=== PATIENT | female | born 1940 | race African-American/Black ===

== ENCOUNTER → 2016-06-12 | Outpatient (CLI) | payer MEDICARE ==
[2016-03-26 11:22] VITALS: BP 151/75
[~2016-06-12] MED LIST: ALBU0.63 NEB; AMLO10TA2 PO; ASPI325T4 PO; ATORVASTATIN CA80 MG PO; BUDE10.2 IH; CALC0.25 PO; CHOL2000 PO; CLON0.1T PO; DICL100G7 TP; DICL112S2 TP; DICY10CA3 PO; FLUT9.9S NS; FURO80TA3 PO; GABA-585 PO; INSU100I17 SQ; INSU300I SQ; METO25TA4 PO; NITR0.4T6 SL; OMEP40CA5 PO; OXYC-323 PO; OXYC5TAB PO; PROAIR HFA8.5 GM INH; SODI650T PO; SPIR25TA3 PO; TIZA4TAB PO; TRIA15OI TP
--- NOTE | 2016-06-12 12:13 | KCIC ---
Examination: MRI of the left knee without contrast. HISTORY History of bilateral knee pain ,right greater than left, instability, swelling. COMPARISON None available. TECHNIQUE Multiplanar, multisequence MR imaging of the left knee are contrast Findings: The anterior cruciate ligament, posterior cruciate ligament appears intact. There is complete attenuated appearance of the body of the medial meniscus with diffuse increase in signal identified throughout the visualized medial meniscus likely due to severe degeneration. The lateral meniscus grossly appears intact. The medial collateral ligament is intact. The lateral collateral ligamentous complex including the fibular collateral ligament, biceps femoris tendon, popliteus tendon grossly appears intact. The extensor mechanism is intact. Mild tendinosis infrapatellar tendon. Small knee joint effusion identified. There is complete cartilage loss identified in the weightbearing portion of the medial compartment with subchondral cysts in identified in the medial femoral condyle. There is near-complete cartilage loss identified in the weightbearing portion of the lateral femoral condyle and the patellofemoral compartment. Small knee joint effusion identified. There is a small popliteal cyst identified. Moderate amount of subcutaneous edema identified about the knee joint and distal thigh region. There is severe joint space loss identified in the medial, lateral, patellofemoral compartment most severe in the medial compartment. Moderate size osteophyte formation identified in the medial compartment. Small osteophyte formation in the lateral, patellofemoral compartment. Fatty atrophic changes identified in the muscles of the around the knee joint. Impression : - Severe tricompartmental degenerative changes, most severe in the medial compartment. 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 Grade 2 chondromalacia identified in the lateral, patellofemoral compartment. - Moderate knee joint effusion with small popliteal cyst. - Moderate amount of subcutaneous edema identified about the knee joint and lower thigh region, nonspecific. - Complete attenuated appearance of the body of the medial meniscus with increased signal identified throughout the medial meniscus likely due to degeneration. Electronically signed by: Froylan Olvera (Jun 12, 2016 12:12:01)
--- NOTE | 2016-06-12 13:06 | KCIC ---
Examination: MRI of the right knee without contrast. HISTORY History of chronic knee pain, instability, swelling. COMPARISON None available. TECHNIQUE Multiplanar, multisequence MR imaging of the right knee was performed without contrast Findings: The anterior cruciate ligament, posterior cruciate ligament appear intact. Attenuated appearance of the body of the medial meniscus with increased signal in the undersurface of the posterior horn of the medial meniscus likely due to degeneration. The medial collateral ligament appears intact. The lateral collateral ligamentous complex including the fibular collateral ligament, biceps femoris tendon, popliteus tendon appear intact. The extensor mechanism is intact. Mild tendinosis infrapatellar tendon. There is mild tendinosis of the quadriceps tendon. Minimal knee joint effusion identified. Small subchondral cystic changes identified in the medial compartment. There is complete cartilage loss identified in the weightbearing portion of the medial compartment, near complete cartilage loss identified in the weightbearing portion of the lateral compartment. There is deep fissuring of cartilage identified in the patellofemoral compartment. The medial, lateral retinacula appear intact. Moderate subcutaneous edema identified about the knee joint and distal thigh region. Small popliteal cyst is noted. Large osteophyte formation identified in the medial, lateral, patellofemoral compartments. IMPRESSION - Severe tricompartmental degenerative changes, most in the medial compartment. - Attenuated appearance of the medial meniscus likely due to degeneration. - Small knee joint effusion with small popliteal cyst. - Moderate amount of edema identified around the knee joint and the distal thigh region in the subcutaneous region, nonspecific. Electronically signed by: Froylan Olvera (Jun 12, 2016 13:05:52)
== END | disposition home or self-care (01) ==
LOC: KCIC MRI 10:48
PROVIDERS: ATTEND Physical Medicine & Rehabilitation
DX: M17.0 Bilateral primary osteoarthritis of knee (principal); M25.461 Effusion, right knee
CPT/HCPCS: 73721

== ENCOUNTER → 2016-12-13 | Outpatient (CLI) | payer BC ==
[2016-03-26 11:22] VITALS: BP 151/75
[~2016-12-13] MED LIST changes: -ASPI325T4 PO; +ASPI325T8 PO; +DICL100G18 TP; -DICL100G7 TP; +NITR0.4T22 SL; -NITR0.4T6 SL
== END | disposition home or self-care (01) ==
LOC: LAB 11:17
PROVIDERS: ATTEND Internal Medicine
DX: N18.6 End stage renal disease (principal); Z68.36 Body mass index [BMI] 36.0-36.9, adult
CPT/HCPCS: 36415; 86704; 87340; 87341

== ENCOUNTER → 2016-12-13 | Outpatient (CLI) | payer BC ==
[2016-03-26 11:22] VITALS: BP 151/75
--- NOTE | 2016-12-13 12:37 | RAD ---
Indication end-stage renal disease. Patient starting dialysis. PA and lateral views of the chest were obtained. Comparison is made to a single view examination 11/18/2015. There is unchanged cardiomegaly. Somewhat tortuous thoracic aorta is noted appearing similar. There is no gross congestive heart failure. There is no consolidated pneumonia significant pleural fluid collection or pneumothorax. A significant change in the appearance of the chest compared to the prior exam is not seen. IMPRESSION: No acute finding or significant change
== END | disposition home or self-care (01) ==
LOC: RAD 11:24
PROVIDERS: ATTEND Internal Medicine Nephrology
DX: N18.6 End stage renal disease (principal)
CPT/HCPCS: 71020

== ENCOUNTER 2017-08-28 14:30 | Emergency (ER) | payer BC ==
[2017-08-28 15:20] LABS: ADD MAN DIFF? NO
[2017-08-28 15:24] LABS: BASO % 1 % (0-3); EOS # 0.2 x10^3/uL (0.0-0.7); EOS % 4 % (0-3); HEMATOCRIT 23.2 % (36.0-47.0); HEMOGLOBIN 7.5 g/dL (12.0-15.5); LYMPH # 1.7 x10^3/uL (1.0-4.8); LYMPH % 39 % (24-48); MEAN CORPUSCULAR HEMOGLOBIN 35 pg (25-35); MEAN CORPUSCULAR HGB CONC 32 g/dL (31-37); MEAN CORPUSCULAR VOLUME 107 fL (79-100); MONO # 0.3 x10^3/uL (0.0-1.1); MONO % 6 % (0-9); NEUT # 2.1 x10^3uL (1.8-7.7); NEUT % 50 % (31-73); PLATELET COUNT 251 x10^3/uL (140-400); RED BLOOD COUNT 2.17 x10^6/uL (3.50-5.40); RED CELL DISTRIBUTION WIDTH 20.7 % (11.5-14.5); WHITE BLOOD COUNT 4.3 x10^3/uL (4.0-11.0)
[2017-08-28 15:33] LABS: PARTIAL THROMBOPLASTIN TIME 33 SEC (24-38); PROTHROMBIN TIME PATIENT 12.4 SEC (11.7-14.0)
[2017-08-28 15:36] LABS: ANION GAP 9 (6-14); BLOOD UREA NITROGEN 17 mg/dL (7-20); BUN/CREATININE RATIO 11 (6-20); CALCIUM 8.5 mg/dL (8.5-10.1); CARBON DIOXIDE 28 mmol/L (21-32); CHLORIDE 105 mmol/L (98-107); CREATININE 1.6 mg/dL (0.6-1.0); GLUCOSE 142 mg/dL (70-99); POTASSIUM 3.3 mmol/L (3.5-5.1); SODIUM 142 mmol/L (136-145)
[2017-08-28 15:42] LABS: ALBUMIN 2.9 g/dL (3.4-5.0); ALBUMIN/GLOBULIN RATIO 0.9 (1.0-1.7); ALK PHOS 136 U/L (46-116); ALT (SGPT) 10 U/L (14-59); AST (SGOT) 13 U/L (15-37); TOTAL BILIRUBIN 0.2 mg/dL (0.2-1.0); TOTAL PROTEIN 6.2 g/dL (6.4-8.2)
[2017-08-28 16:06] LABS: PLT ESTIMATE ADEQUATE (ADEQUATE)
[2017-08-28 16:07] LABS: ANISOCYTOSIS MOD; POIKILOCYTOSIS SLIGHT; POLYCHROMASIA SLIGHT
== END 2017-08-28 16:46 | disposition home or self-care (01) ==
LOC: ER 14:30
DX: N18.6 End stage renal disease (principal); D64.9 Anemia, unspecified; E11.22 Type 2 diabetes mellitus with diabetic chronic kidney disease; I13.2 Hypertensive heart and chronic kidney disease with heart failure and with stage 5 chronic kidney disease, or end stage renal disease; I50.9 Heart failure, unspecified; E11.40 Type 2 diabetes mellitus with diabetic neuropathy, unspecified; Z99.2 Dependence on renal dialysis; J44.9 Chronic obstructive pulmonary disease, unspecified; K21.9 Gastro-esophageal reflux disease without esophagitis; I25.10 Atherosclerotic heart disease of native coronary artery without angina pectoris; Z79.4 Long term (current) use of insulin; Z88.6 Allergy status to analgesic agent; Z88.8 Allergy status to other drugs, medicaments and biological substances; Z91.041 Radiographic dye allergy status
CPT/HCPCS: 36415; 80053; 85025; 85610; 85730; 86850; 86900; 86901; 99284

== ENCOUNTER → 2018-02-18 | Outpatient (CLI) | payer BC ==
[2017-08-28 16:15] VITALS: BP 130/57
[~2018-02-18] MED LIST changes: -AMLO10TA2 PO; +AMLO10TA4 PO; +AMLO10TA6 PO; +ASPI325T11 PO; +CHOL10003 PO; +FLUT16SP NS; +FURO80TA72 PO; +GABA600T2 PO; +LISI-334 PO; +METO-239 PO; +MIDO2.5T PO; +NITR0.4T SL; -OXYC5TAB PO; +OXYC5TAB95 PO; +SPIR25TA PO; -SPIR25TA3 PO; +SPIR25TA5 PO; +TIZA4CAP3 PO; +TRIA80OI TP
--- NOTE | 2018-02-18 11:51 | CARD ---
MR#: [id number] Date of Study: 02/18/2018 Ordering Physician: CHRISTOPH NAGY, Referring Physician: CHRISTOPH NAGY, Tech: Donna Del Cid APPROVED REPORT EXAM: Two-dimensional and M-mode echocardiogram with Doppler and color Doppler. Other Information Quality : AverageHR: 78bpm INDICATION Dizziness and Vertigo RISK FACTORS Hypertension Hyperlipidemia Diabetes 2D DIMENSIONS RVDd2.8 (2.9-3.5cm)Left Atrium(2D)3.9 (1.6-4.0cm) IVSd1.1 (0.7-1.1cm)Aortic Root(2D)3.6 (2.0-3.7cm) LVDd4.8 (3.9-5.9cm)LVOT Diameter2.4 (1.8-2.4cm) PWd1.3 (0.7-1.1cm)LVDs3.4 (2.5-4.0cm) FS (%) 28.8 %SV60.2 ml LVEF(%)55.4 (>50%) Aortic Valve AoV Peak Ovidio.137.8cm/sAoV VTI29.4cm AO Peak GR.7.6mmHgLVOT Peak Ovidio.98.9cm/s AO Mean GR.4mmHgAVA (VMAX)3.35cm2 Mitral Valve MV E Tgagdaju90.5cm/sMV DECEL UETH380tr MV A Dnsbpurz015.5cm/sE/A Ratio0.5 Pulmonary Valve PV Peak Ifasqgli108.5cm/s Tricuspid Valve TR P. Trkmwlfy223ml/sRAP DXPXQKBX2jjNa TR Peak Gr.26qnFnMFWD81mdCj Pulmonary Vein S1 Licooycu56.6cm/sD2 Ckzvwzfq55.1cm/s PVa dclxarvx520vvis LEFT VENTRICLE The left ventricle is normal size. There is borderline to mild concentric left ventricular hypertroph y. The left ventricular systolic function is normal. The Ejection Fraction is 55-60%. There is normal LV segmental wall motion. Transmitral Doppler flow pattern is Grade I-abnormal relaxation pattern. RIGHT VENTRICLE The right ventricle is normal size. There is normal right ventricular wall thickness. The right ventr icular systolic function is normal. ATRIA The left atrium size is normal. The right atrium size is normal. The interatrial septum is intact wit h no evidence for an atrial septal defect or patent foramen ovale as noted on 2-D or Doppler imaging. AORTIC VALVE The aortic valve is mildly thickened but opens well. Doppler and Color Flow revealed mild aortic regu rgitation. Calculated aortic valve area is 3.6 cm2 with maximum pressure gradient of 8 mmHg and mean pressure gradient of 4 mmHg. MITRAL VALVE The mitral valve is thickened but opens well. There is no mitral valve stenosis. Doppler and Color-fl ow revealed trace mitral regurgitation. TRICUSPID VALVE The tricuspid valve is not well visualized. Doppler and Color Flow revealed no tricuspid valve regurg itation noted. There is no tricuspid valve stenosis. PULMONIC VALVE The pulmonary valve is normal in structure and function. Doppler and Color Flow revealed trace pulmon ic valvular regurgitation. GREAT VESSELS The aortic root is normal in size. Normal pulmonary venous flow (Doppler). The IVC is normal in size and collapses >50% with inspiration. PERICARDIAL EFFUSION There is no evidence of significant pericardial effusion. Critical Notification Critical Value: No <Conclusion> The left ventricular systolic function is normal. The Ejection Fraction is 55-60%. There is normal LV segmental wall motion. Transmitral Doppler flow pattern is Grade I-abnormal relaxation pattern. Mild aortic regurgitation. Trace mitral regurgitation. There is no evidence of significant pericardial effusion. Signed by : Andrea Calderon, Electronically Approved : 02/18/2018 11:50:02
== END | disposition home or self-care (01) ==
LOC: ECHO 09:56
PROVIDERS: ATTEND Internal Medicine Cardiovascular Disease
DX: I35.1 Nonrheumatic aortic (valve) insufficiency (principal); I10 Essential (primary) hypertension; E78.5 Hyperlipidemia, unspecified; E11.9 Type 2 diabetes mellitus without complications; Z79.4 Long term (current) use of insulin
CPT/HCPCS: 93306

== ENCOUNTER → 2018-06-12 | Outpatient (CLI) | payer BC ==
[2018-05-07 11:02] VITALS: BP 103/50
[~2018-06-12] MED LIST changes: +ALBU2.5V8 INH; -AMLO10TA6 PO; +AMLO10TA8 PO; +BARIUM SULFATE 340 GM SUSPENSION. PO ONE; +BARIUM SULFATE 60% 355 ML SUSP PO ONE; +BIOT5CAP3 PO; +CALC667T PO; +CETI10TA22 PO; +CINA30TA2 PO; -GABA600T2 PO; +GABA600T7 PO; +LIDO30CR TP; +LINZESS145 MCG PO; +LOPE2CAP88 PO; +NYST1POW2 PO; +ONDA8TAB9 PO; -OXYC-323 PO; +OXYC1TAB15 PO; +OXYC5TAB4 PO; -OXYC5TAB95 PO; -PROAIR HFA8.5 GM INH; +SENN-82 PO; +SIMETHICONE/SOD BICARB/CITRIC ACID PACKET. PO ONE; +VENTOLIN HFA18 GM INH; +VIT1TABL57 PO
--- NOTE | 2018-06-12 10:44 | RAD ---
Examination: ESOPHAGRAM/BARIUM SWALLOW History: sore throat/ hoarseness/ food stuck and feels like its coming back up/ hard to swallow/ 8 images/ 1.4 Comparison/Correlation: None Findings: There contrast and tail contrast esophagram was performed. Fluoroscopy was utilized for 1.4 minutes. Total of 8 images acquired. Due to patient's physical limitations, the exam was performed primarily with her lying on her right side and in the prone GUTIERREZ position. Few images were obtained with the patient standing. Esophageal motility is normal. Normal distention of the esophagus is evident. No strictures, webs, or diverticuli. At the cervical esophageal level, degenerative spurring of the cervical spine anteriorly is present with indentation along the posterior margin of the cervical esophagus. This is from the C4-C7 levels. No hiatal hernia is elicited on prone Valsalva drinking views. No reflux. Impression: Spurring of the lower cervical spine with subtle effacement of the posterior contour of the cervical esophagus. No suspicious filling defects or strictures. Motility is unremarkable. Electronically signed by: Scott Hernandez MD (06/12/2018 10:40 AM) [facility]
== END | disposition home or self-care (01) ==
LOC: RAD 09:37
PROVIDERS: ATTEND Internal Medicine
DX: R13.14 Dysphagia, pharyngoesophageal phase (principal); I11.0 Hypertensive heart disease with heart failure; I50.9 Heart failure, unspecified; E78.00 Pure hypercholesterolemia, unspecified; J44.9 Chronic obstructive pulmonary disease, unspecified; E66.9 Obesity, unspecified; K21.9 Gastro-esophageal reflux disease without esophagitis; M19.90 Unspecified osteoarthritis, unspecified site; E03.9 Hypothyroidism, unspecified
CPT/HCPCS: 74220

== ENCOUNTER 2018-07-07 16:58 | Inpatient (IN) | payer BC ==
[~2018-07-07] VITALS: Ht 160 cm; Wt 97.6 kg
[~2018-07-07 16:58] MED LIST changes: -BARIUM SULFATE 340 GM SUSPENSION. PO ONE; -BARIUM SULFATE 60% 355 ML SUSP PO ONE; -CALC667T PO; +CALC667T4 PO; -SIMETHICONE/SOD BICARB/CITRIC ACID PACKET. PO ONE
[2018-07-07 17:48] LABS: BASO % 1 % (0-3); EOS # 0.4 x10^3/uL (0.0-0.7); EOS % 8 % (0-3); HEMATOCRIT 28.9 % (36.0-47.0); LYMPH # 1.4 x10^3/uL (1.0-4.8); LYMPH % 27 % (24-48); MEAN CORPUSCULAR HEMOGLOBIN 32 pg (25-35); MEAN CORPUSCULAR HGB CONC 31 g/dL (31-37); MEAN CORPUSCULAR VOLUME 101 fL (79-100); MONO # 0.6 x10^3/uL (0.0-1.1); MONO % 11 % (0-9); NEUT # 2.7 x10^3uL (1.8-7.7); NEUT % 53 % (31-73); PLATELET COUNT 246 x10^3/uL (140-400); RED BLOOD COUNT 2.86 x10^6/uL (3.50-5.40); RED CELL DISTRIBUTION WIDTH 19.6 % (11.5-14.5); WHITE BLOOD COUNT 5.2 x10^3/uL (4.0-11.0)
[2018-07-07 17:53] LABS: PROTHROMBIN TIME PATIENT 14.3 SEC (11.7-14.0)
[2018-07-07 17:55] LABS: CALCIUM 8.4 mg/dL (8.5-10.1); CREATININE 3.6 mg/dL (0.6-1.0); GFR 14.9; POTASSIUM 4.1 mmol/L (3.5-5.1)
[2018-07-07 18:01] LABS: ALBUMIN 2.6 g/dL (3.4-5.0); ALBUMIN/GLOBULIN RATIO 0.6 (1.0-1.7); MAGNESIUM 2.1 mg/dL (1.8-2.4); TOTAL BILIRUBIN 0.2 mg/dL (0.2-1.0); TOTAL PROTEIN 7.2 g/dL (6.4-8.2)
--- NOTE | 2018-07-07 18:01 | PHYS DOC ---
Past Medical History Past Medical History: CAD, COPD, Diabetes-Type II, GERD, Hypertension, Renal Failure, Other Additional Past Medical Histor: Neuropathy (ELENA LAKHANI MD) Past Surgical History: Cholecystectomy, Hysterectomy, Other Additional Past Surgical Histo: shunt placement left forearm, gastric bypass (ELENA LAKHANI MD) Alcohol Use: None Drug Use: None (ELENA LAKHANI MD) Adult General Chief Complaint Chief Complaint: NEURO SYMPTOMS/DEFICITS HPI HPI Patient is a 78 year old female female by her daughter because of altered level of consciousness. Patient was not her usual condition 5 days ago by her daughter and today was found confused with decrease of level of consciousness by her daughter at 1540 and brought POV to ER. Patient's daughter states she usually gets confused after dialysis with increased facial parsley but today had slurred speech also with increase of confusion. Patient is lethargic but follows the commands and unable to give history. (ELENA LAKHANI MD) Review of Systems Review of Systems Unable to obtain because of altered level of consciousness (ELENA LAKHANI MD) Allergies Allergies Allergies Coded Allergies Type Severity Reaction Last Updated Verified NSAIDS (Non-Steroidal Anti-Inflamma Allergy Severe Swelling 07/27/17 Yes pregabalin Allergy Severe Swelling 05/03/18 Yes tramadol Allergy Severe Swelling 05/03/18 Yes Iodinated Contrast- Oral and IV Dye Allergy Intermediate ITCHING/HIVES Yes Iodine and Iodide Containing Produc Allergy Intermediate ITCHING/HIVES Yes ibuprofen Adverse Reaction Intermediate UPSET STOMACH 05/03/18 Yes (RAMONA HONG MD) Physical Exam Physical Exam Constitutional: Well nourished, mild distress, non-toxic appearance, lethargic. [] HENT: Normocephalic, atraumatic Eyes: PERRLA, EOMI, conjunctiva normal, no discharge. [] Neck: Normal range of motion, no tenderness, supple, no stridor. [] Cardiovascular:Heart rate regular rhythm, systolic murmur [] Lungs & Thorax: Bilateral breath sounds clear to auscultation [] Abdomen: Bowel sounds normal, soft, no tenderness, no masses, no pulsatile masses. [] Skin: Warm, dry, no erythema, no rash. [] Back: No tenderness, no CVA tenderness. [] Extremities: No tenderness, no cyanosis, no clubbing, ROM intact, no edema. [] Neurologic: Alert and oriented X 1, moving all extremities, facial droop. Limited exam because of altered level of consciousness (ELENA LAKHANI MD) Current Patient Data Vital Signs Vital Signs Date Time Temp Pulse Resp B/P (MAP) Pulse Ox O2 Delivery O2 Flow Rate FiO2 07/07/18 16:58 97.3 81 12 89/55 (66) 95 Room Air 97.3 (RAMONA HONG MD) Lab Values Laboratory Tests Test 07/07/18 17:02 07/07/18 17:31 07/07/18 18:00 07/07/18 19:02 Glucose (Fingerstick) 152 mg/dL (70-99) H White Blood Count 5.2 x10^3/uL (4.0-11.0) Red Blood Count 2.86 x10^6/uL (3.50-5.40) L Hemoglobin 9.0 g/dL (12.0-15.5) L Hematocrit 28.9 % (36.0-47.0) L Mean Corpuscular Volume 101 fL (79-100) H Mean Corpuscular Hemoglobin 32 pg (25-35) Mean Corpuscular Hemoglobin Concent 31 g/dL (31-37) Red Cell Distribution Width 19.6 % (11.5-14.5) H Platelet Count 246 x10^3/uL (140-400) Neutrophils (%) (Auto) 53 % (31-73) Lymphocytes (%) (Auto) 27 % (24-48) Monocytes (%) (Auto) 11 % (0-9) H Eosinophils (%) (Auto) 8 % (0-3) H Basophils (%) (Auto) 1 % (0-3) Neutrophils # (Auto) 2.7 x10^3uL (1.8-7.7) Lymphocytes # (Auto) 1.4 x10^3/uL (1.0-4.8) Monocytes # (Auto) 0.6 x10^3/uL (0.0-1.1) Eosinophils # (Auto) 0.4 x10^3/uL (0.0-0.7) Basophils # (Auto) 0.0 x10^3/uL (0.0-0.2) Segmented Neutrophils % 53 % (35-66) Lymphocytes % 29 % (24-48) Monocytes % 7 % (0-10) Eosinophils % 9 % (0-5) H Metamyelocytes % 2 % (0-0) H Platelet Estimate Adequate (ADEQUATE) Polychromasia Slight Hypochromasia Slight Anisocytosis Slight Prothrombin Time 14.3 SEC (11.7-14.0) H Prothrombin Time INR 1.1 (0.8-1.1) PTT 38 SEC (24-38) Sodium Level 141 mmol/L (136-145) Potassium Level 4.1 mmol/L (3.5-5.1) Chloride Level 101 mmol/L (98-107) Carbon Dioxide Level 25 mmol/L (21-32) Anion Gap 15 (6-14) H Blood Urea Nitrogen 24 mg/dL (7-20) H Creatinine 3.6 mg/dL (0.6-1.0) H Estimated GFR (Cockcroft-Gault) 14.9 BUN/Creatinine Ratio 7 (6-20) Glucose Level 169 mg/dL (70-99) H Lactic Acid Level 1.5 mmol/L (0.4-2.0) Calcium Level 8.4 mg/dL (8.5-10.1) L Magnesium Level 2.1 mg/dL (1.8-2.4) Total Bilirubin 0.2 mg/dL (0.2-1.0) Aspartate Amino Transferase (AST) 25 U/L (15-37) Alanine Aminotransferase (ALT) 10 U/L (14-59) L Alkaline Phosphatase 219 U/L (46-116) H Ammonia 25 mcmol/L (11-34) Creatine Kinase 66 U/L (26-192) Creatine Kinase MB (Mass) 0.5 ng/mL (0.0-3.6) Creatine Kinase MB Relative Index % (0-4) Troponin I Quantitative < 0.017 ng/mL (0.000-0.055) NT-Aeg-Y-Type Natriuretic Peptide 5058 pg/mL (0-449) H Total Protein 7.2 g/dL (6.4-8.2) Albumin 2.6 g/dL (3.4-5.0) L Albumin/Globulin Ratio 0.6 (1.0-1.7) L Urine Opiates Screen Pos (NEG) Urine Methadone Screen Neg (NEG) Urine Barbiturates Neg (NEG) Urine Phencyclidine Screen Neg (NEG) Urine Amphetamine/Methamphetamine Neg (NEG) Urine Benzodiazepines Screen Neg (NEG) Urine Cocaine Screen Neg (NEG) Urine Cannabinoids Screen Neg (NEG) Urine Ethyl Alcohol Neg (NEG) POC Venous pH 7.38 (7.32-7.42) POC Venous pCO2 32 mmHg (41-51) L POC Venous pO2 124 mmHg (20-40) H Venous Blood HCO3 19 mmol/L (24-28) L POC Venous O2 Saturation (Marcelino) 99 % POC FiO2 21.0 Laboratory Tests 07/07/18 17:31 Laboratory Tests 07/07/18 17:31 (RAMONA HONG MD) EKG EKG EKG interpreted by me. EKG at 1704 showed normal sinus rhythm at rate of 67, prolonged VT interval at 226, left fourth axis, poor R-wave progress in anteroseptal leads, no acute ST and T-wave abnormalities. (ELENA LAKHANI MD) Radiology/Procedures Radiology/Procedures [] (ELENA LAKHANI MD) Radiology/Procedures PROCEDURE: CT HEAD WO CONTRAST CT HEAD WO CONTRAST History: Altered level of consciousness for 5 days Comparison: None. Technique: Noncontrast CT imaging was performed of the head. Exposure: One or more of the following individualized dose reduction techniques were utilized for this examination: 1. Automated exposure control 2. Adjustment of the mA and/or kV according to patient size 3. Use of iterative reconstruction technique. Findings: No acute extra-axial or parenchymal hemorrhage is identified. There is no significant intra-axial mass effect, midline shift, or extra-axial fluid collection. The coates-white differentiation of the major vascular territories is preserved. The ventricles, sulci, and cisterns are within normal limits in size and configuration. The mastoid air cells and the visualized paranasal sinuses are aerated. No acute calvarial abnormality is identified. There is atherosclerotic calcification carotid siphons bilaterally, also intradural vertebral arteries greater on the right. Impression: 1. No acute intracranial abnormality is identified. Impressions: ER physician preliminary chest x-ray interpretation: No acute disease. (RAMONA HONG MD) Course & Med Decision Making Course & Med Decision Making Pertinent Labs and Imaging studies are pending. Evaluation of patient in ER showed 78 year old female patient with history of chronic renal failure on dialysis brought in by family members because of increased confusion and lethargic. Labs and CT head is pending. Blood pressure of 90s and according to her daughter it was her baseline blood pressure. Patient care transferred to Dr. Hong at 1800 (ELENA LAKHANI MD) Course & Med Decision Making Patient care was assumed from Dr. Lakhani, at 6 PM the patient has a history of bacteremia and apparently gets Ancef with her dialysis. Family states she has been increasingly lethargic and weak after dialysis, more so than his baseline for her. The patient is feeling somewhat better at this time. Her evaluation in the emergency department is unremarkable. I discussed the case with her PCP B that overnight for further evaluation and treatment. (RAMONA HONG MD) Dragon Disclaimer Dragon Disclaimer This electronic medical record was generated, in whole or in part, using a voice recognition dictation system. (ELENA LAKHANI MD) Departure Departure Impression: Primary Impression: Change in mental status Additional Impression: ESRD (end stage renal disease) Disposition: 09 ADMITTED INPATIENT Admitting Physician: Samira Elena (RAMONA HONG MD) Condition: STABLE Referrals: SAMIRA ELENA MD (PCP) Problem Qualifiers ELENA LAKHANI MD Jul 07, 2018 18:01 RAMONA HONG MD Jul 07, 2018 18:57
[2018-07-07 18:09] LABS: CREATINE KINASE 66 U/L (26-192)
--- NOTE | 2018-07-07 18:19 | EKG ---
[facility] [address] [place] [address] Test Date: 2018-07-07 Test Time: 17:04:28 Pat Name: SHLOMO LATIF Department: Room: Gender: F Polysomnograph Tech: : 1940 Requested By: ELENA LAKHANI Order Number: [id number] Reading MD: Wood Bailey MD Measurements Intervals [place] Rate: 67 P: 46 [place]: 226 QRS: -9 QRSD: 86 T: 36 QT: 426 QTc: 453 Interpretive Statements SINUS RHYTHM PROLONGED [place] INTERVAL Electronically Signed On 07-08-2018 7:07:42 [employer] by Wood Bailey MD
[2018-07-07 18:22] LABS: AMPHETAMINE/METHAMPHETAMINE NEG (NEG); BARBITURATES NEG (NEG); BENZODIAZEPINES NEG (NEG); CANNABINOIDS NEG (NEG); COCAINE NEG (NEG); METHADONE NEG (NEG); OPIATES POS (NEG); PHENCYCLIDINE NEG (NEG)
[2018-07-07 18:40] LABS: % EOS 9 % (0-5); % LYMPHS 29 % (24-48); % METAS 2 % (0-0); % MONOS 7 % (0-10); % SEGS 53 % (35-66); PLT ESTIMATE ADEQUATE (ADEQUATE)
--- NOTE | 2018-07-07 18:40 | RAD ---
CT HEAD WO CONTRAST History: Altered level of consciousness for 5 days Comparison: None. Technique: Noncontrast CT imaging was performed of the head. Exposure: One or more of the following individualized dose reduction techniques were utilized for this examination: 1. Automated exposure control 2. Adjustment of the mA and/or kV according to patient size 3. Use of iterative reconstruction technique. Findings: No acute extra-axial or parenchymal hemorrhage is identified. There is no significant intra-axial mass effect, midline shift, or extra-axial fluid collection. The coates-white differentiation of the major vascular territories is preserved. The ventricles, sulci, and cisterns are within normal limits in size and configuration. The mastoid air cells and the visualized paranasal sinuses are aerated. No acute calvarial abnormality is identified. There is atherosclerotic calcification carotid siphons bilaterally, also intradural vertebral arteries greater on the right. Impression: 1. No acute intracranial abnormality is identified. Electronically signed by: Obi Marmolejo MD (07/07/2018 6:37 PM) [facility]
[2018-07-07 18:42] LABS: ANISOCYTOSIS SLIGHT; HYPOCHROMIA SLIGHT; POLYCHROMASIA SLIGHT
[2018-07-07 19:08] LABS: ISTAT BE VENOUS -6 mmol/L (0-3); ISTAT HCO3 VEN 19 mmol/L (24-28); ISTAT PCO2 VEN 32 mmHg (41-51); ISTAT PH VEN 7.38 (7.32-7.42); ISTAT PO2 VEN 124 mmHg (20-40); ISTAT SAT O2 VEN 99 %; ISTAT TCO2 VEN 20 mmol/L (21-32)
[2018-07-07 21:15] VITALS: BP 158/83
[2018-07-07 23:00] VITALS: BP 133/64
--- NOTE | 2018-07-07 23:29 | RAD ---
PORTABLE CHEST 1V History: altered level of consciousness Comparison: May 06, 2018 Findings: AP view of the chest is submitted. There is again tortuous, possibly ectatic thoracic aorta. Heart size is similar allowing for lesser degree of inspiration for this exam. There is no significant dependent pleural fluid or pneumothorax. No lobar consolidation is identified. There is likely some atelectasis left lung base. Impression: 1. There is likely left base atelectasis. Electronically signed by: Obi Marmolejo MD (07/07/2018 11:27 PM) [facility]
[2018-07-08] MEDS ORDERED: FURO20TA3 PO (00:21)
[2018-07-08] MEDS ORDERED: MIDO5TAB PO (00:29)
[2018-07-08 03:00] VITALS: BP 129/61
[2018-07-08 07:00] VITALS: BP 130/64
[2018-07-08] MEDS ORDERED: METO-239 PO (07:54)
[2018-07-08] MEDS ORDERED: LANACANE TOP (08:12)
--- NOTE | 2018-07-08 09:02 | PDOC2 ---
CONSULT Date of Consult Date of Consult DATE: 07/08/18 TIME: 09:00 Reason for Consult Reason for Consult: ESRD Identification/Chief Complaint Chief Complaint No complaints currently Source Source: Chart review, Patient History of Present Illness Reason for Visit: Pt is a 78-year-old AAFm, ESRD on HD MWF - last Dialysis yesterday as per Pt . She was brought in to Ed by family members because of increased confusion and lethargic. Her BP in ED was 90-'s -normal for her as per daughter .. Family reported she has been increasingly lethargic and weak after dialysis, more so than his baseline for her. She was hospitalized recently with history of bacteremia and apparently gets Ancef with her dialysis Currently no family at bedside. Pt awake and alert, denies any complaints. Denies any CP or SOB. Reports Last HD yesterday. States has good RRF, has been on HD for approx a year. Denies any symptoms of UTI. No abdominal pain, N/V. Past Medical History Cardiovascular: CAD, CHF, Hyperlipidemia Pulmonary: Asthma, COPD, Other CENTRAL NERVOUS SYSTEM: Periperal neuropathy, Other GI: Diverticulosis, GERD, Peptic Ulcer disease Heme/Onc: Iron deficiency Anemia Musculoskeletal: low back pain, Other Rheumatologic: Fibromyalgia Renal/: Chronic renal failure Endocrine: Diabetes, Hyperparathyroidism Past Surgical History Past Surgical History: Cholecystectomy, Hysterectomy, Other Family History Family History: Hypertension Social History ALCOHOL: none Drugs: None Lives: with Family Current Problem List Problem List Problems Medical Problems: (1) ESRD (end stage renal disease) Status: Acute Current Medications Current Medications Active Scripts Active Reported [lanacane cream] 1 Stefano TOP PRN PRN Metoprolol Succinate ( Xl ) (Metoprolol Succinate) 25 Mg Tab.er.24h 0.5 Tab PO DAILY Midodrine Hcl 5 Mg Tablet 5 Mg PO TID Furosemide 20 Mg Tablet 20 Mg PO DAILY Ventolin Hfa Inhaler (Albuterol Sulfate) 18 Gm Hfa.aer.ad 2 Puff INH Q4HRS PRN Nephro-Neri Rx Tablet (Vit B Cmplx 3/Fa/Vit C/Biotin) 1 Each Tablet 1 Each PO DAILY Nystatin 1 Each Powder.ea. 1 Each PO BID PRN Calcium Acetate 667 Mg Tablet 667 Mg PO TIDWMEALS Linzess (Linaclotide) 145 Mcg Capsule 72 Mcg PO DAILY07 Imodium A-D (Loperamide HCl) 2 Mg Capsule 2 Mg PO PRN PRN Zofran (Ondansetron Hcl) 8 Mg Tablet 1 Tab PO Q12HR PRN Triamcinolone Acetonide 80 Gm Oint...g. 1 Stefano TP BID PRN Fluticasone Propionate Nasal Menominee (Fluticasone Propionate) 16 Gm Menominee.susp 2 [place]inee NS BID Calcitriol 0.25 Mcg Capsule 1 Cap PO DAILY Atorvastatin Calcium 80 Mg Tablet 80 Mg PO DAILY Novolog Flexpen (Insulin Aspart) 100 Unit/1 Ml Insuln.pen 1 Unit SQ [id number] Novolog FlexPen Sliding Scale: For fingerstick blood glucose: 150-200 take 2 units 201-250 take 4 units 251-300 take 6 units 301-350 take 8 units 351-400 take 10 units If blood glucose greater than [address] Corona. Voltaren (Diclofenac Sodium) 100 Gm Gel..gram. 1 Gm TP BID PRN Triamcinolone Acetonide 0.1% Oint (Triamcinolone Acetonide) 15 Gm Oint...g. 1 Stefano TP BID MIX WITH EUCERIN DIRECTED BY PHYSICIAN Tizanidine Hcl 4 Mg Tablet 1 Tab PO Q8HRS PRN Symbicort 160-4.5 Mcg Inhaler (Budesonide/Formoterol Fumarate) 10.2 Gm Hfa.aer.ad 2 Puff IH BID Sodium Bicarbonate 650 Mg Tablet 2 Tab PO BID Oxycodone Hcl Immed.release (Oxycodone Hcl) 5 Mg Tablet 1 Tab PO Q6HRS Omeprazole 40 Mg Capsule. 1 Cap PO DAILY Gabapentin (Gabapentin) 100 Mg Capsule 100 Mg PO TID Dicyclomine Hcl 10 Mg Capsule 10 Mg PO TID PRN Albuterol Sulfate Neb Soln (Albuterol Sulfate) 0.63 Mg/3 Ml Vial.neb 0.83 % NEB TID PRN Allergies Allergies: Coded Allergies: NSAIDS (Non-Steroidal Anti-Inflamma (Verified Allergy, Severe, Swelling, ) pregabalin (Verified Allergy, Severe, Swelling, 05/03/18) tramadol (Verified Allergy, Severe, Swelling, 05/03/18) Iodinated Contrast- Oral and IV Dye (Verified Allergy, Intermediate, ITCHING/HIVES, 07/25/17) Iodine and Iodide Containing Produc (Verified Allergy, Intermediate, ITCHING/HIVES, 05/03/18) ibuprofen (Verified Adverse Reaction, Intermediate, UPSET STOMACH, ) ROS Review of System As per HPI Physical Exam Physical Exam General: NAD HEENT: OM moist Neck Supple Lungs: CTA ant, non labored Heart: RRR Abdomen: Soft, Obese Extremities: No LE edema Skin: No rash Neuro: AXOX3 - No Saldivar Vital Signs Vital Signs Date Time Temp Pulse Resp B/P (MAP) Pulse Ox O2 Delivery O2 Flow Rate FiO2 07/08/18 07:00 98.4 71 17 130/64 (86) 99 Nasal Cannula 2.0 98.4 Assessment & Plan ESRD- MWF Last HD yesterday at OP unit Currently labs stable , clinically vol status stable No Urgent indication for HD today AMS- Currently Alert, oriented Defer to primary CAD/ Chronic diastolic CHF - Appears compensated DM2- as per primary Recent Bacteremia- was dced on Ancef as per ED note Defer to primary Anemia- Hgb lower than her baseline in may Defer to primary Discussed with sanitarian aide and Pt No family at bedside Labs Labs Laboratory Tests Test 07/07/18 17:02 07/07/18 17:31 07/07/18 18:00 07/07/18 19:02 Glucose (Fingerstick) 152 mg/dL (70-99) White Blood Count 5.2 x10^3/uL (4.0-11.0) Red Blood Count 2.86 x10^6/uL (3.50-5.40) Hemoglobin 9.0 g/dL (12.0-15.5) Hematocrit 28.9 % (36.0-47.0) Mean Corpuscular Volume 101 fL (79-100) Mean Corpuscular Hemoglobin 32 pg (25-35) Mean Corpuscular Hemoglobin Concent 31 g/dL (31-37) Red Cell Distribution Width 19.6 % (11.5-14.5) Platelet Count 246 x10^3/uL (140-400) Neutrophils (%) (Auto) 53 % (31-73) Lymphocytes (%) (Auto) 27 % (24-48) Monocytes (%) (Auto) 11 % (0-9) Eosinophils (%) (Auto) 8 % (0-3) Basophils (%) (Auto) 1 % (0-3) Neutrophils # (Auto) 2.7 x10^3uL (1.8-7.7) Lymphocytes # (Auto) 1.4 x10^3/uL (1.0-4.8) Monocytes # (Auto) 0.6 x10^3/uL (0.0-1.1) Eosinophils # (Auto) 0.4 x10^3/uL (0.0-0.7) Basophils # (Auto) 0.0 x10^3/uL (0.0-0.2) Segmented Neutrophils % 53 % (35-66) Lymphocytes % 29 % (24-48) Monocytes % 7 % (0-10) Eosinophils % 9 % (0-5) Metamyelocytes % 2 % (0-0) Platelet Estimate Adequate (ADEQUATE) Polychromasia Slight Hypochromasia Slight Anisocytosis Slight Prothrombin Time 14.3 SEC (11.7-14.0) Prothromb Time International Ratio 1.1 (0.8-1.1) Activated Partial Thromboplast Time 38 SEC (24-38) Sodium Level 141 mmol/L (136-145) Potassium Level 4.1 mmol/L (3.5-5.1) Chloride Level 101 mmol/L (98-107) Carbon Dioxide Level 25 mmol/L (21-32) Anion Gap 15 (6-14) Blood Urea Nitrogen 24 mg/dL (7-20) Creatinine 3.6 mg/dL (0.6-1.0) Estimated GFR (Cockcroft-Gault) 14.9 BUN/Creatinine Ratio 7 (6-20) Glucose Level 169 mg/dL (70-99) Lactic Acid Level 1.5 mmol/L (0.4-2.0) Calcium Level 8.4 mg/dL (8.5-10.1) Magnesium Level 2.1 mg/dL (1.8-2.4) Total Bilirubin 0.2 mg/dL (0.2-1.0) Aspartate Amino Transf (AST/SGOT) 25 U/L (15-37) Alanine Aminotransferase (ALT/SGPT) 10 U/L (14-59) Alkaline Phosphatase 219 U/L (46-116) Ammonia 25 mcmol/L (11-34) Creatine Kinase 66 U/L (26-192) Creatine Kinase MB (Mass) 0.5 ng/mL (0.0-3.6) Creatine Kinase MB Relative Index % (0-4) Troponin I Quantitative < 0.017 ng/mL (0.000-0.055) BW-Uel-S-Type Natriuretic Peptide 5058 pg/mL (0-449) Total Protein 7.2 g/dL (6.4-8.2) Albumin 2.6 g/dL (3.4-5.0) Albumin/Globulin Ratio 0.6 (1.0-1.7) Urine Opiates Screen Pos (NEG) Urine Methadone Screen Neg (NEG) Urine Barbiturates Neg (NEG) Urine Phencyclidine Screen Neg (NEG) Urine Amphetamine/Methamphetamine Neg (NEG) Urine Benzodiazepines Screen Neg (NEG) Urine Cocaine Screen Neg (NEG) Urine Cannabinoids Screen Neg (NEG) Urine Ethyl Alcohol Neg (NEG) Bedside Venous pH 7.38 (7.32-7.42) Bedside Venous pCO2 32 mmHg (41-51) Bedside Venous pO2 124 mmHg (20-40) Venous Blood HCO3 19 mmol/L (24-28) POC Venous O2 Saturation (Marcelino) 99 % Bedside FiO2 21.0 Test 07/07/18 21:47 07/08/18 07:36 Glucose (Fingerstick) 89 mg/dL (70-99) 74 mg/dL (70-99) Laboratory Tests Test 07/07/18 17:02 07/07/18 17:31 07/07/18 18:00 07/07/18 19:02 Glucose (Fingerstick) 152 mg/dL (70-99) White Blood Count 5.2 x10^3/uL (4.0-11.0) Red Blood Count 2.86 x10^6/uL (3.50-5.40) Hemoglobin 9.0 g/dL (12.0-15.5) Hematocrit 28.9 % (36.0-47.0) Mean Corpuscular Volume 101 fL (79-100) Mean Corpuscular Hemoglobin 32 pg (25-35) Mean Corpuscular Hemoglobin Concent 31 g/dL (31-37) Red Cell Distribution Width 19.6 % (11.5-14.5) Platelet Count 246 x10^3/uL (140-400) Neutrophils (%) (Auto) 53 % (31-73) Lymphocytes (%) (Auto) 27 % (24-48) Monocytes (%) (Auto) 11 % (0-9) Eosinophils (%) (Auto) 8 % (0-3) Basophils (%) (Auto) 1 % (0-3) Neutrophils # (Auto) 2.7 x10^3uL (1.8-7.7) Lymphocytes # (Auto) 1.4 x10^3/uL (1.0-4.8) Monocytes # (Auto) 0.6 x10^3/uL (0.0-1.1) Eosinophils # (Auto) 0.4 x10^3/uL (0.0-0.7) Basophils # (Auto) 0.0 x10^3/uL (0.0-0.2) Segmented Neutrophils % 53 % (35-66) Lymphocytes % 29 % (24-48) Monocytes % 7 % (0-10) Eosinophils % 9 % (0-5) Metamyelocytes % 2 % (0-0) Platelet Estimate Adequate (ADEQUATE) Polychromasia Slight Hypochromasia Slight Anisocytosis Slight Prothrombin Time 14.3 SEC (11.7-14.0) Prothromb Time International Ratio 1.1 (0.8-1.1) Activated Partial Thromboplast Time 38 SEC (24-38) Sodium Level 141 mmol/L (136-145) Potassium Level 4.1 mmol/L (3.5-5.1) Chloride Level 101 mmol/L (98-107) Carbon Dioxide Level 25 mmol/L (21-32) Anion Gap 15 (6-14) Blood Urea Nitrogen 24 mg/dL (7-20) Creatinine 3.6 mg/dL (0.6-1.0) Estimated GFR (Cockcroft-Gault) 14.9 BUN/Creatinine Ratio 7 (6-20) Glucose Level 169 mg/dL (70-99) Lactic Acid Level 1.5 mmol/L (0.4-2.0) Calcium Level 8.4 mg/dL (8.5-10.1) Magnesium Level 2.1 mg/dL (1.8-2.4) Total Bilirubin 0.2 mg/dL (0.2-1.0) Aspartate Amino Transf (AST/SGOT) 25 U/L (15-37) Alanine Aminotransferase (ALT/SGPT) 10 U/L (14-59) Alkaline Phosphatase 219 U/L (46-116) Ammonia 25 mcmol/L (11-34) Creatine Kinase 66 U/L (26-192) Creatine Kinase MB (Mass) 0.5 ng/mL (0.0-3.6) Creatine Kinase MB Relative Index % (0-4) Troponin I Quantitative < 0.017 ng/mL (0.000-0.055) BD-Nis-F-Type Natriuretic Peptide 5058 pg/mL (0-449) Total Protein 7.2 g/dL (6.4-8.2) Albumin 2.6 g/dL (3.4-5.0) Albumin/Globulin Ratio 0.6 (1.0-1.7) Urine Opiates Screen Pos (NEG) Urine Methadone Screen Neg (NEG) Urine Barbiturates Neg (NEG) Urine Phencyclidine Screen Neg (NEG) Urine Amphetamine/Methamphetamine Neg (NEG) Urine Benzodiazepines Screen Neg (NEG) Urine Cocaine Screen Neg (NEG) Urine Cannabinoids Screen Neg (NEG) Urine Ethyl Alcohol Neg (NEG) Bedside Venous pH 7.38 (7.32-7.42) Bedside Venous pCO2 32 mmHg (41-51) Bedside Venous pO2 124 mmHg (20-40) Venous Blood HCO3 19 mmol/L (24-28) POC Venous O2 Saturation (Marcelino) 99 % Bedside FiO2 21.0 Test 07/07/18 21:47 07/08/18 07:36 Glucose (Fingerstick) 89 mg/dL (70-99) 74 mg/dL (70-99) Review All relevant outside records, renal labs, imaging studies, telemetry/EKG's were reviewed. Images Images CxR-- 1. There is likely left base atelectasis. CT head- 1. No acute intracranial abnormality is identified. BRIEN GIRALDO MD Jul 08, 2018 09:02
[2018-07-08] MEDS ORDERED: ALBUTEROL SULFATE NEB PRN (10:15)
[2018-07-08] MEDS ORDERED: ENOXAPARIN 40 MG/0.4 ML SYRINGE. SQ SCH (10:15)
[2018-07-08] MEDS ORDERED: APP TOP PRN (10:15)
[2018-07-08] MEDS ORDERED: DEXTROSE 50% 25 GM / 50ML DISP.SYRIN. IV PRN (10:15)
--- NOTE | 2018-07-08 10:27 | PDOC ---
Provider Note Provider Note Pt seen.H&P dictated.#[id number] LYLE ELENA MD Jul 08, 2018 10:27
[2018-07-08] MEDS ORDERED: ALBUTEROL SULFATE 2.5 MG/3 ML NEBU. NEB PRN (10:45)
[2018-07-08] MEDS ORDERED: METOPROLOL SUCC 24HR ER 25 MG TAB.ER.24H. PO SCH (11:00)
[2018-07-08 11:19] VITALS: BP 106/53
[2018-07-08] MEDS: BUDESONIDE 0.5 MG/2 ML NEBU. NEB SCH ×2 (11:30→20:09)
[2018-07-08] MEDS: FOLIC/VIT B COMP W-C (RENAL) TABLET. PO SCH (11:31)
[2018-07-08] MEDS: SODIUM BICARBONATE 650 MG TABLET. PO SCH ×2 (11:31→22:04)
[2018-07-08] MEDS: FLUTICASONE 50MCG/NASAL SPRAY 16GM BOTTLE. NS SCH ×2 (11:31→22:03)
[2018-07-08] MEDS: INSULIN LISPRO 300 UNITS/3 ML INSULN.PEN. SQ SCH ×2 (11:38→16:09)
--- NOTE | 2018-07-08 11:49 | HP ---
ADMIT DATE: 07/07/2018 REASON FOR ADMISSION TO THE HOSPITAL: Altered level of consciousness, confusion. The patient goes to dialysis 3 times a week and at the end of dialysis, she was confused, did not know where she was and altered mental status and she was brought to the hospital. The patient was in the hospital last month and also again [facility] 2 weeks ago. At that time, she was found to have a staph bacteremia. She is getting Ancef with the dialysis 3 times a week and she was at [place] for some time in end of April and beginning of May, she was in the hospital beginning of, again in, July and June and also late June at [facility]. She is getting IV Ancef. She was supposed to finish total of 7 weeks in a couple of weeks. PAST MEDICAL HISTORY: She has history of end-stage renal disease, has diabetes, hypertension, chronic kidney disease, coronary artery disease. PAST SURGICAL HISTORY: Had a gastric bypass, AV shunt, gallbladder surgery and hysterectomy. ALLERGIES: CONTRAST, NONSTEROIDALS, IBUPROFEN, LYRICA, TRAMADOL. MEDICATIONS AT HOME: The patient is getting Ancef 2 g with dialysis Saturday, and 3 grams on Saturday. She is on dicyclomine 10 mg 3 times daily, Lasix 20 mg daily, triamcinolone cream daily, Ventolin inhaler, insulin sliding scale, Imodium p.r.n., midodrine 5 mg p.r.n. for hypotension, Zofran for nausea, tizanidine for muscle relaxer 3 times daily, triamcinolone cream, albuterol, atorvastatin 80 mg daily, Symbicort 1 twice a day, calcitriol 0.25 daily, calcium acetate 3 times a day, Voltaren gel daily, Flonase daily, gabapentin 100 mg 3 times daily, Linzess 145 mcg daily, metoprolol XL 25 mg daily, nystatin p.r.n., omeprazole 40 mg daily, oxycodone 5 mg q.6 p.r.n., sodium bicarb 650 mg two tablets twice a day, Nephro-Neri 1 daily, lidocaine cream to fistula for dialysis. PERSONAL HISTORY: Smoked in the past, long time back, she quit. Denies alcohol. Denies any street drugs. Lives at home, ambulates with a walker, goes to dialysis. FAMILY HISTORY: Positive for diabetes, kidney problems. REVIEW OF SYMPTOMS: The patient says she was confused, did not know where she was. She feels much better making conversation. PHYSICAL EXAMINATION: VITAL SIGNS: At the time of admission shows temperature 97, pulse 81, respirations 12, blood pressure 89/55, 95% on room air. HEENT: Head is atraumatic. Pupils are equal. Oral cavity: No congestion. Few teeth present. NECK: Supple. Thyroid not enlarged. JVD not elevated. CHEST: Symmetrical. CARDIOVASCULAR: S1, S2. LUNGS: Clear. ABDOMEN: Soft, bowel sounds present, no mass palpable. EXTERNAL GENITALIA: No Saldivar. RECTAL: Deferred. EXTREMITIES: AV shunt present. Thrill present. Trace edema at the ankles. NEUROLOGIC: The patient is awake, answering questions, participating in conversation. Moving upper and lower extremities. No focal deficits noted. LABORATORY AND DIAGNOSTIC DATA: Shows a white count of 5, hemoglobin 9, platelets 246. INR is 1.1. Electrolytes show sodium 141, potassium 4.1, chloride 101, bicarb 25, BUN 24, creatinine 3.6, glucose 169. LFTs were normal. BNP 5000. Lactic acid 1.5. Ammonia was 25. Troponin was negative. Drug screen was positive for opiates, otherwise negative. Had a head CT, no acute abnormality. Chest x-ray was negative. FINAL IMPRESSION: 1. Confusion. 2. Metabolic encephalopathy. 3. End-stage renal disease, on dialysis. 4. Recent staph infection, bacteremia. She is getting Ancef with dialysis Saturday, , Saturday, I think she has another 2 more weeks to go. 5. Diabetes. 6. Hypertension. 7. Hyperlipidemia. 8. Chronic pain syndrome. PLAN: At this time, the patient is admitted to the hospital. CT was negative. Neuro consult. Schedule for dialysis tomorrow and also ID for followup on the IV antibiotics and see how she does. LYLE ELENA MD DR: SHIVANI/kimberly JOB#: [id number] / [id number]
[2018-07-08] MEDS: CALCIUM ACETATE 667 MG CAPSULE PO SCH ×2 (11:57→17:17)
[2018-07-08] MEDS ORDERED: oxyCODONE IR 5 MG TABLET PO SCH (12:00)
--- NOTE | 2018-07-08 13:05 | PDOC ---
Infectious Disease Note Vital Signs: Vital Signs Vital Signs Date Time Temp Pulse Resp B/P (MAP) Pulse Ox O2 Delivery O2 Flow Rate FiO2 07/08/18 11:19 98.8 73 16 106/53 (70) 100 Nasal Cannula 2.0 98.8 Medications: Inpatient Meds: Current Medications Medications (Trade) Dose Ordered Sig/Noelle Start Time Stop Time Status Last Admin Dose Admin Albuterol Sulfate (Ventolin Neb Soln) 2.5 mg PRN TID PRN 07/08/18 10:45 Atorvastatin Calcium (Lipitor) 80 mg QHS 07/08/18 21:00 Budesonide (Pulmicort) 0.5 mg RTBID 07/08/18 11:30 Calcitriol (Rocaltrol) 0.25 mcg DAILY 07/09/18 09:00 Calcium Acetate (Phoslo) 667 mg TIDWMEALS 07/08/18 12:00 07/08/18 11:57 667 MG Cefazolin Sodium 1 gm/Dextrose 50 ml @ 100 mls/hr Q12HR 07/08/18 21:00 Cefazolin Sodium/ Dextrose 50 ml @ 100 mls/hr 1X ONCE 07/08/18 12:00 07/08/18 12:50 DC 07/08/18 11:32 100 MLS/HR Dextrose (Dextrose 50%-Water Syringe) 12.5 gm PRN Q15MIN PRN 07/08/18 10:15 Diclofenac Sodium (Voltaren) 1 barbara PRN BID PRN 07/08/18 10:15 Enoxaparin Sodium (Lovenox 40mg Syringe) 30 mg Q24H 07/08/18 10:15 07/08/18 10:38 DC Fluticasone Propionate (Flonase) 2 spray BID 07/08/18 11:00 07/08/18 11:31 2 SPRAY Gabapentin (Neurontin) 100 mg TID 07/08/18 14:00 Heparin Sodium (Porcine) (Heparin Sodium) 5,000 unit Q8HRS 07/08/18 14:00 Insulin Human Lispro (HumaLOG) 0-7 UNITS TIDWMEALS 07/08/18 12:00 Metoprolol Succinate (Toprol Xl) 12.5 mg DAILY 07/08/18 11:00 07/08/18 11:00 DC Non-Formulary Medication (Albuterol Sulfate (Albuterol Sulfate Neb Soln)) 0.83 % TID PRN 07/08/18 10:15 07/08/18 10:33 DC Non-Formulary Medication (Budesonide/ Formoterol Fumarate (Symbicort 160-4.5 Mcg Inhaler)) 2 puff BID 07/08/18 21:00 07/08/18 21:00 DC Non-Formulary Medication (Linaclotide (Linzess)) 72 mcg DAILY07 07/09/18 07:00 UNV Non-Formulary Medication ([lanacane cream] ) 1 barbara PRN PRN 07/08/18 10:15 07/08/18 11:11 DC Nystatin (Nystop) 1 barbara BID 07/08/18 21:00 Oxycodone HCl (Roxicodone) 5 mg PRN Q8HRS PRN 07/08/18 12:00 Pantoprazole Sodium (Protonix) 40 mg DAILYAC 07/09/18 07:30 Sodium Bicarbonate (Sodium Bicarbonate) 1,300 mg BID 07/08/18 11:00 07/08/18 11:31 1,300 MG Vitamin B Complex/ Vitamin C (Steph-Neri) 1 tab DAILY 07/08/18 11:00 07/08/18 11:31 1 TAB Labs: Lab Laboratory Tests Test 07/07/18 17:02 07/07/18 17:31 07/07/18 18:00 07/07/18 19:02 Glucose (Fingerstick) 152 mg/dL (70-99) White Blood Count 5.2 x10^3/uL (4.0-11.0) Red Blood Count 2.86 x10^6/uL (3.50-5.40) Hemoglobin 9.0 g/dL (12.0-15.5) Hematocrit 28.9 % (36.0-47.0) Mean Corpuscular Volume 101 fL (79-100) Mean Corpuscular Hemoglobin 32 pg (25-35) Mean Corpuscular Hemoglobin Concent 31 g/dL (31-37) Red Cell Distribution Width 19.6 % (11.5-14.5) Platelet Count 246 x10^3/uL (140-400) Neutrophils (%) (Auto) 53 % (31-73) Lymphocytes (%) (Auto) 27 % (24-48) Monocytes (%) (Auto) 11 % (0-9) Eosinophils (%) (Auto) 8 % (0-3) Basophils (%) (Auto) 1 % (0-3) Neutrophils # (Auto) 2.7 x10^3uL (1.8-7.7) Lymphocytes # (Auto) 1.4 x10^3/uL (1.0-4.8) Monocytes # (Auto) 0.6 x10^3/uL (0.0-1.1) Eosinophils # (Auto) 0.4 x10^3/uL (0.0-0.7) Basophils # (Auto) 0.0 x10^3/uL (0.0-0.2) Segmented Neutrophils % 53 % (35-66) Lymphocytes % 29 % (24-48) Monocytes % 7 % (0-10) Eosinophils % 9 % (0-5) Metamyelocytes % 2 % (0-0) Platelet Estimate Adequate (ADEQUATE) Polychromasia Slight Hypochromasia Slight Anisocytosis Slight Prothrombin Time 14.3 SEC (11.7-14.0) Prothromb Time International Ratio 1.1 (0.8-1.1) Activated Partial Thromboplast Time 38 SEC (24-38) Sodium Level 141 mmol/L (136-145) Potassium Level 4.1 mmol/L (3.5-5.1) Chloride Level 101 mmol/L (98-107) Carbon Dioxide Level 25 mmol/L (21-32) Anion Gap 15 (6-14) Blood Urea Nitrogen 24 mg/dL (7-20) Creatinine 3.6 mg/dL (0.6-1.0) Estimated GFR (Cockcroft-Gault) 14.9 BUN/Creatinine Ratio 7 (6-20) Glucose Level 169 mg/dL (70-99) Lactic Acid Level 1.5 mmol/L (0.4-2.0) Calcium Level 8.4 mg/dL (8.5-10.1) Magnesium Level 2.1 mg/dL (1.8-2.4) Total Bilirubin 0.2 mg/dL (0.2-1.0) Aspartate Amino Transf (AST/SGOT) 25 U/L (15-37) Alanine Aminotransferase (ALT/SGPT) 10 U/L (14-59) Alkaline Phosphatase 219 U/L (46-116) Ammonia 25 mcmol/L (11-34) Creatine Kinase 66 U/L (26-192) Creatine Kinase MB (Mass) 0.5 ng/mL (0.0-3.6) Creatine Kinase MB Relative Index % (0-4) Troponin I Quantitative < 0.017 ng/mL (0.000-0.055) UI-Vuz-T-Type Natriuretic Peptide 5058 pg/mL (0-449) Total Protein 7.2 g/dL (6.4-8.2) Albumin 2.6 g/dL (3.4-5.0) Albumin/Globulin Ratio 0.6 (1.0-1.7) Urine Opiates Screen Pos (NEG) Urine Methadone Screen Neg (NEG) Urine Barbiturates Neg (NEG) Urine Phencyclidine Screen Neg (NEG) Urine Amphetamine/Methamphetamine Neg (NEG) Urine Benzodiazepines Screen Neg (NEG) Urine Cocaine Screen Neg (NEG) Urine Cannabinoids Screen Neg (NEG) Urine Ethyl Alcohol Neg (NEG) Bedside Venous pH 7.38 (7.32-7.42) Bedside Venous pCO2 32 mmHg (41-51) Bedside Venous pO2 124 mmHg (20-40) Venous Blood HCO3 19 mmol/L (24-28) POC Venous O2 Saturation (Marcelino) 99 % Bedside FiO2 21.0 Test 07/07/18 21:47 07/08/18 07:36 07/08/18 10:46 Glucose (Fingerstick) 89 mg/dL (70-99) 74 mg/dL (70-99) 129 mg/dL (70-99) Objective: Assessment: Pt seen and examined ID Consult dictated Plan: Plan of Care cont cefazolin obtain records from [facility] for review follow BCs Thank you d/w RN [id number] HEMAL WRIGHT MD Jul 08, 2018 13:05
[2018-07-08] MEDS: GABAPENTIN 100 MG CAPSULE. PO SCH ×2 (13:36→22:04)
[2018-07-08] MEDS: HEPARIN for SUB-Q USE 5,000 UNIT/ML VIAL. SQ SCH ×2 (13:40→22:26)
[2018-07-08] MEDS: oxyCODONE IR 5 MG TABLET PO PRN ×2 (13:43→22:04)
[2018-07-08 15:18] VITALS: BP 121/61
--- NOTE | 2018-07-08 16:06 | PDOC2 ---
NEUROLOGY CONSULT Date of Admission Date of Admission DATE: 07/08/18 TIME: 15:54 Reason for Consult Reason for Consult: Altered mental status Referring Physician Referring Physician: Dr. Corona Source Source: Chart review, Patient History of Present Illness History of Present Illness The patient is a 78-year-old right-handed female admitted yesterday after getting confused following dialysis. The patient says that she often feels confused after dialysis. Her brought her brought her in. The patient is feeling better now. I last saw the patient in late April when she came in with 2 weeks of fatigue and lethargy and had missed dialysis. She had hypotension and mildly elevated temperature. She was having myoclonus or asterixis.These improved after Ativan and dialysis. She did have a negative head CT and EEG was positive for mild slowing of background activity consistent with encephalopathy she was hospitalized at [facility] for staph sepsis in June. Review of the chart shows that she had MRI of the brain, cervical, thoracic, and lumbar spines showing no significant abnormality. She may have had a seizure about 3 years ago, and a "ministroke." She has history of left Sanders's palsy. Past Medical History Cardiovascular: CAD, CHF (cardiomyopathy), Hyperlipidemia Pulmonary: Asthma, COPD, Other (obstructive sleep apnea on CPAP) CENTRAL NERVOUS SYSTEM: Periperal neuropathy, Other (asterixis, left Sanders's palsy, headaches) GI: Diverticulosis, GERD, Peptic Ulcer disease Heme/Onc: Iron deficiency Anemia Musculoskeletal: low back pain, Other (cervical stenosis) Rheumatologic: Fibromyalgia Renal/: Chronic renal failure (dialysis) Endocrine: Diabetes, Hyperparathyroidism Past Surgical History Past Surgical History: Cholecystectomy, Hysterectomy, Other (cardiac cath, gastric bypass and revision, lumbar, right carpal tunnel, left AV fistula) Family History Family History: Cancer Social History Social History She lives with her daughter. She does not smoke, drink alcohol or use any recreational drugs Current Medications Current Medications Current Medications Diclofenac Sodium (Voltaren) 1 stefano PRN BID PRN TP PAIN; Start 07/08/18 at 10:15 Fluticasone Propionate (Flonase) 2 spray BID NS Last administered on 07/08/18at 11:31; Start 07/08/18 at 11:00 Gabapentin (Neurontin) 100 mg TID PO Last administered on 07/08/18at 13:36; Start 07/08/18 at 14:00 Metoprolol Succinate (Toprol Xl) 12.5 mg DAILY PO ; Start 07/08/18 at 11:00; Stop 07/08/18 at 11:00; Status DC Oxycodone HCl (Roxicodone) 5 mg Q6HRS PO ; Start 07/08/18 at 12:00; Stop 07/08/18 at 12:00; Status DC Sodium Bicarbonate (Sodium Bicarbonate) 1,300 mg BID PO Last administered on 07/08/18at 11:31; Start 07/08/18 at 11:00 Non-Formulary Medication (Albuterol Sulfate (Albuterol Sulfate Neb Soln)) 0.83 % TID PRN NEB WHEEZING; Start 07/08/18 at 10:15; Stop 07/08/18 at 10:33; Status DC Atorvastatin Calcium (Lipitor) 80 mg QHS PO ; Start 07/08/18 at 21:00 Non-Formulary Medication (Budesonide/ Formoterol Fumarate (Symbicort 160-4.5 Mcg Inhaler)) 2 puff BID IH ; Start 07/08/18 at 21:00; Stop 07/08/18 at 21:00; Status DC Calcitriol (Rocaltrol) 0.25 mcg DAILY PO ; Start 07/09/18 at 09:00 Calcium Acetate (Phoslo) 667 mg TIDWMEALS PO Last administered on 07/08/18at 11: 57; Start 07/08/18 at 12:00 Non-Formulary Medication (Linaclotide (Linzess)) 72 mcg DAILY07 PO ; Start at 07:00; Status UNV Nystatin (Nystop) 1 stefano BID TP ; Start 07/08/18 at 21:00 Pantoprazole Sodium (Protonix) 40 mg DAILYAC PO ; Start 07/09/18 at 07:30 Vitamin B Complex/ Vitamin C (Steph-Neri) 1 tab DAILY PO Last administered on 07/08/18at 11:31; Start 07/08/18 at 11:00 Non-Formulary Medication ([lanacane cream] ) 1 stefano PRN PRN TOP dialysis fistula before dialys; Start 07/08/18 at 10:15; Stop 07/08/18 at 11:11; Status DC Cefazolin Sodium/ Dextrose 50 ml @ 100 mls/hr 1X ONCE IV Last administered on 07/08/18at 11:32; Start 07/08/18 at 12:00; Stop 07/08/18 at 12:50; Status DC Insulin Human Lispro (HumaLOG) 0-7 UNITS TIDWMEALS SQ ; Start 07/08/18 at 12:00 Dextrose (Dextrose 50%-Water Syringe) 12.5 gm PRN Q15MIN PRN IV SEE COMMENTS; Start 07/08/18 at 10:15 Enoxaparin Sodium (Lovenox 40mg Syringe) 30 mg Q24H SQ ; Start 07/08/18 at 10:15 ; Stop 07/08/18 at 10:38; Status DC Oxycodone HCl (Roxicodone) 5 mg PRN Q8HRS PRN PO PAIN Last administered on at 13:43; Start 07/08/18 at 12:00 Albuterol Sulfate (Ventolin Neb Soln) 2.5 mg PRN TID PRN NEB SHORTNESS OF BREATH; Start 07/08/18 at 10:45 Budesonide (Pulmicort) 0.5 mg RTBID NEB ; Start 07/08/18 at 11:30 Heparin Sodium (Porcine) (Heparin Sodium) 5,000 unit Q8HRS SQ Last administered on 07/08/18at 13:40; Start 07/08/18 at 14:00 Cefazolin Sodium 1 gm/Dextrose 50 ml @ 100 mls/hr Q12HR IV ; Start 07/08/18 at 21:00 Active Scripts Active Reported [lanacane cream] 1 Stefano TOP PRN PRN Metoprolol Succinate ( Xl ) (Metoprolol Succinate) 25 Mg Tab.er.24h 0.5 Tab PO DAILY Midodrine Hcl 5 Mg Tablet 5 Mg PO TID Furosemide 20 Mg Tablet 20 Mg PO DAILY Ventolin Hfa Inhaler (Albuterol Sulfate) 18 Gm Hfa.aer.ad 2 Puff INH Q4HRS PRN Nephro-Neri Rx Tablet (Vit B Cmplx 3/Fa/Vit C/Biotin) 1 Each Tablet 1 Each PO DAILY Nystatin 1 Each Powder.ea. 1 Each PO BID PRN Calcium Acetate 667 Mg Tablet 667 Mg PO TIDWMEALS Linzess (Linaclotide) 145 Mcg Capsule 72 Mcg PO DAILY07 Imodium A-D (Loperamide HCl) 2 Mg Capsule 2 Mg PO PRN PRN Zofran (Ondansetron Hcl) 8 Mg Tablet 1 Tab PO Q12HR PRN Triamcinolone Acetonide 80 Gm Oint...g. 1 Stefano TP BID PRN Fluticasone Propionate Nasal [place] (Fluticasone Propionate) 16 Gm [place].susp 2 [place] NS BID Calcitriol 0.25 Mcg Capsule 1 Cap PO DAILY Atorvastatin Calcium 80 Mg Tablet 80 Mg PO DAILY Novolog Flexpen (Insulin Aspart) 100 Unit/1 Ml Insuln.pen 1 Unit SQ [id number] Novolog FlexPen Sliding Scale: For fingerstick blood glucose: 150-200 take 2 units 201-250 take 4 units 251-300 take 6 units 301-350 take 8 units 351-400 take 10 units If blood glucose greater than [address] Corona. Voltaren (Diclofenac Sodium) 100 Gm Gel..gram. 1 Gm TP BID PRN Triamcinolone Acetonide 0.1% Oint (Triamcinolone Acetonide) 15 Gm Oint...g. 1 Stefano TP BID MIX WITH EUCERIN DIRECTED BY PHYSICIAN Tizanidine Hcl 4 Mg Tablet 1 Tab PO Q8HRS PRN Symbicort 160-4.5 Mcg Inhaler (Budesonide/Formoterol Fumarate) 10.2 Gm Hfa.aer.ad 2 Puff IH BID Sodium Bicarbonate 650 Mg Tablet 2 Tab PO BID Oxycodone Hcl Immed.release (Oxycodone Hcl) 5 Mg Tablet 1 Tab PO Q6HRS Omeprazole 40 Mg Capsule. 1 Cap PO DAILY Gabapentin (Gabapentin) 100 Mg Capsule 100 Mg PO TID Dicyclomine Hcl 10 Mg Capsule 10 Mg PO TID PRN Albuterol Sulfate Neb Soln (Albuterol Sulfate) 0.63 Mg/3 Ml Vial.neb 0.83 % NEB TID PRN Allergies Allergies: Coded Allergies: NSAIDS (Non-Steroidal Anti-Inflamma (Verified Allergy, Severe, Swelling, ) pregabalin (Verified Allergy, Severe, Swelling, 05/03/18) tramadol (Verified Allergy, Severe, Swelling, 05/03/18) Iodinated Contrast- Oral and IV Dye (Verified Allergy, Intermediate, ITCHING/HIVES, 07/25/17) Iodine and Iodide Containing Produc (Verified Allergy, Intermediate, ITCHING/HIVES, 05/03/18) ibuprofen (Verified Adverse Reaction, Intermediate, UPSET STOMACH, ) ROS Review of System Negative for fever, chills, weight loss, shortness of breath, chest pain, indigestion, hematochezia, melena, and dysuria. Full 14-point review of systems is negative. Physical Exam Physical Examination General: Well-developed, well-nourished, black female, in no acute distress HEENT: Normocephalic andatraumatic.Temporal arteriespulsatile and nontender. Neck: Supple without bruit, no meningismus Musculoskeletal: Stability:see neurologic. Gait exam:see neurologic. Tone:see neurologic. Strength:see neurologic. Neurological: Mental Status:orientation, memory, attention span/concentration, language, fund of knowledge: all normal. Cranial Nerves:Pupils equal and reactive to light, extraocular movements areintact. There is a left peripheral facial weakness. Vestibulo-ocular reflex is intact. All other cranial related problems are negative except as mentioned before.Reflexes:0+ and symmetric with flexor plantar responses. Motor:4/5, normal tone, no asterixis. Coordination:Finger- nose finger and fjnt-de-lsql testing are normal. Rapid alternating movements and fine finger movements are intact. Gait:not tested. Sensory:stocking loss. Vitals VITALS Vital Signs Date Time Temp Pulse Resp B/P (MAP) Pulse Ox O2 Delivery O2 Flow Rate FiO2 07/08/18 15:18 97.9 75 18 121/61 (81) 99 Nasal Cannula 2.0 97.9 Labs Labs Laboratory Tests Test 07/07/18 17:02 07/07/18 17:31 07/07/18 18:00 07/07/18 19:02 Glucose (Fingerstick) 152 mg/dL (70-99) White Blood Count 5.2 x10^3/uL (4.0-11.0) Red Blood Count 2.86 x10^6/uL (3.50-5.40) Hemoglobin 9.0 g/dL (12.0-15.5) Hematocrit 28.9 % (36.0-47.0) Mean Corpuscular Volume 101 fL (79-100) Mean Corpuscular Hemoglobin 32 pg (25-35) Mean Corpuscular Hemoglobin Concent 31 g/dL (31-37) Red Cell Distribution Width 19.6 % (11.5-14.5) Platelet Count 246 x10^3/uL (140-400) Neutrophils (%) (Auto) 53 % (31-73) Lymphocytes (%) (Auto) 27 % (24-48) Monocytes (%) (Auto) 11 % (0-9) Eosinophils (%) (Auto) 8 % (0-3) Basophils (%) (Auto) 1 % (0-3) Neutrophils # (Auto) 2.7 x10^3uL (1.8-7.7) Lymphocytes # (Auto) 1.4 x10^3/uL (1.0-4.8) Monocytes # (Auto) 0.6 x10^3/uL (0.0-1.1) Eosinophils # (Auto) 0.4 x10^3/uL (0.0-0.7) Basophils # (Auto) 0.0 x10^3/uL (0.0-0.2) Segmented Neutrophils % 53 % (35-66) Lymphocytes % 29 % (24-48) Monocytes % 7 % (0-10) Eosinophils % 9 % (0-5) Metamyelocytes % 2 % (0-0) Platelet Estimate Adequate (ADEQUATE) Polychromasia Slight Hypochromasia Slight Anisocytosis Slight Prothrombin Time 14.3 SEC (11.7-14.0) Prothromb Time International Ratio 1.1 (0.8-1.1) Activated Partial Thromboplast Time 38 SEC (24-38) Sodium Level 141 mmol/L (136-145) Potassium Level 4.1 mmol/L (3.5-5.1) Chloride Level 101 mmol/L (98-107) Carbon Dioxide Level 25 mmol/L (21-32) Anion Gap 15 (6-14) Blood Urea Nitrogen 24 mg/dL (7-20) Creatinine 3.6 mg/dL (0.6-1.0) Estimated GFR (Cockcroft-Gault) 14.9 BUN/Creatinine Ratio 7 (6-20) Glucose Level 169 mg/dL (70-99) Lactic Acid Level 1.5 mmol/L (0.4-2.0) Calcium Level 8.4 mg/dL (8.5-10.1) Magnesium Level 2.1 mg/dL (1.8-2.4) Total Bilirubin 0.2 mg/dL (0.2-1.0) Aspartate Amino Transf (AST/SGOT) 25 U/L (15-37) Alanine Aminotransferase (ALT/SGPT) 10 U/L (14-59) Alkaline Phosphatase 219 U/L (46-116) Ammonia 25 mcmol/L (11-34) Creatine Kinase 66 U/L (26-192) Creatine Kinase MB (Mass) 0.5 ng/mL (0.0-3.6) Creatine Kinase MB Relative Index % (0-4) Troponin I Quantitative < 0.017 ng/mL (0.000-0.055) GH-Ang-F-Type Natriuretic Peptide 5058 pg/mL (0-449) Total Protein 7.2 g/dL (6.4-8.2) Albumin 2.6 g/dL (3.4-5.0) Albumin/Globulin Ratio 0.6 (1.0-1.7) Urine Opiates Screen Pos (NEG) Urine Methadone Screen Neg (NEG) Urine Barbiturates Neg (NEG) Urine Phencyclidine Screen Neg (NEG) Urine Amphetamine/Methamphetamine Neg (NEG) Urine Benzodiazepines Screen Neg (NEG) Urine Cocaine Screen Neg (NEG) Urine Cannabinoids Screen Neg (NEG) Urine Ethyl Alcohol Neg (NEG) Bedside Venous pH 7.38 (7.32-7.42) Bedside Venous pCO2 32 mmHg (41-51) Bedside Venous pO2 124 mmHg (20-40) Venous Blood HCO3 19 mmol/L (24-28) POC Venous O2 Saturation (Marcelino) 99 % Bedside FiO2 21.0 Test 07/07/18 21:47 07/08/18 07:36 07/08/18 10:46 Glucose (Fingerstick) 89 mg/dL (70-99) 74 mg/dL (70-99) 129 mg/dL (70-99) Laboratory Tests Test 07/07/18 17:02 07/07/18 17:31 07/07/18 18:00 07/07/18 19:02 Glucose (Fingerstick) 152 mg/dL (70-99) White Blood Count 5.2 x10^3/uL (4.0-11.0) Red Blood Count 2.86 x10^6/uL (3.50-5.40) Hemoglobin 9.0 g/dL (12.0-15.5) Hematocrit 28.9 % (36.0-47.0) Mean Corpuscular Volume 101 fL (79-100) Mean Corpuscular Hemoglobin 32 pg (25-35) Mean Corpuscular Hemoglobin Concent 31 g/dL (31-37) Red Cell Distribution Width 19.6 % (11.5-14.5) Platelet Count 246 x10^3/uL (140-400) Neutrophils (%) (Auto) 53 % (31-73) Lymphocytes (%) (Auto) 27 % (24-48) Monocytes (%) (Auto) 11 % (0-9) Eosinophils (%) (Auto) 8 % (0-3) Basophils (%) (Auto) 1 % (0-3) Neutrophils # (Auto) 2.7 x10^3uL (1.8-7.7) Lymphocytes # (Auto) 1.4 x10^3/uL (1.0-4.8) Monocytes # (Auto) 0.6 x10^3/uL (0.0-1.1) Eosinophils # (Auto) 0.4 x10^3/uL (0.0-0.7) Basophils # (Auto) 0.0 x10^3/uL (0.0-0.2) Segmented Neutrophils % 53 % (35-66) Lymphocytes % 29 % (24-48) Monocytes % 7 % (0-10) Eosinophils % 9 % (0-5) Metamyelocytes % 2 % (0-0) Platelet Estimate Adequate (ADEQUATE) Polychromasia Slight Hypochromasia Slight Anisocytosis Slight Prothrombin Time 14.3 SEC (11.7-14.0) Prothromb Time International Ratio 1.1 (0.8-1.1) Activated Partial Thromboplast Time 38 SEC (24-38) Sodium Level 141 mmol/L (136-145) Potassium Level 4.1 mmol/L (3.5-5.1) Chloride Level 101 mmol/L (98-107) Carbon Dioxide Level 25 mmol/L (21-32) Anion Gap 15 (6-14) Blood Urea Nitrogen 24 mg/dL (7-20) Creatinine 3.6 mg/dL (0.6-1.0) Estimated GFR (Cockcroft-Gault) 14.9 BUN/Creatinine Ratio 7 (6-20) Glucose Level 169 mg/dL (70-99) Lactic Acid Level 1.5 mmol/L (0.4-2.0) Calcium Level 8.4 mg/dL (8.5-10.1) Magnesium Level 2.1 mg/dL (1.8-2.4) Total Bilirubin 0.2 mg/dL (0.2-1.0) Aspartate Amino Transf (AST/SGOT) 25 U/L (15-37) Alanine Aminotransferase (ALT/SGPT) 10 U/L (14-59) Alkaline Phosphatase 219 U/L (46-116) Ammonia 25 mcmol/L (11-34) Creatine Kinase 66 U/L (26-192) Creatine Kinase MB (Mass) 0.5 ng/mL (0.0-3.6) Creatine Kinase MB Relative Index % (0-4) Troponin I Quantitative < 0.017 ng/mL (0.000-0.055) JV-Qfk-N-Type Natriuretic Peptide 5058 pg/mL (0-449) Total Protein 7.2 g/dL (6.4-8.2) Albumin 2.6 g/dL (3.4-5.0) Albumin/Globulin Ratio 0.6 (1.0-1.7) Urine Opiates Screen Pos (NEG) Urine Methadone Screen Neg (NEG) Urine Barbiturates Neg (NEG) Urine Phencyclidine Screen Neg (NEG) Urine Amphetamine/Methamphetamine Neg (NEG) Urine Benzodiazepines Screen Neg (NEG) Urine Cocaine Screen Neg (NEG) Urine Cannabinoids Screen Neg (NEG) Urine Ethyl Alcohol Neg (NEG) Bedside Venous pH 7.38 (7.32-7.42) Bedside Venous pCO2 32 mmHg (41-51) Bedside Venous pO2 124 mmHg (20-40) Venous Blood HCO3 19 mmol/L (24-28) POC Venous O2 Saturation (Marcelino) 99 % Bedside FiO2 21.0 Test 07/07/18 21:47 07/08/18 07:36 07/08/18 10:46 Glucose (Fingerstick) 89 mg/dL (70-99) 74 mg/dL (70-99) 129 mg/dL (70-99) Images Images CT HEAD WO CONTRAST No acute extra-axial or parenchymal hemorrhage is identified. There is no significant intra-axial mass effect, midline shift, or extra-axial fluid collection. The coates-white differentiation of the major vascular territories is preserved. The ventricles, sulci, and cisterns are within normal limits in size and configuration. The mastoid air cells and the visualized paranasal sinuses are aerated. No acute calvarial abnormality is identified. There is atherosclerotic calcification carotid siphons bilaterally, also intradural vertebral arteries greater on the right. Impression: 1. No acute intracranial abnormality is identified. Assessment/Plan Assessment/Plan Impression: Metabolic encephalopathy, asterixis in past due to uremia, none now. This is post-dialysis encephalopathy History of Sanders's palsy Diabetic neuropathy. Staph sepsis still on antibiotics Recommendations: Hold on additional studies as she is bright and alert now. Furthermore, she has had recent CT of the head and brain MRI as well as imaging of the entire spine. Thank you for letting me help with the patient's care. YEIMI RENEE MD Jul 08, 2018 16:06
[2018-07-08] MEDS: DICLOFENAC SODIUM 1% TOPICAL GEL 100GM TUBE. TP PRN (18:29)
[2018-07-08 19:00] VITALS: BP 148/67
[2018-07-08] MEDS ORDERED: NON FORMULARY ITEM (Budesonide/Formoterol Fumarate (Symbicort 160-4.5 Mcg Inhaler) 2 PUFF) IH SCH (21:00)
[2018-07-08] MEDS: ATORVASTATIN CALCIUM 40 MG TABLET. PO SCH (22:04)
[2018-07-08] MEDS: NYSTATIN TOPICAL POWDER 15GM BOTTLE. TP SCH (22:05)
[2018-07-08] MEDS: ceFAZolin SODIUM 1 GM in IV DEXTROSE 5% 50 ML IV SCH (22:05)
--- NOTE | 2018-07-08 22:18 | CONS ---
DATE OF CONSULTATION: 07/08/2018 REFERRING PHYSICIAN: Dr. Corona. REASON FOR CONSULTATION: History of bacteremia, on antibiotic management. HISTORY OF PRESENT ILLNESS: A 78-year-old female, with history of end-stage renal disease, on hemodialysis through AV fistula, was brought in to the ER with confusion and altered mental status. The patient had recent discharge from [facility] beds at the [facility] a week ago where she was diagnosed with bacteremia and per chart record, is on Ancef with dialysis 3 times a week. The patient had MSSA bacteremia in April at which time she was treated with IV antibiotics. The patient was given a dose of cefazolin. ID has been consulted for antibiotic management. This morning, the patient is back to her normal mental status. States she feels tired, has some headache and nausea, which is chronic. Denies any chest pain, shortness of breath, diarrhea or abdominal pain. Denies any vomiting. PAST MEDICAL HISTORY: End-stage renal disease, on dialysis through hemodialysis through fistula, left upper extremity; coronary artery disease, CHF, hyperlipidemia, asthma, COPD, peripheral neuropathy, diverticulosis, GERD, peptic ulcer disease, iron deficiency anemia, low back pain, fibromyalgia, diabetes, hyperparathyroidism, status post cholecystectomy and hysterectomy. FAMILY HISTORY: As per HPI. SOCIAL HISTORY: Denies smoking, ETOH or illicit drug use. Lives with family. CURRENT MEDICATIONS: IV cefazolin. Other medications reviewed in medication list. ALLERGIES: NONSTEROIDALS, PREGABALIN, TRAMADOL, IODINATED CONTRAST, IBUPROFEN. REVIEW OF SYSTEMS: Negative except for above in HPI. PHYSICAL EXAMINATION: VITAL SIGNS: Temperature 98.8, pulse 73, respiratory rate 16, blood pressure 105/53, oxygen saturation 100% on nasal cannula 2 liters. GENERAL: Alert, oriented x 3 female lying comfortably in bed, cooperative, in no acute distress. HEENT: Normocephalic, atraumatic. Anicteric. No thrush. Oral mucosa moist. NECK: Supple. No JVD. LUNGS: Clear bilaterally. No wheezing. HEART: S1, S2. ABDOMEN: Soft, obese, bowel sounds present, nontender, nondistended. GENITOURINARY: No Saldivar. EXTREMITIES: Trace edema. AV shunt in left upper extremity looks okay. NEUROLOGIC: Alert and oriented x 3. Grossly nonfocal. LABORATORY DATA: WBC 5.2, hemoglobin 9.0, hematocrit 28.9, MCV 101, platelets 246, mono 11, eosinophil 8. Sodium 141, potassium 4.1, chloride 101, bicarb 25, BUN 24, creatinine 3.6, glucose 169. Alkaline phosphatase 219, ALT 10, AST 25. ProBNP 5058, CK 66, troponin normal. UA, none. UDS, opiate screen positive. Micro, blood culture pending at this time. IMAGING: Head CT, no acute intracranial abnormality. Chest x-ray, likely left basilar atelectasis. IMPRESSION: 1. Encephalopathy, resolved. 2. History of recent bacteremia at outside hospital at [facility] where she was discharged 1 week ago on antibiotics. From chart, it appears she is on cefazolin post dialysis. 3. Chronic pain syndrome. 4. Diabetes. 5. Hypertension/hyperlipidemia. RECOMMENDATIONS: 1. Continue cefazolin, but we will increase the dose to 1 g IV q. 12hr. Renal dosing for 2 g IV q. 8hr. 2. Obtain records from [facility] for review. 3. Follow up blood cultures. 4. Continue supportive care. 5. Follow up labs in a.m. 6. Discussed with RN. Thank you, Dr. Corona, for consulting Infectious Disease to participate in this patient's care. If you have any questions, do not hesitate to contact me. HEMAL WRIGHT MD DR: YAKELIN/kimberly JOB#: [id number] / [id number] [facility]
[2018-07-08 22:47] VITALS: BP 134/66
[2018-07-09 03:00] VITALS: BP 139/69
[2018-07-09] MEDS: HEPARIN for SUB-Q USE 5,000 UNIT/ML VIAL. SQ SCH ×3 (05:54→21:18)
[2018-07-09 06:41] LABS: CHOLESTEROL/HDL RATIO 3.6
[2018-07-09 07:00] VITALS: BP 179/96
[2018-07-09] MEDS ORDERED: LINACLOTIDE 72 MCG PO SCH (07:00)
[2018-07-09] MEDS: BUDESONIDE 0.5 MG/2 ML NEBU. NEB SCH ×2 (07:41→19:17)
[2018-07-09] MEDS: INSULIN LISPRO 300 UNITS/3 ML INSULN.PEN. SQ SCH ×3 (07:51→16:37)
[2018-07-09] MEDS: CALCIUM ACETATE 667 MG CAPSULE PO SCH ×3 (08:00→16:59)
[2018-07-09] MEDS: GABAPENTIN 100 MG CAPSULE. PO SCH ×3 (09:00→20:00)
[2018-07-09] MEDS ORDERED: IV NORMAL SALINE 1000ML BAG 1,000 ML IV PRN ×2 (09:42)
[2018-07-09] MEDS ORDERED: DIALYSIS PATIENT. MC PRN ×2 (09:45)
--- NOTE | 2018-07-09 09:58 | PDOC ---
PROGRESS NOTES Assessment Problems Medical Problems: (1) ESRD (end stage renal disease) Status: Acute Metabolic encephalopathy, post-dialysis encephalopathy, resolved Asterixis History of Sanders's palsy Diabetic neuropathy. Staph sepsis still on antibiotics Plan Trial of clonazepam, I discussed side effects. She was scheduled to see Dr. Monroe tomorrow, delayed at appointment for a month. Hold on additional studies such as repeat EEG Subjective Feels better, wants to go home Objective Vital Signs Date Time Temp Pulse Resp B/P (MAP) Pulse Ox O2 Delivery O2 Flow Rate FiO2 07/09/18 07:43 99 Nasal Cannula 2.0 07/09/18 07:00 98.4 70 17 179/96 (123) 98.4 Intake and Output 07/09/18 06:59 Intake Total 500 ml Output Total 0 ml Balance 500 ml Intake Oral 450 ml IV Total 50 ml Output Urine Total 0 ml # Voids 1 # Bowel Movements 1 PHYSICAL EXAM Alert. Oriented to time, place and person. PERRL. EOMI. CN: left peripheral facial weakness, otherwise no focal findings. Muscle tone: normal. Muscle strength: 4/5 DTR: 0+ Plantar reflex: flexor Gait: not examined in bed. Sensory exam: stocking loss. No cerebellar signs elicited. She did have a few moments of asterixis when I woke her up Review of Relevant I have reviewed the following items girish (where applicable) has been applied. Labs Laboratory Tests Test 07/07/18 17:02 07/07/18 17:31 07/07/18 18:00 07/07/18 19:02 Glucose (Fingerstick) 152 mg/dL (70-99) White Blood Count 5.2 x10^3/uL (4.0-11.0) Red Blood Count 2.86 x10^6/uL (3.50-5.40) Hemoglobin 9.0 g/dL (12.0-15.5) Hematocrit 28.9 % (36.0-47.0) Mean Corpuscular Volume 101 fL (79-100) Mean Corpuscular Hemoglobin 32 pg (25-35) Mean Corpuscular Hemoglobin Concent 31 g/dL (31-37) Red Cell Distribution Width 19.6 % (11.5-14.5) Platelet Count 246 x10^3/uL (140-400) Neutrophils (%) (Auto) 53 % (31-73) Lymphocytes (%) (Auto) 27 % (24-48) Monocytes (%) (Auto) 11 % (0-9) Eosinophils (%) (Auto) 8 % (0-3) Basophils (%) (Auto) 1 % (0-3) Neutrophils # (Auto) 2.7 x10^3uL (1.8-7.7) Lymphocytes # (Auto) 1.4 x10^3/uL (1.0-4.8) Monocytes # (Auto) 0.6 x10^3/uL (0.0-1.1) Eosinophils # (Auto) 0.4 x10^3/uL (0.0-0.7) Basophils # (Auto) 0.0 x10^3/uL (0.0-0.2) Segmented Neutrophils % 53 % (35-66) Lymphocytes % 29 % (24-48) Monocytes % 7 % (0-10) Eosinophils % 9 % (0-5) Metamyelocytes % 2 % (0-0) Platelet Estimate Adequate (ADEQUATE) Polychromasia Slight Hypochromasia Slight Anisocytosis Slight Prothrombin Time 14.3 SEC (11.7-14.0) Prothromb Time International Ratio 1.1 (0.8-1.1) Activated Partial Thromboplast Time 38 SEC (24-38) Sodium Level 141 mmol/L (136-145) Potassium Level 4.1 mmol/L (3.5-5.1) Chloride Level 101 mmol/L (98-107) Carbon Dioxide Level 25 mmol/L (21-32) Anion Gap 15 (6-14) Blood Urea Nitrogen 24 mg/dL (7-20) Creatinine 3.6 mg/dL (0.6-1.0) Estimated GFR (Cockcroft-Gault) 14.9 BUN/Creatinine Ratio 7 (6-20) Glucose Level 169 mg/dL (70-99) Lactic Acid Level 1.5 mmol/L (0.4-2.0) Calcium Level 8.4 mg/dL (8.5-10.1) Magnesium Level 2.1 mg/dL (1.8-2.4) Total Bilirubin 0.2 mg/dL (0.2-1.0) Aspartate Amino Transf (AST/SGOT) 25 U/L (15-37) Alanine Aminotransferase (ALT/SGPT) 10 U/L (14-59) Alkaline Phosphatase 219 U/L (46-116) Ammonia 25 mcmol/L (11-34) Creatine Kinase 66 U/L (26-192) Creatine Kinase MB (Mass) 0.5 ng/mL (0.0-3.6) Creatine Kinase MB Relative Index % (0-4) Troponin I Quantitative < 0.017 ng/mL (0.000-0.055) IE-Dsc-A-Type Natriuretic Peptide 5058 pg/mL (0-449) Total Protein 7.2 g/dL (6.4-8.2) Albumin 2.6 g/dL (3.4-5.0) Albumin/Globulin Ratio 0.6 (1.0-1.7) Urine Opiates Screen Pos (NEG) Urine Methadone Screen Neg (NEG) Urine Barbiturates Neg (NEG) Urine Phencyclidine Screen Neg (NEG) Urine Amphetamine/Methamphetamine Neg (NEG) Urine Benzodiazepines Screen Neg (NEG) Urine Cocaine Screen Neg (NEG) Urine Cannabinoids Screen Neg (NEG) Urine Ethyl Alcohol Neg (NEG) Bedside Venous pH 7.38 (7.32-7.42) Bedside Venous pCO2 32 mmHg (41-51) Bedside Venous pO2 124 mmHg (20-40) Venous Blood HCO3 19 mmol/L (24-28) POC Venous O2 Saturation (Marcelino) 99 % Bedside FiO2 21.0 Test 07/07/18 21:47 07/08/18 07:36 07/08/18 10:46 07/08/18 16:01 Glucose (Fingerstick) 89 mg/dL (70-99) 74 mg/dL (70-99) 129 mg/dL (70-99) 109 mg/dL (70-99) Test 07/08/18 20:48 07/09/18 05:30 07/09/18 07:12 Glucose (Fingerstick) 137 mg/dL (70-99) 81 mg/dL (70-99) Triglycerides Level 108 mg/dL (0-150) Cholesterol Level 136 mg/dL (0-200) LDL Cholesterol, Calculated 76 mg/dL (0-100) VLDL Cholesterol, Calculated 22 mg/dL (0-40) Non-HDL Cholesterol Calculated 98 mg/dL (0-129) HDL Cholesterol 38 mg/dL (40-60) Cholesterol/HDL Ratio 3.6 Thyroid Stimulating Hormone (TSH) 0.591 uIU/mL (0.358-3.74) Laboratory Tests Test 07/08/18 10:46 07/08/18 16:01 07/08/18 20:48 07/09/18 05:30 Glucose (Fingerstick) 129 mg/dL (70-99) 109 mg/dL (70-99) 137 mg/dL (70-99) Triglycerides Level 108 mg/dL (0-150) Cholesterol Level 136 mg/dL (0-200) LDL Cholesterol, Calculated 76 mg/dL (0-100) VLDL Cholesterol, Calculated 22 mg/dL (0-40) Non-HDL Cholesterol Calculated 98 mg/dL (0-129) HDL Cholesterol 38 mg/dL (40-60) Cholesterol/HDL Ratio 3.6 Thyroid Stimulating Hormone (TSH) 0.591 uIU/mL (0.358-3.74) Test 07/09/18 07:12 Glucose (Fingerstick) 81 mg/dL (70-99) Microbiology 07/07/18 Blood Culture - Preliminary, Resulted NO GROWTH AFTER 1 DAY Medications Current Medications Diclofenac Sodium (Voltaren) 1 stefano PRN BID PRN TP PAIN Last administered on 07/08at 18:29; Start 07/08/18 at 10:15 Fluticasone Propionate (Flonase) 2 spray BID NS Last administered on 07/08/18at 22:03; Start 07/08/18 at 11:00 Gabapentin (Neurontin) 100 mg TID PO Last administered on 07/08/18at 22:04; Start 07/08/18 at 14:00 Metoprolol Succinate (Toprol Xl) 12.5 mg DAILY PO ; Start 07/08/18 at 11:00; Stop 07/08/18 at 11:00; Status DC Oxycodone HCl (Roxicodone) 5 mg Q6HRS PO ; Start 07/08/18 at 12:00; Stop 07/08/18 at 12:00; Status DC Sodium Bicarbonate (Sodium Bicarbonate) 1,300 mg BID PO Last administered on 07/08/18at 22:04; Start 07/08/18 at 11:00 Non-Formulary Medication (Albuterol Sulfate (Albuterol Sulfate Neb Soln)) 0.83 % TID PRN NEB WHEEZING; Start 07/08/18 at 10:15; Stop 07/08/18 at 10:33; Status DC Atorvastatin Calcium (Lipitor) 80 mg QHS PO Last administered on 07/08/18at 22:04 ; Start 07/08/18 at 21:00 Non-Formulary Medication (Budesonide/ Formoterol Fumarate (Symbicort 160-4.5 Mcg Inhaler)) 2 puff BID IH ; Start 07/08/18 at 21:00; Stop 07/08/18 at 21:00; Status DC Calcitriol (Rocaltrol) 0.25 mcg DAILY PO ; Start 07/09/18 at 09:00 Calcium Acetate (Phoslo) 667 mg TIDWMEALS PO Last administered on 07/08/18at 17: 17; Start 07/08/18 at 12:00 Non-Formulary Medication (Linaclotide (Linzess)) 72 mcg DAILY07 PO ; Start at 07:00; Status UNV Nystatin (Nystop) 1 stefano BID TP Last administered on 07/08/18at 22:05; Start at 21:00 Pantoprazole Sodium (Protonix) 40 mg DAILYAC PO ; Start 07/09/18 at 07:30 Vitamin B Complex/ Vitamin C (Steph-Neri) 1 tab DAILY PO Last administered on 07/08/18at 11:31; Start 07/08/18 at 11:00 Non-Formulary Medication ([lanacane cream] ) 1 stefano PRN PRN TOP dialysis fistula before dialys; Start 07/08/18 at 10:15; Stop 07/08/18 at 11:11; Status DC Cefazolin Sodium/ Dextrose 50 ml @ 100 mls/hr 1X ONCE IV Last administered on 07/08/18at 11:32; Start 07/08/18 at 12:00; Stop 07/08/18 at 12:50; Status DC Insulin Human Lispro (HumaLOG) 0-7 UNITS TIDWMEALS SQ ; Start 07/08/18 at 12:00 Dextrose (Dextrose 50%-Water Syringe) 12.5 gm PRN Q15MIN PRN IV SEE COMMENTS; Start 07/08/18 at 10:15 Enoxaparin Sodium (Lovenox 40mg Syringe) 30 mg Q24H SQ ; Start 07/08/18 at 10:15 ; Stop 07/08/18 at 10:38; Status DC Oxycodone HCl (Roxicodone) 5 mg PRN Q8HRS PRN PO PAIN Last administered on at 22:04; Start 07/08/18 at 12:00 Albuterol Sulfate (Ventolin Neb Soln) 2.5 mg PRN TID PRN NEB SHORTNESS OF BREATH; Start 07/08/18 at 10:45 Budesonide (Pulmicort) 0.5 mg RTBID NEB Last administered on 07/09/18at 07:41; Start 07/08/18 at 11:30 Heparin Sodium (Porcine) (Heparin Sodium) 5,000 unit Q8HRS SQ Last administered on 07/09/18at 05:54; Start 07/08/18 at 14:00 Cefazolin Sodium 1 gm/Dextrose 50 ml @ 100 mls/hr Q12HR IV Last administered on 07/08/18at 22:05; Start 07/08/18 at 21:00 Sodium Chloride 1,000 ml @ 1,000 mls/hr Q1H PRN IV hypotension; Start 07/09/18 at 09:42; Stop 07/09/18 at 15:41 Sodium Chloride 1,000 ml @ 400 mls/hr Q2H30M PRN IV PATENCY; Start 07/09/18 at 09:42; Stop 07/09/18 at 21:41 Info (PHARMACY MONITORING -- do not chart) 1 each PRN DAILY PRN MC SEE COMMENTS ; Start 07/09/18 at 09:45; Status UNV Info (PHARMACY MONITORING -- do not chart) 1 each PRN DAILY PRN MC SEE COMMENTS ; Start 07/09/18 at 09:45 Active Scripts Active Reported [lanacane cream] 1 Stefano TOP PRN PRN Metoprolol Succinate ( Xl ) (Metoprolol Succinate) 25 Mg Tab.er.24h 0.5 Tab PO DAILY Midodrine Hcl 5 Mg Tablet 5 Mg PO TID Furosemide 20 Mg Tablet 20 Mg PO DAILY Ventolin Hfa Inhaler (Albuterol Sulfate) 18 Gm Hfa.aer.ad 2 Puff INH Q4HRS PRN Nephro-Neri Rx Tablet (Vit B Cmplx 3/Fa/Vit C/Biotin) 1 Each Tablet 1 Each PO DAILY Nystatin 1 Each Powder.ea. 1 Each PO BID PRN Calcium Acetate 667 Mg Tablet 667 Mg PO TIDWMEALS Linzess (Linaclotide) 145 Mcg Capsule 72 Mcg PO DAILY07 Imodium A-D (Loperamide HCl) 2 Mg Capsule 2 Mg PO PRN PRN Zofran (Ondansetron Hcl) 8 Mg Tablet 1 Tab PO Q12HR PRN Triamcinolone Acetonide 80 Gm Oint...g. 1 Stefano TP BID PRN Fluticasone Propionate Nasal Holmes (Fluticasone Propionate) 16 Gm Holmes.susp 2 Holmes NS BID Calcitriol 0.25 Mcg Capsule 1 Cap PO DAILY Atorvastatin Calcium 80 Mg Tablet 80 Mg PO DAILY Novolog Flexpen (Insulin Aspart) 100 Unit/1 Ml Insuln.pen 1 Unit SQ [id number] Novolog FlexPen Sliding Scale: For fingerstick blood glucose: 150-200 take 2 units 201-250 take 4 units 251-300 take 6 units 301-350 take 8 units 351-400 take 10 units If blood glucose greater than [address] Corona. Voltaren (Diclofenac Sodium) 100 Gm Gel..gram. 1 Gm TP BID PRN Triamcinolone Acetonide 0.1% Oint (Triamcinolone Acetonide) 15 Gm Oint...g. 1 Stefano TP BID MIX WITH EUCERIN DIRECTED BY PHYSICIAN Tizanidine Hcl 4 Mg Tablet 1 Tab PO Q8HRS PRN Symbicort 160-4.5 Mcg Inhaler (Budesonide/Formoterol Fumarate) 10.2 Gm Hfa.aer.ad 2 Puff IH BID Sodium Bicarbonate 650 Mg Tablet 2 Tab PO BID Oxycodone Hcl Immed.release (Oxycodone Hcl) 5 Mg Tablet 1 Tab PO Q6HRS Omeprazole 40 Mg Capsule. 1 Cap PO DAILY Gabapentin (Gabapentin) 100 Mg Capsule 100 Mg PO TID Dicyclomine Hcl 10 Mg Capsule 10 Mg PO TID PRN Albuterol Sulfate Neb Soln (Albuterol Sulfate) 0.63 Mg/3 Ml Vial.neb 0.83 % NEB TID PRN Vitals/I & O Vital Sign - Last 24 Hours 07/08/18 07/08/18 07/08/18 07/08/18 11:19 13:43 14:43 15:18 Temp 98.8 97.9 98.8 97.9 Pulse 73 75 Resp 16 20 20 18 B/P (MAP) 106/53 (70) 121/61 (81) Pulse Ox 100 100 99 O2 Delivery Nasal Cannula Nasal Cannula Nasal Cannula O2 Flow Rate 2.0 2.0 2.0 07/08/18 07/08/18 07/08/18 07/08/18 19:00 20:00 20:14 22:04 Temp 99.7 99.7 Pulse 78 Resp 18 B/P (MAP) 148/67 (94) Pulse Ox 99 100 100 O2 Delivery Nasal Cannula Nasal Cannula Nasal Cannula Nasal Cannula O2 Flow Rate 2.0 2.0 2.0 2.0 07/08/18 07/08/18 07/09/18 07/09/18 22:47 23:04 03:00 07:00 Temp 99.4 99.0 98.4 99.4 99.0 98.4 Pulse 74 70 70 Resp 18 18 17 B/P (MAP) 134/66 (88) 139/69 (92) 179/96 (123) Pulse Ox 99 99 O2 Delivery Nasal Cannula Nasal Cannula Nasal Cannula Nasal Cannula O2 Flow Rate 2.0 2.0 2.0 07/09/18 07:43 Pulse Ox 99 O2 Delivery Nasal Cannula O2 Flow Rate 2.0 Intake and Output 07/08/18 07/08/18 07/09/18 14:59 22:59 06:59 Intake Total 350 ml 100 ml 50 ml Output Total 0 ml Balance 350 ml 100 ml 50 ml YEIMI RENEE MD Jul 09, 2018 09:58
[2018-07-09] MEDS ORDERED: clonazePAM 0.5 MG TABLET PO PRN (10:00)
--- NOTE | 2018-07-09 10:23 | PDOC ---
PROGRESS NOTES Subjective Subjective feels ok, back to baseline Objective Objective Vital Signs Date Time Temp Pulse Resp B/P (MAP) Pulse Ox O2 Delivery O2 Flow Rate FiO2 07/09/18 08:00 Nasal Cannula 2.0 07/09/18 07:43 99 07/09/18 07:00 98.4 70 17 179/96 (123) 98.4 Intake and Output 07/09/18 06:59 Intake Total 500 ml Output Total 0 ml Balance 500 ml Intake Oral 450 ml IV Total 50 ml Output Urine Total 0 ml # Voids 1 # Bowel Movements 1 Physical Exam Abdomen: Normal bowel sounds, Soft Heart: Regular rate, Normal S1, Normal S2 Extremities: No clubbing General: Oriented X3 HEENT: Atraumatic Lungs: Clear to auscultation Neck: Supple Neuro: Normal speech Psych/Mental Status: Mood NL Skin: No breakdown Diagnosis Problem List Problems Medical Problems: (1) ESRD (end stage renal disease) Status: Acute Assessment Assessment Problems Medical Problems: (1) ESRD (end stage renal disease) Status: Acute FINAL IMPRESSION: 1. Confusion. 2. Metabolic encephalopathy. 3. End-stage renal disease, on dialysis. 4. Recent staph infection, bacteremia. She is getting Ancef with dialysis Saturday, , Saturday, I think she has another 2 more weeks to go. 5. Diabetes. 6. Hypertension. 7. Hyperlipidemia. 8. Chronic pain syndrome. PLAN: blood c/s neg seen by neurology, no new recommendations ID following dialysis today+ IV ancef 2 g today ?home tomorrow if c/s neg. At this time, the patient is admitted to the hospital. CT was negative. Neuro consult. Schedule for dialysis tomorrow and also ID for followup on the IV antibiotics and see how she does. Plan Plan of Care Problems Medical Problems: (1) ESRD (end stage renal disease) Status: Acute Comment Review of Relevant I have reviewed the following items girish (where applicable) has been applied. Labs Laboratory Tests Test 07/08/18 10:46 07/08/18 16:01 07/08/18 20:48 07/09/18 05:30 Glucose (Fingerstick) 129 mg/dL (70-99) 109 mg/dL (70-99) 137 mg/dL (70-99) Triglycerides Level 108 mg/dL (0-150) Cholesterol Level 136 mg/dL (0-200) LDL Cholesterol, Calculated 76 mg/dL (0-100) VLDL Cholesterol, Calculated 22 mg/dL (0-40) Non-HDL Cholesterol Calculated 98 mg/dL (0-129) HDL Cholesterol 38 mg/dL (40-60) Cholesterol/HDL Ratio 3.6 Thyroid Stimulating Hormone (TSH) 0.591 uIU/mL (0.358-3.74) Test 07/09/18 07:12 Glucose (Fingerstick) 81 mg/dL (70-99) Microbiology 07/07/18 Blood Culture - Preliminary, Resulted NO GROWTH AFTER 1 DAY Medications Current Medications Albuterol Sulfate (Ventolin Neb Soln) 2.5 mg PRN TID PRN NEB SHORTNESS OF BREATH; Start 07/08/18 at 10:45 Atorvastatin Calcium (Lipitor) 80 mg QHS PO Last administered on 07/08/18at 22:04 ; Start 07/08/18 at 21:00 Budesonide (Pulmicort) 0.5 mg RTBID NEB Last administered on 07/09/18at 07:41; Start 07/08/18 at 11:30 Calcitriol (Rocaltrol) 0.25 mcg DAILY PO ; Start 07/09/18 at 09:00 Calcium Acetate (Phoslo) 667 mg TIDWMEALS PO Last administered on 07/08/18at 17: 17; Start 07/08/18 at 12:00 Cefazolin Sodium 1 gm/Dextrose 50 ml @ 100 mls/hr Q12HR IV Last administered on 07/08/18at 22:05; Start 07/08/18 at 21:00 Cefazolin Sodium/ Dextrose 50 ml @ 100 mls/hr 1X ONCE IV Last administered on 07/08/18at 11:32; Start 07/08/18 at 12:00; Stop 07/08/18 at 12:50; Status DC Clonazepam (KlonoPIN) 0.5 mg PRN TID PRN PO TREMORS; Start 07/09/18 at 10:00 Fluticasone Propionate (Flonase) 2 spray BID NS Last administered on 07/08/18at 22:03; Start 07/08/18 at 11:00 Gabapentin (Neurontin) 100 mg TID PO Last administered on 07/08/18at 22:04; Start 07/08/18 at 14:00 Heparin Sodium (Porcine) (Heparin Sodium) 5,000 unit Q8HRS SQ Last administered on 07/09/18at 05:54; Start 07/08/18 at 14:00 Info (PHARMACY MONITORING -- do not chart) 1 each PRN DAILY PRN MC SEE COMMENTS ; Start 07/09/18 at 09:45 Info (PHARMACY MONITORING -- do not chart) 1 each PRN DAILY PRN MC SEE COMMENTS ; Start 07/09/18 at 09:45; Status UNV Insulin Human Lispro (HumaLOG) 0-7 UNITS TIDWMEALS SQ ; Start 07/08/18 at 12:00 Metoprolol Succinate (Toprol Xl) 12.5 mg DAILY PO ; Start 07/08/18 at 11:00; Stop 07/08/18 at 11:00; Status DC Non-Formulary Medication (Budesonide/ Formoterol Fumarate (Symbicort 160-4.5 Mcg Inhaler)) 2 puff BID IH ; Start 07/08/18 at 21:00; Stop 07/08/18 at 21:00; Status DC Non-Formulary Medication (Linaclotide (Linzess)) 72 mcg DAILY07 PO ; Start at 07:00; Status UNV Nystatin (Nystop) 1 barbara BID TP Last administered on 07/08/18at 22:05; Start at 21:00 Oxycodone HCl (Roxicodone) 5 mg PRN Q8HRS PRN PO PAIN Last administered on at 22:04; Start 07/08/18 at 12:00 Oxycodone HCl (Roxicodone) 5 mg Q6HRS PO ; Start 07/08/18 at 12:00; Stop 07/08/18 at 12:00; Status DC Pantoprazole Sodium (Protonix) 40 mg DAILYAC PO ; Start 07/09/18 at 07:30 Sodium Bicarbonate (Sodium Bicarbonate) 1,300 mg BID PO Last administered on 07/08/18at 22:04; Start 07/08/18 at 11:00 Sodium Chloride 1,000 ml @ 400 mls/hr Q2H30M PRN IV PATENCY; Start 07/09/18 at 09:42; Stop 07/09/18 at 21:41 Sodium Chloride 1,000 ml @ 1,000 mls/hr Q1H PRN IV hypotension; Start 07/09/18 at 09:42; Stop 07/09/18 at 15:41 Vitamin B Complex/ Vitamin C (Steph-Neri) 1 tab DAILY PO Last administered on 07/08/18at 11:31; Start 07/08/18 at 11:00 Vitals/I & O Vital Sign - Last 24 Hours 07/08/18 07/08/18 07/08/18 07/08/18 11:19 13:43 14:43 15:18 Temp 98.8 97.9 98.8 97.9 Pulse 73 75 Resp 16 20 20 18 B/P (MAP) 106/53 (70) 121/61 (81) Pulse Ox 100 100 99 O2 Delivery Nasal Cannula Nasal Cannula Nasal Cannula O2 Flow Rate 2.0 2.0 2.0 07/08/18 07/08/18 07/08/18 07/08/18 19:00 20:00 20:14 22:04 Temp 99.7 99.7 Pulse 78 Resp 18 B/P (MAP) 148/67 (94) Pulse Ox 99 100 100 O2 Delivery Nasal Cannula Nasal Cannula Nasal Cannula Nasal Cannula O2 Flow Rate 2.0 2.0 2.0 2.0 07/08/18 07/08/18 07/09/18 07/09/18 22:47 23:04 03:00 07:00 Temp 99.4 99.0 98.4 99.4 99.0 98.4 Pulse 74 70 70 Resp 18 18 17 B/P (MAP) 134/66 (88) 139/69 (92) 179/96 (123) Pulse Ox 99 99 O2 Delivery Nasal Cannula Nasal Cannula Nasal Cannula Nasal Cannula O2 Flow Rate 2.0 2.0 2.0 07/09/18 07/09/18 07:43 08:00 Pulse Ox 99 O2 Delivery Nasal Cannula Nasal Cannula O2 Flow Rate 2.0 2.0 Intake and Output 07/08/18 07/08/18 07/09/18 14:59 22:59 06:59 Intake Total 350 ml 100 ml 50 ml Output Total 0 ml Balance 350 ml 100 ml 50 ml LYLE ELENA MD Jul 09, 2018 10:23
[2018-07-09 11:00] VITALS: BP 145/74
--- NOTE | 2018-07-09 11:18 | PDOC ---
Infectious Disease Note Subjective: Subjective Pt is feeling better undergoing dialysis feels cold but says is on dialysis no fever ,n/v/d ROS: ROS Negative except for above. Vital Signs: Vital Signs Vital Signs Date Time Temp Pulse Resp B/P (MAP) Pulse Ox O2 Delivery O2 Flow Rate FiO2 07/09/18 08:00 Nasal Cannula 2.0 07/09/18 07:43 99 07/09/18 07:00 98.4 70 17 179/96 (123) 98.4 Physical Exam: PHYSICAL EXAM GENERAL: Alert, oriented x 3 female lying comfortably in bed, cooperative, in no acute distress. HEENT: Normocephalic, atraumatic. Anicteric. No thrush. Oral mucosa moist. NECK: Supple. No JVD. LUNGS: Clear bilaterally. No wheezing. HEART: S1, S2. ABDOMEN: Soft, obese, bowel sounds present, nontender, nondistended. GENITOURINARY: No Saldivar. EXTREMITIES: Trace edema. AV shunt in left upper extremity looks okay. NEUROLOGIC: Alert and oriented x 3. Grossly nonfocal. Medications: Inpatient Meds: Current Medications Medications (Trade) Dose Ordered Sig/Noelle Start Time Stop Time Status Last Admin Dose Admin Albuterol Sulfate (Ventolin Neb Soln) 2.5 mg PRN TID PRN 07/08/18 10:45 Atorvastatin Calcium (Lipitor) 80 mg QHS 07/08/18 21:00 07/08/18 22:04 80 MG Budesonide (Pulmicort) 0.5 mg RTBID 07/08/18 11:30 07/09/18 07:41 0.5 MG Calcitriol (Rocaltrol) 0.25 mcg DAILY 07/09/18 09:00 Calcium Acetate (Phoslo) 667 mg TIDWMEALS 07/08/18 12:00 07/08/18 17:17 667 MG Cefazolin Sodium 1 gm/Dextrose 50 ml @ 100 mls/hr Q12HR 07/08/18 21:00 07/08/18 22:05 100 MLS/HR Cefazolin Sodium/ Dextrose 50 ml @ 100 mls/hr 1X ONCE 07/08/18 12:00 07/08/18 12:50 DC 07/08/18 11:32 100 MLS/HR Clonazepam (KlonoPIN) 0.5 mg PRN TID PRN 07/09/18 10:00 Dextrose (Dextrose 50%-Water Syringe) 12.5 gm PRN Q15MIN PRN 07/08/18 10:15 Diclofenac Sodium (Voltaren) 1 barbara PRN BID PRN 07/08/18 10:15 07/08/18 18:29 1 BARBARA Enoxaparin Sodium (Lovenox 40mg Syringe) 30 mg Q24H 07/08/18 10:15 07/08/18 10:38 DC Fluticasone Propionate (Flonase) 2 spray BID 07/08/18 11:00 07/08/18 22:03 2 SPRAY Gabapentin (Neurontin) 100 mg TID 07/08/18 14:00 07/08/18 22:04 100 MG Heparin Sodium (Porcine) (Heparin Sodium) 5,000 unit Q8HRS 07/08/18 14:00 07/09/18 05:54 5,000 UNIT Info (PHARMACY MONITORING -- do not chart) 1 each PRN DAILY PRN 07/09/18 09:45 Insulin Human Lispro (HumaLOG) 0-7 UNITS TIDWMEALS 07/08/18 12:00 Metoprolol Succinate (Toprol Xl) 12.5 mg DAILY 07/08/18 11:00 07/08/18 11:00 DC Non-Formulary Medication (Albuterol Sulfate (Albuterol Sulfate Neb Soln)) 0.83 % TID PRN 07/08/18 10:15 07/08/18 10:33 DC Non-Formulary Medication (Budesonide/ Formoterol Fumarate (Symbicort 160-4.5 Mcg Inhaler)) 2 puff BID 07/08/18 21:00 07/08/18 21:00 DC Non-Formulary Medication (Linaclotide (Linzess)) 72 mcg DAILY07 07/09/18 07:00 UNV Non-Formulary Medication ([lanacane cream] ) 1 barbara PRN PRN 07/08/18 10:15 07/08/18 11:11 DC Nystatin (Nystop) 1 barbara BID 07/08/18 21:00 07/08/18 22:05 1 BARBARA Oxycodone HCl (Roxicodone) 5 mg PRN Q8HRS PRN 3/5/19 12:00 07/08/18 22:04 5 MG Pantoprazole Sodium (Protonix) 40 mg DAILYAC 07/09/18 07:30 Sodium Bicarbonate (Sodium Bicarbonate) 1,300 mg BID 07/08/18 11:00 07/08/18 22:04 1,300 MG Sodium Chloride 1,000 ml @ 400 mls/hr Q2H30M PRN 07/09/18 09:42 07/09/18 21:41 Vitamin B Complex/ Vitamin C (Steph-Neri) 1 tab DAILY 07/08/18 11:00 07/08/18 11:31 1 TAB Labs: Lab Laboratory Tests Test 07/08/18 16:01 07/08/18 20:48 07/09/18 05:30 07/09/18 07:12 Glucose (Fingerstick) 109 mg/dL (70-99) 137 mg/dL (70-99) 81 mg/dL (70-99) Triglycerides Level 108 mg/dL (0-150) Cholesterol Level 136 mg/dL (0-200) LDL Cholesterol, Calculated 76 mg/dL (0-100) VLDL Cholesterol, Calculated 22 mg/dL (0-40) Non-HDL Cholesterol Calculated 98 mg/dL (0-129) HDL Cholesterol 38 mg/dL (40-60) Cholesterol/HDL Ratio 3.6 Thyroid Stimulating Hormone (TSH) 0.591 uIU/mL (0.358-3.74) Objective: Assessment: Encephalopathy, resolved. MSSA bacteremia jun 18 2018 BC neg from Jun 19,,16 ECHO neg for vegetation or endocarditis Plans per [facility] ID MD was to treat with atleast 4 weeks of cefazolin postdialysis on discharge on 06/26/18 ESRD on HD through LUE AV fistula Bilat knee pain treated with prednisone at [facility] Chronic pain syndrome. Diabetes. Hypertension/hyperlipidemia. Plan: Plan of Care 1. Continue cefazolin, renal dosing 2. Records from [facility] reviewed as above 3. Follow up blood cultures. 4. Continue supportive care. 5. Follow up labs in [facility] Cordero MD Jul 09, 2018 11:18
[2018-07-09] MEDS: CALCITRIOL 0.25 MCG CAPSULE. PO SCH (14:16)
[2018-07-09] MEDS: oxyCODONE IR 5 MG TABLET PO PRN (14:16)
[2018-07-09] MEDS: PANTOPRAZOLE 40 MG TABLET.DR. PO SCH (14:16)
[2018-07-09] MEDS: FOLIC/VIT B COMP W-C (RENAL) TABLET. PO SCH (14:16)
[2018-07-09] MEDS: NYSTATIN TOPICAL POWDER 15GM BOTTLE. TP SCH ×2 (14:17→20:23)
[2018-07-09] MEDS: FLUTICASONE 50MCG/NASAL SPRAY 16GM BOTTLE. NS SCH ×2 (14:17→20:23)
[2018-07-09] MEDS: ceFAZolin SODIUM 1 GM in IV DEXTROSE 5% 50 ML IV SCH ×2 (14:17→19:59)
[2018-07-09] MEDS: SODIUM BICARBONATE 650 MG TABLET. PO SCH ×2 (14:19→19:59)
[2018-07-09] MEDS: LACTOBACILLUS RHAMNOSUS GG 1 CAPSULE. PO SCH ×2 (14:21→20:00)
[2018-07-09 15:00] VITALS: BP 129/90
--- NOTE | 2018-07-09 15:45 | PDOC ---
SUBJECTIVE ROS Seen on HD, No complaints OBJECTIVE Vital Signs Vital Signs Date Time Temp Pulse Resp B/P (MAP) Pulse Ox O2 Delivery O2 Flow Rate FiO2 07/09/18 15:24 Nasal Cannula 2.0 07/09/18 15:00 98.8 98 17 129/90 (103) 100 98.8 I & 0 Intake and Output 07/09/18 06:59 Intake Total 500 ml Output Total 0 ml Balance 500 ml Intake Oral 450 ml IV Total 50 ml Output Urine Total 0 ml # Voids 1 # Bowel Movements 1 PHYSICAL EXAM Physical Exam General: NAD HEENT: OM moist Neck Supple Lungs: CTA ant, non labored Heart: RRR Abdomen: Soft, Obese Extremities: No LE edema Skin: No rash Neuro: AXOX3 - No Saldivar DIAGNOSIS/ASSESSMENT Assessment & Plan ESRD- MWF seen on HD, tolerating well Continue as ordered Dw Batch Records Clerk Access- Lt UA Fistula CAD/ Chronic diastolic CHF - compensated DM2- as per primary Recent Bacteremia- MSSA bacteremia jun 18 2018 ECHO neg for vegetation or endocarditis On Abx Anemia- Hgb lower than her baseline in may COMMENT/RELEVANT DATA Meds Current Medications Medications (Trade) Dose Ordered Sig/Noelle Start Time Stop Time Status Last Admin Dose Admin Albuterol Sulfate (Ventolin Neb Soln) 2.5 mg PRN TID PRN 07/08/18 10:45 Atorvastatin Calcium (Lipitor) 80 mg QHS 07/08/18 21:00 07/08/18 22:04 80 MG Budesonide (Pulmicort) 0.5 mg RTBID 07/08/18 11:30 07/09/18 07:41 0.5 MG Calcitriol (Rocaltrol) 0.25 mcg DAILY 07/09/18 09:00 07/09/18 14:16 0.25 MCG Calcium Acetate (Phoslo) 667 mg TIDWMEALS 07/08/18 12:00 07/09/18 14:16 667 MG Cefazolin Sodium 1 gm/Dextrose 50 ml @ 100 mls/hr Q12HR 07/08/18 21:00 07/09/18 14:17 100 MLS/HR Cefazolin Sodium/ Dextrose 50 ml @ 100 mls/hr 1X ONCE 07/08/18 12:00 07/08/18 12:50 DC 07/08/18 11:32 100 MLS/HR Clonazepam (KlonoPIN) 0.5 mg PRN TID PRN 07/09/18 10:00 Dextrose (Dextrose 50%-Water Syringe) 12.5 gm PRN Q15MIN PRN 07/08/18 10:15 Diclofenac Sodium (Voltaren) 1 barbara PRN BID PRN 07/08/18 10:15 07/08/18 18:29 1 BARBARA Enoxaparin Sodium (Lovenox 40mg Syringe) 30 mg Q24H 07/08/18 10:15 07/08/18 10:38 DC Fluticasone Propionate (Flonase) 2 spray BID 07/08/18 11:00 07/09/18 14:17 2 SPRAY Gabapentin (Neurontin) 100 mg TID 07/08/18 14:00 07/09/18 14:16 100 MG Heparin Sodium (Porcine) (Heparin Sodium) 5,000 unit Q8HRS 07/08/18 14:00 07/09/18 14:34 5,000 UNIT Info (PHARMACY MONITORING -- do not chart) 1 each PRN DAILY PRN 07/09/18 09:45 Insulin Human Lispro (HumaLOG) 0-7 UNITS TIDWMEALS 07/08/18 12:00 Lactobacillus Rhamnosus (Culturelle) 1 cap BID 07/09/18 13:00 07/09/18 14:21 1 CAP Metoprolol Succinate (Toprol Xl) 12.5 mg DAILY 07/08/18 11:00 07/08/18 11:00 DC Non-Formulary Medication (Albuterol Sulfate (Albuterol Sulfate Neb Soln)) 0.83 % TID PRN 07/08/18 10:15 07/08/18 10:33 DC Non-Formulary Medication (Budesonide/ Formoterol Fumarate (Symbicort 160-4.5 Mcg Inhaler)) 2 puff BID 07/08/18 21:00 07/08/18 21:00 DC Non-Formulary Medication (Linaclotide (Linzess)) 72 mcg DAILY07 07/09/18 07:00 UNV Non-Formulary Medication ([lanacane cream] ) 1 barbara PRN PRN 07/08/18 10:15 07/08/18 11:11 DC Nystatin (Nystop) 1 barbara BID 07/08/18 21:00 07/09/18 14:17 1 BARBARA Oxycodone HCl (Roxicodone) 5 mg PRN Q8HRS PRN 07/08/18 12:00 07/09/18 14:16 5 MG Pantoprazole Sodium (Protonix) 40 mg DAILYAC 07/09/18 07:30 07/09/18 14:16 40 MG Sodium Bicarbonate (Sodium Bicarbonate) 1,300 mg BID 07/08/18 11:00 07/09/18 14:19 1,300 MG Sodium Chloride 1,000 ml @ 400 mls/hr Q2H30M PRN 07/09/18 09:42 07/09/18 21:41 Vitamin B Complex/ Vitamin C (Steph-Neri) 1 tab DAILY 07/08/18 11:00 07/09/18 14:16 1 TAB Lab Laboratory Tests Test 07/08/18 16:01 07/08/18 20:48 07/09/18 05:30 07/09/18 07:12 Glucose (Fingerstick) 109 mg/dL (70-99) 137 mg/dL (70-99) 81 mg/dL (70-99) Triglycerides Level 108 mg/dL (0-150) Cholesterol Level 136 mg/dL (0-200) LDL Cholesterol, Calculated 76 mg/dL (0-100) VLDL Cholesterol, Calculated 22 mg/dL (0-40) Non-HDL Cholesterol Calculated 98 mg/dL (0-129) HDL Cholesterol 38 mg/dL (40-60) Cholesterol/HDL Ratio 3.6 Thyroid Stimulating Hormone (TSH) 0.591 uIU/mL (0.358-3.74) Hepatitis B Surface Antigen Nonreactive (Nonreactive) Hepatitis B Surface Antibody Nonreactive Test 07/09/18 14:11 Glucose (Fingerstick) 86 mg/dL (70-99) Results All relevant outside records, renal labs, imaging studies, telemetry/EKG's were reviewed. BRIEN GIRALDO MD Jul 09, 2018 15:45
[2018-07-09] MEDS: DICLOFENAC SODIUM 1% TOPICAL GEL 100GM TUBE. TP PRN ×3 (16:59→21:11)
[2018-07-09 19:00] VITALS: BP 129/67
[2018-07-09] MEDS: ATORVASTATIN CALCIUM 40 MG TABLET. PO SCH (20:00)
[2018-07-09 22:36] VITALS: BP 135/73
[2018-07-09 23:14] LABS: HEMOGLOBIN A1C 5.8 % (4.8-5.6)
[2018-07-10 02:51] VITALS: BP 128/70
[2018-07-10] MEDS: HEPARIN for SUB-Q USE 5,000 UNIT/ML VIAL. SQ SCH (05:36)
[2018-07-10 07:00] VITALS: BP 138/73
[2018-07-10] MEDS: INSULIN LISPRO 300 UNITS/3 ML INSULN.PEN. SQ SCH ×2 (08:00→11:53)
[2018-07-10] MEDS: FOLIC/VIT B COMP W-C (RENAL) TABLET. PO SCH (08:20)
[2018-07-10] MEDS: PANTOPRAZOLE 40 MG TABLET.DR. PO SCH (08:20)
[2018-07-10] MEDS: FLUTICASONE 50MCG/NASAL SPRAY 16GM BOTTLE. NS SCH (08:20)
[2018-07-10] MEDS: LACTOBACILLUS RHAMNOSUS GG 1 CAPSULE. PO SCH (08:21)
[2018-07-10] MEDS: GABAPENTIN 100 MG CAPSULE. PO SCH (08:21)
[2018-07-10] MEDS: SODIUM BICARBONATE 650 MG TABLET. PO SCH (08:21)
[2018-07-10] MEDS: CALCIUM ACETATE 667 MG CAPSULE PO SCH ×2 (08:21→11:49)
[2018-07-10] MEDS: CALCITRIOL 0.25 MCG CAPSULE. PO SCH (08:21)
[2018-07-10] MEDS: ceFAZolin SODIUM 1 GM in IV DEXTROSE 5% 50 ML IV SCH (08:22)
[2018-07-10] MEDS: oxyCODONE IR 5 MG TABLET PO PRN (08:33)
[2018-07-10] MEDS: NYSTATIN TOPICAL POWDER 15GM BOTTLE. TP SCH (08:35)
[2018-07-10] MEDS: BUDESONIDE 0.5 MG/2 ML NEBU. NEB SCH (09:17)
--- NOTE | 2018-07-10 10:21 | PDOC ---
PROGRESS NOTES Subjective Subjective feeling good ,wanting to go home Objective Objective Vital Signs Date Time Temp Pulse Resp B/P (MAP) Pulse Ox O2 Delivery O2 Flow Rate FiO2 07/10/18 09:19 100 Nasal Cannula 2.0 07/10/18 08:33 20 07/10/18 07:00 98.6 72 138/73 (94) 98.6 Intake and Output 07/10/18 06:59 Intake Total 1380 ml Balance 1380 ml Intake Oral 1380 ml # Voids 2 Physical Exam Abdomen: Normal bowel sounds, Soft Heart: Regular rate, Normal S1, Normal S2 Extremities: No clubbing General: Oriented X3 HEENT: Atraumatic Lungs: Clear to auscultation Neck: Supple Neuro: Normal speech Psych/Mental Status: Mood NL Skin: No breakdown Diagnosis Problem List Problems Medical Problems: (1) ESRD (end stage renal disease) Status: Acute Assessment Assessment Problems Medical Problems: (1) ESRD (end stage renal disease) Status: Acute FINAL IMPRESSION: 1. Confusion. 2. Metabolic encephalopathy. 3. End-stage renal disease, on dialysis. 4. Recent staph infection, bacteremia. She is getting Ancef with dialysis Saturday, , Saturday, I think she has another 2 more weeks to go. 5. Diabetes. 6. Hypertension. 7. Hyperlipidemia. 8. Chronic pain syndrome. PLAN: pt back to [facility] blood c/s neg seen by neurology, no new recommendations ID following dialysis yesterday d/c home today , needs 2 more weeks of iv antibiotics out pt with dialysis Plan Plan of Care Problems Medical Problems: (1) ESRD (end stage renal disease) Status: Acute Comment Review of Relevant I have reviewed the following items girish (where applicable) has been applied. Labs Laboratory Tests Test 07/09/18 14:11 07/09/18 16:20 07/09/18 20:41 07/10/18 07:15 Glucose (Fingerstick) 86 mg/dL (70-99) 141 mg/dL (70-99) 156 mg/dL (70-99) 86 mg/dL (70-99) Microbiology 07/07/18 Blood Culture - Preliminary, Resulted NO GROWTH AFTER 2 DAYS Medications Current Medications Lactobacillus Rhamnosus (Culturelle) 1 cap BID PO Last administered on at 08:21; Start 07/09/18 at 13:00 Vitals/I & O Vital Sign - Last 24 Hours 07/09/18 07/09/18 07/09/18 07/09/18 11:00 14:16 15:00 15:24 Temp 98.4 98.8 98.4 98.8 Pulse 69 98 Resp 17 17 B/P (MAP) 145/74 (97) 129/90 (103) Pulse Ox 100 O2 Delivery Nasal Cannula Nasal Cannula O2 Flow Rate 2.0 2.0 07/09/18 07/09/18 07/09/18 07/09/18 19:00 19:18 20:00 22:36 Temp 99.2 99.1 99.2 99.1 Pulse 83 91 Resp 18 18 B/P (MAP) 129/67 (87) 135/73 (93) Pulse Ox 99 99 100 O2 Delivery Nasal Cannula Nasal Cannula Nasal Cannula Nasal Cannula O2 Flow Rate 2.0 2.0 2.0 2.0 07/10/18 07/10/18 07/10/18 07/10/18 02:51 07:00 08:33 09:19 Temp 98.4 98.6 98.4 98.6 Pulse 69 72 Resp 18 17 20 B/P (MAP) 128/70 (89) 138/73 (94) Pulse Ox 98 100 93 100 O2 Delivery Nasal Cannula Nasal Cannula Nasal Cannula Nasal Cannula O2 Flow Rate 2.0 2.0 2.0 2.0 Intake and Output 07/09/18 07/09/18 07/10/18 14:59 22:59 06:59 Intake Total 540 ml 240 ml 600 ml Balance 540 ml 240 ml 600 ml LYLE ELENA MD Jul 10, 2018 10:21
[2018-07-10 11:00] VITALS: BP 129/62
--- NOTE | 2018-07-10 11:06 | PDOC ---
Infectious Disease Note Subjective: Subjective pt doing well no fever/n/v/d/sob or cough/abdo pain ROS: ROS Negative except for above. Vital Signs: Vital Signs Vital Signs Date Time Temp Pulse Resp B/P (MAP) Pulse Ox O2 Delivery O2 Flow Rate FiO2 07/10/18 09:19 100 Nasal Cannula 2.0 07/10/18 08:33 20 07/10/18 07:00 98.6 72 138/73 (94) 98.6 Physical Exam: PHYSICAL EXAM GENERAL: Alert, oriented x 3 female lying comfortably in bed, cooperative, in no acute distress. HEENT: Normocephalic, atraumatic. Anicteric. No thrush. Oral mucosa moist. NECK: Supple. No JVD. LUNGS: Clear bilaterally. No wheezing. HEART: S1, S2. ABDOMEN: Soft, obese, bowel sounds present, nontender, nondistended. GENITOURINARY: No Saldivar. EXTREMITIES: Trace edema. AV shunt in left upper extremity looks okay. NEUROLOGIC: Alert and oriented x 3. Grossly nonfocal. Medications: Inpatient Meds: Current Medications Medications (Trade) Dose Ordered Sig/Noelle Start Time Stop Time Status Last Admin Dose Admin Albuterol Sulfate (Ventolin Neb Soln) 2.5 mg PRN TID PRN 07/08/18 10:45 Atorvastatin Calcium (Lipitor) 80 mg QHS 07/08/18 21:00 07/09/18 20:00 80 MG Budesonide (Pulmicort) 0.5 mg RTBID 07/08/18 11:30 07/10/18 10:28 DC 07/10/18 09:17 0.5 MG Calcitriol (Rocaltrol) 0.25 mcg DAILY 07/09/18 09:00 07/10/18 08:21 0.25 MCG Calcium Acetate (Phoslo) 667 mg TIDWMEALS 07/08/18 12:00 07/10/18 08:21 667 MG Cefazolin Sodium 1 gm/Dextrose 50 ml @ 100 mls/hr Q12HR 07/08/18 21:00 07/10/18 08:22 100 MLS/HR Cefazolin Sodium/ Dextrose 50 ml @ 100 mls/hr 1X ONCE 07/08/18 12:00 07/08/18 12:50 DC 07/08/18 11:32 100 MLS/HR Clonazepam (KlonoPIN) 0.5 mg PRN TID PRN 07/09/18 10:00 07/10/18 10:28 DC 07/09/18 16:59 0.5 MG Dextrose (Dextrose 50%-Water Syringe) 12.5 gm PRN Q15MIN PRN 07/08/18 10:15 Diclofenac Sodium (Voltaren) 1 barbara PRN BID PRN 07/08/18 10:15 07/09/18 20:59 1 BARBARA Enoxaparin Sodium (Lovenox 40mg Syringe) 30 mg Q24H 07/08/18 10:15 07/08/18 10:38 DC Fluticasone Propionate (Flonase) 2 spray BID 07/08/18 11:00 07/10/18 08:20 2 SPRAY Gabapentin (Neurontin) 100 mg TID 07/08/18 14:00 07/10/18 08:21 100 MG Heparin Sodium (Porcine) (Heparin Sodium) 5,000 unit Q8HRS 07/08/18 14:00 07/10/18 10:28 DC 07/10/18 05:36 5,000 UNIT Info (PHARMACY MONITORING -- do not chart) 1 each PRN DAILY PRN 07/09/18 09:45 Insulin Human Lispro (HumaLOG) 0-7 UNITS TIDWMEALS 07/08/18 12:00 Lactobacillus Rhamnosus (Culturelle) 1 cap BID 07/09/18 13:00 07/10/18 08:21 1 CAP Metoprolol Succinate (Toprol Xl) 12.5 mg DAILY 07/08/18 11:00 07/08/18 11:00 DC Non-Formulary Medication (Albuterol Sulfate (Albuterol Sulfate Neb Soln)) 0.83 % TID PRN 07/08/18 10:15 07/08/18 10:33 DC Non-Formulary Medication (Budesonide/ Formoterol Fumarate (Symbicort 160-4.5 Mcg Inhaler)) 2 puff BID 07/08/18 21:00 07/08/18 21:00 DC Non-Formulary Medication (Linaclotide (Linzess)) 72 mcg DAILY07 07/09/18 07:00 07/10/18 07:07 DC Non-Formulary Medication ([lanacane cream] ) 1 barbara PRN PRN 07/08/18 10:15 07/08/18 11:11 DC Nystatin (Nystop) 1 barbara BID 07/08/18 21:00 07/09/18 20:23 1 BARBARA Oxycodone HCl (Roxicodone) 5 mg PRN Q8HRS PRN 07/08/18 12:00 07/10/18 08:33 5 MG Pantoprazole Sodium (Protonix) 40 mg DAILYAC 07/09/18 07:30 07/10/18 08:20 40 MG Sodium Bicarbonate (Sodium Bicarbonate) 1,300 mg BID 07/08/18 11:00 07/10/18 08:21 1,300 MG Sodium Chloride 1,000 ml @ 400 mls/hr Q2H30M PRN 07/09/18 09:42 07/09/18 21:41 DC Vitamin B Complex/ Vitamin C (Steph-Neri) 1 tab DAILY 07/08/18 11:00 07/10/18 08:20 1 TAB Labs: Lab Laboratory Tests Test 07/09/18 14:11 07/09/18 16:20 07/09/18 20:41 07/10/18 07:15 Glucose (Fingerstick) 86 mg/dL (70-99) 141 mg/dL (70-99) 156 mg/dL (70-99) 86 mg/dL (70-99) Objective: Assessment: Encephalopathy, resolved. likely metabolic MSSA bacteremia jun 18 2018 from [facility] BC neg from Jun 19,16 ECHO neg for vegetation or endocarditis Plans per [facility] SHONDA ELDER was to treat with atleast 4 weeks of cefazolin postdialysis on discharge on 06/26/18 ESRD on HD through LUE AV fistula Bilat knee pain treated with prednisone at [facility] Chronic pain syndrome. Diabetes. Hypertension/hyperlipidemia. Plan: Plan of Care Pt been dc today 1. Continue cefazolin, renal dosing 2gm -2gm-3gm -saturday postdialysis through July 17 2018 as planned by [facility] SHONDA ELDER Q mon CBC,fax results to [phone],Renal team to assist with coordiation with dialysis ,script in chart 2. Records from [facility] reviewed as above 3. Follow up blood cultures. 4. Continue supportive care. 5. Follow up with pcp HEMAL WRIGHT MD Jul 10, 2018 11:06
[2018-07-10] MEDS ORDERED: INSU100I17 SQ (12:42)
[2018-07-10] MEDS ORDERED: [UNRECOGNIZED DRUG - OTHER] MC (12:42)
[2018-07-10] MEDS ORDERED: INSU100I11 SQ (12:42)
[2018-07-10] MEDS ORDERED: OXYC5TAB4 PO (12:42)
[2018-07-10] MEDS ORDERED: LACT1CAP19 PO (12:42)
[2018-07-10] MEDS ORDERED: ALBU2.5V8 NEB (12:42)
--- NOTE | 2018-07-10 14:31 | PDOC ---
PROGRESS NOTES Assessment Problems Medical Problems: (1) ESRD (end stage renal disease) Status: Acute Metabolic encephalopathy, post-dialysis encephalopathy, resolved Asterixis History of left Sanders's palsy Diabetic neuropathy. Staph sepsis still on antibiotics Plan I provided prescription for clonazepam, I rediscussed side effects with patient and daughter. Follow up with Dr. Monroe in 1 month. Hold on additional studies such as repeat EEG Okay for discharge Subjective No complaints Objective Vital Signs Date Time Temp Pulse Resp B/P (MAP) Pulse Ox O2 Delivery O2 Flow Rate FiO2 07/10/18 11:00 98.9 83 18 129/62 (84) 100 Nasal Cannula 2.0 98.9 Intake and Output 07/10/18 07:00 Intake Total 1380 ml Balance 1380 ml Intake Oral 1380 ml # Voids 2 PHYSICAL EXAM Alert. Oriented to time, place and person. PERRL. EOMI. CN: left peripheral facial weakness, otherwise no focal findings. Muscle tone: normal. Muscle strength: 4/5 DTR: 0+ Plantar reflex: flexor Gait: not examined in bed. Sensory exam: stocking loss. No cerebellar signs elicited. No asterixis Review of Relevant I have reviewed the following items girish (where applicable) has been applied. Labs Laboratory Tests Test 07/08/18 16:01 07/08/18 20:48 07/09/18 05:30 07/09/18 07:12 Glucose (Fingerstick) 109 mg/dL (70-99) 137 mg/dL (70-99) 81 mg/dL (70-99) Hemoglobin A1c 5.8 % (4.8-5.6) Triglycerides Level 108 mg/dL (0-150) Cholesterol Level 136 mg/dL (0-200) LDL Cholesterol, Calculated 76 mg/dL (0-100) VLDL Cholesterol, Calculated 22 mg/dL (0-40) Non-HDL Cholesterol Calculated 98 mg/dL (0-129) HDL Cholesterol 38 mg/dL (40-60) Cholesterol/HDL Ratio 3.6 Thyroid Stimulating Hormone (TSH) 0.591 uIU/mL (0.358-3.74) Hepatitis B Surface Antigen Nonreactive (Nonreactive) Hepatitis B Surface Antibody Nonreactive Test 07/09/18 14:11 07/09/18 16:20 07/09/18 20:41 07/10/18 07:15 Glucose (Fingerstick) 86 mg/dL (70-99) 141 mg/dL (70-99) 156 mg/dL (70-99) 86 mg/dL (70-99) Test 07/10/18 11:16 Glucose (Fingerstick) 163 mg/dL (70-99) Laboratory Tests Test 07/09/18 16:20 07/09/18 20:41 07/10/18 07:15 07/10/18 11:16 Glucose (Fingerstick) 141 mg/dL (70-99) 156 mg/dL (70-99) 86 mg/dL (70-99) 163 mg/dL (70-99) Microbiology 07/07/18 Blood Culture - Preliminary, Resulted NO GROWTH AFTER 2 DAYS Medications Current Medications Diclofenac Sodium (Voltaren) 1 stefano PRN BID PRN TP PAIN Last administered on 07/09at 20:59; Start 07/08/18 at 10:15 Fluticasone Propionate (Flonase) 2 spray BID NS Last administered on 07/10/18at 08:20; Start 07/08/18 at 11:00 Gabapentin (Neurontin) 100 mg TID PO Last administered on 07/10/18at 08:21; Start 07/08/18 at 14:00 Metoprolol Succinate (Toprol Xl) 12.5 mg DAILY PO ; Start 07/08/18 at 11:00; Stop 07/08/18 at 11:00; Status DC Oxycodone HCl (Roxicodone) 5 mg Q6HRS PO ; Start 07/08/18 at 12:00; Stop 07/08/18 at 12:00; Status DC Sodium Bicarbonate (Sodium Bicarbonate) 1,300 mg BID PO Last administered on 07/10/18at 08:21; Start 07/08/18 at 11:00 Non-Formulary Medication (Albuterol Sulfate (Albuterol Sulfate Neb Soln)) 0.83 % TID PRN NEB WHEEZING; Start 07/08/18 at 10:15; Stop 07/08/18 at 10:33; Status DC Atorvastatin Calcium (Lipitor) 80 mg QHS PO Last administered on 07/09/18at 20:00 ; Start 07/08/18 at 21:00 Non-Formulary Medication (Budesonide/ Formoterol Fumarate (Symbicort 160-4.5 Mcg Inhaler)) 2 puff BID IH ; Start 07/08/18 at 21:00; Stop 07/08/18 at 21:00; Status DC Calcitriol (Rocaltrol) 0.25 mcg DAILY PO Last administered on 07/10/18at 08:21; Start 07/09/18 at 09:00 Calcium Acetate (Phoslo) 667 mg TIDWMEALS PO Last administered on 07/10/18at 11: 49; Start 07/08/18 at 12:00 Non-Formulary Medication (Linaclotide (Linzess)) 72 mcg DAILY07 PO ; Start at 07:00; Stop 07/10/18 at 07:07; Status DC Nystatin (Nystop) 1 stefano BID TP Last administered on 07/09/18at 20:23; Start at 21:00 Pantoprazole Sodium (Protonix) 40 mg DAILYAC PO Last administered on 07/10/18at 08:20; Start 07/09/18 at 07:30 Vitamin B Complex/ Vitamin C (Steph-Neri) 1 tab DAILY PO Last administered on 07/10/18at 08:20; Start 07/08/18 at 11:00 Non-Formulary Medication ([lanacane cream] ) 1 stefano PRN PRN TOP dialysis fistula before dialys; Start 07/08/18 at 10:15; Stop 07/08/18 at 11:11; Status DC Cefazolin Sodium/ Dextrose 50 ml @ 100 mls/hr 1X ONCE IV Last administered on 07/08/18at 11:32; Start 07/08/18 at 12:00; Stop 07/08/18 at 12:50; Status DC Insulin Human Lispro (HumaLOG) 0-7 UNITS TIDWMEALS SQ Last administered on at 11:53; Start 07/08/18 at 12:00 Dextrose (Dextrose 50%-Water Syringe) 12.5 gm PRN Q15MIN PRN IV SEE COMMENTS; Start 07/08/18 at 10:15 Enoxaparin Sodium (Lovenox 40mg Syringe) 30 mg Q24H SQ ; Start 07/08/18 at 10:15 ; Stop 07/08/18 at 10:38; Status DC Oxycodone HCl (Roxicodone) 5 mg PRN Q8HRS PRN PO PAIN Last administered on at 08:33; Start 07/08/18 at 12:00 Albuterol Sulfate (Ventolin Neb Soln) 2.5 mg PRN TID PRN NEB SHORTNESS OF BREATH; Start 07/08/18 at 10:45 Budesonide (Pulmicort) 0.5 mg RTBID NEB Last administered on 07/10/18at 09:17; Start 07/08/18 at 11:30; Stop 07/10/18 at 10:28; Status DC Heparin Sodium (Porcine) (Heparin Sodium) 5,000 unit Q8HRS SQ Last administered on 07/10/18at 05:36; Start 07/08/18 at 14:00; Stop 07/10/18 at 10:28; Status DC Cefazolin Sodium 1 gm/Dextrose 50 ml @ 100 mls/hr Q12HR IV Last administered on 07/10/18at 08:22; Start 07/08/18 at 21:00 Sodium Chloride 1,000 ml @ 1,000 mls/hr Q1H PRN IV hypotension; Start 07/09/18 at 09:42; Stop 07/09/18 at 15:41; Status DC Sodium Chloride 1,000 ml @ 400 mls/hr Q2H30M PRN IV PATENCY; Start 07/09/18 at 09:42; Stop 07/09/18 at 21:41; Status DC Info (PHARMACY MONITORING -- do not chart) 1 each PRN DAILY PRN MC SEE COMMENTS ; Start 07/09/18 at 09:45; Status UNV Info (PHARMACY MONITORING -- do not chart) 1 each PRN DAILY PRN MC SEE COMMENTS ; Start 07/09/18 at 09:45 Clonazepam (KlonoPIN) 0.5 mg PRN TID PRN PO TREMORS Last administered on at 16:59; Start 07/09/18 at 10:00; Stop 07/10/18 at 10:28; Status DC Lactobacillus Rhamnosus (Culturelle) 1 cap BID PO Last administered on at 08:21; Start 07/09/18 at 13:00 Active Scripts Active [Dialysis Patient] 1 EACH Each 1 Each MC PRN DAILY PRN 30 Days Culturelle (Lactobacillus Rhamnosus Gg) 1 Each Cap.sprink 1 Cap PO BID 10 Days Humalog (Insulin Lispro) 100 Unit/1 Ml Insuln.pen 1 Units SQ TIDWMEALS 10 Days Oxycodone Hcl Immed.release (Oxycodone Hcl) 5 Mg Tablet 5 Mg PO PRN Q8HRS PRN 10 Days Proair Hfa (Albuterol Sulfate) 8.5 Gm Hfa.aer.ad 2.5 Mg NEB PRN TID PRN 30 Days Novolog Flexpen (Insulin Aspart) 100 Unit/1 Ml Insuln.pen 1 Unit SQ [id number] 10 Days Novolog FlexPen Sliding Scale: For fingerstick blood glucose: 150-200 take 2 units 201-250 take 4 units 251-300 take 6 units 301-350 take 8 units 351-400 take 10 units If blood glucose greater than [address] Corona. Reported [lanacane cream] 1 Stefano TOP PRN PRN Midodrine Hcl 5 Mg Tablet 5 Mg PO TID Ventolin Hfa Inhaler (Albuterol Sulfate) 18 Gm Hfa.aer.ad 2 Puff INH Q4HRS PRN Nephro-Neri Rx Tablet (Vit B Cmplx 3/Fa/Vit C/Biotin) 1 Each Tablet 1 Each PO DAILY Nystatin 1 Each Powder.ea. 1 Each PO BID PRN Calcium Acetate 667 Mg Tablet 667 Mg PO TIDWMEALS Linzess (Linaclotide) 145 Mcg Capsule 72 Mcg PO DAILY07 Zofran (Ondansetron Hcl) 8 Mg Tablet 1 Tab PO Q12HR PRN Triamcinolone Acetonide 80 Gm Oint...g. 1 Stefano TP BID PRN Fluticasone Propionate Nasal [place] (Fluticasone Propionate) 16 Gm [place].susp 2 [place] NS BID Calcitriol 0.25 Mcg Capsule 1 Cap PO DAILY Atorvastatin Calcium 80 Mg Tablet 80 Mg PO DAILY Voltaren (Diclofenac Sodium) 100 Gm Gel..gram. 1 Gm TP BID PRN Triamcinolone Acetonide 0.1% Oint (Triamcinolone Acetonide) 15 Gm Oint...g. 1 Stefano TP BID MIX WITH EUCERIN DIRECTED BY PHYSICIAN Symbicort 160-4.5 Mcg Inhaler (Budesonide/Formoterol Fumarate) 10.2 Gm Hfa.aer.ad 2 Puff IH BID Sodium Bicarbonate 650 Mg Tablet 2 Tab PO BID Oxycodone Hcl Immed.release (Oxycodone Hcl) 5 Mg Tablet 1 Tab PO Q6HRS Omeprazole 40 Mg Capsule.dr 1 Cap PO DAILY Gabapentin (Gabapentin) 100 Mg Capsule 100 Mg PO TID Albuterol Sulfate Neb Soln (Albuterol Sulfate) 0.63 Mg/3 Ml Vial.neb 0.83 % NEB TID PRN Vitals/I & O Vital Sign - Last 24 Hours 07/09/18 07/09/18 07/09/18 07/09/18 15:00 19:00 19:18 20:00 Temp 98.8 99.2 98.8 99.2 Pulse 98 83 Resp 17 18 B/P (MAP) 129/90 (103) 129/67 (87) Pulse Ox 100 99 99 O2 Delivery Nasal Cannula Nasal Cannula Nasal Cannula O2 Flow Rate 2.0 2.0 2.0 07/09/18 07/10/18 07/10/18 07/10/18 22:36 02:51 07:00 08:00 Temp 99.1 98.4 98.6 99.1 98.4 98.6 Pulse 91 69 72 Resp 18 18 17 B/P (MAP) 135/73 (93) 128/70 (89) 138/73 (94) Pulse Ox 100 98 100 O2 Delivery Nasal Cannula Nasal Cannula Nasal Cannula Nasal Cannula O2 Flow Rate 2.0 2.0 2.0 2.0 07/10/18 07/10/18 07/10/18 07/10/18 08:33 09:19 09:35 11:00 Temp 98.9 98.9 Pulse 83 Resp 20 20 18 B/P (MAP) 129/62 (84) Pulse Ox 93 100 100 100 O2 Delivery Nasal Cannula Nasal Cannula Nasal Cannula Nasal Cannula O2 Flow Rate 2.0 2.0 2.0 2.0 Intake and Output 07/09/18 07/09/18 07/10/18 15:00 23:00 07:00 Intake Total 540 ml 240 ml 600 ml Balance 540 ml 240 ml 600 ml YEIMI RENEE MD Jul 10, 2018 14:31
--- NOTE | 2018-07-16 16:25 | PDOC ---
Provider Note Provider Note Discharge summary dictated. #[id number] LYLE ELENA MD Jul 16, 2018 16:25
--- NOTE | 2018-07-16 22:17 | DS ---
DATE OF DISCHARGE: 07/10/2018 REASON FOR ADMISSION TO THE HOSPITAL: Confusion, encephalopathy. CONSULTATIONS: Dr. Camejo, Neurology and Dr. Zelaya, Renal. PROCEDURES DONE: 1. CT head. 2. Hemodialysis. HOSPITAL COURSE: The patient is a 78-year-old female. She was admitted to the hospital in end of May. She had a staph bacteremia, was treated with IV antibiotics, Ancef with dialysis. She also had another episode, had staph bacteremia at [facility]. This was 10 days ago. She stayed for 3-4 days and was discharged. She was continuing on Ancef as outpatient dialysis. She was confused, did not know where she was, a bit lethargic, was brought to the hospital. CT was negative. Her blood sugars were not low and she was seen by Neurology. The patient was continued on dialysis. Her blood culture was negative for any Staph at this point and seen by Infectious Disease. Ancef was continued while she was in the hospital and recommend continue outpatient until 07/24. LABORATORY DATA: CBC: Hemoglobin 9. Electrolytes were A1c of 5.8. Cholesterol is good. Thyroid was good. Other electrolytes were unremarkable. Creatinine was 3.6 and toxicology was positive for some opiates. FINAL DIAGNOSES: 1. Encephalopathy with confusion after dialysis. 2. History of staph bacteremia on IV Ancef out pt with dialysis. Blood culture was negative. 3. End-stage renal disease, on hemodialysis. 4. Diabetes, good control. 5. Hypertension. PLAN: At this time, the patient was admitted. Blood culture was not positive. No more fever. Her confusion resolved back to her baseline and she was discharged back home and scheduled for continuing outpatient IV antibiotics after dialysis for another 2 more weeks until 07/24. Some of the medications were adjusted. LYLE ELENA MD DR: SHIVANI/kimberly JOB#: [id number] / [id number] TRISTA
== END 2018-07-10 14:25 | disposition home or self-care (01) | DRG 871 ==
LOC: ER 16:58 → 5 NORTH 19:15
PROVIDERS: ADMIT Internal Medicine; ATTEND Internal Medicine
PROC: 5A1D70Z Performance of Urinary Filtration, Intermittent, Less than 6 Hours Per Day (ICD-10-PCS; principal; 2018-07-09)
DX: A41.2 Sepsis due to unspecified staphylococcus (principal); N18.6 End stage renal disease; G93.41 Metabolic encephalopathy; I13.2 Hypertensive heart and chronic kidney disease with heart failure and with stage 5 chronic kidney disease, or end stage renal disease; I42.9 Cardiomyopathy, unspecified; I50.32 Chronic diastolic (congestive) heart failure; E11.22 Type 2 diabetes mellitus with diabetic chronic kidney disease; G89.4 Chronic pain syndrome; M25.561 Pain in right knee; M25.562 Pain in left knee; E78.5 Hyperlipidemia, unspecified; E11.42 Type 2 diabetes mellitus with diabetic polyneuropathy; G47.33 Obstructive sleep apnea (adult) (pediatric); I25.10 Atherosclerotic heart disease of native coronary artery without angina pectoris; J44.9 Chronic obstructive pulmonary disease, unspecified; K21.9 Gastro-esophageal reflux disease without esophagitis; E21.3 Hyperparathyroidism, unspecified; K57.90 Diverticulosis of intestine, part unspecified, without perforation or abscess without bleeding; M79.7 Fibromyalgia; Z82.49 Family history of ischemic heart disease and other diseases of the circulatory system; Z99.2 Dependence on renal dialysis; Z83.3 Family history of diabetes mellitus; Z87.11 Personal history of peptic ulcer disease; Z90.49 Acquired absence of other specified parts of digestive tract; Z90.710 Acquired absence of both cervix and uterus; Z98.84 Bariatric surgery status; Z88.8 Allergy status to other drugs, medicaments and biological substances; Z88.6 Allergy status to analgesic agent; Z91.041 Radiographic dye allergy status; Z79.899 Other long term (current) drug therapy; Z79.4 Long term (current) use of insulin; Z87.891 Personal history of nicotine dependence
CPT/HCPCS: 36415; 70450; 71045; 80053; 80061; 80307; 82140; 82553; 82803; 82962; 83036; 83605; 83735; 83880; 84443; 84484; 85007; 85025; 85610; 85730; 86706; 87040; 87340; 93005; 94640; 94760; J0690; J0696; J1644; J1815; J7626; 99285-25

== ENCOUNTER → 2018-07-10 | Outpatient (CLI) | payer BC ==
[~2018-07-10] MED LIST changes: +ALBU2.5V8 NEB; +FURO20TA3 PO; +INSU100I11 SQ; +LACT1CAP19 PO; +LANACANE TOP; +MIDO5TAB PO; +[UNRECOGNIZED DRUG - OTHER] MC
[2018-07-10 11:00] VITALS: BP 129/62
--- NOTE | 2018-07-10 15:31 | RAD ---
DATE: 07/10/2018 EXAM: DIGITAL SCREEN BILAT W/CAD HISTORY: Routine screening COMPARISON: 06/13/2017 This study was interpreted with the benefit of Computerized Aided Detection (CAD). Breast Density: HETERO The breast parenchyma is heterogenously dense, which could reduce sensitivity of mammography. Breast parenchyma level C. FINDINGS: An old breast biopsy marker is again noted medially in the left breast. No new or enlarging breast densities are seen. Benign type calcifications are present. No suspicious microcalcifications have developed. IMPRESSION: Stable mammograms without evidence of malignancy. BI-RADS CATEGORY: 2 BENIGN FINDING(S) RECOMMENDED FOLLOW-UP: 12M 12 MONTH FOLLOW-UP PQRS compliance statement: Patient information was entered into a reminder system with a target due date for the next mammogram. Mammography is a sensitive method for finding small breast cancers, but it does not detect them all and is not a substitute for careful clinical examination. A negative mammogram does not negate a clinically suspicious finding and should not result in delay in biopsying a clinically suspicious abnormality. "Our facility is accredited by the [employer] Mammography Program."
== END | disposition home or self-care (01) ==
LOC: MAMMO 13:02
PROVIDERS: ATTEND Internal Medicine
DX: Z12.31 Encounter for screening mammogram for malignant neoplasm of breast (principal)
CPT/HCPCS: 77067

== ENCOUNTER → 2018-08-14 | Outpatient (CLI) | payer BC ==
[2018-08-14 16:53] LABS: ALBUMIN 3.5 g/dL (3.4-5.0); ALBUMIN/GLOBULIN RATIO 0.8 (1.0-1.7); CALCIUM 9.1 mg/dL (8.5-10.1); CREATININE 4.6 mg/dL (0.6-1.0); GFR 11.2; POTASSIUM 4.3 mmol/L (3.5-5.1); TOTAL BILIRUBIN 0.2 mg/dL (0.2-1.0); TOTAL PROTEIN 8.1 g/dL (6.4-8.2)
== END | disposition home or self-care (01) ==
LOC: LAB 15:45
PROVIDERS: ATTEND Psychiatry & Neurology Neurology
DX: R25.9 Unspecified abnormal involuntary movements (principal)
CPT/HCPCS: 36415; 80053; 82310; 82550; 82607

== ENCOUNTER → 2018-09-04 | Outpatient (CLI) | payer BC ==
--- NOTE | 2018-09-04 11:50 | RAD ---
Cervical spine CT without contrast History: Neck pain, weakness Technique: Noncontrast CT imaging was performed of the cervical spine. Multiplanar images are reviewed. Exposure: One or more of the following individualized dose reduction techniques were utilized for this examination: 1. Automated exposure control 2. Adjustment of the mA and/or kV according to patient size 3. Use of iterative reconstruction technique. Comparison: None Findings: No cervical spine acute fracture is identified. Vertebral body stature is preserved. There is negligible anterior spondylolisthesis C4-C5. There is degree of interbody fusion C5-6. There is moderate to severe degenerative disc disease at C6-7, minimally at other levels. Atlanto-axial distance is within normal limits, associated degenerative change. There is appropriate alignment of lateral masses of C1 relative to C2. Occipital condylar-C1 relationship is maintained. There is mild levoscoliosis of the cervical spine. C2-C3: There is left greater than right facet degenerative change. There is very minimal disc osteophyte complex. Spinal canal and right neural foramen are adequate, moderate to severe narrowing of the left neural foramen. C3-4: There is very minimal disc osteophyte complex. Central canal is likely borderline about 10 mm. There is bilateral facet degenerative change, also right uncovertebral degenerative change. There is severe neural foramina compromise bilaterally. C4-C5: There is minimal disc osteophyte complex. Central canal is likely borderline about 10 mm. There is right greater than left facet hypertrophic change. There is also uncovertebral degenerative change bilaterally. There is severe left and moderate to severe right neural foramina compromise. C5-C6: There is minimal disc osteophyte complex, likely mild narrowing of the central canal about 9 to 10 mm. There is facet degenerative change greater on the left. There is uncovertebral degenerative change greater on the left. There is severe narrowing of the left neural foramen, moderate to severe narrowing on the right. C6-7: There is posterior disc osteophyte complex greatest centrally, likely narrowing of the central canal about 7 mm part by a more focal central osteophyte. There is facet degenerative change greater on the left. There is mild uncovertebral degenerative change bilaterally. There is likely moderate narrowing of the left neural foramen, overall mild to moderate narrowing on the right. C7-T1: There is broad posterior disc osteophyte complex, also more central osteophyte indenting the ventral thecal sac and narrowing of the central canal about 7 mm. There is likely overall mild to moderate left and mild right neural foramina compromise. T1-2: Facet and uncovertebral degenerative change contributes to likely mild to moderate neural foramina compromise bilaterally. Impression: 1. There is spinal stenosis on the order of 7 mm at C7-T1 and C6-7, to a lesser degree at C5-6. 2. There is multilevel degenerative disc disease greatest at C6-7, minimally at other levels other than interbody fusion C5-6. 3. Facet and uncovertebral degenerative change contributes to multilevel cervical neural foramina compromise, more significant narrowing bilaterally C3-4 through C5-C6 and on the left at C2-C3, lesser degree of narrowing bilaterally at C6-7. Electronically signed by: Obi Marmolejo MD (09/04/2018 11:47 AM) [id number]
== END | disposition home or self-care (01) ==
LOC: CT 10:26
PROVIDERS: ATTEND Psychiatry & Neurology Neurology
DX: M50.323 Other cervical disc degeneration at C6-C7 level (principal); M48.03 Spinal stenosis, cervicothoracic region; M47.812 Spondylosis without myelopathy or radiculopathy, cervical region; M25.78 Osteophyte, vertebrae; M89.38 Hypertrophy of bone, other site
CPT/HCPCS: 72125

== ENCOUNTER → 2018-09-11 | Outpatient (CLI) | payer BC ==
--- NOTE | 2018-09-19 18:59 | EEG ---
DATE OF SERVICE: 09/11/2018 EEG NUMBER: [id number] OBJECTIVE: This is a 78-year-old -[place] female patient with history of abnormal movements. EEG was requested to help rule out seizure. METHODS: Twenty electrodes were applied according to the international 10-20 electrode placement system. EKG monitoring, hyperventilation, intermittent photic stimulation, monopolar and bipolar montages were routinely utilized. The record was obtained on a digital system with video monitoring. FINDINGS: 1. Background: The patient was recorded in the awake, drowsy, and sleep states. The overall background amplitude is 10-20 microvolts. A posterior dominant rhythm of 8 Hz is observed. 2. Abnormalities: No specific epileptiform discharge or electrographic seizure is seen. No focal or diffuse slowing. 3. Activation: Hyperventilation was performed with good efforts and normal response. Intermittent photic stimulation was performed with photic driving. No specific epileptiform discharge or electrographic seizure induced by hyperventilation or intermittent photic stimulation. IMPRESSION: This EEG is within the normal limits of the study for the awake, drowsy, and sleep states. No focal, lateralizing, specific epileptiform discharge or electrographic seizure is seen. LEON DOHERTY MD DR: Palmer JOB#: [id number] / [id number] TRISTA
== END | disposition home or self-care (01) ==
LOC: RT 08:03
PROVIDERS: ATTEND Psychiatry & Neurology Neurology
DX: R25.9 Unspecified abnormal involuntary movements (principal)
CPT/HCPCS: 95816

== ENCOUNTER 2018-10-06 14:19 | Emergency (ER) | payer BC ==
[~2018-10-06] VITALS: Ht 162.6 cm; Wt 96.2 kg
[2018-10-06 15:12] LABS: BASO % 1 % (0-3); EOS # 0.2 x10^3/uL (0.0-0.7); EOS % 4 % (0-3); HEMATOCRIT 38.6 % (36.0-47.0); HEMOGLOBIN 12.4 g/dL (12.0-15.5); LYMPH # 1.3 x10^3/uL (1.0-4.8); LYMPH % 30 % (24-48); MEAN CORPUSCULAR HEMOGLOBIN 32 pg (25-35); MEAN CORPUSCULAR HGB CONC 32 g/dL (31-37); MEAN CORPUSCULAR VOLUME 98 fL (79-100); MONO # 0.4 x10^3/uL (0.0-1.1); MONO % 9 % (0-9); NEUT # 2.4 x10^3uL (1.8-7.7); NEUT % 56 % (31-73); PLATELET COUNT 149 x10^3/uL (140-400); RED BLOOD COUNT 3.93 x10^6/uL (3.50-5.40); RED CELL DISTRIBUTION WIDTH 16.5 % (11.5-14.5); WHITE BLOOD COUNT 4.3 x10^3/uL (4.0-11.0)
[2018-10-06 15:18] LABS: CALCIUM 8.8 mg/dL (8.5-10.1); CREATININE 4.4 mg/dL (0.6-1.0); GFR 11.8; POTASSIUM 4.1 mmol/L (3.5-5.1)
--- NOTE | 2018-10-06 15:22 | EKG ---
[facility] [address] [place] [address] Test Date: 2018-10-06 Test Time: 14:27:03 Pat Name: SHLOMO LATIF Department: Room: Gender: F [employer] Professional: : 1940 Requested By: ELENA LAKHANI Order Number: [id number] Reading MD: Measurements Intervals Lutts Rate: 86 P: 24 MS: 232 QRS: -16 QRSD: 98 T: 128 QT: 386 QTc: 465 Interpretive Statements SINUS RHYTHM ATRIAL PREMATURE COMPLEX(ES) PROLONGED MS INTERVAL LEFTWARD AXIS LVH WITH REPOLARIZATION ABNORMALITY ABNORMAL ECG Compared to ECG 07/07/2018 17:04:28 Left-axis deviation now present Left ventricular hypertrophy now present Early repolarization now present
[2018-10-06 15:35] LABS: ALBUMIN 3.8 g/dL (3.4-5.0); ALBUMIN/GLOBULIN RATIO 0.9 (1.0-1.7); TOTAL BILIRUBIN 0.2 mg/dL (0.2-1.0); TOTAL PROTEIN 7.9 g/dL (6.4-8.2)
--- NOTE | 2018-10-06 15:50 | PHYS DOC ---
Past Medical History Past Medical History: CAD, COPD, Diabetes-Type II, GERD, Hypertension, Renal Failure, Other Additional Past Medical Histor: Neuropathy Past Surgical History: Cholecystectomy, Hysterectomy, Other Additional Past Surgical Histo: shunt placement left forearm, gastric bypass Alcohol Use: None Drug Use: None Adult General Chief Complaint Chief Complaint: NEAR SYNCOPE HPI HPI Patient is a 78 year old 78 who brought in by EMS because of near syncope. Patient has history of chronic renal failure on dialysis felt dizzy at the end of her dialysis without chest pain, shortness of breath, nausea and vomiting. Patient states she usually gets the same episode after finishing dialysis but the staff called 911 and didn't listen to her. Review of Systems Review of Systems Constitutional: Denies fever or chills [] Eyes: Denies change in visual acuity, redness, or eye pain [] HENT: Denies nasal congestion or sore throat [] Respiratory: Denies cough or shortness of breath [] Cardiovascular: No additional information not addressed in HPI [] GI: Denies abdominal pain, nausea, vomiting, bloody stools or diarrhea [] : Denies dysuria or hematuria [] Musculoskeletal: Denies back pain or joint pain [] Integument: Denies rash or skin lesions [] Neurologic: Denies headache, focal weakness or sensory changes [] Endocrine: Denies polyuria or polydipsia [] All other systems were reviewed and found to be within normal limits, except as documented in this note. Allergies Allergies Allergies Coded Allergies Type Severity Reaction Last Updated Verified NSAIDS (Non-Steroidal Anti-Inflamma Allergy Severe Swelling 07/27/17 Yes pregabalin Allergy Severe Swelling 05/03/18 Yes tramadol Allergy Severe Swelling 05/03/18 Yes Iodinated Contrast- Oral and IV Dye Allergy Intermediate ITCHING/HIVES 07/25/17 Yes Iodine and Iodide Containing Produc Allergy Intermediate ITCHING/HIVES 05/03/18 Yes ibuprofen Adverse Reaction Intermediate UPSET STOMACH 05/03/18 Yes Physical Exam Physical Exam Constitutional: Well developed, well nourished, mild distress, non-toxic appearance. [] HENT: Normocephalic, atraumatic. Eyes: PERRLA, EOMI, conjunctiva normal, no discharge. [] Neck: Normal range of motion, no tenderness, supple, no stridor. [] Cardiovascular:Heart rate regular rhythm, no murmur [] Lungs & Thorax: Bilateral breath sounds clear to auscultation [] Abdomen: Bowel sounds normal, soft, no tenderness, no masses, no pulsatile masses. [] Skin: Warm, dry, no erythema, no rash. [] Back: No tenderness, no CVA tenderness. [] Extremities: No tenderness, no cyanosis, no clubbing, ROM intact, no edema. [] Neurologic: Alert and oriented X 3, no new neurovascular deficit Current Patient Data Vital Signs Vital Signs Date Time Temp Pulse Resp B/P (MAP) Pulse Ox O2 Delivery O2 Flow Rate FiO2 10/06/18 14:39 97.4 90 12 126/78 (94) 99 Nasal Cannula 2.0 97.4 Lab Values Laboratory Tests Test 10/06/18 14:26 10/06/18 14:50 Glucose (Fingerstick) 178 mg/dL (70-99) H White Blood Count 4.3 x10^3/uL (4.0-11.0) Red Blood Count 3.93 x10^6/uL (3.50-5.40) Hemoglobin 12.4 g/dL (12.0-15.5) Hematocrit 38.6 % (36.0-47.0) Mean Corpuscular Volume 98 fL (79-100) Mean Corpuscular Hemoglobin 32 pg (25-35) Mean Corpuscular Hemoglobin Concent 32 g/dL (31-37) Red Cell Distribution Width 16.5 % (11.5-14.5) H Platelet Count 149 x10^3/uL (140-400) Neutrophils (%) (Auto) 56 % (31-73) Lymphocytes (%) (Auto) 30 % (24-48) Monocytes (%) (Auto) 9 % (0-9) Eosinophils (%) (Auto) 4 % (0-3) H Basophils (%) (Auto) 1 % (0-3) Neutrophils # (Auto) 2.4 x10^3uL (1.8-7.7) Lymphocytes # (Auto) 1.3 x10^3/uL (1.0-4.8) Monocytes # (Auto) 0.4 x10^3/uL (0.0-1.1) Eosinophils # (Auto) 0.2 x10^3/uL (0.0-0.7) Basophils # (Auto) 0.0 x10^3/uL (0.0-0.2) Sodium Level 138 mmol/L (136-145) Potassium Level 4.1 mmol/L (3.5-5.1) Chloride Level 98 mmol/L (98-107) Carbon Dioxide Level 26 mmol/L (21-32) Anion Gap 14 (6-14) Blood Urea Nitrogen 32 mg/dL (7-20) H Creatinine 4.4 mg/dL (0.6-1.0) H Estimated GFR (Cockcroft-Gault) 11.8 BUN/Creatinine Ratio 7 (6-20) Glucose Level 192 mg/dL (70-99) H Calcium Level 8.8 mg/dL (8.5-10.1) Magnesium Level Pending Total Bilirubin Pending Aspartate Amino Transferase (AST) Pending Alanine Aminotransferase (ALT) Pending Alkaline Phosphatase Pending Troponin I Quantitative < 0.017 ng/mL (0.000-0.055) Total Protein Pending Albumin Pending Albumin/Globulin Ratio Pending Laboratory Tests 10/06/18 14:50 Laboratory Tests 10/06/18 14:50 EKG EKG EKG interpreted by me. EKG at 1427 showed normal sinus rhythm at rate of 87, PVCs, prolonged NC interval at 134, left christina axis, LVH, no acute ST and T-wave abnormalities. Radiology/Procedures Radiology/Procedures Chest x-ray interpreted by me and showed cardiomegaly without infiltration. Course & Med Decision Making Course & Med Decision Making Pertinent Labs and Imaging studies reviewed. (See chart for details) Evaluation of patient in ER showed 78-year-old female patient on hemodialysis brought in by EMS because of near syncope after end of dialysis. Patient had the same episode previously. Patient had unremarkable physical exam except for chronic facial droop. Labs was unremarkable except for elevation of BUN/creatinine without electrolyte problem. Patient and her family feel comfortable to go home and follow up with her primary care physician as needed. Dragon Disclaimer Dragon Disclaimer This electronic medical record was generated, in whole or in part, using a voice recognition dictation system. Departure Departure Impression: Primary Impression: Vasovagal near syncope Additional Impression: End stage renal disease Disposition: HOME, SELF-CARE (at 1549) Condition: IMPROVED Referrals: LYLE ELENA MD (PCP) Patient Instructions: Near-Syncope Additional Instructions: Follow-up with your scheduled dialysis Follow-up with your primary care physician in 3-5 days Return to ER if not getting better Problem Qualifiers ELENA LAKHANI MD Oct 06, 2018 15:50
[2018-10-06 15:53] VITALS: BP 124/59
--- NOTE | 2018-10-06 16:20 | RAD ---
EXAM: CHEST 1 VIEW. HISTORY: Syncope. COMPARISON: 07/07/2018. FINDINGS: A frontal view of the chest is obtained. The inspiration is small with mild bibasilar atelectasis. There are no confluent infiltrates. The aorta is tortuous but stable in contour. There is no pneumothorax or pleural effusion. The heart is not enlarged. IMPRESSION: 1. Basilar atelectasis. No confluent infiltrates. Electronically signed by: Nicola Garcia MD (10/06/2018 4:17 PM) [facility]
== END 2018-10-06 16:14 | disposition home or self-care (01) ==
LOC: ER 14:19
DX: R55 Syncope and collapse (principal); E11.22 Type 2 diabetes mellitus with diabetic chronic kidney disease; I12.0 Hypertensive chronic kidney disease with stage 5 chronic kidney disease or end stage renal disease; N18.6 End stage renal disease; Z99.2 Dependence on renal dialysis; I25.10 Atherosclerotic heart disease of native coronary artery without angina pectoris; J44.9 Chronic obstructive pulmonary disease, unspecified; K21.9 Gastro-esophageal reflux disease without esophagitis; E11.40 Type 2 diabetes mellitus with diabetic neuropathy, unspecified; Z90.49 Acquired absence of other specified parts of digestive tract; Z90.710 Acquired absence of both cervix and uterus; Z98.84 Bariatric surgery status; Z91.041 Radiographic dye allergy status; Z88.6 Allergy status to analgesic agent; Z88.8 Allergy status to other drugs, medicaments and biological substances
CPT/HCPCS: 36415; 71045; 80053; 82962; 83735; 84484; 85025; 93005; 99285-25

== ENCOUNTER 2018-12-15 13:54 | Inpatient (IN) | payer BC ==
[~2018-12-15] VITALS: Ht 162.6 cm; Wt 100.5 kg
[~2018-12-15 13:54] MED LIST changes: -TIZA4TAB PO; +TIZA4TAB2 PO
[2018-12-15] MEDS ORDERED: PIP/TAZO PER PHARMACY MC PRN (14:15)
[2018-12-15] MEDS ORDERED: VANCOMYCIN 1.25 GM in IV NORMAL SALINE 250ML 250 ML IV ONE (14:15)
[2018-12-15] MEDS ORDERED: ACETAMINOPHEN 500 MG TABLET PO ONE (14:15)
--- NOTE | 2018-12-15 14:24 | PHYS DOC ---
Past Medical History Past Medical History: CAD, COPD, Diabetes-Type II, GERD, Hypertension, Renal Failure, Other Additional Past Medical Histor: Neuropathy Past Surgical History: Cholecystectomy, Hysterectomy, Other Additional Past Surgical Histo: shunt placement left forearm, gastric bypass Alcohol Use: None Drug Use: None Adult General HPI HPI Patient is a 78-year-old female, with a past history of hypertension, diabetes, ESRD, normally on dialysis Saturday, Saturday, and Saturday, who presents to the emergency department for evaluation with increasing weakness. The patient reportedly has had increasing weakness beginning yesterday, and appears more confused yesterday and today according to family who reported to EMS. There is currently no family present at the bedside to provide any history. They state that the patient has been more lethargic than normal. She didn't fall this morning, and thinks she might of hit her head. She is awake and able to answer some basic questions and follow some basic commands, admits to having pain all over but denies any focal pain. She has not had any vomiting. She denies any definite fevers, but does feel warm to touch and her temperature is 99.9 when checked at the time of the exam. She does make some urine. She is oriented to person and place only. There are no alleviating or exacerbating factors to her symptoms otherwise. Patient does have a history of bacteremia in the past, according to her reviewed records. Review of Systems Review of Systems Constitutional: Denies fever or chills [] Eyes: Denies change in visual acuity, redness, or eye pain [] HENT: Denies nasal congestion or sore throat [] Respiratory: Denies cough or shortness of breath [] Cardiovascular: The patient denies any shortness of breath, chest pain, palpitations, or orthopnea [] GI: Denies abdominal pain, nausea, vomiting, bloody stools or diarrhea [] : Denies dysuria or hematuria [] Musculoskeletal: Denies back pain or joint pain [] Integument: Denies rash or skin lesions [] Neurologic: Denies headache, focal weakness or sensory changes [] Endocrine: Denies polyuria or polydipsia [] All other systems were reviewed and found to be within normal limits, except as documented in this note. Current Medications Current Medications Current Medications Medications (Trade) Dose Ordered Sig/Noelle Start Time Stop Time Status Last Admin Dose Admin Acetaminophen (Tylenol) 1,000 mg 1X ONCE 12/15/18 14:15 12/15/18 14:16 DC 12/15/18 15:53 1,000 MG Calcium Gluconate (Calcium Gluconate) 2,000 mg 1X ONCE 12/15/18 16:00 12/15/18 16:01 Dextrose (Dextrose 50%-Water Syringe) 25 gm 1X ONCE 12/15/18 16:00 12/15/18 16:01 Insulin Human Regular (HumuLIN R VIAL) 10 unit 1X ONCE 12/15/18 16:00 12/15/18 16:01 Piperacillin Sod/ Tazobactam Sod (Zosyn Per Pharmacy) 1 each PRN DAILY PRN 12/15/18 14:15 Piperacillin Sod/ Tazobactam Sod 2.25 gm/Sodium Chloride 50 ml @ 100 mls/hr Q8HRS 12/15/18 22:00 Piperacillin Sod/ Tazobactam Sod 3.375 gm/Sodium Chloride 50 ml @ 100 mls/hr 1X ONCE 12/15/18 14:30 12/15/18 14:59 DC 12/15/18 15:03 100 MLS/HR Sodium Bicarbonate (Sodium Bicarb Adult 8.4% Syr) 50 meq 1X ONCE 12/15/18 16:00 12/15/18 16:01 Vancomycin HCl 1.25 gm/Sodium Chloride 250 ml @ 166.667 mls/hr 1X ONCE 12/15/18 14:15 12/15/18 15:44 UNV Vancomycin HCl 2 gm/Sodium Chloride 500 ml @ 250 mls/hr 1X ONCE 12/15/18 15:00 12/15/18 16:59 12/15/18 15:53 250 MLS/HR Allergies Allergies Allergies Coded Allergies Type Severity Reaction Last Updated Verified NSAIDS (Non-Steroidal Anti-Inflamma Allergy Severe Swelling 07/27/17 Yes pregabalin Allergy Severe Swelling 05/03/18 Yes tramadol Allergy Severe Swelling 05/03/18 Yes Iodinated Contrast- Oral and IV Dye Allergy Intermediate ITCHING/HIVES 07/25/17 Yes Iodine and Iodide Containing Produc Allergy Intermediate ITCHING/HIVES 05/03/18 Yes ibuprofen Adverse Reaction Intermediate UPSET STOMACH 05/03/18 Yes Physical Exam Physical Exam PHYSICAL EXAM: CONSTITUTIONAL: Well developed, well nourished HEAD: normocephalic, atraumatic EENT: PERRL, EOMI. Conjunctivae normal color, sclerae non-icteric; moist mucous membranes. NECK: Supple, non-tender; no meningismus. LUNGS: Lungs CTA, breathing even and unlabored. Normal air movement. HEART: Regular rate and rhythm, no murmur CHEST: No deformity; non-tender ABDOMEN: The abdomen is soft, and non-tender, no masses or bruits. EXTREM: Normal ROM; no deformity, no calf tenderness. Normal pulses palpable in all extremities. There is no pedal edema. SKIN: No rash; no diaphoresis NEURO: Arousable and awake but somnolent,; normal speech, mildly delayed cognition; CN's grossly intact; patient moves all extremities, without any definite focal weakness. BACK: No CVA TTP. Current Patient Data Vital Signs Vital Signs Date Time Temp Pulse Resp B/P (MAP) Pulse Ox O2 Delivery O2 Flow Rate FiO2 12/15/18 13:55 99.9 103 18 143/66 (91) 95 Nasal Cannula 2.0 99.9 Lab Values Laboratory Tests Test 12/15/18 14:45 White Blood Count 7.9 x10^3/uL (4.0-11.0) Red Blood Count 3.39 x10^6/uL (3.50-5.40) L Hemoglobin 10.8 g/dL (12.0-15.5) L Hematocrit 33.9 % (36.0-47.0) L Mean Corpuscular Volume 100 fL (79-100) Mean Corpuscular Hemoglobin 32 pg (25-35) Mean Corpuscular Hemoglobin Concent 32 g/dL (31-37) Red Cell Distribution Width 19.6 % (11.5-14.5) H Platelet Count 183 x10^3/uL (140-400) Neutrophils (%) (Auto) 64 % (31-73) Lymphocytes (%) (Auto) 23 % (24-48) L Monocytes (%) (Auto) 11 % (0-9) H Eosinophils (%) (Auto) 2 % (0-3) Basophils (%) (Auto) 1 % (0-3) Neutrophils # (Auto) 5.0 x10^3/uL (1.8-7.7) Lymphocytes # (Auto) 1.8 x10^3/uL (1.0-4.8) Monocytes # (Auto) 0.8 x10^3/uL (0.0-1.1) Eosinophils # (Auto) 0.1 x10^3/uL (0.0-0.7) Basophils # (Auto) 0.0 x10^3/uL (0.0-0.2) Prothrombin Time 14.8 SEC (11.7-14.0) H Prothrombin Time INR 1.2 (0.8-1.1) H Sodium Level 138 mmol/L (136-145) Potassium Level 7.0 mmol/L (3.5-5.1) *H Chloride Level 100 mmol/L (98-107) Carbon Dioxide Level 19 mmol/L (21-32) L Anion Gap 19 (6-14) H Blood Urea Nitrogen 70 mg/dL (7-20) H Creatinine 10.9 mg/dL (0.6-1.0) H Estimated GFR (Cockcroft-Gault) 4.1 BUN/Creatinine Ratio 6 (6-20) Glucose Level 128 mg/dL (70-99) H Lactic Acid Level 0.7 mmol/L (0.4-2.0) Calcium Level 8.8 mg/dL (8.5-10.1) Magnesium Level 2.5 mg/dL (1.8-2.4) H Total Bilirubin 0.3 mg/dL (0.2-1.0) Aspartate Amino Transferase (AST) 11 U/L (15-37) L Alanine Aminotransferase (ALT) 15 U/L (14-59) Alkaline Phosphatase 161 U/L (46-116) H Troponin I Quantitative < 0.017 ng/mL (0.000-0.055) Total Protein 7.8 g/dL (6.4-8.2) Albumin 3.5 g/dL (3.4-5.0) Albumin/Globulin Ratio 0.8 (1.0-1.7) L Thyroid Stimulating Hormone (TSH) 2.071 uIU/mL (0.358-3.74) Free Thyroxine 0.65 ng/dL (0.76-1.46) L Laboratory Tests 12/15/18 14:45 Laboratory Tests 12/15/18 14:45 EKG EKG Normal sinus rhythm at a rate of 104 beats for minute, left axis deviation, normal intervals. There are no acute ischemic ST/T changes, nonspecific changes are present.[] Radiology/Procedures Radiology/Procedures [PROCEDURE: PORTABLE CHEST 1V Single view of the chest. 12/15/2018 1:53 PM Indication: Altered mental status Comparison: Chest radiograph October 06, 2018 Findings: Enlargement of the cardiomediastinal silhouette is similar. No pneumothorax is identified. Low lung volumes probably basilar atelectasis noted. No definitive effusion is seen. No acute osseous changes are identified. IMPRESSION: 1. Low lung volumes with mild basilar atelectasis 2. Stable probable cardiomegaly ] PROCEDURE: CT HEAD WO CONTRAST PQRS Compliance Statement: One or more of the following individualized dose reduction techniques were utilized for this examination: 1. Automated exposure control 2. Adjustment of the mA and/or kV according to patient size 3. Use of iterative reconstruction technique CT head without contrast 12/15/2018 2:08 PM INDICATION: Altered mental status COMPARISON: CT head July 07, 2018 TECHNIQUE: Multiple axial CT images of the head were obtained from skull base through the vertex without intravenous contrast. FINDINGS: Head: Ventricles, sulci and basal cisterns are within normal limits. There is no hydrocephalus. Rasmussen-white matter differentiation is normal. There is no acute intracranial hemorrhage. There is no mass, mass effect or midline shift. Posterior fossa is normal in appearance. Visualized portions of the orbits are normal with exception of bilateral lens replacement. The neck to me changes are identified. Mild mucosal thickening of the left ethmoid air cells with opacification of the left anterior ethmoid air cells. Mastoid air cells are well aerated. Scalp and calvaria are normal. IMPRESSION: No acute intracranial hemorrhage. Postoperative changes are identified within the nasal cavity. Mild to moderate inflammatory changes of the ethmoid air cells is noted Course & Med Decision Making Course & Med Decision Making Pertinent Labs and Imaging studies reviewed. (See chart for details) []The patient's condition remains stable. I spoke with the hospitalist, who accepted the patient to the hospital for further evaluation and treatment. CRITICAL CARE TIME: [45] Minutes, excluding any procedures and care of other patients. Dragon Disclaimer Dragon Disclaimer This electronic medical record was generated, in whole or in part, using a voice recognition dictation system. Departure Departure Impression: Primary Impression: Altered mental status Additional Impressions: End stage renal disease Hyperkalemia Weakness Disposition: 09 ADMITTED INPATIENT Admitting Physician: KIKE Condition: STABLE Referrals: LYLE ELENA MD (PCP) Problem Qualifiers RAMONA DO MD Dec 15, 2018 14:24
[2018-12-15] MEDS ORDERED: PIPERACILLIN/TAZOBACTAM 3.375 GM in IV NORMAL SALINE 50ML 50 ML IV ONE (14:30)
--- NOTE | 2018-12-15 14:41 | RAD ---
Single view of the chest. 12/15/2018 1:53 PM Indication: Altered mental status Comparison: Chest radiograph October 06, 2018 Findings: Enlargement of the cardiomediastinal silhouette is similar. No pneumothorax is identified. Low lung volumes probably basilar atelectasis noted. No definitive effusion is seen. No acute osseous changes are identified. IMPRESSION: 1. Low lung volumes with mild basilar atelectasis 2. Stable probable cardiomegaly Electronically signed by: Demario Dumont MD (12/15/2018 2:39 PM) [id number]
--- NOTE | 2018-12-15 14:49 | RAD ---
PQRS Compliance Statement: One or more of the following individualized dose reduction techniques were utilized for this examination: 1. Automated exposure control 2. Adjustment of the mA and/or kV according to patient size 3. Use of iterative reconstruction technique CT head without contrast 12/15/2018 2:08 PM INDICATION: Altered mental status COMPARISON: CT head July 07, 2018 TECHNIQUE: Multiple axial CT images of the head were obtained from skull base through the vertex without intravenous contrast. FINDINGS: Head: Ventricles, sulci and basal cisterns are within normal limits. There is no hydrocephalus. Rasmussen-white matter differentiation is normal. There is no acute intracranial hemorrhage. There is no mass, mass effect or midline shift. Posterior fossa is normal in appearance. Visualized portions of the orbits are normal with exception of bilateral lens replacement. The neck to me changes are identified. Mild mucosal thickening of the left ethmoid air cells with opacification of the left anterior ethmoid air cells. Mastoid air cells are well aerated. Scalp and calvaria are normal. IMPRESSION: No acute intracranial hemorrhage. Postoperative changes are identified within the nasal cavity. Mild to moderate inflammatory changes of the ethmoid air cells is noted. Electronically signed by: Melany Ruby MD (12/15/2018 2:46 PM) [id number]
[2018-12-15] MEDS ORDERED: VANCOMYCIN 2 GM in IV NORMAL SALINE 500ML BAG 500 ML IV ONE (15:00)
[2018-12-15 15:10] LABS: BASO % 1 % (0-3); EOS # 0.1 x10^3/uL (0.0-0.7); EOS % 2 % (0-3); HEMATOCRIT 33.9 % (36.0-47.0); HEMOGLOBIN 10.8 g/dL (12.0-15.5); LYMPH # 1.8 x10^3/uL (1.0-4.8); LYMPH % 23 % (24-48); MEAN CORPUSCULAR HEMOGLOBIN 32 pg (25-35); MEAN CORPUSCULAR HGB CONC 32 g/dL (31-37); MEAN CORPUSCULAR VOLUME 100 fL (79-100); MONO # 0.8 x10^3/uL (0.0-1.1); MONO % 11 % (0-9); NEUT % 64 % (31-73); PLATELET COUNT 183 x10^3/uL (140-400); RED BLOOD COUNT 3.39 x10^6/uL (3.50-5.40); RED CELL DISTRIBUTION WIDTH 19.6 % (11.5-14.5); WHITE BLOOD COUNT 7.9 x10^3/uL (4.0-11.0)
[2018-12-15 15:21] LABS: PROTHROMBIN TIME PATIENT 14.8 SEC (11.7-14.0)
[2018-12-15 15:29] LABS: ALBUMIN 3.5 g/dL (3.4-5.0); ALBUMIN/GLOBULIN RATIO 0.8 (1.0-1.7); CALCIUM 8.8 mg/dL (8.5-10.1); CREATININE 10.9 mg/dL (0.6-1.0); GFR 4.1; MAGNESIUM 2.5 mg/dL (1.8-2.4); TOTAL BILIRUBIN 0.3 mg/dL (0.2-1.0); TOTAL PROTEIN 7.8 g/dL (6.4-8.2)
--- NOTE | 2018-12-15 15:34 | EKG ---
[facility] [address] [place] [address] Test Date: 2018-12-15 Test Time: 14:19:15 Pat Name: SHLOMO LATIF Department: Room: Gender: F [employer]: : [id number] Requested By: RAMONA DO Order Number: [id number] Reading MD: Wood Bailey MD Measurements Intervals [place] Rate: 103 P: 37 [place]: 216 QRS: -10 QRSD: 88 T: 86 QT: 324 QTc: 426 Interpretive Statements SINUS TACHYCARDIA PROLONGED [place] INTERVAL LVH Electronically Signed On 12-24-2018 22:29:12 CDT by Wood Bailey MD
[2018-12-15] MEDS ORDERED: CALCIUM GLUCONATE 1,000 MG/10 ML VIAL. IVP ONE (16:00)
[2018-12-15] MEDS ORDERED: INSULIN REGULAR 100 UNIT/ML 3ML VIAL. IV ONE (16:00)
[2018-12-15] MEDS ORDERED: SODIUM BICARB ADULT 8.4% 50 MEQ/50 ML DISP.SYRIN. IV ONE (16:00)
[2018-12-15] MEDS ORDERED: DEXTROSE 50% 25 GM / 50ML DISP.SYRIN. IV ONE (16:00)
[2018-12-15 16:19] LABS: BACTERIA,URINE 0 /HPF (0-FEW); BILIRUBIN,URINE NEGATIVE (NEG); CLARITY,URINE CLEAR; COLOR,URINE STRAW; HYALINE CASTS, URINE OCCASIONAL /HPF; NITRITE,URINE NEGATIVE (NEG); PROTEIN,URINE 30 mg/dL (NEG-TRACE); RBC,URINE RARE /HPF (0-2); SQUAMOUS EPITHELIAL CELL,UR OCC /LPF; UROBILINOGEN,URINE 0.2 mg/dL (0.2 mg/dL); WBC,URINE 0 /HPF (0-4)
[2018-12-15] MEDS ORDERED: IV NORMAL SALINE 1000ML BAG 1,000 ML IV PRN ×4 (19:54→20:15)
[2018-12-15] MEDS ORDERED: DIALYSIS PATIENT. MC PRN ×3 (20:00→23:30)
[2018-12-15] MEDS ORDERED: ALBUMIN HUMAN 25% 200 ML IV PRN (20:00)
[2018-12-15] MEDS ORDERED: ALBUTEROL SULFATE NEB PRN (23:30)
[2018-12-15] MEDS ORDERED: NON FORMULARY ITEM (Albuterol Sulfate (Ventolin Hfa Inhaler) 2 PUFF) INH PRN (23:30)
[2018-12-15] MEDS ORDERED: ONDANSETRON ODT 4 MG TAB.RAPDIS. PO PRN (23:30)
[2018-12-15] MEDS ORDERED: APP TOP PRN (23:30)
[2018-12-15] MEDS ORDERED: ALBUTEROL SULFATE 2.5 MG/3 ML NEBU. NEB PRN (23:30)
[2018-12-15] MEDS ORDERED: ENOXAPARIN 30 MG/0.3 ML SYRINGE. SQ SCH (23:30)
[2018-12-15] MEDS ORDERED: TRIAMCINOLONE ACETONIDE 0.1% TOPICAL OINTMENT 15GM TUBE. TP PRN (23:30)
[2018-12-15] MEDS ORDERED: IV DEXTROSE 5% 250 ML BAG. IV PRN (23:30)
[2018-12-15] MEDS ORDERED: DEXTROSE 50% 25 GM / 50ML DISP.SYRIN. IV PRN (23:30)
[2018-12-15] MEDS: GABAPENTIN 100 MG CAPSULE. PO SCH (23:45)
[2018-12-16] VITALS (7 sets, daily range): BP systolic 95–125; BP diastolic 48–69
[2018-12-16] MEDS: PIPERACILLIN/TAZOBACTAM 2.25 GM in IV NORMAL SALINE 50ML 50 ML IV SCH ×4 (01:14→22:24)
[2018-12-16] MEDS ORDERED: ALBUTEROL SULFATE 2.5 MG/3 ML NEBU. NEB PRN (02:45)
[2018-12-16] MEDS: oxyCODONE IR 5 MG TABLET PO SCH ×4 (05:56→18:20)
[2018-12-16] MEDS ORDERED: LINACLOTIDE 72 MCG PO SCH (07:00)
[2018-12-16] MEDS: LINACLOTIDE 72 MCG PO SCH (07:00)
[2018-12-16] MEDS: ALBUTEROL SULFATE 2.5 MG/3 ML NEBU. NEB SCH ×4 (08:00→20:08)
[2018-12-16 08:16] LABS: BASO % 1 % (0-3); EOS # 0.1 x10^3/uL (0.0-0.7); EOS % 2 % (0-3); HEMATOCRIT 29.3 % (36.0-47.0); HEMOGLOBIN 9.6 g/dL (12.0-15.5); LYMPH # 1.5 x10^3/uL (1.0-4.8); LYMPH % 25 % (24-48); MEAN CORPUSCULAR HEMOGLOBIN 32 pg (25-35); MEAN CORPUSCULAR HGB CONC 33 g/dL (31-37); MEAN CORPUSCULAR VOLUME 99 fL (79-100); MONO # 0.6 x10^3/uL (0.0-1.1); MONO % 11 % (0-9); NEUT # 3.6 x10^3/uL (1.8-7.7); NEUT % 62 % (31-73); PLATELET COUNT 150 x10^3/uL (140-400); RED BLOOD COUNT 2.98 x10^6/uL (3.50-5.40); RED CELL DISTRIBUTION WIDTH 18.8 % (11.5-14.5); WHITE BLOOD COUNT 5.9 x10^3/uL (4.0-11.0)
[2018-12-16] MEDS: BUDESONIDE 0.5 MG/2 ML NEBU. NEB SCH ×2 (08:32→20:08)
[2018-12-16 08:37] LABS: CALCIUM 8.4 mg/dL (8.5-10.1); CREATININE 6.2 mg/dL (0.6-1.0); GFR 7.9; POTASSIUM 4.6 mmol/L (3.5-5.1)
[2018-12-16 08:40] LABS: CHOLESTEROL/HDL RATIO 4.2
[2018-12-16] MEDS: INSULIN LISPRO 300 UNITS/3 ML VIAL. SQ SCH ×3 (08:57→17:00)
[2018-12-16] MEDS ORDERED: NON FORMULARY ITEM (Budesonide/Formoterol Fumarate (Symbicort 160-4.5 Mcg Inhaler) 2 PUFF) IH SCH (09:00)
[2018-12-16] MEDS: TRIAMCINOLONE ACETONIDE 0.1% TOPICAL OINTMENT 15GM TUBE. TP SCH ×2 (09:00→20:50)
[2018-12-16] MEDS: FOLIC/VIT B COMP W-C (RENAL) TABLET. PO SCH (09:07)
[2018-12-16] MEDS: LACTOBACILLUS RHAMNOSUS GG 1 CAPSULE. PO SCH ×2 (09:07→20:51)
[2018-12-16] MEDS: FLUTICASONE 50MCG/NASAL SPRAY 16GM BOTTLE. NS SCH ×2 (09:07→20:51)
[2018-12-16] MEDS: PANTOPRAZOLE 40 MG TABLET.DR. PO SCH (09:07)
[2018-12-16] MEDS: CALCIUM ACETATE 667 MG CAPSULE PO SCH ×3 (09:07→17:00)
[2018-12-16] MEDS: SODIUM BICARBONATE 650 MG TABLET. PO SCH ×2 (09:07→20:51)
[2018-12-16] MEDS: MIDODRINE 5 MG TABLET PO SCH ×3 (09:07→18:21)
[2018-12-16] MEDS: CALCITRIOL 0.25 MCG CAPSULE. PO SCH (09:07)
[2018-12-16] MEDS: GABAPENTIN 100 MG CAPSULE. PO SCH ×3 (09:07→20:51)
--- NOTE | 2018-12-16 10:31 | PDOC ---
Provider Note Provider Note Pt seen.H&P dictated.#[id number] LYLE ELENA MD Dec 16, 2018 10:31
--- NOTE | 2018-12-16 10:54 | PDOC ---
Infectious Disease Note Vital Sign Vital Signs Vital Signs Date Time Temp Pulse Resp B/P (MAP) Pulse Ox O2 Delivery O2 Flow Rate FiO2 12/16/18 09:11 102 98/48 12/16/18 08:42 97 Nasal Cannula 2.0 12/16/18 07:30 98.8 18 98.8 Labs Lab Laboratory Tests Test 12/15/18 14:45 12/15/18 15:40 12/16/18 06:10 12/16/18 06:20 White Blood Count 7.9 x10^3/uL (4.0-11.0) 5.9 x10^3/uL (4.0-11.0) Red Blood Count 3.39 x10^6/uL (3.50-5.40) 2.98 x10^6/uL (3.50-5.40) Hemoglobin 10.8 g/dL (12.0-15.5) 9.6 g/dL (12.0-15.5) Hematocrit 33.9 % (36.0-47.0) 29.3 % (36.0-47.0) Mean Corpuscular Volume 100 fL (79-100) 99 fL (79-100) Mean Corpuscular Hemoglobin 32 pg (25-35) 32 pg (25-35) Mean Corpuscular Hemoglobin Concent 32 g/dL (31-37) 33 g/dL (31-37) Red Cell Distribution Width 19.6 % (11.5-14.5) 18.8 % (11.5-14.5) Platelet Count 183 x10^3/uL (140-400) 150 x10^3/uL (140-400) Neutrophils (%) (Auto) 64 % (31-73) 62 % (31-73) Lymphocytes (%) (Auto) 23 % (24-48) 25 % (24-48) Monocytes (%) (Auto) 11 % (0-9) 11 % (0-9) Eosinophils (%) (Auto) 2 % (0-3) 2 % (0-3) Basophils (%) (Auto) 1 % (0-3) 1 % (0-3) Neutrophils # (Auto) 5.0 x10^3/uL (1.8-7.7) 3.6 x10^3/uL (1.8-7.7) Lymphocytes # (Auto) 1.8 x10^3/uL (1.0-4.8) 1.5 x10^3/uL (1.0-4.8) Monocytes # (Auto) 0.8 x10^3/uL (0.0-1.1) 0.6 x10^3/uL (0.0-1.1) Eosinophils # (Auto) 0.1 x10^3/uL (0.0-0.7) 0.1 x10^3/uL (0.0-0.7) Basophils # (Auto) 0.0 x10^3/uL (0.0-0.2) 0.0 x10^3/uL (0.0-0.2) Prothrombin Time 14.8 SEC (11.7-14.0) Prothromb Time International Ratio 1.2 (0.8-1.1) Sodium Level 138 mmol/L (136-145) 142 mmol/L (136-145) Potassium Level 7.0 mmol/L (3.5-5.1) 4.6 mmol/L (3.5-5.1) Chloride Level 100 mmol/L (98-107) 99 mmol/L (98-107) Carbon Dioxide Level 19 mmol/L (21-32) 32 mmol/L (21-32) Anion Gap 19 (6-14) 11 (6-14) Blood Urea Nitrogen 70 mg/dL (7-20) 30 mg/dL (7-20) Creatinine 10.9 mg/dL (0.6-1.0) 6.2 mg/dL (0.6-1.0) Estimated GFR (Cockcroft-Gault) 4.1 7.9 BUN/Creatinine Ratio 6 (6-20) Glucose Level 128 mg/dL (70-99) 92 mg/dL (70-99) Lactic Acid Level 0.7 mmol/L (0.4-2.0) Calcium Level 8.8 mg/dL (8.5-10.1) 8.4 mg/dL (8.5-10.1) Magnesium Level 2.5 mg/dL (1.8-2.4) Total Bilirubin 0.3 mg/dL (0.2-1.0) Aspartate Amino Transf (AST/SGOT) 11 U/L (15-37) Alanine Aminotransferase (ALT/SGPT) 15 U/L (14-59) Alkaline Phosphatase 161 U/L (46-116) Troponin I Quantitative < 0.017 ng/mL (0.000-0.055) Total Protein 7.8 g/dL (6.4-8.2) Albumin 3.5 g/dL (3.4-5.0) Albumin/Globulin Ratio 0.8 (1.0-1.7) Thyroid Stimulating Hormone (TSH) 2.071 uIU/mL (0.358-3.74) Free Thyroxine 0.65 ng/dL (0.76-1.46) Urine Collection Type U cath Urine Color Straw Urine Clarity Clear Urine pH 5.0 Urine Specific [place] 1.015 Urine Protein 30 mg/dL (NEG-TRACE) Urine Glucose (UA) Negative mg/dL (NEG) Urine Ketones (Stick) Negative mg/dL (NEG) Urine Blood Small (NEG) Urine Nitrite Negative (NEG) Urine Bilirubin Negative (NEG) Urine Urobilinogen Dipstick 0.2 mg/dL (0.2 mg/dL) Urine Leukocyte Esterase Negative (NEG) Urine RBC Rare /HPF (0-2) Urine WBC 0 /HPF (0-4) Urine Squamous Epithelial Cells Occ /LPF Urine Bacteria 0 /HPF (0-FEW) Urine Hyaline Casts Occasional /HPF Triglycerides Level 132 mg/dL (0-150) Cholesterol Level 147 mg/dL (0-200) LDL Cholesterol, Calculated 86 mg/dL (0-100) VLDL Cholesterol, Calculated 26 mg/dL (0-40) Non-HDL Cholesterol Calculated 112 mg/dL (0-129) HDL Cholesterol 35 mg/dL (40-60) Cholesterol/HDL Ratio 4.2 Test 12/16/18 07:45 Glucose (Fingerstick) 97 mg/dL (70-99) Objective Assessment Weakness Encephalopathy Recurrent infection ESRD HTN DM Plan Plan of Care vanc and zosyn check cultures obtain records d/w CHRIS Paula MD Dec 16, 2018 10:54
--- NOTE | 2018-12-16 11:50 | CONS ---
DATE OF CONSULTATION: 12/16/2018 REQUESTING PHYSICIAN: Samiar Corona MD REASON FOR CONSULTATION: Weakness and recurrent infection. HISTORY OF PRESENT ILLNESS: This is a 78-year-old -[place] female with history of diabetes, hypertension and end-stage renal disease who presented with weakness and change in mental status. The patient evidently had a temperature up to 99.9. According to Dr. Corona as I discussed with him, the patient had bacteremia here, which we had treated fully in June, and subsequently she had infection and she ended up at [facility] and maybe another place. He was not sure whether the same infection with the same organism or not. The patient is not able to provide much of that information. She says "yes, I went to [facility] for something," but she does not know what was it. The patient is alert, awake right now, but the information she provides is very sketchy and keeps repeating things. The patient has not been noted to have any nausea, vomiting, diarrhea, chest pain, shortness of breath, abdominal pain, urinary symptoms and her temperatures have been normal since her admission. PAST MEDICAL HISTORY: Positive for diabetes; hypertension; end-stage renal disease, on hemodialysis. The patient has AV graft in the left forearm. PAST SURGICAL HISTORY: Has had hysterectomy, gastric bypass, neuropathy, COPD, coronary artery disease. SOCIAL HISTORY: Negative for smoking, alcohol, illicit drug use. ALLERGIES: SHE IS LISTED ALLERGIC TO IV DYE, NONSTEROIDALS. CURRENT MEDICATIONS: The patient has been put on vancomycin and Zosyn. REVIEW OF SYSTEMS: As per HPI, all other systems reviewed are negative. PHYSICAL EXAMINATION: GENERAL: Alert, oriented to place and person, female, not in distress. VITAL SIGNS: Stable. T-max is 99.9. HEENT: Both pupils are round and reacting. No conjunctival lesion, no lesion in the mouth. NECK: Supple, no JVP, no lymphadenopathy. LUNGS: Clear. HEART: S1, S2 regular. ABDOMEN: Benign. EXTREMITIES: No edema, cyanosis. SKIN: Unremarkable. NEUROLOGIC: Alert, awake, answers simple questions. Memory is poor as well as keeps repeating things. According to nursing, she has improved, but not still back to her normal. No focal neurologic deficit. LABORATORY DATA: White count is 5.9, hemoglobin 9.6, platelets are 150,000. BUN and creatinine is 30 and 6.2. Lactic acid was 0.7. Potassium was 7 when she came in, has improved. Urinalysis unremarkable. Blood culture is pending. IMAGING STUDIES: Chest x-ray is unremarkable for any new or acute changes. CT of the head was not showing any acute changes. IMPRESSION: 1. Encephalopathy, etiology unclear. 2. Low-grade fever. 3. Weakness. 4. End-stage renal disease, on hemodialysis. 5. Diabetes. 6. Hypertension. RECOMMENDATIONS: Agree with bella culture. Continue vancomycin and Zosyn, supportive care. We will check the culture and adjust. Her mentation is improving as we will sit and observe. If it does not improve further, we may need further workup. Supportive care and we will continue to follow. Discussion with Dr. Corona done. Thank you very much, Dr. Corona, for giving me the opportunity to participate in this patient's care. CHRIS WRIGHT MD DR: JOAO/kimberly JOB#: [id number] / [id number]
[2018-12-16] MEDS: VANCOMYCIN PER PHARMACY MC PRN (13:04)
--- NOTE | 2018-12-16 13:13 | NUR ---
Pharmacy Vancomycin Dosing Note S:Consulted to monitor and dose vancomycin started 12/15/18. O:SHLOMO LATIF is a 78 year old F with Fever . Height: 5 feet, 4 inches Weight: 102.5 kg [place] Body Weight: 54.70 Adjusted Body Weight: 73.82 Dosing Weight: Actual Other Antibiotics: Zosyn LABS: Last BUN: 30 Last Creatinine: 6.2 Creatinine Clearance: MWF dialysis Last WBC: 5.9 Last Procalcitonin: Tmax (past 24 hours): 99.9 Microbiology: - Last dose given 12/15/18 at 1553 Vancomycin Dosing: Loading Dose: 2000 mg x1 Dosing Weight: Actual Target Trough: 15-20 A: Based on: weight and renal function P: 1. Patient received Vancomycin 2000 mg IV One Time 2. Follow up Random level ordered for 12/17/18 at 0500 3. Pharmacy will continue to monitor, follow and adjust therapy as needed. Brit Sultana RPH, 12/16/18 [id number]
--- NOTE | 2018-12-16 14:02 | HP ---
ADMIT DATE: 12/15/2018 PATIENT LOCATION: [facility] REASON FOR ADMISSION TO THE HOSPITAL: Increased weakness, confusion and lethargy. The patient has end-stage renal disease, goes to dialysis on Saturday, Saturday and Saturday and last dialysis was Saturday. Since the patient had a fall this morning and hit her head and she was also confused and was brought to the hospital. CT head was negative. Lab shows potassium was high at 7 and the patient was admitted to the hospital, was given dialysis. Potassium came down to 4, has some redness, some swelling in the left orbit, the left eye. Antibiotic was started. The patient is doing slightly better, but still kind of not to her baseline. She recognized me and that she is in the hospital. PAST MEDICAL HISTORY: She has history of diabetes, hypertension, hyperlipidemia, has multiple infections. She has been to [facility], as well as [facility] since the last 3 months, she has been to different hospitals with infections. PAST SURGICAL HISTORY: Gallbladder surgery, hysterectomy, AV shunt and gastric bypass. ALLERGIES: TO ORAL AND IV CONTRAST, NONSTEROIDALS, IBUPROFEN, LYRICA, AND TRAMADOL. MEDICATIONS AT HOME: The patient is on albuterol nebulizer inhaler and atorvastatin 80 mg daily, Symbicort 160/4.5 twice a day, calcitriol 0.25 daily, calcium acetate 667 mg 3 times daily, Voltaren gel daily, Flonase daily, gabapentin 100 mg 3 times daily, Linzess 145 mg daily, midodrine 5 mg 3 times a day, nystatin powder, omeprazole 40 mg daily, Zofran 8 mg daily, oxycodone 5 mg 4 times daily, sodium bicarbonate 650 mg twice a day, Nephro-Neri 1 daily, goes to dialysis on Saturday, Saturday and Saturday, lidocaine local application. She is also on oxygen. I believe she is on CPAP mask at home. FAMILY HISTORY: Positive for diabetes, heart disease, kidney problems. SOCIAL HISTORY: Lives at home, goes to dialysis. She ambulates with a seater walker. PHYSICAL EXAMINATION: GENERAL: The patient is slightly slow, recognizes my name, knows she is in the hospital, but takes a little long time to recall. VITAL SIGNS: Temperature at the time of admission shows 99.9, pulse 103, respirations 18, blood pressure 143/66, 95 on 2 liters. HEENT: Head, the patient has some swelling in the left eyelid. Oral cavity: Some teeth present in the lower jaw. NECK: Supple. Thyroid not enlarged. JVD not elevated. CHEST: Symmetrical. CARDIOVASCULAR: S1, S2. LUNGS: Clear. ABDOMEN: Soft, has AV shunt in the left arm. EXTERNAL GENITALIA: No [place]. RECTAL: Deferred. EXTREMITIES: No calf tenderness, no edema. Pulses 1+. NEUROLOGIC: The patient is responding to questions slowly, but not to her baseline. LABORATORY DATA: Shows a white count of 8, hemoglobin 11, platelets 183. INR 1.2. Electrolytes show sodium 138, potassium 7.0, chloride 100, bicarbonate 19, BUN 70, creatinine 11, glucose 128. LFTs were normal. Urine was negative for infection, had a chest x-ray, atelectasis. CT of the head, nothing in the brain and some inflammatory changes in the ethmoid cells. FINAL IMPRESSION: 1. Change in mental status with slight lethargy. 2. Hyperkalemia. The patient is a dialysis patient. 3. Goes to dialysis, end-stage renal disease, Saturday, Saturday, and Saturday. She went to dialysis, Saturday. 4. Mechanical fall with some maybe orbital cellulitis. 5. History of recurrent infections, has been to 3 hospitals in last 3 months [facility] and [facility]. 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 6. Diabetes. 7. Hypertension. 8. Hyperlipidemia. 9. General debility. PLAN: At this time, admit to hospital, start on vancomycin and Zosyn. ID is consulted. The patient was taken to Emergency dialysis last night. Potassium is 4. We will have PT, OT and see how she improves in the next 24-48 hours. LYLE ELENA MD DR: SHIVANI/kimberly JOB#: [id number] / [id number]
--- NOTE | 2018-12-16 15:47 | NUR ---
SW following pt for dc planning. Chart reviewed and discussed with RN. Pt lives at home with her daughter and has dialysis M, W, and F at [facility] and [facility]. Pt receives oxygen services at home through [facility]. PT/OT pending. SW will await for PT/OT recommendation to evaluate dc needs. Will continue to follow.
--- NOTE | 2018-12-16 16:23 | PDOC2 ---
CONSULT Date of Consult Date of Consult DATE: 12/16/18 TIME: 16:16 Reason for Consult Reason for Consult: HIGH K Referring Physician Referring Physician: KASSY Identification/Chief Complaint Chief Complaint CONFUSION Source Source: Chart review History of Present Illness Reason for Visit: THIS IS 78 YR OLD ESRD PT WITH CONFUSION AND OCCASIONAL FALLS. SHE HAS ESRD AND IS ON HD ON MWF. HER K WAS 7.0 AND OTHER LABS C/W ESRD. ID EVAL ONGOING FOR POSSIBLE INFECTION. ESRD DUE TO DM II AND HTN Past Medical History Cardiovascular: CAD, CHF, Hyperlipidemia Pulmonary: Asthma, COPD, Other CENTRAL NERVOUS SYSTEM: Periperal neuropathy, Other GI: Diverticulosis, GERD, Peptic Ulcer disease Heme/Onc: Anemia NOS, Iron deficiency Anemia Musculoskeletal: low back pain, Other Rheumatologic: Fibromyalgia Renal/: Chronic renal failure Endocrine: Diabetes, Hyperparathyroidism Past Surgical History Past Surgical History: Cholecystectomy, Hysterectomy, Other Family History Family History: Hypertension Social History ALCOHOL: none Drugs: None Lives: with Family Current Problem List Problem List Problems Medical Problems: (1) End stage renal disease Status: Acute (2) Hyperkalemia Status: Acute (3) Weakness Status: Acute Current Medications Current Medications Current Medications Acetaminophen (Tylenol) 1,000 mg 1X ONCE PO Last administered on 12/15/18at 15:53; Start 12/15/18 at 14:15; Stop 12/15/18 at 14:16; Status DC Vancomycin HCl 1.25 gm/Sodium Chloride 250 ml @ 166.667 mls/hr 1X ONCE IV ; Start 12/15/18 at 14:15; Stop 12/15/18 at 15:44; Status UNV Piperacillin Sod/ Tazobactam Sod (Zosyn Per Pharmacy) 1 each PRN DAILY PRN MC SEE COMMENTS; Start 12/15/18 at 14:15 Piperacillin Sod/ Tazobactam Sod 3.375 gm/Sodium Chloride 50 ml @ 100 mls/hr 1X ONCE IV Last administered on 12/15/18at 15:03; Start 12/15/18 at 14:30; Stop 12/15/18 at 14:59; Status DC Vancomycin HCl 2 gm/Sodium Chloride 500 ml @ 250 mls/hr 1X ONCE IV Last administered on 12/15/18at 15:53; Start 12/15/18 at 15:00; Stop 12/15/18 at 16:59; Status DC Piperacillin Sod/ Tazobactam Sod 2.25 gm/Sodium Chloride 50 ml @ 100 mls/hr Q8HRS IV Last administered on 12/16/18at 15:24; Start 12/15/18 at 22:00 Calcium Gluconate (Calcium Gluconate) 2,000 mg 1X ONCE IVP Last administered on 12/15/18at 16:11; Start 12/15/18 at 16:00; Stop 12/15/18 at 16:01; Status DC Sodium Bicarbonate (Sodium Bicarb Adult 8.4% Syr) 50 meq 1X ONCE IV Last administered on 12/15/18at 16:11; Start 12/15/18 at 16:00; Stop 12/15/18 at 16:01; Status DC Insulin Human Regular (HumuLIN R VIAL) 10 unit 1X ONCE IV Last administered on 12/15/18at 16:11; Start 12/15/18 at 16:00; Stop 12/15/18 at 16:01; Status DC Dextrose (Dextrose 50%-Water Syringe) 25 gm 1X ONCE IV Last administered on 12/15/18at 16:11; Start 12/15/18 at 16:00; Stop 12/15/18 at 16:01; Status DC Sodium Chloride 1,000 ml @ 1,000 mls/hr Q1H PRN IV hypotension; Start 12/15/18 at 19:54; Stop 12/15/18 at 20:04; Status DC Albumin Human 200 ml @ 200 mls/hr 1X PRN PRN IV Hypotension; Start 12/15/18 at 20:00; Stop 12/16/18 at 01:59; Status DC Sodium Chloride 1,000 ml @ 400 mls/hr Q2H30M PRN IV PATENCY; Start 12/15/18 at 19:54; Stop 12/15/18 at 20:05; Status DC Info (PHARMACY MONITORING -- do not chart) 1 each PRN DAILY PRN MC SEE COMMENTS; Start 12/15/18 at 20:00; Status UNV Info (PHARMACY MONITORING -- do not chart) 1 each PRN DAILY PRN MC SEE COMMENTS; Start 12/15/18 at 20:00; Status Cancel Sodium Chloride 1,000 ml @ 1,000 mls/hr Q1H PRN IV hypotension; Start 12/15/18 at 20:15 Sodium Chloride 1,000 ml @ 400 mls/hr Q2H30M PRN IV PATENCY; Start 12/15/18 at 20:15 Albuterol Sulfate (Ventolin Neb Soln) 2.5 mg PRN TID PRN NEB SHORTNESS OF BREATH; Start 12/15/18 at 23:30; Stop 12/16/18 at 02:43; Status DC Calcitriol (Rocaltrol) 0.25 mcg DAILY PO Last administered on 12/16/18 09:11; Start 12/16/18 at 09:00 Diclofenac Sodium (Voltaren) 1 stefano PRN BID PRN TP PAIN; Start 12/15/18 at 23:30 Fluticasone Propionate (Flonase) 2 spray BID NS Last administered on 12/16/18 09:11; Start 12/16/18 at 09:00 Gabapentin (Neurontin) 100 mg TID PO Last administered on 12/16/18 09:11; Start 12/15/18 at 23:45 Lactobacillus Rhamnosus (Culturelle) 1 cap BID PO Last administered on 12/16/18 09:11; Start 12/16/18 at 09:00 Midodrine (Proamatine) 5 mg TIDWMEALS PO Last administered on 12/16/18 12:25; Start 12/16/18 at 08:00 Oxycodone HCl (Roxicodone) 5 mg Q6HRS PO Last administered on 12/16/18 12:25; Start 12/16/18 at 00:00 Sodium Bicarbonate (Sodium Bicarbonate) 1,300 mg BID PO Last administered on 12/16/18 09:11; Start 12/16/18 at 09:00 Triamcinolone Acetonide (Kenalog 0.1%) 1 stefano BID TP ; Start 12/16/18 at 09:00 Non-Formulary Medication (Albuterol Sulfate (Albuterol Sulfate Neb Soln)) 0.83 % TID PRN NEB WHEEZING; Start 12/15/18 at 23:30; Status UNV Non-Formulary Medication (Albuterol Sulfate (Ventolin Hfa Inhaler)) 2 puff Q4HRS PRN INH SHORTNESS OF BREATH; Start 12/15/18 at 23:30; Status UNV Atorvastatin Calcium (Lipitor) 80 mg HS PO ; Start 12/16/18 at 21:00 Non-Formulary Medication (Budesonide/ Formoterol Fumarate (Symbicort 160-4.5 Mcg Inhaler)) 2 puff BID IH ; Start 12/16/18 at 09:00; Status UNV Calcium Acetate (Phoslo) 667 mg TIDWMEALS PO Last administered on 12/16/18at 12:25; Start 12/16/18 at 08:00 Non-Formulary Medication (Linaclotide (Linzess)) 72 mcg DAILY07 PO ; Start 12/16/18 at 07:00; Status UNV Nystatin (Nystop) 1 stefano PRN BID PRN TP REDNESS; Start 12/15/18 at 23:45 Pantoprazole Sodium (Protonix) 40 mg DAILYAC PO Last administered on 12/16/18at 09:11; Start 12/16/18 at 07:30 Ondansetron HCl (Zofran Odt) 8 mg PRN Q12HR PRN PO NAUSEA; Start 12/15/18 at 23:30 Triamcinolone Acetonide (Kenalog 0.1%) 1 stefano PRN BID PRN TP ITCHING; Start 12/15/18 at 23:30 Vitamin B Complex/ Vitamin C (Steph-Neri) 1 tab DAILY PO Last administered on 12/16/18at 09:11; Start 12/16/18 at 09:00 Info (PHARMACY MONITORING -- do not chart) 1 each PRN DAILY PRN MC SEE COMMENTS; Start 12/15/18 at 23:30 Non-Formulary Medication ([lanacane cream] ) 1 stefano PRN PRN TOP dialysis fistula before dialys; Start 12/15/18 at 23:30; Status UNV Insulin Human Lispro (HumaLOG) 0-5 UNITS TIDWMEALS SQ ; Start 12/16/18 at 08:00 Dextrose (Dextrose 50%-Water Syringe) 12.5 gm PRN Q15MIN PRN IV SEE COMMENTS; Start 12/15/18 at 23:30 Dextrose 250 ml PRN Q15MIN PRN IV SEE COMMENTS; Start 12/15/18 at 23:30 Enoxaparin Sodium (Lovenox 30mg Syringe) 30 mg Q24H SQ Last administered on 12/16/18at 01:15; Start 12/15/18 at 23:30; Stop 12/16/18 at 13:14; Status DC Budesonide (Pulmicort) 0.5 mg RTBID NEB Last administered on 12/16/18at 08:32; Start 12/16/18 at 08:00 Albuterol Sulfate (Ventolin Neb Soln) 2.5 mg RTQID NEB Last administered on 12/16/18at 15:52; Start 12/16/18 at 08:00 Albuterol Sulfate (Ventolin Neb Soln) 2.5 mg PRN Q4HRS PRN NEB SHORTNESS OF BREATH Last administered on 12/16/18at 08:32; Start 12/16/18 at 02:45 Vancomycin HCl (Vanco Per Pharmacy) 1 each PRN DAILY PRN MC SEE COMMENTS Last administered on 12/16/18at 13:13; Start 12/16/18 at 13:15 Vancomycin HCl (Vancomycin Random Level) 1 each 1X ONCE MC ; Start 12/17/18 at 05:00; Stop 12/17/18 at 05:01 Heparin Sodium (Porcine) (Heparin Sodium) 5,000 unit Q8HRS SQ ; Start 12/16/18 at 22:00 Active Scripts Active [Dialysis Patient] 1 EACH Each 1 Each MC PRN DAILY PRN 30 Days Culturelle (Lactobacillus Rhamnosus Gg) 1 Each Cap.sprink 1 Cap PO BID 10 Days Humalog (Insulin Lispro) 100 Unit/1 Ml Insuln.pen 1 Units SQ TIDWMEALS 10 Days Oxycodone Hcl Immed.release (Oxycodone Hcl) 5 Mg Tablet 5 Mg PO PRN Q8HRS PRN 10 Days Proair Hfa (Albuterol Sulfate) 8.5 Gm Hfa.aer.ad 2.5 Mg NEB PRN TID PRN 30 Days Novolog Flexpen (Insulin Aspart) 100 Unit/1 Ml Insuln.pen 1 Unit SQ [id number] 10 Days Novolog FlexPen Sliding Scale: For fingerstick blood glucose: 150-200 take 2 units 201-250 take 4 units 251-300 take 6 units 301-350 take 8 units 351-400 take 10 units If blood glucose greater than [address] Corona. Reported [lanacane cream] 1 Stefano TOP PRN PRN Midodrine Hcl 5 Mg Tablet 5 Mg PO TID Ventolin Hfa Inhaler (Albuterol Sulfate) 18 Gm Hfa.aer.ad 2 Puff INH Q4HRS PRN Nephro-Neri Rx Tablet (Vit B Cmplx 3/Fa/Vit C/Biotin) 1 Each Tablet 1 Each PO DAILY Nystatin 1 Each Powder.ea. 1 Each PO BID PRN Calcium Acetate 667 Mg Tablet 667 Mg PO TIDWMEALS Linzess (Linaclotide) 145 Mcg Capsule 72 Mcg PO DAILY07 Zofran (Ondansetron Hcl) 8 Mg Tablet 1 Tab PO Q12HR PRN Triamcinolone Acetonide 80 Gm Oint...g. 1 Stefano TP BID PRN Fluticasone Propionate Nasal [place] (Fluticasone Propionate) 16 Gm [place].susp 2 [place] NS BID Calcitriol 0.25 Mcg Capsule 1 Cap PO DAILY Atorvastatin Calcium 80 Mg Tablet 80 Mg PO DAILY Voltaren (Diclofenac Sodium) 100 Gm Gel..gram. 1 Gm TP BID PRN Triamcinolone Acetonide 0.1% Oint (Triamcinolone Acetonide) 15 Gm Oint...g. 1 Stefano TP BID MIX WITH EUCERIN DIRECTED BY PHYSICIAN Symbicort 160-4.5 Mcg Inhaler (Budesonide/Formoterol Fumarate) 10.2 Gm Hfa.aer.ad 2 Puff IH BID Sodium Bicarbonate 650 Mg Tablet 2 Tab PO BID Oxycodone Hcl Immed.release (Oxycodone Hcl) 5 Mg Tablet 1 Tab PO Q6HRS Omeprazole 40 Mg Capsule. 1 Cap PO DAILY Gabapentin (Gabapentin) 100 Mg Capsule 100 Mg PO TID Albuterol Sulfate Neb Soln (Albuterol Sulfate) 0.63 Mg/3 Ml Vial.neb 0.83 % NEB TID PRN Allergies Allergies: Coded Allergies: NSAIDS (Non-Steroidal Anti-Inflamma (Verified Allergy, Severe, Swelling, 07/27/17) pregabalin (Verified Allergy, Severe, Swelling, 05/03/18) tramadol (Verified Allergy, Severe, Swelling, 05/03/18) Iodinated Contrast- Oral and IV Dye (Verified Allergy, Intermediate, ITCHING/HIVES, 07/25/17) Iodine and Iodide Containing Produc (Verified Allergy, Intermediate, ITCHING/HIVES, 05/03/18) ibuprofen (Verified Adverse Reaction, Intermediate, UPSET STOMACH, 05/03/18) ROS Review of System CONFUSED Physical Exam General: Cooperative, mild distress HEENT: Atraumatic, PERRLA Lungs: Clear to auscultation, Normal air movement Heart: Regular rate Abdomen: Normal bowel sounds, Soft, No tenderness Extremities: No cyanosis Skin: No breakdown Neuro: Other (NO ASYMMETRY) Psych/Mental Status: Other (CONFUSED) MUSCULOSKELETAL: No deformity, No swelling Vitals VITALS Vital Signs Date Time Temp Pulse Resp B/P (MAP) Pulse Ox O2 Delivery O2 Flow Rate FiO2 12/16/18 15:52 99 Nasal Cannula 2.0 12/16/18 12:25 102 98/48 12/16/18 11:00 98.8 16 98.8 Labs Labs Laboratory Tests Test 12/15/18 14:45 12/15/18 15:40 12/16/18 06:10 12/16/18 06:20 White Blood Count 7.9 x10^3/uL (4.0-11.0) 5.9 x10^3/uL (4.0-11.0) Red Blood Count 3.39 x10^6/uL (3.50-5.40) 2.98 x10^6/uL (3.50-5.40) Hemoglobin 10.8 g/dL (12.0-15.5) 9.6 g/dL (12.0-15.5) Hematocrit 33.9 % (36.0-47.0) 29.3 % (36.0-47.0) Mean Corpuscular Volume 100 fL (79-100) 99 fL (79-100) Mean Corpuscular Hemoglobin 32 pg (25-35) 32 pg (25-35) Mean Corpuscular Hemoglobin Concent 32 g/dL (31-37) 33 g/dL (31-37) Red Cell Distribution Width 19.6 % (11.5-14.5) 18.8 % (11.5-14.5) Platelet Count 183 x10^3/uL (140-400) 150 x10^3/uL (140-400) Neutrophils (%) (Auto) 64 % (31-73) 62 % (31-73) Lymphocytes (%) (Auto) 23 % (24-48) 25 % (24-48) Monocytes (%) (Auto) 11 % (0-9) 11 % (0-9) Eosinophils (%) (Auto) 2 % (0-3) 2 % (0-3) Basophils (%) (Auto) 1 % (0-3) 1 % (0-3) Neutrophils # (Auto) 5.0 x10^3/uL (1.8-7.7) 3.6 x10^3/uL (1.8-7.7) Lymphocytes # (Auto) 1.8 x10^3/uL (1.0-4.8) 1.5 x10^3/uL (1.0-4.8) Monocytes # (Auto) 0.8 x10^3/uL (0.0-1.1) 0.6 x10^3/uL (0.0-1.1) Eosinophils # (Auto) 0.1 x10^3/uL (0.0-0.7) 0.1 x10^3/uL (0.0-0.7) Basophils # (Auto) 0.0 x10^3/uL (0.0-0.2) 0.0 x10^3/uL (0.0-0.2) Prothrombin Time 14.8 SEC (11.7-14.0) Prothromb Time International Ratio 1.2 (0.8-1.1) Sodium Level 138 mmol/L (136-145) 142 mmol/L (136-145) Potassium Level 7.0 mmol/L (3.5-5.1) 4.6 mmol/L (3.5-5.1) Chloride Level 100 mmol/L (98-107) 99 mmol/L (98-107) Carbon Dioxide Level 19 mmol/L (21-32) 32 mmol/L (21-32) Anion Gap 19 (6-14) 11 (6-14) Blood Urea Nitrogen 70 mg/dL (7-20) 30 mg/dL (7-20) Creatinine 10.9 mg/dL (0.6-1.0) 6.2 mg/dL (0.6-1.0) Estimated GFR (Cockcroft-Gault) 4.1 7.9 BUN/Creatinine Ratio 6 (6-20) Glucose Level 128 mg/dL (70-99) 92 mg/dL (70-99) Lactic Acid Level 0.7 mmol/L (0.4-2.0) Calcium Level 8.8 mg/dL (8.5-10.1) 8.4 mg/dL (8.5-10.1) Magnesium Level 2.5 mg/dL (1.8-2.4) Total Bilirubin 0.3 mg/dL (0.2-1.0) Aspartate Amino Transf (AST/SGOT) 11 U/L (15-37) Alanine Aminotransferase (ALT/SGPT) 15 U/L (14-59) Alkaline Phosphatase 161 U/L (46-116) Troponin I Quantitative < 0.017 ng/mL (0.000-0.055) Total Protein 7.8 g/dL (6.4-8.2) Albumin 3.5 g/dL (3.4-5.0) Albumin/Globulin Ratio 0.8 (1.0-1.7) Thyroid Stimulating Hormone (TSH) 2.071 uIU/mL (0.358-3.74) Free Thyroxine 0.65 ng/dL (0.76-1.46) Urine Collection Type U cath Urine Color Straw Urine Clarity Clear Urine pH 5.0 Urine Specific [place] 1.015 Urine Protein 30 mg/dL (NEG-TRACE) Urine Glucose (UA) Negative mg/dL (NEG) Urine Ketones (Stick) Negative mg/dL (NEG) Urine Blood Small (NEG) Urine Nitrite Negative (NEG) Urine Bilirubin Negative (NEG) Urine Urobilinogen Dipstick 0.2 mg/dL (0.2 mg/dL) Urine Leukocyte Esterase Negative (NEG) Urine RBC Rare /HPF (0-2) Urine WBC 0 /HPF (0-4) Urine Squamous Epithelial Cells Occ /LPF Urine Bacteria 0 /HPF (0-FEW) Urine Hyaline Casts Occasional /HPF Triglycerides Level 132 mg/dL (0-150) Cholesterol Level 147 mg/dL (0-200) LDL Cholesterol, Calculated 86 mg/dL (0-100) VLDL Cholesterol, Calculated 26 mg/dL (0-40) Non-HDL Cholesterol Calculated 112 mg/dL (0-129) HDL Cholesterol 35 mg/dL (40-60) Cholesterol/HDL Ratio 4.2 Test 12/16/18 07:45 12/16/18 12:06 Glucose (Fingerstick) 97 mg/dL (70-99) 132 mg/dL (70-99) Laboratory Tests Test 12/16/18 06:10 12/16/18 06:20 12/16/18 07:45 12/16/18 12:06 Sodium Level 142 mmol/L (136-145) Potassium Level 4.6 mmol/L (3.5-5.1) Chloride Level 99 mmol/L (98-107) Carbon Dioxide Level 32 mmol/L (21-32) Anion Gap 11 (6-14) Blood Urea Nitrogen 30 mg/dL (7-20) Creatinine 6.2 mg/dL (0.6-1.0) Estimated GFR (Cockcroft-Gault) 7.9 Glucose Level 92 mg/dL (70-99) Calcium Level 8.4 mg/dL (8.5-10.1) Triglycerides Level 132 mg/dL (0-150) Cholesterol Level 147 mg/dL (0-200) LDL Cholesterol, Calculated 86 mg/dL (0-100) VLDL Cholesterol, Calculated 26 mg/dL (0-40) Non-HDL Cholesterol Calculated 112 mg/dL (0-129) HDL Cholesterol 35 mg/dL (40-60) Cholesterol/HDL Ratio 4.2 White Blood Count 5.9 x10^3/uL (4.0-11.0) Red Blood Count 2.98 x10^6/uL (3.50-5.40) Hemoglobin 9.6 g/dL (12.0-15.5) Hematocrit 29.3 % (36.0-47.0) Mean Corpuscular Volume 99 fL (79-100) Mean Corpuscular Hemoglobin 32 pg (25-35) Mean Corpuscular Hemoglobin Concent 33 g/dL (31-37) Red Cell Distribution Width 18.8 % (11.5-14.5) Platelet Count 150 x10^3/uL (140-400) Neutrophils (%) (Auto) 62 % (31-73) Lymphocytes (%) (Auto) 25 % (24-48) Monocytes (%) (Auto) 11 % (0-9) Eosinophils (%) (Auto) 2 % (0-3) Basophils (%) (Auto) 1 % (0-3) Neutrophils # (Auto) 3.6 x10^3/uL (1.8-7.7) Lymphocytes # (Auto) 1.5 x10^3/uL (1.0-4.8) Monocytes # (Auto) 0.6 x10^3/uL (0.0-1.1) Eosinophils # (Auto) 0.1 x10^3/uL (0.0-0.7) Basophils # (Auto) 0.0 x10^3/uL (0.0-0.2) Glucose (Fingerstick) 97 mg/dL (70-99) 132 mg/dL (70-99) Assessment/Plan Assessment/Plan IMP HYPERKALEMIA ESRD ANEMIA DIASTOLIC CHF DM II HTN ENCEPHALOPATHY PLAN HD EMERGENT DONE EMERGENTLY LAST NIGHT ARANESP ? INFECTION ID EVAL AND TX QUINCY SULLIVAN MD Dec 16, 2018 16:23
[2018-12-16] MEDS: ATORVASTATIN CALCIUM 40 MG TABLET. PO SCH (20:51)
[2018-12-16] MEDS: HEPARIN for SUB-Q USE 5,000 UNIT/ML VIAL. SQ SCH (22:00)
[2018-12-17] VITALS (7 sets, daily range): BP systolic 121–156; BP diastolic 41–68
[2018-12-17] MEDS ORDERED: VANCOMYCIN RANDOM LEVEL. MC ONE (05:00)
[2018-12-17] MEDS: PIPERACILLIN/TAZOBACTAM 2.25 GM in IV NORMAL SALINE 50ML 50 ML IV SCH ×3 (05:41→22:20)
[2018-12-17] MEDS: HEPARIN for SUB-Q USE 5,000 UNIT/ML VIAL. SQ SCH (05:44)
[2018-12-17] MEDS: oxyCODONE IR 5 MG TABLET PO SCH ×5 (05:44→22:11)
[2018-12-17] MEDS: LINACLOTIDE 72 MCG PO SCH (07:00)
[2018-12-17] MEDS: BUDESONIDE 0.5 MG/2 ML NEBU. NEB SCH ×2 (07:41→20:09)
[2018-12-17] MEDS: ALBUTEROL SULFATE 2.5 MG/3 ML NEBU. NEB SCH ×4 (07:41→20:09)
[2018-12-17] MEDS: INSULIN LISPRO 300 UNITS/3 ML VIAL. SQ SCH ×3 (08:00→17:00)
[2018-12-17] MEDS: FLUTICASONE 50MCG/NASAL SPRAY 16GM BOTTLE. NS SCH ×2 (09:00→19:25)
[2018-12-17] MEDS ORDERED: IV NORMAL SALINE 1000ML BAG 1,000 ML IV PRN ×2 (09:01)
[2018-12-17 09:03] LABS: HEMATOCRIT 30.4 % (36.0-47.0); HEMOGLOBIN 9.9 g/dL (12.0-15.5); RED BLOOD COUNT 3.07 x10^6/uL (3.50-5.40); RED CELL DISTRIBUTION WIDTH 18.5 % (11.5-14.5); WHITE BLOOD COUNT 5.6 x10^3/uL (4.0-11.0)
[2018-12-17] MEDS ORDERED: ALBUMIN HUMAN 25% 200 ML IV PRN (09:15)
[2018-12-17] MEDS ORDERED: DIALYSIS PATIENT. MC PRN ×2 (09:15)
--- NOTE | 2018-12-17 09:18 | PDOC ---
PROGRESS NOTES Subjective Subjective more lethargic today, confused Objective Objective Vital Signs Date Time Temp Pulse Resp B/P (MAP) Pulse Ox O2 Delivery O2 Flow Rate FiO2 12/17/18 07:43 99 Nasal Cannula 2.0 12/17/18 07:00 98.7 82 20 121/68 (85) 98.7 Intake and Output 12/17/18 06:59 Intake Total 170 ml Output Total 100 ml Balance 70 ml Intake Oral 120 ml IV Total 50 ml Output Urine Total 100 ml Physical Exam Abdomen: Normal bowel sounds, Soft, No tenderness Heart: Regular rate Extremities: No cyanosis General: mild distress HEENT: Atraumatic, PERRLA Lungs: Clear to auscultation, Normal air movement MUSCULOSKELETAL: No swelling Psych/Mental Status: Other (CONFUSED) Skin: No breakdown Diagnosis Problem List Problems Medical Problems: (1) End stage renal disease Status: Acute (2) Hyperkalemia Status: Acute (3) Weakness Status: Acute Assessment Assessment Problems Medical Problems: (1) End stage renal disease Status: Acute (2) Hyperkalemia Status: Acute (3) Weakness Status: Acute FINAL IMPRESSION: 1. Encephalopathy.Change in mental status ..more lethargic today 2. Hyperkalemia. The patient is a dialysis patient. 3. On dialysis, end-stage renal disease, Saturday, Saturday, and Saturday. She went to dialysis, Saturday. 4. Mechanical fall with some maybe orbital cellulitis. 5. History of recurrent infections, has been to 3 hospitals in last 3 months [facility] and [facility]. 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 6. Diabetes. 7. Hypertension. 8. Hyperlipidemia. 9. General debility. PLAN: Neuro consult MRI brain. hold lovenox. rehab consult pt/ot iv antibiotics At this time, admit to hospital, start on vancomycin and Zosyn. ID is consulted. The patient was taken to Emergency dialysis last night. Potassium is 4. We will have PT, OT and see how she improves in the next 24-48 hours. Plan Plan of Care Problems Medical Problems: (1) End stage renal disease Status: Acute (2) Hyperkalemia Status: Acute (3) Weakness Status: Acute Comment Review of Relevant I have reviewed the following items girish (where applicable) has been applied. Labs Laboratory Tests Test 12/16/18 12:06 12/16/18 16:44 12/16/18 20:55 12/17/18 08:09 Glucose (Fingerstick) 132 mg/dL (70-99) 112 mg/dL (70-99) 105 mg/dL (70-99) 111 mg/dL (70-99) Test 12/17/18 08:10 White Blood Count 5.6 x10^3/uL (4.0-11.0) Red Blood Count 3.07 x10^6/uL (3.50-5.40) Hemoglobin 9.9 g/dL (12.0-15.5) Hematocrit 30.4 % (36.0-47.0) Mean Corpuscular Volume 99 fL (79-100) Mean Corpuscular Hemoglobin 32 pg (25-35) Mean Corpuscular Hemoglobin Concent 33 g/dL (31-37) Red Cell Distribution Width 18.5 % (11.5-14.5) Platelet Count 147 x10^3/uL (140-400) Microbiology 12/15/18 Blood Culture - Preliminary, Resulted NO GROWTH AFTER 1 DAY Medications Current Medications Atorvastatin Calcium (Lipitor) 80 mg HS PO Last administered on 12/16/18at 20:51 ; Start 12/16/18 at 21:00 Heparin Sodium (Porcine) (Heparin Sodium) 5,000 unit Q8HRS SQ Last administered on 12/17/18at 05:44; Start 12/16/18 at 22:00 Vancomycin HCl (Vanco Per Pharmacy) 1 each PRN DAILY PRN MC SEE COMMENTS Last administered on 12/16/18at 13:13; Start 12/16/18 at 13:15 Vancomycin HCl (Vancomycin Random Level) 1 each 1X ONCE MC ; Start 12/17/18 at 05:00; Stop 12/17/18 at 05:01; Status DC Vitals/I & O Vital Sign - Last 24 Hours 12/16/18 12/16/18 12/16/18 12/16/18 11:00 11:26 12:25 15:45 Temp 98.8 98.9 98.8 98.9 Pulse 85 102 87 Resp 16 16 B/P (MAP) 103/50 (67) 98/48 108/54 (72) Pulse Ox 94 95 96 O2 Delivery Nasal Cannula Nasal Cannula Nasal Cannula O2 Flow Rate 2.0 2.0 2.0 12/16/18 12/16/18 12/16/18 12/16/18 15:52 18:21 19:50 20:00 Temp 99.4 99.4 Pulse 87 90 Resp 20 B/P (MAP) 108/54 125/69 (87) Pulse Ox 99 99 O2 Delivery Nasal Cannula Nasal Cannula Nasal Cannula O2 Flow Rate 2.0 2.0 2.0 12/16/18 12/16/18 12/17/18 12/17/18 20:10 23:21 03:34 07:00 Temp 99.3 98.7 98.7 99.3 98.7 98.7 Pulse 87 85 82 Resp 20 20 20 B/P (MAP) 109/58 (75) 121/59 (79) 121/68 (85) Pulse Ox 100 99 100 100 O2 Delivery Nasal Cannula Room Air Room Air Room Air O2 Flow Rate 2.0 12/17/18 07:43 Pulse Ox 99 O2 Delivery Nasal Cannula O2 Flow Rate 2.0 Intake and Output 12/16/18 12/16/18 12/17/18 14:59 22:59 06:59 Intake Total 0 ml 50 ml 120 ml Output Total 100 ml Balance 0 ml 50 ml 20 ml LYLE ELENA MD Dec 17, 2018 09:18
[2018-12-17 09:27] LABS: CALCIUM 8.3 mg/dL (8.5-10.1); CREATININE 7.9 mg/dL (0.6-1.0); POTASSIUM 4.9 mmol/L (3.5-5.1)
--- NOTE | 2018-12-17 09:56 | RAD ---
ELBOW RIGHT 2V, HAND RIGHT 2V 12/17/2018 5:00 AM INDICATION: Fall, right elbow pain COMPARISON: None available. TECHNIQUE: 2 views the right hand and 3 views the right elbow are provided. FINDINGS: There is a small elbow joint effusion which could reflect an occult elbow fracture. If symptoms persist, recommend repeat evaluation in 7-10 days. Bone mineralization is within normal limits. There is advanced joint space narrowing involving the first carpometacarpal joint with subcortical sclerosis and marginal osteophytosis compatible with moderate to advanced osteoarthrosis. There is a nondisplaced transversely oriented fracture involving the base of the third metacarpal. Regional soft tissues are within normal limits. There is no soft tissue gas or osseous erosion. IMPRESSION: 1. Transversely oriented fracture involving the base of the third metacarpal without significant displacement. Carpal bones appear intact. 2. Elbow joint effusion without definite fracture. If symptoms persist, recommend repeat evaluation or cross-sectional imaging in 7-10 days. 3. Moderate to advanced osteoarthrosis of the first carpometacarpal joint. Electronically signed by: Melany Ruby MD (12/17/2018 9:53 AM) [id number]
--- NOTE | 2018-12-17 11:23 | RAD ---
MRI of the brain without contrast 12/17/2018 Clinical History: Altered mental status. Technique: Unenhanced T1-weighted sagittal and axial, T2-weighted axial and coronal and FLAIR, gradient echo and diffusion-weighted axial images of the brain were obtained. Findings: Comparison study is dated 06/28/2017. Additional comparison is made to the patient's CT scan of the head dated 12/15/2018. Images from today's study are limited by patient motion. There is generalized parenchymal atrophy. Patchy and multiple small focal areas of increased signal intensity are seen within the periventricular and subcortical white matter of both cerebral hemispheres on the FLAIR and T2-weighted images consistent with areas of small vessel ischemic disease. These have not significantly changed. No acute parenchymal abnormality is seen. No extra-axial fluid collection is seen. There is no MRI evidence of acute ischemia/infarction. Mild mucosal thickening is seen scattered throughout the paranasal sinuses. Soft tissue swelling is seen involving the left frontal scalp. Normal flow voids are seen within the major vascular structures surrounding the brain parenchyma. Impression: No acute parenchymal abnormality is seen. Electronically signed by: Luc Murray MD (12/17/2018 11:20 AM) [id number]
--- NOTE | 2018-12-17 11:41 | PDOC ---
Infectious Disease Note Subjective Subjective pt has been lethargic and sleepy, though now awake, smiled but minimal talking ROS ROS no n/v/d/sob/fever Vital Sign Vital Signs Vital Signs Date Time Temp Pulse Resp B/P (MAP) Pulse Ox O2 Delivery O2 Flow Rate FiO2 12/17/18 07:43 99 Nasal Cannula 2.0 12/17/18 07:00 98.7 82 20 121/68 (85) 98.7 Physical Exam PHYSICAL EXAM GENERAL: Alert, oriented to place and person, female, not in distress. VITAL SIGNS: Stable. HEENT: Both pupils are round and reacting. No conjunctival lesion, no lesion in the mouth. NECK: Supple, no JVP, no lymphadenopathy. LUNGS: Clear. HEART: S1, S2 regular. ABDOMEN: Benign. EXTREMITIES: No edema, cyanosis. SKIN: Unremarkable. NEUROLOGIC: Alert, awake, answers simple questions. Memory is poor as well as keeps repeating things. According to nursing, she has improved, but not still back to her normal. No focal neurologic deficit. Labs Lab Laboratory Tests Test 12/16/18 12:06 12/16/18 16:44 12/16/18 20:55 12/17/18 08:09 Glucose (Fingerstick) 132 mg/dL (70-99) 112 mg/dL (70-99) 105 mg/dL (70-99) 111 mg/dL (70-99) Test 12/17/18 08:10 12/17/18 09:27 White Blood Count 5.6 x10^3/uL (4.0-11.0) Red Blood Count 3.07 x10^6/uL (3.50-5.40) Hemoglobin 9.9 g/dL (12.0-15.5) Hematocrit 30.4 % (36.0-47.0) Mean Corpuscular Volume 99 fL (79-100) Mean Corpuscular Hemoglobin 32 pg (25-35) Mean Corpuscular Hemoglobin Concent 33 g/dL (31-37) Red Cell Distribution Width 18.5 % (11.5-14.5) Platelet Count 147 x10^3/uL (140-400) Sodium Level 142 mmol/L (136-145) Potassium Level 4.9 mmol/L (3.5-5.1) Chloride Level 99 mmol/L (98-107) Carbon Dioxide Level 31 mmol/L (21-32) Anion Gap 12 (6-14) Blood Urea Nitrogen 48 mg/dL (7-20) Creatinine 7.9 mg/dL (0.6-1.0) Estimated GFR (Cockcroft-Gault) 6.0 Glucose Level 106 mg/dL (70-99) Calcium Level 8.3 mg/dL (8.5-10.1) Creatine Kinase 62 U/L (26-192) Vitamin B12 Level 569 pg/mL (247-911) Random Vancomycin Level 15.9 mcg/mL Glucose (Fingerstick) 114 mg/dL (70-99) Micro Microbiology 12/15/18 Blood Culture - Preliminary, Resulted NO GROWTH AFTER 1 DAY Objective Assessment Weakness Encephalopathy Recurrent infection ESRD HTN DM Plan Plan of Care vanc and zosyn check cultures obtain records d/w dr Corona MRI neg CHRIS WRIGHT MD Dec 17, 2018 11:41
[2018-12-17] MEDS: CALCIUM ACETATE 667 MG CAPSULE PO SCH ×3 (12:00→17:53)
[2018-12-17] MEDS: MIDODRINE 5 MG TABLET PO SCH ×3 (12:00→17:54)
--- NOTE | 2018-12-17 14:15 | PDOC ---
Renal-Progress Notes Subjective Notes Notes PERIODIC CONFUSION History of Present Illness Hx of present illness STABLE Vitals Vitals Vital Signs Date Time Temp Pulse Resp B/P (MAP) Pulse Ox O2 Delivery O2 Flow Rate FiO2 12/17/18 07:43 99 Nasal Cannula 2.0 12/17/18 07:00 98.7 82 20 121/68 (85) 98.7 Weight Weight [ ] I.O. Intake and Output Intake and Output 12/17/18 07:00 Intake Total 170 ml Output Total 100 ml Balance 70 ml Intake Oral 120 ml IV Total 50 ml Output Urine Total 100 ml Labs Labs Laboratory Tests Test 12/16/18 16:44 12/16/18 20:55 12/17/18 08:09 12/17/18 08:10 Glucose (Fingerstick) 112 mg/dL (70-99) 105 mg/dL (70-99) 111 mg/dL (70-99) White Blood Count 5.6 x10^3/uL (4.0-11.0) Red Blood Count 3.07 x10^6/uL (3.50-5.40) Hemoglobin 9.9 g/dL (12.0-15.5) Hematocrit 30.4 % (36.0-47.0) Mean Corpuscular Volume 99 fL (79-100) Mean Corpuscular Hemoglobin 32 pg (25-35) Mean Corpuscular Hemoglobin Concent 33 g/dL (31-37) Red Cell Distribution Width 18.5 % (11.5-14.5) Platelet Count 147 x10^3/uL (140-400) Sodium Level 142 mmol/L (136-145) Potassium Level 4.9 mmol/L (3.5-5.1) Chloride Level 99 mmol/L (98-107) Carbon Dioxide Level 31 mmol/L (21-32) Anion Gap 12 (6-14) Blood Urea Nitrogen 48 mg/dL (7-20) Creatinine 7.9 mg/dL (0.6-1.0) Estimated GFR (Cockcroft-Gault) 6.0 Glucose Level 106 mg/dL (70-99) Calcium Level 8.3 mg/dL (8.5-10.1) Creatine Kinase 62 U/L (26-192) Vitamin B12 Level 569 pg/mL (247-911) Random Vancomycin Level 15.9 mcg/mL Test 12/17/18 09:27 Glucose (Fingerstick) 114 mg/dL (70-99) Micro Micro Microbiology 12/15/18 Blood Culture - Preliminary, Resulted NO GROWTH AFTER 1 DAY Physical Exam Musculoskeletal: low back pain, Other Assessment Assessment IMP HYPERKALEMIA-RESOLVED ESRD ANEMIA DIASTOLIC CHF DM II HTN ENCEPHALOPATHY PLAN HD TODAY UF TO SUE CHE ? INFECTION-ACCESS IS CLEAR ID EVAL AND TX D/W DR ELENA AND QUINCY ALMODOVAR MD Dec 17, 2018 14:15
--- NOTE | 2018-12-17 15:02 | NUR ---
Received report from dialysis, pt is more alert than she was on Saturday. Still non verbal, but laughed, just not talking. Tremors were reported. Still difficulty with following commands. Stable SR this time, 121/65 90, 98.1 T, No meds given in dialysis.
--- NOTE | 2018-12-17 15:04 | NUR ---
2 Liters off in dialysis.
[2018-12-17] MEDS: SODIUM BICARBONATE 650 MG TABLET. PO SCH ×2 (15:56→19:25)
[2018-12-17] MEDS: FOLIC/VIT B COMP W-C (RENAL) TABLET. PO SCH (15:56)
[2018-12-17] MEDS: LACTOBACILLUS RHAMNOSUS GG 1 CAPSULE. PO SCH ×2 (15:57→19:25)
[2018-12-17] MEDS: PANTOPRAZOLE 40 MG TABLET.DR. PO SCH (15:57)
[2018-12-17] MEDS: CALCITRIOL 0.25 MCG CAPSULE. PO SCH (15:57)
[2018-12-17] MEDS: TRIAMCINOLONE ACETONIDE 0.1% TOPICAL OINTMENT 15GM TUBE. TP SCH ×2 (15:58→21:00)
[2018-12-17] MEDS: NYSTATIN TOPICAL POWDER 15GM BOTTLE. TP PRN (15:58)
[2018-12-17] MEDS: VANCOMYCIN PER PHARMACY MC PRN (16:41)
--- NOTE | 2018-12-17 16:41 | NUR ---
Pharmacy Vancomycin Dosing Note S: Consulted to monitor and dose vancomycin started 12/15/18. O: SHLOMO LATIF is a 78 year old F with empiric coverage for fever. Other Antibiotics: ZOSYN 2.25G IV Q8HRS LABS: Last BUN: 48 Last Creatinine: 7.9 Creatinine Clearance: ESRD on HD MWF Last WBC: 5.6 Tmax (past 24 hours): 99.4 Microbiology: BLOOD CX (12/15): NGTD I/O: 170/100 Drug Levels: Last Random level: 15.9 on 12/17/18 at 0500 Last dose given 12/15/18 at 1553 Vancomycin Dosing: Dosing Weight: Actual Target Trough: 15-20 A: Patient received vancomycin 2000 mg IV x 1 dose on 12/15. A pre-HD random of 15.9 estimated to be around 12 after HD. Will initiate scheduled post-HD doses. P: 1. Initiate Vancomycin 750 mg IV qMWF after HD 2. Follow up Random level on 12/17/18 at 0500 3. Pharmacy will continue to monitor, follow and adjust therapy as needed. MARISA PUENTES [facility], 12/17/18 [id number]
[2018-12-17] MEDS ORDERED: VANCOMYCIN 750 MG in IV NORMAL SALINE 250ML 250 ML IV SCH (17:00)
[2018-12-17] MEDS ORDERED: VANCOMYCIN 500 MG in IV NORMAL SALINE 100ML 100 ML IV SCH (17:00)
--- NOTE | 2018-12-17 17:43 | PDOC2 ---
NEUROLOGY CONSULT Date of Admission Date of Admission DATE: 12/17/18 TIME: 17:22 Reason for Consult Reason for Consult: IMPRESSION: Metabolic encephalopathy. Confusion. Generalized weakness. Hyperkalemia, K+ 7 Fever, low grade. Right hand 3rd metacarpal fracture. ESRD on dialysis. DM. CAD. COPD. HTN. HLD. Diabetic peripheral neuropathy. Obesity. RECOMMENDATIONS/PLAN: EEG. Lab: see orders. Persantine 25 mg bid. Treat medical diseases. OT/PT. HCT: Negative. HISTORY OF THE PRESENT ILLNESS: This is a 78-year-old -[place] female with history of diabetes, hypertension and end-stage renal disease who was brought into the ER of [facility] due to weakness and change in mental status. She was noted low garde fever as well of 99.9 degree. She had bacteremia before and was treated fully in June, and subsequently she had infection and she ended up at [facility] and maybe other hospital as well. Neurology was requested for consultation for MS changes and confusion. PAST MEDICAL HISTORY: Diabetes; hypertension; end-stage renal disease, on hemodialysis, neuropathy, COPD, coronary artery disease. PAST SURGICAL HISTORY: AV graft in the left forearm. Hysterectomy, gastric bypass. SOCIAL HISTORY: Lives at home. Denied current smoking, alcohol, illicit drug use. ALLERGIES: IV DYE, NONSTEROIDALS. MEDICATIONS: Refer to [facility] FAMILY HISTORY: Non contributory. REVIEW OF SYSTEMS: Constitutional: Obesity. Head: No recent traumatic brain or head injury. Skin: No edema, or rash. Ear: No infection. Eyes: No vision loss or color blindness. Nose: No bleeding or purulent discharges. Hearing: Hearing decrease. Neck: No injury. Cardiac: CAD, HTN, HLD. Pulmonary: COPD. GI: No GI ulcer, GI bleeding. Urinary/genital: ESRD on dialysis. Endocrinologic: Diabetes Mellitus, obesity. Skeletomuscular: Generalized weakness. Neurological: see HP. Psychiatric: Denies drug use/abuse. Otherwise, not [id number] review of systems. PHYSICAL EXAMINATION: General appearance is in subacute distress. HEENT: Normocephalic and nontraumatic. Eyes, nose, ears, and throat are unremarkable. Neck is supple. No lymphadenopathy. No crepitus. Cardiovascular: S1, S2, regular rate and rhythm. Pulmonary: Clear to auscultation bilaterally. Abdomen: Bowel sounds are positive. Extremities: No rash, lesions, or edema. No restriction of range of motion NEUROLOGICAL EXAMINATION: Awake. Not fully oriented to time, place and person. PERRL. EOMI. CN: no focal findings. Muscle tone: decreased. Muscle strength: 4+ UE, 3-4 LE. DTR: 1 Plantar reflex: Neutral response bilaterally Gait: not examined in bed. Sensory exam: no abnormal findings. No cerebellar signs elicited. F-T-N test not performed due to not follow commands well. Current Medications Current Medications Current Medications Acetaminophen (Tylenol) 1,000 mg 1X ONCE PO Last administered on 12/15/18 15:53; Start 12/15/18 at 14:15; Stop 12/15/18 at 14:16; Status DC Vancomycin HCl 1.25 gm/Sodium Chloride 250 ml @ 166.667 mls/hr 1X ONCE IV ; Start 12/15/18 at 14:15; Stop 12/15/18 at 15:44; Status UNV Piperacillin Sod/ Tazobactam Sod (Zosyn Per Pharmacy) 1 each PRN DAILY PRN MC SEE COMMENTS; Start 12/15/18 at 14:15 Piperacillin Sod/ Tazobactam Sod 3.375 gm/Sodium Chloride 50 ml @ 100 mls/hr 1X ONCE IV Last administered on 12/15/18at 15:03; Start 12/15/18 at 14:30; Stop 12/15/18 at 14:59; Status DC Vancomycin HCl 2 gm/Sodium Chloride 500 ml @ 250 mls/hr 1X ONCE IV Last administered on 12/15/18at 15:53; Start 12/15/18 at 15:00; Stop 12/15/18 at 16:59; Status DC Piperacillin Sod/ Tazobactam Sod 2.25 gm/Sodium Chloride 50 ml @ 100 mls/hr Q8HRS IV Last administered on 12/17/18at 16:17; Start 12/15/18 at 22:00 Calcium Gluconate (Calcium Gluconate) 2,000 mg 1X ONCE IVP Last administered on 12/15/18at 16:11; Start 12/15/18 at 16:00; Stop 12/15/18 at 16:01; Status DC Sodium Bicarbonate (Sodium Bicarb Adult 8.4% Syr) 50 meq 1X ONCE IV Last administered on 12/15/18at 16:11; Start 12/15/18 at 16:00; Stop 12/15/18 at 16:01; Status DC Insulin Human Regular (HumuLIN R VIAL) 10 unit 1X ONCE IV Last administered on 12/15/18at 16:11; Start 12/15/18 at 16:00; Stop 12/15/18 at 16:01; Status DC Dextrose (Dextrose 50%-Water Syringe) 25 gm 1X ONCE IV Last administered on 12/15/18at 16:11; Start 12/15/18 at 16:00; Stop 12/15/18 at 16:01; Status DC Sodium Chloride 1,000 ml @ 1,000 mls/hr Q1H PRN IV hypotension; Start 12/15/18 at 19:54; Stop 12/15/18 at 20:04; Status DC Albumin Human 200 ml @ 200 mls/hr 1X PRN PRN IV Hypotension; Start 12/15/18 at 20:00; Stop 12/16/18 at 01:59; Status DC Sodium Chloride 1,000 ml @ 400 mls/hr Q2H30M PRN IV PATENCY; Start 12/15/18 at 19:54; Stop 12/15/18 at 20:05; Status DC Info (PHARMACY MONITORING -- do not chart) 1 each PRN DAILY PRN MC SEE COMMENTS; Start 12/15/18 at 20:00; Status UNV Info (PHARMACY MONITORING -- do not chart) 1 each PRN DAILY PRN MC SEE COMMENTS; Start 12/15/18 at 20:00; Status Cancel Sodium Chloride 1,000 ml @ 1,000 mls/hr Q1H PRN IV hypotension; Start 12/15/18 at 20:15; Stop 12/17/18 at 09:22; Status DC Sodium Chloride 1,000 ml @ 400 mls/hr Q2H30M PRN IV PATENCY; Start 12/15/18 at 20:15; Stop 12/17/18 at 09:22; Status DC Albuterol Sulfate (Ventolin Neb Soln) 2.5 mg PRN TID PRN NEB SHORTNESS OF BREATH; Start 12/15/18 at 23:30; Stop 12/16/18 at 02:43; Status DC Calcitriol (Rocaltrol) 0.25 mcg DAILY PO Last administered on 12/17/18at 16:06; Start 12/16/18 at 09:00 Diclofenac Sodium (Voltaren) 1 stefano PRN BID PRN TP PAIN; Start 12/15/18 at 23:30 Fluticasone Propionate (Flonase) 2 spray BID NS Last administered on 12/16/18 20:51; Start 12/16/18 at 09:00 Gabapentin (Neurontin) 100 mg TID PO Last administered on 12/16/18 20:51; Start 12/15/18 at 23:45; Stop 12/17/18 at 09:24; Status DC Lactobacillus Rhamnosus (Culturelle) 1 cap BID PO Last administered on 12/17/18 16:06; Start 12/16/18 at 09:00 Midodrine (Proamatine) 5 mg TIDWMEALS PO Last administered on 12/17/18 16:06; Start 12/16/18 at 08:00 Oxycodone HCl (Roxicodone) 5 mg Q6HRS PO Last administered on 12/17/18 16:06; Start 12/16/18 at 00:00 Sodium Bicarbonate (Sodium Bicarbonate) 1,300 mg BID PO Last administered on 12/17/18 16:06; Start 12/16/18 at 09:00 Triamcinolone Acetonide (Kenalog 0.1%) 1 stefano BID TP Last administered on 12/17/18 16:06; Start 12/16/18 at 09:00 Non-Formulary Medication (Albuterol Sulfate (Albuterol Sulfate Neb Soln)) 0.83 % TID PRN NEB WHEEZING; Start 12/15/18 at 23:30; Status UNV Non-Formulary Medication (Albuterol Sulfate (Ventolin Hfa Inhaler)) 2 puff Q4HRS PRN INH SHORTNESS OF BREATH; Start 12/15/18 at 23:30; Status UNV Atorvastatin Calcium (Lipitor) 80 mg HS PO Last administered on 12/16/18 20:51; Start 12/16/18 at 21:00 Non-Formulary Medication (Budesonide/ Formoterol Fumarate (Symbicort 160-4.5 Mcg Inhaler)) 2 puff BID IH ; Start 12/16/18 at 09:00; Status UNV Calcium Acetate (Phoslo) 667 mg TIDWMEALS PO Last administered on 12/17/18 16:06; Start 12/16/18 at 08:00 Non-Formulary Medication (Linaclotide (Linzess)) 72 mcg DAILY07 PO ; Start 12/16/18 at 07:00; Stop 12/17/18 at 10:00; Status DC Nystatin (Nystop) 1 stefano PRN BID PRN TP REDNESS Last administered on 12/17/18 16:06; Start 12/15/18 at 23:45 Pantoprazole Sodium (Protonix) 40 mg DAILYAC PO Last administered on 12/17/18 16:06; Start 12/16/18 at 07:30 Ondansetron HCl (Zofran Odt) 8 mg PRN Q12HR PRN PO NAUSEA; Start 12/15/18 at 23:30 Triamcinolone Acetonide (Kenalog 0.1%) 1 stefano PRN BID PRN TP ITCHING; Start 12/15/18 at 23:30 Vitamin B Complex/ Vitamin C (Steph-Neri) 1 tab DAILY PO Last administered on 12/17/18at 16:06; Start 12/16/18 at 09:00 Info (PHARMACY MONITORING -- do not chart) 1 each PRN DAILY PRN MC SEE COMMENTS; Start 12/15/18 at 23:30 Non-Formulary Medication ([lanacane cream] ) 1 stefano PRN PRN TOP dialysis fistula before dialys; Start 12/15/18 at 23:30; Status UNV Insulin Human Lispro (HumaLOG) 0-5 UNITS TIDWMEALS SQ ; Start 12/16/18 at 08:00 Dextrose (Dextrose 50%-Water Syringe) 12.5 gm PRN Q15MIN PRN IV SEE COMMENTS; Start 12/15/18 at 23:30 Dextrose 250 ml PRN Q15MIN PRN IV SEE COMMENTS; Start 12/15/18 at 23:30 Enoxaparin Sodium (Lovenox 30mg Syringe) 30 mg Q24H SQ Last administered on 12/16/18at 01:15; Start 12/15/18 at 23:30; Stop 12/16/18 at 13:14; Status DC Budesonide (Pulmicort) 0.5 mg RTBID NEB Last administered on 12/17/18at 07:41; Start 12/16/18 at 08:00 Albuterol Sulfate (Ventolin Neb Soln) 2.5 mg RTQID NEB Last administered on 12/17/18at 15:36; Start 12/16/18 at 08:00 Albuterol Sulfate (Ventolin Neb Soln) 2.5 mg PRN Q4HRS PRN NEB SHORTNESS OF BR EATH Last administered on 12/16/18at 08:32; Start 12/16/18 at 02:45 Vancomycin HCl (Vanco Per Pharmacy) 1 each PRN DAILY PRN MC SEE COMMENTS Last administered on 12/17/18at 16:41; Start 12/16/18 at 13:15 Vancomycin HCl (Vancomycin Random Level) 1 each 1X ONCE MC Last administered on 12/17/18at 13:16; Start 12/17/18 at 05:00; Stop 12/17/18 at 05:01; Status DC Heparin Sodium (Porcine) (Heparin Sodium) 5,000 unit Q8HRS SQ Last administered on 12/17/18at 05:44; Start 12/16/18 at 22:00; Stop 12/17/18 at 09:24; Status DC Sodium Chloride 1,000 ml @ 1,000 mls/hr Q1H PRN IV hypotension; Start 12/17/18 at 09:01; Stop 12/17/18 at 15:00; Status DC Albumin Human 200 ml @ 200 mls/hr 1X PRN PRN IV Hypotension; Start 12/17/18 at 09:15; Stop 12/17/18 at 15:14; Status DC Sodium Chloride 1,000 ml @ 400 mls/hr Q2H30M PRN IV PATENCY; Start 12/17/18 at 09:01; Stop 12/17/18 at 21:00 Info (PHARMACY MONITORING -- do not chart) 1 each PRN DAILY PRN MC SEE COMMENTS; Start 12/17/18 at 09:15; Status UNV Info (PHARMACY MONITORING -- do not chart) 1 each PRN DAILY PRN MC SEE COMMENTS; Start 12/17/18 at 09:15 Non-Formulary Medication 1 ea DAILY07 PO ; Start 12/16/18 at 07:00; Status UNV Vancomycin HCl 500 mg/Sodium Chloride 100 ml @ 100 mls/hr QMWF IV ; Start 12/17/18 at 17:00; Status Cancel Vancomycin HCl 750 mg/Sodium Chloride 250 ml @ 250 mls/hr QMWF IV ; Start 12/17/18 at 17:00 Active Scripts Active [Dialysis Patient] 1 EACH Each 1 Each MC PRN DAILY PRN 30 Days Culturelle (Lactobacillus Rhamnosus Gg) 1 Each Cap.sprink 1 Cap PO BID 10 Days Humalog (Insulin Lispro) 100 Unit/1 Ml Insuln.pen 1 Units SQ TIDWMEALS 10 Days Oxycodone Hcl Immed.release (Oxycodone Hcl) 5 Mg Tablet 5 Mg PO PRN Q8HRS PRN 10 Days Proair Hfa (Albuterol Sulfate) 8.5 Gm Hfa.aer.ad 2.5 Mg NEB PRN TID PRN 30 Days Novolog Flexpen (Insulin Aspart) 100 Unit/1 Ml Insuln.pen 1 Unit SQ [id number] 10 Days Novolog FlexPen Sliding Scale: For fingerstick blood glucose: 150-200 take 2 units 201-250 take 4 units 251-300 take 6 units 301-350 take 8 units 351-400 take 10 units If blood glucose greater than [address] Corona. Reported [lanacane cream] 1 Stefano TOP PRN PRN Midodrine Hcl 5 Mg Tablet 5 Mg PO TID Ventolin Hfa Inhaler (Albuterol Sulfate) 18 Gm Hfa.aer.ad 2 Puff INH Q4HRS PRN Nephro-Neri Rx Tablet (Vit B Cmplx 3/Fa/Vit C/Biotin) 1 Each Tablet 1 Each PO DAILY Nystatin 1 Each Powder.ea. 1 Each PO BID PRN Calcium Acetate 667 Mg Tablet 667 Mg PO TIDWMEALS Linzess (Linaclotide) 145 Mcg Capsule 72 Mcg PO DAILY07 Zofran (Ondansetron Hcl) 8 Mg Tablet 1 Tab PO Q12HR PRN Triamcinolone Acetonide 80 Gm Oint...g. 1 Stefano TP BID PRN Fluticasone Propionate Nasal Dundee (Fluticasone Propionate) 16 Gm Dundee.susp 2 Dundee NS BID Calcitriol 0.25 Mcg Capsule 1 Cap PO DAILY Atorvastatin Calcium 80 Mg Tablet 80 Mg PO DAILY Voltaren (Diclofenac Sodium) 100 Gm Gel..gram. 1 Gm TP BID PRN Triamcinolone Acetonide 0.1% Oint (Triamcinolone Acetonide) 15 Gm Oint...g. 1 Stefano TP BID MIX WITH EUCERIN DIRECTED BY PHYSICIAN Symbicort 160-4.5 Mcg Inhaler (Budesonide/Formoterol Fumarate) 10.2 Gm Hfa.aer. ad 2 Puff IH BID Sodium Bicarbonate 650 Mg Tablet 2 Tab PO BID Oxycodone Hcl Immed.release (Oxycodone Hcl) 5 Mg Tablet 1 Tab PO Q6HRS Omeprazole 40 Mg Capsule. 1 Cap PO DAILY Gabapentin (Gabapentin) 100 Mg Capsule 100 Mg PO TID Albuterol Sulfate Neb Soln (Albuterol Sulfate) 0.63 Mg/3 Ml Vial.neb 0.83 % NEB TID PRN Allergies Allergies: Allergies Coded Allergies Type Severity Reaction Last Updated Verified NSAIDS (Non-Steroidal Anti-Inflamma Allergy Severe Swelling 07/27/17 Yes pregabalin Allergy Severe Swelling 05/03/18 Yes tramadol Allergy Severe Swelling 05/03/18 Yes Iodinated Contrast- Oral and IV Dye Allergy Intermediate ITCHING/HIVES 07/25/17 Yes Iodine and Iodide Containing Produc Allergy Intermediate ITCHING/HIVES 05/03/18 Yes ibuprofen Adverse Reaction Intermediate UPSET STOMACH 05/03/18 Yes ROS Review of System The patient denies any associated fevers, chills, headache, ear pain, r hinorrhea, sore throat, stiff neck, productive cough, chest pain, shortness of breath, back or flank pain, abdominal pain, nausea, vomiting, diarrhea, constipation, dysuria, rash, numbness, weakness, tingling, incontinence, difficulty ambulating, or diaphoresis. Physical Exam Physical Exam General: Well developed, well nourished, no acute distress, well appearing HEENT: Pupils equally round and reactive to light, EOMI, no discharge, normal conjunctiva Neck: Supple, no nuchal rigidity, no JVD, trachea midline, no tenderness Cardiac: RRR, no murmurs, no gallops, no rubs Chest/Lungs: CTAB, no wheeze, no rhonchi, no crackles Abdomen: soft, non-distended, no guarding, no peritoneal signs, non-tender Back: No tenderness Extremities: no edema, pulses intact, non-tender,capillary refill <3 sec bilateral upper and lower extremities, Neuro: Alert and oriented x 4, no focal deficits, normal speech Vitals Vitals: Vital Signs Date Time Temp Pulse Resp B/P (MAP) Pulse Ox O2 Delivery O2 Flow Rate FiO2 12/17/18 17:20 94 Nasal Cannula 2.5 12/17/18 16:16 90 123/45 12/17/18 15:00 97.9 18 97.9 Labs Labs Laboratory Tests Test 12/16/18 06:10 12/16/18 06:20 12/16/18 07:45 12/16/18 12:06 Sodium Level 142 mmol/L (136-145) Potassium Level 4.6 mmol/L (3.5-5.1) Chloride Level 99 mmol/L (98-107) Carbon Dioxide Level 32 mmol/L (21-32) Anion Gap 11 (6-14) Blood Urea Nitrogen 30 mg/dL (7-20) Creatinine 6.2 mg/dL (0.6-1.0) Estimated GFR (Cockcroft-Gault) 7.9 Glucose Level 92 mg/dL (70-99) Calcium Level 8.4 mg/dL (8.5-10.1) Triglycerides Level 132 mg/dL (0-150) Cholesterol Level 147 mg/dL (0-200) LDL Cholesterol, Calculated 86 mg/dL (0-100) VLDL Cholesterol, Calculated 26 mg/dL (0-40) Non-HDL Cholesterol Calculated 112 mg/dL (0-129) HDL Cholesterol 35 mg/dL (40-60) Cholesterol/HDL Ratio 4.2 White Blood Count 5.9 x10^3/uL (4.0-11.0) Red Blood Count 2.98 x10^6/uL (3.50-5.40) Hemoglobin 9.6 g/dL (12.0-15.5) Hematocrit 29.3 % (36.0-47.0) Mean Corpuscular Volume 99 fL (79-100) Mean Corpuscular Hemoglobin 32 pg (25-35) Mean Corpuscular Hemoglobin Concent 33 g/dL (31-37) Red Cell Distribution Width 18.8 % (11.5-14.5) Platelet Count 150 x10^3/uL (140-400) Neutrophils (%) (Auto) 62 % (31-73) Lymphocytes (%) (Auto) 25 % (24-48) Monocytes (%) (Auto) 11 % (0-9) Eosinophils (%) (Auto) 2 % (0-3) Basophils (%) (Auto) 1 % (0-3) Neutrophils # (Auto) 3.6 x10^3/uL (1.8-7.7) Lymphocytes # (Auto) 1.5 x10^3/uL (1.0-4.8) Monocytes # (Auto) 0.6 x10^3/uL (0.0-1.1) Eosinophils # (Auto) 0.1 x10^3/uL (0.0-0.7) Basophils # (Auto) 0.0 x10^3/uL (0.0-0.2) Glucose (Fingerstick) 97 mg/dL (70-99) 132 mg/dL (70-99) Test 12/16/18 16:44 12/16/18 20:55 12/17/18 08:09 12/17/18 08:10 Glucose (Fingerstick) 112 mg/dL (70-99) 105 mg/dL (70-99) 111 mg/dL (70-99) White Blood Count 5.6 x10^3/uL (4.0-11.0) Red Blood Count 3.07 x10^6/uL (3.50-5.40) Hemoglobin 9.9 g/dL (12.0-15.5) Hematocrit 30.4 % (36.0-47.0) Mean Corpuscular Volume 99 fL (79-100) Mean Corpuscular Hemoglobin 32 pg (25-35) Mean Corpuscular Hemoglobin Concent 33 g/dL (31-37) Red Cell Distribution Width 18.5 % (11.5-14.5) Platelet Count 147 x10^3/uL (140-400) Sodium Level 142 mmol/L (136-145) Potassium Level 4.9 mmol/L (3.5-5.1) Chloride Level 99 mmol/L (98-107) Carbon Dioxide Level 31 mmol/L (21-32) Anion Gap 12 (6-14) Blood Urea Nitrogen 48 mg/dL (7-20) Creatinine 7.9 mg/dL (0.6-1.0) Estimated GFR (Cockcroft-Gault) 6.0 Glucose Level 106 mg/dL (70-99) Calcium Level 8.3 mg/dL (8.5-10.1) Creatine Kinase 62 U/L (26-192) Vitamin B12 Level 569 pg/mL (619-911) Random Vancomycin Level 15.9 mcg/mL Test 12/17/18 09:27 12/17/18 15:52 12/17/18 17:10 Glucose (Fingerstick) 114 mg/dL (70-99) 110 mg/dL (70-99) 132 mg/dL (70-99) Laboratory Tests Test 12/16/18 20:55 12/17/18 08:09 12/17/18 08:10 12/17/18 09:27 Glucose (Fingerstick) 105 mg/dL (70-99) 111 mg/dL (70-99) 114 mg/dL (70-99) White Blood Count 5.6 x10^3/uL (4.0-11.0) Red Blood Count 3.07 x10^6/uL (3.50-5.40) Hemoglobin 9.9 g/dL (12.0-15.5) Hematocrit 30.4 % (36.0-47.0) Mean Corpuscular Volume 99 fL (79-100) Mean Corpuscular Hemoglobin 32 pg (25-35) Mean Corpuscular Hemoglobin Concent 33 g/dL (31-37) Red Cell Distribution Width 18.5 % (11.5-14.5) Platelet Count 147 x10^3/uL (140-400) Sodium Level 142 mmol/L (136-145) Potassium Level 4.9 mmol/L (3.5-5.1) Chloride Level 99 mmol/L (98-107) Carbon Dioxide Level 31 mmol/L (21-32) Anion Gap 12 (6-14) Blood Urea Nitrogen 48 mg/dL (7-20) Creatinine 7.9 mg/dL (0.6-1.0) Estimated GFR (Cockcroft-Gault) 6.0 Glucose Level 106 mg/dL (70-99) Calcium Level 8.3 mg/dL (8.5-10.1) Creatine Kinase 62 U/L (26-192) Vitamin B12 Level 569 pg/mL (247-911) Random Vancomycin Level 15.9 mcg/mL Test 12/17/18 15:52 12/17/18 17:10 Glucose (Fingerstick) 110 mg/dL (70-99) 132 mg/dL (70-99) LEON DOHERTY MD Dec 17, 2018 17:43
[2018-12-17] MEDS: DIPYRIDAMOLE 25 MG TABLET. PO SCH (18:00)
--- NOTE | 2018-12-17 18:04 | NUR ---
Frequent updates throughout the day given to Chloe regarding patient's status. VS stable.
[2018-12-17] MEDS: ATORVASTATIN CALCIUM 40 MG TABLET. PO SCH (19:25)
[2018-12-18 03:47] VITALS: BP 133/55
[2018-12-18 04:56] LABS: BASO % 1 % (0-3); EOS # 0.1 x10^3/uL (0.0-0.7); EOS % 3 % (0-3); HEMATOCRIT 30.6 % (36.0-47.0); HEMOGLOBIN 9.8 g/dL (12.0-15.5); LYMPH # 0.8 x10^3/uL (1.0-4.8); LYMPH % 17 % (24-48); MEAN CORPUSCULAR HEMOGLOBIN 32 pg (25-35); MEAN CORPUSCULAR HGB CONC 32 g/dL (31-37); MEAN CORPUSCULAR VOLUME 99 fL (79-100); MONO # 0.6 x10^3/uL (0.0-1.1); MONO % 13 % (0-9); NEUT # 3.1 x10^3/uL (1.8-7.7); NEUT % 66 % (31-73); PLATELET COUNT 135 x10^3/uL (140-400); RED BLOOD COUNT 3.08 x10^6/uL (3.50-5.40); RED CELL DISTRIBUTION WIDTH 18.2 % (11.5-14.5); WHITE BLOOD COUNT 4.7 x10^3/uL (4.0-11.0)
[2018-12-18 05:28] LABS: CALCIUM 8.5 mg/dL (8.5-10.1); GFR 10.2; POTASSIUM 4.6 mmol/L (3.5-5.1)
--- NOTE | 2018-12-18 05:31 | CONS ---
DATE OF CONSULTATION: 12/17/2018 CHIEF COMPLAINT: Fall with left hand and elbow pain. HISTORY OF PRESENT ILLNESS: The patient is a 78-year-old female with end-stage renal disease and undergoes dialysis and had a fall and was brought to the hospital after confusion related to hitting her head. She had also some significant electrolyte abnormalities and later was complaining of some hand and elbow pain and later had x-rays obtained of these areas. Her status at this time is that she is quite somnolent and most of her history really obtained from chart review. PAST MEDICAL HISTORY: Significant for diabetes, hypertension, hyperlipidemia and multiple infections. PAST SURGICAL HISTORY: Gallbladder surgery, arterio-vascular shunt, gastric bypass, hysterectomy. ALLERGIES: INCLUDE NONSTEROIDAL ANTI-INFLAMMATORIES, TRAMADOL, LYRICA AND CONTRAST BOTH IV AND ORAL. MEDICATIONS: List is reviewed. FAMILY HISTORY: Diabetes, heart disease and kidney problems. SOCIAL HISTORY: She lives at home and ambulates with the assistance of a walker and comes in for her dialysis appointments, is otherwise minimally active. REVIEW OF SYSTEMS: Really not possible due to her current mental state. She is arousable, but minimally responsive. PHYSICAL EXAMINATION: On examination, she does have some swelling over the hand on the left side, really not much over the elbow. She has full range of motion actively and passively of both elbows and wrists with no ligamentous instability. Good motion of both shoulders without again any tenderness on palpation or instability. She does have no discomfort with flexing and extending the fingers, but some mild tenderness over the dorsal aspect of her hand without significant deformity. No tenderness on manipulating her lower extremities, hip, knee or ankle bilaterally. Leg lengths are equal. Skin, distal pulses, sensation, reflexes are intact in both upper and lower extremities throughout. IMAGING: X-rays of the elbow show just a trace effusion, no evidence of fracture. X-rays of the left wrist show some mild degenerative change of the carpal bones, but no evidence of fracture other than at the base of the third metacarpal nondisplaced. IMPRESSION: 1. Left third metacarpal nondisplaced fracture, status post fall. 2. Multiple medical problems, end-stage renal disease, on dialysis. TREATMENT PLAN: At this point, she is really fairly minimally responsive, is not getting out of bed and talking with her nurse. They were considering actually taking her down to the Intensive Care Unit for closer observation. However, her vital signs have really been steady, so she is just kept under observation on the medical surgical floor presently. As a result of her not being mobilized currently, I really do not see any need in terms of any splinting of her hand that could be accomplished later consistent with her activity needs or demonstrated pain response, which is minimal currently. Likewise due to the orientation of this fracture and ligamentous support, I think the chance for any movement or malunion is quite small, but I will continue to follow along from an orthopedic standpoint as necessary. SARITA KEATING MD DR: GIO/kimberly JOB#: [id number] / [id number]
[2018-12-18] MEDS: oxyCODONE IR 5 MG TABLET PO SCH ×4 (05:58→23:52)
[2018-12-18] MEDS: PIPERACILLIN/TAZOBACTAM 2.25 GM in IV NORMAL SALINE 50ML 50 ML IV SCH ×2 (05:58→14:00)
[2018-12-18] MEDS: DIPYRIDAMOLE 25 MG TABLET. PO SCH ×2 (05:58→18:00)
[2018-12-18 07:00] VITALS: BP 120/57
[2018-12-18] MEDS: LINACLOTIDE 72 MCG PO SCH (07:00)
[2018-12-18] MEDS: ALBUTEROL SULFATE 2.5 MG/3 ML NEBU. NEB SCH ×4 (07:10→19:52)
[2018-12-18] MEDS: BUDESONIDE 0.5 MG/2 ML NEBU. NEB SCH ×2 (07:11→19:52)
[2018-12-18] MEDS: INSULIN LISPRO 300 UNITS/3 ML VIAL. SQ SCH ×3 (08:00→17:00)
--- NOTE | 2018-12-18 09:01 | PDOC ---
PROGRESS NOTES Subjective Subjective Pt more awake today, responding to questions orally, pts daughter at bedside. Objective Objective Vital Signs Date Time Temp Pulse Resp B/P (MAP) Pulse Ox O2 Delivery O2 Flow Rate FiO2 12/18/18 07:11 98 Nasal Cannula 2.0 12/18/18 07:00 98.1 82 16 120/57 (78) 98.1 Intake and Output 12/18/18 06:59 Intake Total 410 ml Balance 410 ml Intake Oral 60 ml IV Total 350 ml # Voids 2 Physical Exam Abdomen: Normal bowel sounds, Soft, No tenderness Heart: Regular rate Extremities: No cyanosis General: mild distress HEENT: Atraumatic, PERRLA Lungs: Clear to auscultation, Normal air movement MUSCULOSKELETAL: No swelling Psych/Mental Status: Other (more awake, verbal today) Skin: No breakdown Diagnosis Problem List Problems Medical Problems: (1) End stage renal disease Status: Acute (2) Hyperkalemia Status: Acute (3) Weakness Status: Acute Assessment Assessment Problems Medical Problems: (1) End stage renal disease Status: Acute (2) Hyperkalemia Status: Acute (3) Weakness Status: Acute FINAL IMPRESSION: 1. Encephalopathy.Change in mental status ..less lethargic today 2. Hyperkalemia. The patient is a dialysis patient.corrected 3. On dialysis, end-stage renal disease, Saturday, Saturday, and Saturday. She went to dialysis, Saturday. 4. Mechanical fall with some maybe orbital cellulitis. 5. History of recurrent infections, has been to 3 [address] in last [address] [facility] and [facility]. 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 6. Diabetes. 7. Hypertension. 8. Hyperlipidemia. 9. General debility. PLAN: Neuro consult appreciated MRI brain -ve for cva. resume lovenox. rehab consult pt/ot iv antibiotics. spoke with ID. labs ok Plan Plan of Care Problems Medical Problems: (1) End stage renal disease Status: Acute (2) Hyperkalemia Status: Acute (3) Weakness Status: Acute Comment Review of Relevant I have reviewed the following items girish (where applicable) has been applied. Labs Laboratory Tests Test 12/17/18 09:27 12/17/18 15:52 12/17/18 17:10 12/17/18 20:48 Glucose (Fingerstick) 114 mg/dL (70-99) 110 mg/dL (70-99) 132 mg/dL (70-99) 142 mg/dL (70-99) Test 12/18/18 04:30 12/18/18 08:03 White Blood Count 4.7 x10^3/uL (4.0-11.0) Red Blood Count 3.08 x10^6/uL (3.50-5.40) Hemoglobin 9.8 g/dL (12.0-15.5) Hematocrit 30.6 % (36.0-47.0) Mean Corpuscular Volume 99 fL (79-100) Mean Corpuscular Hemoglobin 32 pg (25-35) Mean Corpuscular Hemoglobin Concent 32 g/dL (31-37) Red Cell Distribution Width 18.2 % (11.5-14.5) Platelet Count 135 x10^3/uL (140-400) Neutrophils (%) (Auto) 66 % (31-73) Lymphocytes (%) (Auto) 17 % (24-48) Monocytes (%) (Auto) 13 % (0-9) Eosinophils (%) (Auto) 3 % (0-3) Basophils (%) (Auto) 1 % (0-3) Neutrophils # (Auto) 3.1 x10^3/uL (1.8-7.7) Lymphocytes # (Auto) 0.8 x10^3/uL (1.0-4.8) Monocytes # (Auto) 0.6 x10^3/uL (0.0-1.1) Eosinophils # (Auto) 0.1 x10^3/uL (0.0-0.7) Basophils # (Auto) 0.0 x10^3/uL (0.0-0.2) Sodium Level 140 mmol/L (136-145) Potassium Level 4.6 mmol/L (3.5-5.1) Chloride Level 100 mmol/L (98-107) Carbon Dioxide Level 29 mmol/L (21-32) Anion Gap 11 (6-14) Blood Urea Nitrogen 29 mg/dL (7-20) Creatinine 5.0 mg/dL (0.6-1.0) Estimated GFR (Cockcroft-Gault) 10.2 Glucose Level 107 mg/dL (70-99) Calcium Level 8.5 mg/dL (8.5-10.1) Glucose (Fingerstick) 97 mg/dL (70-99) Microbiology 12/15/18 Blood Culture - Preliminary, Resulted NO GROWTH AFTER 2 DAYS Medications Current Medications Albumin Human 200 ml @ 200 mls/hr 1X PRN PRN IV Hypotension; Start 12/17/18 at 09:15; Stop 12/17/18 at 15:14; Status DC Dipyridamole (Persantine) 25 mg BID66 PO ; Start 12/17/18 at 18:00 Info (PHARMACY MONITORING -- do not chart) 1 each PRN DAILY PRN MC SEE COMMENTS; Start 12/17/18 at 09:15 Info (PHARMACY MONITORING -- do not chart) 1 each PRN DAILY PRN MC SEE COMMENTS; Start 12/17/18 at 09:15; Status UNV Sodium Chloride 1,000 ml @ 400 mls/hr Q2H30M PRN IV PATENCY; Start 12/17/18 at 09:01; Stop 12/17/18 at 21:00; Status DC Sodium Chloride 1,000 ml @ 1,000 mls/hr Q1H PRN IV hypotension; Start 12/17/18 at 09:01; Stop 12/17/18 at 15:00; Status DC Vancomycin HCl 500 mg/Sodium Chloride 100 ml @ 100 mls/hr QMWF IV ; Start 12/17/18 at 17:00; Status Cancel Vancomycin HCl 750 mg/Sodium Chloride 250 ml @ 250 mls/hr QMWF IV Last administered on 12/17/18at 20:05; Start 12/17/18 at 17:00 Vitals/I & O Vital Sign - Last 24 Hours 12/17/18 12/17/18 12/17/18 12/17/18 15:00 15:36 16:06 16:06 Temp 97.9 97.9 Pulse 90 90 Resp 18 B/P (MAP) 123/45 (71) 123/45 Pulse Ox 97 100 94 O2 Delivery Room Air Nasal Cannula Nasal Cannula O2 Flow Rate 2.0 2.0 12/17/18 12/17/18 12/17/18 12/17/18 16:16 17:00 17:20 17:30 Temp 98.7 98.6 98.7 98.6 Pulse 90 90 90 B/P (MAP) 123/45 133/45 (74) 144/60 (88) Pulse Ox 94 O2 Delivery Nasal Cannula Nasal Cannula O2 Flow Rate 2.5 2.5 2.5 12/17/18 12/17/18 12/17/18 12/17/18 17:54 18:02 19:54 20:00 Temp 97.7 97.7 Pulse 90 77 Resp 20 B/P (MAP) 144/60 156/41 (79) Pulse Ox 94 96 O2 Delivery Nasal Cannula Nasal Cannula Nasal Cannula O2 Flow Rate 2.5 2.0 2.5 12/17/18 12/17/18 12/18/18 12/18/18 20:07 23:05 03:47 07:00 Temp 98.1 97.6 98.1 98.1 97.6 98.1 Pulse 76 78 82 Resp 16 16 16 B/P (MAP) 149/54 (85) 133/55 (81) 120/57 (78) Pulse Ox 96 95 98 98 O2 Delivery Nasal Cannula Room Air Nasal Cannula Nasal Cannula O2 Flow Rate 2.0 2.0 2.0 12/18/18 07:11 Pulse Ox 98 O2 Delivery Nasal Cannula O2 Flow Rate 2.0 Intake and Output 12/17/18 12/17/18 12/18/18 14:59 22:59 06:59 Intake Total 0 ml 310 ml 100 ml Balance 0 ml 310 ml 100 ml LYLE ELENA MD Dec 18, 2018 09:01
[2018-12-18] MEDS: LACTOBACILLUS RHAMNOSUS GG 1 CAPSULE. PO SCH ×2 (09:39→20:25)
[2018-12-18] MEDS: PANTOPRAZOLE 40 MG TABLET.DR. PO SCH (09:39)
[2018-12-18] MEDS: CALCITRIOL 0.25 MCG CAPSULE. PO SCH (09:41)
[2018-12-18] MEDS: CALCIUM ACETATE 667 MG CAPSULE PO SCH ×3 (09:41→18:08)
[2018-12-18] MEDS: MIDODRINE 5 MG TABLET PO SCH ×3 (09:41→18:08)
[2018-12-18] MEDS: SODIUM BICARBONATE 650 MG TABLET. PO SCH ×2 (09:42→20:25)
[2018-12-18] MEDS: NYSTATIN TOPICAL POWDER 15GM BOTTLE. TP PRN ×2 (09:42→20:26)
[2018-12-18] MEDS: FOLIC/VIT B COMP W-C (RENAL) TABLET. PO SCH (09:42)
[2018-12-18] MEDS: FLUTICASONE 50MCG/NASAL SPRAY 16GM BOTTLE. NS SCH ×2 (09:42→20:26)
[2018-12-18] MEDS: TRIAMCINOLONE ACETONIDE 0.1% TOPICAL OINTMENT 15GM TUBE. TP SCH ×2 (09:42→20:25)
[2018-12-18 11:00] VITALS: BP 136/49
--- NOTE | 2018-12-18 11:24 | PDOC ---
Infectious Disease Note Subjective Subjective awake, speaking , back to almost normal ROS ROS no n/v/d/fever Vital Sign Vital Signs Vital Signs Date Time Temp Pulse Resp B/P (MAP) Pulse Ox O2 Delivery O2 Flow Rate FiO2 12/18/18 09:48 82 120/57 12/18/18 09:48 98 Nasal Cannula 2.5 12/18/18 07:00 98.1 16 98.1 Physical Exam PHYSICAL EXAM GENERAL: Alert, oriented to place and person, female, not in distress. VITAL SIGNS: Stable. HEENT: Both pupils are round and reacting. No conjunctival lesion, no lesion in the mouth. NECK: Supple, no JVP, no lymphadenopathy. LUNGS: Clear. HEART: S1, S2 regular. ABDOMEN: Benign. EXTREMITIES: No edema, cyanosis. SKIN: Unremarkable. NEUROLOGIC: Alert, awake, answers simple questions. Memory is poor as well as keeps repeating things. According to nursing, she has improved, but not still back to her normal. No focal neurologic deficit. Labs Lab Laboratory Tests Test 12/17/18 15:52 12/17/18 17:10 12/17/18 20:48 12/18/18 04:30 Glucose (Fingerstick) 110 mg/dL (70-99) 132 mg/dL (70-99) 142 mg/dL (70-99) White Blood Count 4.7 x10^3/uL (4.0-11.0) Red Blood Count 3.08 x10^6/uL (3.50-5.40) Hemoglobin 9.8 g/dL (12.0-15.5) Hematocrit 30.6 % (36.0-47.0) Mean Corpuscular Volume 99 fL (79-100) Mean Corpuscular Hemoglobin 32 pg (25-35) Mean Corpuscular Hemoglobin Concent 32 g/dL (31-37) Red Cell Distribution Width 18.2 % (11.5-14.5) Platelet Count 135 x10^3/uL (140-400) Neutrophils (%) (Auto) 66 % (31-73) Lymphocytes (%) (Auto) 17 % (24-48) Monocytes (%) (Auto) 13 % (0-9) Eosinophils (%) (Auto) 3 % (0-3) Basophils (%) (Auto) 1 % (0-3) Neutrophils # (Auto) 3.1 x10^3/uL (1.8-7.7) Lymphocytes # (Auto) 0.8 x10^3/uL (1.0-4.8) Monocytes # (Auto) 0.6 x10^3/uL (0.0-1.1) Eosinophils # (Auto) 0.1 x10^3/uL (0.0-0.7) Basophils # (Auto) 0.0 x10^3/uL (0.0-0.2) Sodium Level 140 mmol/L (136-145) Potassium Level 4.6 mmol/L (3.5-5.1) Chloride Level 100 mmol/L (98-107) Carbon Dioxide Level 29 mmol/L (21-32) Anion Gap 11 (6-14) Blood Urea Nitrogen 29 mg/dL (7-20) Creatinine 5.0 mg/dL (0.6-1.0) Estimated GFR (Cockcroft-Gault) 10.2 Glucose Level 107 mg/dL (70-99) Calcium Level 8.5 mg/dL (8.5-10.1) Test 12/18/18 08:03 12/18/18 09:59 Glucose (Fingerstick) 97 mg/dL (70-99) 160 mg/dL (70-99) Micro Microbiology 12/15/18 Blood Culture - Preliminary, Resulted NO GROWTH AFTER 1 DAY Objective Assessment Weakness Encephalopathy Recurrent infection ESRD HTN DM Plan Plan of Care vanc and zosyn check cultures obtain records d/w dr Corona MRI neg EEG pending CHRIS WRIGHT MD Dec 18, 2018 11:24
--- NOTE | 2018-12-18 11:44 | NUR ---
SW following pt. PT/OT pending. ID following pt and pt still on IV abx. Will continue to follow pending dc needs.
--- NOTE | 2018-12-18 12:13 | PDOC ---
Renal-Progress Notes Subjective Notes Notes FEELING BETTER History of Present Illness Hx of present illness STABLE Vitals Vitals Vital Signs Date Time Temp Pulse Resp B/P (MAP) Pulse Ox O2 Delivery O2 Flow Rate FiO2 12/18/18 11:40 98 Nasal Cannula 2.5 12/18/18 11:00 98.4 68 16 136/49 (78) 98.4 Weight Weight [ ] I.O. Intake and Output Intake and Output 12/18/18 07:00 Intake Total 410 ml Balance 410 ml Intake Oral 60 ml IV Total 350 ml # Voids 2 Labs Labs Laboratory Tests Test 12/17/18 15:52 12/17/18 17:10 12/17/18 20:48 12/18/18 04:30 Glucose (Fingerstick) 110 mg/dL (70-99) 132 mg/dL (70-99) 142 mg/dL (70-99) White Blood Count 4.7 x10^3/uL (4.0-11.0) Red Blood Count 3.08 x10^6/uL (3.50-5.40) Hemoglobin 9.8 g/dL (12.0-15.5) Hematocrit 30.6 % (36.0-47.0) Mean Corpuscular Volume 99 fL (79-100) Mean Corpuscular Hemoglobin 32 pg (25-35) Mean Corpuscular Hemoglobin Concent 32 g/dL (31-37) Red Cell Distribution Width 18.2 % (11.5-14.5) Platelet Count 135 x10^3/uL (140-400) Neutrophils (%) (Auto) 66 % (31-73) Lymphocytes (%) (Auto) 17 % (24-48) Monocytes (%) (Auto) 13 % (0-9) Eosinophils (%) (Auto) 3 % (0-3) Basophils (%) (Auto) 1 % (0-3) Neutrophils # (Auto) 3.1 x10^3/uL (1.8-7.7) Lymphocytes # (Auto) 0.8 x10^3/uL (1.0-4.8) Monocytes # (Auto) 0.6 x10^3/uL (0.0-1.1) Eosinophils # (Auto) 0.1 x10^3/uL (0.0-0.7) Basophils # (Auto) 0.0 x10^3/uL (0.0-0.2) Sodium Level 140 mmol/L (136-145) Potassium Level 4.6 mmol/L (3.5-5.1) Chloride Level 100 mmol/L (98-107) Carbon Dioxide Level 29 mmol/L (21-32) Anion Gap 11 (6-14) Blood Urea Nitrogen 29 mg/dL (7-20) Creatinine 5.0 mg/dL (0.6-1.0) Estimated GFR (Cockcroft-Gault) 10.2 Glucose Level 107 mg/dL (70-99) Calcium Level 8.5 mg/dL (8.5-10.1) Test 12/18/18 08:03 12/18/18 09:59 12/18/18 12:05 Glucose (Fingerstick) 97 mg/dL (70-99) 160 mg/dL (70-99) 122 mg/dL (70-99) Micro Micro Microbiology 12/15/18 Blood Culture - Preliminary, Resulted NO GROWTH AFTER 2 DAYS Review of Systems Constitutional: yes: weakness, alert Ears/Nose/Throat: Yes: no symptom reported Eyes: Yes: no symptom reported Pulmonary: Yes no symptom reported Cardiovascular: Yes no symptom reported Gastrointestional: Yes: no symptom reported Musculoskeletal: Yes: no symptom reported Skin: Yes no symptom reported Psychiatric/Neurological: Yes: no symptom reported Endocrine: Yes: no symptom reported Physical Exam General Appearance: no apparent distress Skin: warm Respiratory: decreased breath sounds Heart: S1S2 Abdomen: soft, bowel sounds present Genitourinary: bladder flat Neurology: alert Musculoskeletal: Other Assessment Assessment IMP HYPERKALEMIA-RESOLVED ESRD ANEMIA DIASTOLIC CHF DM II HTN ENCEPHALOPATHY PLAN HD TOMORROW ARANESP ? INFECTION-ACCESS IS CLEAR ID EVAL AND TX D/W DR ELENA AND QUINCY ALMODOVAR MD Dec 18, 2018 12:12
--- NOTE | 2018-12-18 14:04 | EEG ---
DATE OF SERVICE: 12/18/2018 EEG NUMBER: [id number] OBJECTIVE: This is a 78-year-old -[place] female patient who has persistent mental status changes. EEG was requested to evaluate cerebral activity and help rule out subclinical seizures. METHODS: Twenty electrodes were applied according to the international 10-20 electrode placement system. EKG monitoring, hyperventilation, intermittent photic stimulation, monopolar and bipolar montages are routinely utilized. The record was obtained on a digital system with video monitoring. FINDINGS: 1. Background: The patient was recorded in the awake, drowsy, and sleep states. The overall background amplitude is variable. No posterior dominant rhythm is observed. The overall background rhythm is with diffuse slowing in the theta and delta frequencies throughout the entire recording. 2. Abnormalities: No specific epileptiform discharge or electrographic seizure is seen. Diffuse slowing in the theta and delta frequencies throughout the entire recording. Triphasic waves also noted. A few sharp waves noted as well. 3. Activation: Hyperventilation was not performed because the patient was unable to follow the commands. Intermittent photic stimulation was performed with photic driving. IMPRESSION: This EEG is an abnormal study for the awake, drowsy, and sleep states. No posterior dominant rhythm is observed. The overall background rhythm is with diffuse slowing in the theta and delta frequencies throughout the entire recording. A few sharp waves noted; however, they are not considered epileptogenic. No focal, lateralizing, specific epileptiform discharge or electrographic seizure is seen. This pattern of EEG is suggestive of diffuse encephalopathy. LEON DOHERTY MD DR: Palmer JOB#: [id number] / [id number] TRISTA
[2018-12-18 15:00] VITALS: BP 145/66
[2018-12-18] MEDS: VANCOMYCIN PER PHARMACY MC PRN (15:10)
[2018-12-18] MEDS: HEPARIN for SUB-Q USE 5,000 UNIT/ML VIAL. SQ SCH ×2 (15:11→20:40)
--- NOTE | 2018-12-18 15:27 | NUR ---
SW following pt. PT/OT recommends SNU. Spoke with pt and pt's daughters in room about options, insurance coverage. Pt chose [facility]. SW phoned and faxed referral to [facility]. Pt acceptance and admission pending. JOSE CRUZ will continue to follow. Discussed with RN.
--- NOTE | 2018-12-18 16:51 | PDOC ---
PROGRESS NOTES Assessment Assessment Metabolic encephalopathy. Confusion. Generalized weakness. Hyperkalemia, K+ 7 Fever, low grade. Right hand 3rd metacarpal fracture. ESRD on dialysis. DM. CAD. COPD. HTN. HLD. Diabetic peripheral neuropathy. Obesity. RECOMMENDATIONS/PLAN: Persantine 25 mg bid. Treat medical diseases. OT/PT. HCT: Negative. EEG on 12/17/18: Diffuse encephalopathy. HISTORY OF THE PRESENT ILLNESS: This is a 78-year-old -Chinese female with history of diabetes, hypertension and end-stage renal disease who was brought into the ER of [facility] due to weakness and change in mental status. She was noted low garde fever as well of 99.9 degree. She had bacteremia before and was treated fully in June, and subsequently she had infection and she ended up at [facility] and maybe other hospital as well. Neurology was requested for consultation for MS changes and confusion. Her mentation improved in some degree on 12/18/18. PAST MEDICAL HISTORY: Diabetes; hypertension; end-stage renal disease, on hemodialysis, neuropathy, COPD, coronary artery disease. PAST SURGICAL HISTORY: AV graft in the left forearm. Hysterectomy, gastric bypass. SOCIAL HISTORY: Lives at home. Denied current smoking, alcohol, illicit drug use. ALLERGIES: IV DYE, NONSTEROIDALS. MEDICATIONS: Refer to [facility] FAMILY HISTORY: Non contributory. REVIEW OF SYSTEMS: Constitutional: Obesity. Head: No recent traumatic brain or head injury. Skin: No edema, or rash. Ear: No infection. Eyes: No vision loss or color blindness. Nose: No bleeding or purulent discharges. Hearing: Hearing decrease. Neck: No injury. Cardiac: CAD, HTN, HLD. Pulmonary: COPD. GI: No GI ulcer, GI bleeding. Urinary/genital: ESRD on dialysis. Endocrinologic: Diabetes Mellitus, obesity. Skeletomuscular: Generalized weakness. Neurological: see HP. Psychiatric: Denies drug use/abuse. Otherwise, not [id number] review of systems. PHYSICAL EXAMINATION: General appearance is in subacute distress. HEENT: Normocephalic and nontraumatic. Eyes, nose, ears, and throat are unremarkable. Neck is supple. No lymphadenopathy. No crepitus. Cardiovascular: S1, S2, regular rate and rhythm. Pulmonary: Clear to auscultation bilaterally. Abdomen: Bowel sounds are positive. Extremities: No rash, lesions, or edema. No restriction of range of motion NEUROLOGICAL EXAMINATION: Awake. Not fully oriented to time, place and person. PERRL. EOMI. CN: no focal findings. Muscle tone: decreased. Muscle strength: 4+ UE, 3-4 LE. DTR: 1 Plantar reflex: Neutral response bilaterally Gait: not examined in bed. Sensory exam: no abnormal findings. No cerebellar signs elicited. F-T-N test not performed due to not follow commands well. Objective Objective Vital Signs Date Time Temp Pulse Resp B/P (MAP) Pulse Ox O2 Delivery O2 Flow Rate FiO2 12/18/18 15:12 68 136/49 12/18/18 15:00 98.2 16 99 Nasal Cannula 2.0 98.2 Intake and Output 12/18/18 06:59 Intake Total 410 ml Balance 410 ml Intake Oral 60 ml IV Total 350 ml # Voids 2 Vitals Signs Vitals VS - Last 72 Hours, by Label Date Time Temp Pulse Resp B/P (MAP) Pulse Ox O2 Delivery O2 Flow Rate FiO2 12/18/18 15:12 68 136/49 12/18/18 15:00 98.2 80 16 145/66 (92) 99 Nasal Cannula 2.0 98.2 12/18/18 11:40 98 Nasal Cannula 2.5 12/18/18 11:00 98.4 68 16 136/49 (78) 100 Nasal Cannula 2.0 98.4 12/18/18 09:48 82 120/57 12/18/18 09:48 98 Nasal Cannula 2.5 12/18/18 08:00 Nasal Cannula 2.5 12/18/18 07:11 98 Nasal Cannula 2.0 12/18/18 07:00 98.1 82 16 120/57 (78) 98 Nasal Cannula 2.0 98.1 12/18/18 03:47 97.6 78 16 133/55 (81) 98 Nasal Cannula 2.0 97.6 12/17/18 23:05 98.1 76 16 149/54 (85) 95 Room Air 98.1 12/17/18 20:07 96 Nasal Cannula 2.0 12/17/18 20:00 Nasal Cannula 2.5 12/17/18 19:54 97.7 77 20 156/41 (79) 96 Nasal Cannula 2.0 97.7 12/17/18 18:02 94 Nasal Cannula 2.5 12/17/18 17:54 90 144/60 12/17/18 17:30 98.6 90 144/60 (88) Nasal Cannula 2.5 98.6 12/17/18 17:20 94 Nasal Cannula 2.5 12/17/18 17:00 98.7 90 133/45 (74) 2.5 98.7 12/17/18 16:16 90 123/45 12/17/18 16:06 94 Nasal Cannula 2.0 12/17/18 16:06 90 123/45 12/17/18 15:36 100 Nasal Cannula 2.0 12/17/18 15:00 97.9 90 18 123/45 (71) 97 Room Air 97.9 12/17/18 08:00 Nasal Cannula 2.5 12/17/18 07:43 99 Nasal Cannula 2.0 12/17/18 07:00 98.7 82 20 121/68 (85) 100 Room Air 98.7 Laboratory Laboratory Laboratory Tests Test 12/17/18 17:10 12/17/18 20:48 12/18/18 04:30 12/18/18 08:03 Glucose (Fingerstick) 132 mg/dL (70-99) 142 mg/dL (70-99) 97 mg/dL (70-99) White Blood Count 4.7 x10^3/uL (4.0-11.0) Red Blood Count 3.08 x10^6/uL (3.50-5.40) Hemoglobin 9.8 g/dL (12.0-15.5) Hematocrit 30.6 % (36.0-47.0) Mean Corpuscular Volume 99 fL (79-100) Mean Corpuscular Hemoglobin 32 pg (25-35) Mean Corpuscular Hemoglobin Concent 32 g/dL (31-37) Red Cell Distribution Width 18.2 % (11.5-14.5) Platelet Count 135 x10^3/uL (140-400) Neutrophils (%) (Auto) 66 % (31-73) Lymphocytes (%) (Auto) 17 % (24-48) Monocytes (%) (Auto) 13 % (0-9) Eosinophils (%) (Auto) 3 % (0-3) Basophils (%) (Auto) 1 % (0-3) Neutrophils # (Auto) 3.1 x10^3/uL (1.8-7.7) Lymphocytes # (Auto) 0.8 x10^3/uL (1.0-4.8) Monocytes # (Auto) 0.6 x10^3/uL (0.0-1.1) Eosinophils # (Auto) 0.1 x10^3/uL (0.0-0.7) Basophils # (Auto) 0.0 x10^3/uL (0.0-0.2) Sodium Level 140 mmol/L (136-145) Potassium Level 4.6 mmol/L (3.5-5.1) Chloride Level 100 mmol/L (98-107) Carbon Dioxide Level 29 mmol/L (21-32) Anion Gap 11 (6-14) Blood Urea Nitrogen 29 mg/dL (7-20) Creatinine 5.0 mg/dL (0.6-1.0) Estimated GFR (Cockcroft-Gault) 10.2 Glucose Level 107 mg/dL (70-99) Calcium Level 8.5 mg/dL (8.5-10.1) Test 12/18/18 09:59 12/18/18 12:05 Glucose (Fingerstick) 160 mg/dL (70-99) 122 mg/dL (70-99) Microbiology 12/15/18 Blood Culture - Preliminary, Resulted NO GROWTH AFTER 3 DAYS Medication Medications Current Medications Darbepoetin Joshua (ARANESP for DIALYSIS PTS) 60 mcg Th SQ ; Start 12/18/18 at 21:00 Dipyridamole (Persantine) 25 mg BID66 PO ; Start 12/17/18 at 18:00 Heparin Sodium (Porcine) (Heparin Sodium) 5,000 unit Q8HRS SQ Last administered on 12/18/18at 15:12; Start 12/18/18 at 14:00 Vancomycin HCl 500 mg/Sodium Chloride 100 ml @ 100 mls/hr QMWF IV ; Start 12/17/18 at 17:00; Status Cancel Vancomycin HCl 750 mg/Sodium Chloride 250 ml @ 250 mls/hr QMWF IV Last administered on 12/17/18at 20:05; Start 12/17/18 at 17:00; Stop 12/18/18 at 16:19; Status DC Comment Review of Relevant I have reviewed the following items girish (where applicable) has been applied. LEON DOHERTY MD Dec 18, 2018 16:51
[2018-12-18 19:54] VITALS: BP 157/64
[2018-12-18] MEDS: ATORVASTATIN CALCIUM 40 MG TABLET. PO SCH (20:24)
[2018-12-18] MEDS ORDERED: DARBEPOETIN ALFA 60 MCG/0.3 ML DISP.SYRIN. SQ SCH (21:00)
--- NOTE | 2018-12-18 23:47 | CONS ---
DATE OF CONSULTATION: 12/18/2018 ATTENDING PHYSICIAN: Samira Corona MD REASON FOR CONSULTATION: The patient was seen at the request of Dr. Corona for rehab evaluation. HISTORY OF PRESENT ILLNESS: This is a 78-year-old female, known to me. The patient with known diabetes mellitus, peripheral neuropathy, hypertension, hyperlipidemia, multiple infections, status post cholecystectomy, hysterectomy, AV shunt and gastric bypass surgery, KNOWN ALLERGIC TO ORAL AND IV CONTRAST, NONSTEROIDAL ANTI-INFLAMMATORY MEDICATIONS, LYRICA AND TRAMADOL. The patient is also with end-stage renal disease, on hemodialysis. She was admitted on 12/15/2018 with increased weakness and confusion and a fall on the day of admission and hit her head. She had a CT scan and MRI scan of the brain, which failed to reveal any acute abnormality. The patient was found with hyperkalemia and some swelling of the left orbit and left eye. The patient had radiological studies, which revealed transversely oriented fracture involving base of the third metacarpal without any significant displacement, elbow joint effusion without any fracture, moderate to advanced osteoarthritis of the first carpometacarpal joint; this all of right hand. PHYSICAL EXAMINATION: Revealed an elderly female. She is alert and oriented to time, place, person and circumstance and follows commands appropriately, moves all 4 extremities voluntarily where she seemed to have 4+/5 grade muscle strength with relatively increased weakness in her right upper extremity. She is protecting her right shoulder, elbow and hand. She had some tenderness to palpation over dorsal aspect of her right wrist and also around right elbow, some edema of right elbow. The patient had absent knee and ankle jerks. She had crepitus on range of motion of her knee joints. She requires help with bed mobility. I have not tested her transfers or ambulation skills at this time. The patient was seen by physical therapy this morning. She required minimal assistance supine to sit and sit to supine. She requires assistance for bed mobility with her lower extremities. She transferred with minimum assistance, sit to stand, using a roller walker. With minimal assistance, she walked about a few steps at bedside to the commode. The patient had low physical endurance. ASSESSMENT: Elderly female with recent fall. 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 RECOMMENDATIONS: Agree with the plans per physical therapy and occupational therapy to get her up as tolerated and agree with the plan for transfer to [facility] unit when she is medically stable. Dr. Corona, I appreciate asking me to participate in the care of this interesting patient. I will be glad to follow her with you as needed for rehabilitation. SAJAN BOLTON MD DR: KEERTHI/nts JOB#: [id number] / [id number]
[2018-12-18 23:51] VITALS: BP 148/58
[2018-12-18] MEDS: DICLOFENAC SODIUM 1% TOPICAL GEL 100GM TUBE. TP PRN (23:52)
[2018-12-19 02:51] VITALS: BP 158/56
[2018-12-19] MEDS: DIPYRIDAMOLE 25 MG TABLET. PO SCH ×2 (05:41→18:38)
[2018-12-19] MEDS: oxyCODONE IR 5 MG TABLET PO SCH ×3 (05:42→18:38)
[2018-12-19] MEDS: LINACLOTIDE 72 MCG PO SCH (05:53)
[2018-12-19] MEDS: HEPARIN for SUB-Q USE 5,000 UNIT/ML VIAL. SQ SCH ×3 (05:53→21:21)
[2018-12-19] MEDS ORDERED: IV NORMAL SALINE 1000ML BAG 1,000 ML IV PRN ×2 (07:01)
[2018-12-19] MEDS ORDERED: ACETAMINOPHEN 500 MG TABLET PO PRN (07:15)
[2018-12-19] MEDS ORDERED: diphenhydrAMINE 50 MG/ML VIAL IV PRN ×2 (07:15)
[2018-12-19] MEDS ORDERED: ALBUMIN HUMAN 25% 200 ML IV PRN (07:15)
[2018-12-19] MEDS ORDERED: DIALYSIS PATIENT. MC PRN (07:15)
[2018-12-19] MEDS: CALCIUM ACETATE 667 MG CAPSULE PO SCH ×3 (07:59→18:38)
[2018-12-19] MEDS: MIDODRINE 5 MG TABLET PO SCH ×3 (07:59→17:00)
[2018-12-19] MEDS: INSULIN LISPRO 300 UNITS/3 ML VIAL. SQ SCH ×3 (07:59→17:00)
[2018-12-19] MEDS: BUDESONIDE 0.5 MG/2 ML NEBU. NEB SCH ×2 (08:54→19:57)
[2018-12-19] MEDS: ALBUTEROL SULFATE 2.5 MG/3 ML NEBU. NEB SCH ×4 (08:54→20:00)
[2018-12-19] MEDS: FLUTICASONE 50MCG/NASAL SPRAY 16GM BOTTLE. NS SCH ×2 (09:00→21:13)
--- NOTE | 2018-12-19 10:07 | PDOC ---
PROGRESS NOTES Subjective Subjective seen in dialysis unit Objective Objective Vital Signs Date Time Temp Pulse Resp B/P (MAP) Pulse Ox O2 Delivery O2 Flow Rate FiO2 12/19/18 08:56 96 Nasal Cannula 2.0 12/19/18 02:51 98.5 78 16 158/56 (90) 98.5 Intake and Output 12/19/18 07:00 Intake Total 200 ml Output Total 0 ml Balance 200 ml Intake Oral 200 ml Output Urine Total 0 ml # Voids 2 # Bowel Movements 3 Physical Exam Abdomen: Normal bowel sounds, Soft, No tenderness Heart: Regular rate Extremities: No cyanosis General: mild distress HEENT: Atraumatic, PERRLA Lungs: Clear to auscultation, Normal air movement MUSCULOSKELETAL: No swelling Psych/Mental Status: Other (more awake, verbal today) Skin: No breakdown Diagnosis Problem List Problems Medical Problems: (1) End stage renal disease Status: Acute (2) Hyperkalemia Status: Acute (3) Weakness Status: Acute Assessment Assessment Problems Medical Problems: (1) End stage renal disease Status: Acute (2) Hyperkalemia Status: Acute (3) Weakness Status: Acute FINAL IMPRESSION: 1. Encephalopathy.Change in mental status ..less lethargic today, improving 2. Hyperkalemia. The patient is a dialysis patient.corrected 3. On dialysis, end-stage renal disease, Saturday, Saturday, and Saturday. She went to dialysis, Saturday. 4. Mechanical fall with some maybe orbital cellulitis. 5. History of recurrent infections, has been to 3 hospitals in last 3 months [facility] and [place]. 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 6. Diabetes. 7. Hypertension. 8. Hyperlipidemia. 9. General debility. PLAN: Dialysis today. EEG neg MRI brain -ve for cva. resume lovenox. rehab consult pt/ot Off iv antibiotics.c/s neg spoke with ID. labs ok Plan Plan of Care Problems Medical Problems: (1) End stage renal disease Status: Acute (2) Hyperkalemia Status: Acute (3) Weakness Status: Acute Comment Review of Relevant I have reviewed the following items girish (where applicable) has been applied. Labs Laboratory Tests Test 12/18/18 12:05 12/18/18 17:39 12/18/18 20:18 Glucose (Fingerstick) 122 mg/dL (70-99) 126 mg/dL (70-99) 162 mg/dL (70-99) Microbiology 12/15/18 Blood Culture - Preliminary, Resulted NO GROWTH AFTER 3 DAYS Medications Current Medications Acetaminophen (Tylenol) 500 mg 1X PRN PRN PO MILD PAIN / TEMP; Start 12/19/18 at 07:15; Stop 12/20/18 at 07:14 Albumin Human 200 ml @ 200 mls/hr 1X PRN PRN IV Hypotension; Start 12/19/18 at 07:15; Stop 12/19/18 at 13:14 Darbepoetin Joshua (ARANESP for DIALYSIS PTS) 60 mcg Th SQ Last administered on 12/18/18at 20:40; Start 12/18/18 at 21:00 Diphenhydramine HCl (Benadryl) 25 mg 1X PRN PRN IV ITCHING; Start 12/19/18 at 07:15; Stop 12/20/18 at 07:14 Diphenhydramine HCl (Benadryl) 25 mg 1X PRN PRN IV ITCHING; Start 12/19/18 at 07:15; Stop 12/20/18 at 07:14 Heparin Sodium (Porcine) (Heparin Sodium) 5,000 unit Q8HRS SQ Last administered on 12/19/18at 05:53; Start 12/18/18 at 14:00 Info (PHARMACY MONITORING -- do not chart) 1 each PRN DAILY PRN MC SEE COMMENTS; Start 12/19/18 at 07:15 Sodium Chloride 1,000 ml @ 400 mls/hr Q2H30M PRN IV PATENCY; Start 12/19/18 at 07:01; Stop 12/19/18 at 19:00 Sodium Chloride 1,000 ml @ 1,000 mls/hr Q1H PRN IV hypotension; Start 12/19/18 at 07:01; Stop 12/19/18 at 13:00 Vitals/I & O Vital Sign - Last 24 Hours 12/18/18 12/18/18 12/18/18 12/18/18 11:00 11:40 15:00 15:12 Temp 98.4 98.2 98.4 98.2 Pulse 68 80 68 Resp 16 16 B/P (MAP) 136/49 (78) 145/66 (92) 136/49 Pulse Ox 100 98 99 O2 Delivery Nasal Cannula Nasal Cannula Nasal Cannula O2 Flow Rate 2.0 2.5 2.0 12/18/18 12/18/18 12/18/18 12/18/18 16:49 18:10 18:10 19:42 Pulse 68 B/P (MAP) 136/49 Pulse Ox 96 96 96 O2 Delivery Nasal Cannula Nasal Cannula Nasal Cannula O2 Flow Rate 2.0 2.0 2.0 12/18/18 12/18/18 12/18/18 12/18/18 19:53 19:54 20:00 23:51 Temp 98.7 99.1 98.7 99.1 Pulse 81 83 Resp 16 16 B/P (MAP) 157/64 (95) 148/58 (88) Pulse Ox 96 99 98 O2 Delivery Nasal Cannula Nasal Cannula Nasal Cannula Nasal Cannula O2 Flow Rate 2.0 2.0 2.5 2.0 12/19/18 12/19/18 12/19/18 02:51 07:32 08:56 Temp 98.5 98.5 Pulse 78 Resp 16 B/P (MAP) 158/56 (90) Pulse Ox 100 100 96 O2 Delivery Nasal Cannula Nasal Cannula Nasal Cannula O2 Flow Rate 2.0 2.0 2.0 Intake and Output 12/18/18 12/18/18 12/19/18 15:00 23:00 07:00 Intake Total 100 ml 100 ml 0 ml Output Total 0 ml 0 ml Balance 100 ml 100 ml 0 ml LYLE ELENA MD Dec 19, 2018 10:07
--- NOTE | 2018-12-19 10:29 | PDOC ---
PROGRESS NOTES Subjective Subjective No new complaints. Objective Objective Vital Signs Date Time Temp Pulse Resp B/P (MAP) Pulse Ox O2 Delivery O2 Flow Rate FiO2 12/19/18 08:56 96 Nasal Cannula 2.0 12/19/18 02:51 98.5 78 16 158/56 (90) 98.5 Intake and Output 12/19/18 07:00 Intake Total 200 ml Output Total 0 ml Balance 200 ml Intake Oral 200 ml Output Urine Total 0 ml # Voids 2 # Bowel Movements 3 Physical Exam Physical Exam She is awake,receiving hemodialysis and still protecting her right upper extremity.She had wrist cock up splint in place. Assessment Assessment Problems Medical Problems: (1) End stage renal disease Status: Acute (2) Hyperkalemia Status: Acute (3) Weakness Status: Acute Plan Plan of Care To get her up as tolerated and to SNF or acute rehab unit when medically stable. Comment Review of Relevant I have reviewed the following items girish (where applicable) has been applied. Labs Laboratory Tests Test 12/17/18 15:52 12/17/18 17:10 12/17/18 20:48 12/18/18 04:30 Glucose (Fingerstick) 110 mg/dL (70-99) 132 mg/dL (70-99) 142 mg/dL (70-99) White Blood Count 4.7 x10^3/uL (4.0-11.0) Red Blood Count 3.08 x10^6/uL (3.50-5.40) Hemoglobin 9.8 g/dL (12.0-15.5) Hematocrit 30.6 % (36.0-47.0) Mean Corpuscular Volume 99 fL (79-100) Mean Corpuscular Hemoglobin 32 pg (25-35) Mean Corpuscular Hemoglobin Concent 32 g/dL (31-37) Red Cell Distribution Width 18.2 % (11.5-14.5) Platelet Count 135 x10^3/uL (140-400) Neutrophils (%) (Auto) 66 % (31-73) Lymphocytes (%) (Auto) 17 % (24-48) Monocytes (%) (Auto) 13 % (0-9) Eosinophils (%) (Auto) 3 % (0-3) Basophils (%) (Auto) 1 % (0-3) Neutrophils # (Auto) 3.1 x10^3/uL (1.8-7.7) Lymphocytes # (Auto) 0.8 x10^3/uL (1.0-4.8) Monocytes # (Auto) 0.6 x10^3/uL (0.0-1.1) Eosinophils # (Auto) 0.1 x10^3/uL (0.0-0.7) Basophils # (Auto) 0.0 x10^3/uL (0.0-0.2) Sodium Level 140 mmol/L (136-145) Potassium Level 4.6 mmol/L (3.5-5.1) Chloride Level 100 mmol/L (98-107) Carbon Dioxide Level 29 mmol/L (21-32) Anion Gap 11 (6-14) Blood Urea Nitrogen 29 mg/dL (7-20) Creatinine 5.0 mg/dL (0.6-1.0) Estimated GFR (Cockcroft-Gault) 10.2 Glucose Level 107 mg/dL (70-99) Calcium Level 8.5 mg/dL (8.5-10.1) Test 12/18/18 08:03 12/18/18 09:59 12/18/18 12:05 12/18/18 17:39 Glucose (Fingerstick) 97 mg/dL (70-99) 160 mg/dL (70-99) 122 mg/dL (70-99) 126 mg/dL (70-99) Test 12/18/18 20:18 Glucose (Fingerstick) 162 mg/dL (70-99) Laboratory Tests Test 12/18/18 12:05 12/18/18 17:39 12/18/18 20:18 Glucose (Fingerstick) 122 mg/dL (70-99) 126 mg/dL (70-99) 162 mg/dL (70-99) Microbiology 12/15/18 Blood Culture - Preliminary, Resulted NO GROWTH AFTER 3 DAYS Medications Current Medications Acetaminophen (Tylenol) 1,000 mg 1X ONCE PO Last administered on 12/15/18at 15:53; Start 12/15/18 at 14:15; Stop 12/15/18 at 14:16; Status DC Vancomycin HCl 1.25 gm/Sodium Chloride 250 ml @ 166.667 mls/hr 1X ONCE IV ; Start 12/15/18 at 14:15; Stop 12/15/18 at 15:44; Status UNV Piperacillin Sod/ Tazobactam Sod (Zosyn Per Pharmacy) 1 each PRN DAILY PRN MC SEE COMMENTS; Start 12/15/18 at 14:15; Stop 12/18/18 at 16:27; Status DC Piperacillin Sod/ Tazobactam Sod 3.375 gm/Sodium Chloride 50 ml @ 100 mls/hr 1X ONCE IV Last administered on 12/15/18at 15:03; Start 12/15/18 at 14:30; Stop 12/15/18 at 14:59; Status DC Vancomycin HCl 2 gm/Sodium Chloride 500 ml @ 250 mls/hr 1X ONCE IV Last administered on 12/15/18at 15:53; Start 12/15/18 at 15:00; Stop 12/15/18 at 16:59; Status DC Piperacillin Sod/ Tazobactam Sod 2.25 gm/Sodium Chloride 50 ml @ 100 mls/hr Q8HRS IV Last administered on 12/18/18at 15:12; Start 12/15/18 at 22:00; Stop 12/18/18 at 16:19; Status DC Calcium Gluconate (Calcium Gluconate) 2,000 mg 1X ONCE IVP Last administered on 12/15/18at 16:11; Start 12/15/18 at 16:00; Stop 12/15/18 at 16:01; Status DC Sodium Bicarbonate (Sodium Bicarb Adult 8.4% Syr) 50 meq 1X ONCE IV Last administered on 12/15/18at 16:11; Start 12/15/18 at 16:00; Stop 12/15/18 at 16:01; Status DC Insulin Human Regular (HumuLIN R VIAL) 10 unit 1X ONCE IV Last administered on 12/15/18at 16:11; Start 12/15/18 at 16:00; Stop 12/15/18 at 16:01; Status DC Dextrose (Dextrose 50%-Water Syringe) 25 gm 1X ONCE IV Last administered on 12/15/18at 16:11; Start 12/15/18 at 16:00; Stop 12/15/18 at 16:01; Status DC Sodium Chloride 1,000 ml @ 1,000 mls/hr Q1H PRN IV hypotension; Start 12/15/18 at 19:54; Stop 12/15/18 at 20:04; Status DC Albumin Human 200 ml @ 200 mls/hr 1X PRN PRN IV Hypotension; Start 12/15/18 at 20:00; Stop 12/16/18 at 01:59; Status DC Sodium Chloride 1,000 ml @ 400 mls/hr Q2H30M PRN IV PATENCY; Start 12/15/18 at 19:54; Stop 12/15/18 at 20:05; Status DC Info (PHARMACY MONITORING -- do not chart) 1 each PRN DAILY PRN MC SEE COMMENT S; Start 12/15/18 at 20:00; Status UNV Info (PHARMACY MONITORING -- do not chart) 1 each PRN DAILY PRN MC SEE COMMENTS; Start 12/15/18 at 20:00; Status Cancel Sodium Chloride 1,000 ml @ 1,000 mls/hr Q1H PRN IV hypotension; Start 12/15/18 at 20:15; Stop 12/17/18 at 09:22; Status DC Sodium Chloride 1,000 ml @ 400 mls/hr Q2H30M PRN IV PATENCY; Start 12/15/18 at 20:15; Stop 12/17/18 at 09:22; Status DC Albuterol Sulfate (Ventolin Neb Soln) 2.5 mg PRN TID PRN NEB SHORTNESS OF BREATH; Start 12/15/18 at 23:30; Stop 12/16/18 at 02:43; Status DC Calcitriol (Rocaltrol) 0.25 mcg DAILY PO Last administered on 12/18/18at 09:48; Start 12/16/18 at 09:00 Diclofenac Sodium (Voltaren) 1 stefano PRN BID PRN TP PAIN Last administered on 12/18/18at 23:52; Start 12/15/18 at 23:30 Fluticasone Propionate (Flonase) 2 spray BID NS Last administered on 12/18/18at 20:40; Start 12/16/18 at 09:00 Gabapentin (Neurontin) 100 mg TID PO Last administered on 12/16/18at 20:51; Start 12/15/18 at 23:45; Stop 12/17/18 at 09:24; Status DC Lactobacillus Rhamnosus (Culturelle) 1 cap BID PO Last administered on 12/18/18at 20:40; Start 12/16/18 at 09:00 Midodrine (Proamatine) 5 mg TIDWMEALS PO Last administered on 12/18/18 18:10; Start 12/16/18 at 08:00 Oxycodone HCl (Roxicodone) 5 mg Q6HRS PO Last administered on 12/19/18 05:53; Start 12/16/18 at 00:00 Sodium Bicarbonate (Sodium Bicarbonate) 1,300 mg BID PO Last administered on 12/18/18 20:40; Start 12/16/18 at 09:00 Triamcinolone Acetonide (Kenalog 0.1%) 1 stefano BID TP Last administered on 20:40; Start 12/16/18 at 09:00 Non-Formulary Medication (Albuterol Sulfate (Albuterol Sulfate Neb Soln)) 0.83 % TID PRN NEB WHEEZING; Start 12/15/18 at 23:30; Status UNV Non-Formulary Medication (Albuterol Sulfate (Ventolin Hfa Inhaler)) 2 puff Q4HRS PRN INH SHORTNESS OF BREATH; Start 12/15/18 at 23:30; Status UNV Atorvastatin Calcium (Lipitor) 80 mg HS PO Last administered on 12/18/18 20:40; Start 12/16/18 at 21:00 Non-Formulary Medication (Budesonide/ Formoterol Fumarate (Symbicort 160-4.5 Mcg Inhaler)) 2 puff BID IH ; Start 12/16/18 at 09:00; Status UNV Calcium Acetate (Phoslo) 667 mg TIDWMEALS PO Last administered on 12/18/18 18:10; Start 12/16/18 at 08:00 Non-Formulary Medication (Linaclotide (Linzess)) 72 mcg DAILY07 PO ; Start 12/16/18 at 07:00; Stop 12/17/18 at 10:00; Status DC Nystatin (Nystop) 1 stefano PRN BID PRN TP REDNESS Last administered on 12/18/18 2 0:40; Start 12/15/18 at 23:45 Pantoprazole Sodium (Protonix) 40 mg DAILYAC PO Last administered on 12/18/18 09:48; Start 12/16/18 at 07:30 Ondansetron HCl (Zofran Odt) 8 mg PRN Q12HR PRN PO NAUSEA; Start 12/15/18 at 23:30 Triamcinolone Acetonide (Kenalog 0.1%) 1 stefano PRN BID PRN TP ITCHING; Start 12/15/18 at 23:30 Vitamin B Complex/ Vitamin C (Steph-Neri) 1 tab DAILY PO Last administered on 12/18/18at 09:48; Start 12/16/18 at 09:00 Info (PHARMACY MONITORING -- do not chart) 1 each PRN DAILY PRN MC SEE CO MMENTS; Start 12/15/18 at 23:30 Non-Formulary Medication ([lanacane cream] ) 1 stefano PRN PRN TOP dialysis fistula before dialys; Start 12/15/18 at 23:30; Status UNV Insulin Human Lispro (HumaLOG) 0-5 UNITS TIDWMEALS SQ ; Start 12/16/18 at 08:00 Dextrose (Dextrose 50%-Water Syringe) 12.5 gm PRN Q15MIN PRN IV SEE COMMENTS; Start 12/15/18 at 23:30 Dextrose 250 ml PRN Q15MIN PRN IV SEE COMMENTS; Start 12/15/18 at 23:30 Enoxaparin Sodium (Lovenox 30mg Syringe) 30 mg Q24H SQ Last administered on 12/16/18at 01:15; Start 12/15/18 at 23:30; Stop 12/16/18 at 13:14; Status DC Budesonide (Pulmicort) 0.5 mg RTBID NEB Last administered on 12/19/18at 08:56; Start 12/16/18 at 08:00 Albuterol Sulfate (Ventolin Neb Soln) 2.5 mg RTQID NEB Last administered on 12/19/18at 08:56; Start 12/16/18 at 08:00 Albuterol Sulfate (Ventolin Neb Soln) 2.5 mg PRN Q4HRS PRN NEB SHORTNESS OF BREATH Last administered on 12/16/18at 08:32; Start 12/16/18 at 02:45 Vancomycin HCl (Vanco Per Pharmacy) 1 each PRN DAILY PRN MC SEE COMMENTS Last administered on 12/18/18at 15:10; Start 12/16/18 at 13:15; Stop 12/18/18 at 16:27; Status DC Vancomycin HCl (Vancomycin Random Level) 1 each 1X ONCE MC Last administered on 12/17/18at 13:16; Start 12/17/18 at 05:00; Stop 12/17/18 at 05:01; Status DC Heparin Sodium (Porcine) (Heparin Sodium) 5,000 unit Q8HRS SQ Last administered on 12/17/18at 05:44; Start 12/16/18 at 22:00; Stop 12/17/18 at 09:24; Status DC Sodium Chloride 1,000 ml @ 1,000 mls/hr Q1H PRN IV hypotension; Start 12/17/18 at 09:01; Stop 12/17/18 at 15:00; Status DC Albumin Human 200 ml @ 200 mls/hr 1X PRN PRN IV Hypotension; Start 12/17/18 at 09:15; Stop 12/17/18 at 15:14; Status DC Sodium Chloride 1,000 ml @ 400 mls/hr Q2H30M PRN IV PATENCY; Start 12/17/18 at 09:01; Stop 12/17/18 at 21:00; Status DC Info (PHARMACY MONITORING -- do not chart) 1 each PRN DAILY PRN MC SEE COMMENTS; Start 12/17/18 at 09:15; Status UNV Info (PHARMACY MONITORING -- do not chart) 1 each PRN DAILY PRN MC SEE COMMENTS; Start 12/17/18 at 09:15 Non-Formulary Medication 1 ea DAILY07 PO ; Start 12/16/18 at 07:00; Status UNV Vancomycin HCl 500 mg/Sodium Chloride 100 ml @ 100 mls/hr QMWF IV ; Start 12/17/18 at 17:00; Status Cancel Vancomycin HCl 750 mg/Sodium Chloride 250 ml @ 250 mls/hr QMWF IV Last administered on 12/17/18at 20:05; Start 12/17/18 at 17:00; Stop 12/18/18 at 16:19; Status DC Dipyridamole (Persantine) 25 mg BID66 PO Last administered on 12/19/18at 05:53; Start 12/17/18 at 18:00 Heparin Sodium (Porcine) (Heparin Sodium) 5,000 unit Q8HRS SQ Last administered on 12/19/18at 05:53; Start 12/18/18 at 14:00 Darbepoetin Joshua (ARANESP for DIALYSIS PTS) 60 mcg Th SQ Last administered on 12/18/18at 20:40; Start 12/18/18 at 21:00 Sodium Chloride 1,000 ml @ 1,000 mls/hr Q1H PRN IV hypotension; Start 12/19/18 at 07:01; Stop 12/19/18 at 13:00 Albumin Human 200 ml @ 200 mls/hr 1X PRN PRN IV Hypotension; Start 12/19/18 at 07:15; Stop 12/19/18 at 13:14 Acetaminophen (Tylenol) 500 mg 1X PRN PRN PO MILD PAIN / TEMP; Start 12/19/18 at 07:15; Stop 12/20/18 at 07:14 Diphenhydramine HCl (Benadryl) 25 mg 1X PRN PRN IV ITCHING; Start 12/19/18 at 07:15; Stop 12/20/18 at 07:14 Diphenhydramine HCl (Benadryl) 25 mg 1X PRN PRN IV ITCHING; Start 12/19/18 at 07:15; Stop 12/20/18 at 07:14 Sodium Chloride 1,000 ml @ 400 mls/hr Q2H30M PRN IV PATENCY; Start 12/19/18 at 07:01; Stop 12/19/18 at 19:00 Info (PHARMACY MONITORING -- do not chart) 1 each PRN DAILY PRN MC SEE COMMENTS; Start 12/19/18 at 07:15 Active Scripts Active [Dialysis Patient] 1 EACH Each 1 Each MC PRN DAILY PRN 30 Days Culturelle (Lactobacillus Rhamnosus Gg) 1 Each Cap.sprink 1 Cap PO BID 10 Days Humalog (Insulin Lispro) 100 Unit/1 Ml Insuln.pen 1 Units SQ TIDWMEALS 10 Days Oxycodone Hcl Immed.release (Oxycodone Hcl) 5 Mg Tablet 5 Mg PO PRN Q8HRS PRN 10 Days Proair Hfa (Albuterol Sulfate) 8.5 Gm Hfa.aer.ad 2.5 Mg NEB PRN TID PRN 30 Days Novolog Flexpen (Insulin Aspart) 100 Unit/1 Ml Insuln.pen 1 Unit SQ [id number] 10 Days Novolog FlexPen Sliding Scale: For fingerstick blood glucose: 150-200 take 2 units 201-250 take 4 units 251-300 take 6 units 301-350 take 8 units 351-400 take 10 units If blood glucose greater than [address] Corona. Reported [lanacane cream] 1 Stefano TOP PRN PRN Midodrine Hcl 5 Mg Tablet 5 Mg PO TID Ventolin Hfa Inhaler (Albuterol Sulfate) 18 Gm Hfa.aer.ad 2 Puff INH Q4HRS PRN Nephro-Neri Rx Tablet (Vit B Cmplx 3/Fa/Vit C/Biotin) 1 Each Tablet 1 Each PO DAILY Nystatin 1 Each Powder.ea. 1 Each PO BID PRN Calcium Acetate 667 Mg Tablet 667 Mg PO TIDWMEALS Linzess (Linaclotide) 145 Mcg Capsule 72 Mcg PO DAILY07 Zofran (Ondansetron Hcl) 8 Mg Tablet 1 Tab PO Q12HR PRN Triamcinolone Acetonide 80 Gm Oint...g. 1 Stefano TP BID PRN Fluticasone Propionate Nasal [place] (Fluticasone Propionate) 16 Gm [place].susp 2 [place] NS BID Calcitriol 0.25 Mcg Capsule 1 Cap PO DAILY Atorvastatin Calcium 80 Mg Tablet 80 Mg PO DAILY Voltaren (Diclofenac Sodium) 100 Gm Gel..gram. 1 Gm TP BID PRN Triamcinolone Acetonide 0.1% Oint (Triamcinolone Acetonide) 15 Gm Oint...g. 1 Stefano TP BID MIX WITH EUCERIN DIRECTED BY PHYSICIAN Symbicort 160-4.5 Mcg Inhaler (Budesonide/Formoterol Fumarate) 10.2 Gm Hfa.aer.ad 2 Puff IH BID Sodium Bicarbonate 650 Mg Tablet 2 Tab PO BID Oxycodone Hcl Immed.release (Oxycodone Hcl) 5 Mg Tablet 1 Tab PO Q6HRS Omeprazole 40 Mg Capsule. 1 Cap PO DAILY Gabapentin (Gabapentin) 100 Mg Capsule 100 Mg PO TID Albuterol Sulfate Neb Soln (Albuterol Sulfate) 0.63 Mg/3 Ml Vial.neb 0.83 % NEB TID PRN Vitals/I & O Vital Sign - Last 24 Hours 12/18/18 12/18/18 12/18/18 12/18/18 11:00 11:40 15:00 15:12 Temp 98.4 98.2 98.4 98.2 Pulse 68 80 68 Resp 16 16 B/P (MAP) 136/49 (78) 145/66 (92) 136/49 Pulse Ox 100 98 99 O2 Delivery Nasal Cannula Nasal Cannula Nasal Cannula O2 Flow Rate 2.0 2.5 2.0 12/18/18 12/18/18 12/18/18 12/18/18 16:49 18:10 18:10 19:42 Pulse 68 B/P (MAP) 136/49 Pulse Ox 96 96 96 O2 Delivery Nasal Cannula Nasal Cannula Nasal Cannula O2 Flow Rate 2.0 2.0 2.0 12/18/18 12/18/18 12/18/18 12/18/18 19:53 19:54 20:00 23:51 Temp 98.7 99.1 98.7 99.1 Pulse 81 83 Resp 16 16 B/P (MAP) 157/64 (95) 148/58 (88) Pulse Ox 96 99 98 O2 Delivery Nasal Cannula Nasal Cannula Nasal Cannula Nasal Cannula O2 Flow Rate 2.0 2.0 2.5 2.0 12/19/18 12/19/18 12/19/18 12/19/18 02:51 07:32 08:00 08:56 Temp 98.5 98.5 Pulse 78 Resp 16 B/P (MAP) 158/56 (90) Pulse Ox 100 100 96 O2 Delivery Nasal Cannula Nasal Cannula Nasal Cannula Nasal Cannula O2 Flow Rate 2.0 2.0 2.0 2.0 Intake and Output 12/18/18 12/18/18 12/19/18 15:00 23:00 07:00 Intake Total 100 ml 100 ml 0 ml Output Total 0 ml 0 ml Balance 100 ml 100 ml 0 ml SAJAN BOLTON MD Dec 19, 2018 10:29
--- NOTE | 2018-12-19 12:11 | PDOC ---
Renal-Progress Notes Subjective Notes Notes NO LONGER CONFUSED History of Present Illness Hx of present illness STABLE Vitals Vitals Vital Signs Date Time Temp Pulse Resp B/P (MAP) Pulse Ox O2 Delivery O2 Flow Rate FiO2 12/19/18 12:02 96 Nasal Cannula 2.0 12/19/18 02:51 98.5 78 16 158/56 (90) 98.5 Weight Weight [ ] I.O. Intake and Output Intake and Output 12/19/18 07:00 Intake Total 200 ml Output Total 0 ml Balance 200 ml Intake Oral 200 ml Output Urine Total 0 ml # Voids 2 # Bowel Movements 3 Labs Labs Laboratory Tests Test 12/18/18 17:39 12/18/18 20:18 Glucose (Fingerstick) 126 mg/dL (70-99) 162 mg/dL (70-99) Micro Micro Microbiology 12/15/18 Blood Culture - Preliminary, Resulted NO GROWTH AFTER 3 DAYS Review of Systems Constitutional: yes: weakness, alert Ears/Nose/Throat: Yes: no symptom reported Eyes: Yes: no symptom reported Pulmonary: Yes no symptom reported Cardiovascular: Yes no symptom reported Gastrointestional: Yes: no symptom reported Musculoskeletal: Yes: no symptom reported Skin: Yes no symptom reported Psychiatric/Neurological: Yes: no symptom reported Endocrine: Yes: no symptom reported Physical Exam General Appearance: no apparent distress Skin: warm Respiratory: decreased breath sounds Heart: S1S2 Abdomen: soft, bowel sounds present Genitourinary: bladder flat Neurology: alert Musculoskeletal: Other Assessment Assessment IMP HYPERKALEMIA-RESOLVED ESRD ANEMIA DIASTOLIC CHF DM II HTN ENCEPHALOPATHY PLAN HD TODAY UF TO SUE MERCEDESAL AND TX D/W DR ELENA AND QUINCY ALMODOVAR MD Dec 19, 2018 12:11
--- NOTE | 2018-12-19 13:23 | PDOC ---
Infectious Disease Note Subjective Subjective awake, speaking , back to almost normal ROS ROS no n/v/d/ Vital Sign Vital Signs Vital Signs Date Time Temp Pulse Resp B/P (MAP) Pulse Ox O2 Delivery O2 Flow Rate FiO2 12/19/18 12:02 96 Nasal Cannula 2.0 12/19/18 02:51 98.5 78 16 158/56 (90) 98.5 Physical Exam PHYSICAL EXAM GENERAL: Alert, oriented to place and person, female, not in distress. VITAL SIGNS: Stable. HEENT: Both pupils are round and reacting. No conjunctival lesion, no lesion in the mouth. NECK: Supple, no JVP, no lymphadenopathy. LUNGS: Clear. HEART: S1, S2 regular. ABDOMEN: Benign. EXTREMITIES: No edema, cyanosis. SKIN: Unremarkable. NEUROLOGIC: Alert, awake, answers simple questions. Memory is poor as well as keeps repeating things. According to nursing, she has improved, but not still back to her normal. No focal neurologic deficit. Labs Lab Laboratory Tests Test 12/18/18 17:39 12/18/18 20:18 Glucose (Fingerstick) 126 mg/dL (70-99) 162 mg/dL (70-99) Micro Microbiology 12/15/18 Blood Culture - Preliminary, Resulted NO GROWTH AFTER 1 DAY Objective Assessment Weakness Encephalopathy Recurrent infection ESRD HTN DM Plan Plan of Care off antibiotics cultures neg CHRIS WRIGHT MD Dec 19, 2018 13:23
--- NOTE | 2018-12-19 13:38 | NUR ---
SW following pt. PP unable to take pt. Spoke with pt who requested SW to speak with her daughter, Cecilia. Spoke with Cecilia, and discussed options. Cecilia states she does not want [facility] or [facility] but would like to speak with pt about possibly going to [facility] when she visits pt today. JOSE CRUZ had notified her [facility] takes pt's insurance. SW provided daughter with a phone number to call. Will continue to follow.
[2018-12-19] MEDS: SODIUM BICARBONATE 650 MG TABLET. PO SCH ×2 (13:50→21:13)
[2018-12-19] MEDS: PANTOPRAZOLE 40 MG TABLET.DR. PO SCH (13:50)
[2018-12-19] MEDS: LACTOBACILLUS RHAMNOSUS GG 1 CAPSULE. PO SCH ×2 (13:50→21:13)
[2018-12-19] MEDS: CALCITRIOL 0.25 MCG CAPSULE. PO SCH (13:51)
[2018-12-19] MEDS: FOLIC/VIT B COMP W-C (RENAL) TABLET. PO SCH (13:54)
[2018-12-19] MEDS: TRIAMCINOLONE ACETONIDE 0.1% TOPICAL OINTMENT 15GM TUBE. TP SCH ×2 (13:56→21:13)
--- NOTE | 2018-12-19 14:13 | PDOC ---
PROGRESS NOTES Assessment Assessment Metabolic encephalopathy. Confusion. Generalized weakness. Hyperkalemia, K+ 7 Fever, low grade. Right hand 3rd metacarpal fracture. ESRD on dialysis. DM. CAD. COPD. HTN. HLD. Diabetic peripheral neuropathy. Obesity. No evidence of acute CVA this time. RECOMMENDATIONS/PLAN: Persantine 25 mg bid. Treat medical diseases. OT/PT. HCT: Negative. EEG on 12/17/18: Diffuse encephalopathy. MRI: No acute findings. HISTORY OF THE PRESENT ILLNESS: This is a 78-year-old -[place] female with history of diabetes, hype rtension and end-stage renal disease who was brought into the ER of [facility] due to weakness and change in mental status. She was noted low garde fever as well of 99.9 degree. She had bacteremia before and was treated fully in June, and subsequently she had infection and she ended up at [facility] and maybe other hospital as well. Neurology was requested for consultation for MS changes and confusion. Her mentation further improved on 12/19/18. PAST MEDICAL HISTORY: Diabetes; hypertension; end-stage renal disease, on hemodialysis, neuropathy, COPD, coronary artery disease. PAST SURGICAL HISTORY: AV graft in the left forearm. Hysterectomy, gastric bypass. SOCIAL HISTORY: Lives at home. Denied current smoking, alcohol, illicit drug use. ALLERGIES: IV DYE, NONSTEROIDALS. MEDICATIONS: Refer to [facility] HISTORY: Non contributory. REVIEW OF SYSTEMS: Constitutional: Obesity. Head: No recent traumatic brain or head injury. Skin: No edema, or rash. Ear: No infection. Eyes: No vision loss or color blindness. Nose: No bleeding or purulent discharges. Hearing: Hearing decrease. Neck: No injury. Cardiac: CAD, HTN, HLD. Pulmonary: COPD. GI: No GI ulcer, GI bleeding. Urinary/genital: ESRD on dialysis. Endocrinologic: Diabetes Mellitus, obesity. Skeletomuscular: Generalized weakness. Neurological: see HP. Psychiatric: Denies drug use/abuse. Otherwise, not [id number] review of systems. PHYSICAL EXAMINATION: General appearance is in subacute distress. HEENT: Normocephalic and nontraumatic. Eyes, nose, ears, and throat are unremarkable. Neck is supple. No lymphadenopathy. No crepitus. Cardiovascular: S1, S2, regular rate and rhythm. Pulmonary: Clear to auscultation bilaterally. Abdomen: Bowel sounds are positive. Extremities: No rash, lesions, or edema. No restriction of range of motion NEUROLOGICAL EXAMINATION: Awake. Not fully oriented to time, but knew place and person. PERRL. EOMI. CN: no focal findings. Muscle tone: decreased. Muscle strength: 4+ UE, 3-4. DTR: 1 Plantar reflex: Neutral response bilaterally Gait: not examined in bed. Sensory exam: no abnormal findings. No cerebellar signs elicited. F-T-N test fine. Objective Objective Vital Signs Date Time Temp Pulse Resp B/P (MAP) Pulse Ox O2 Delivery O2 Flow Rate FiO2 12/19/18 13:56 96 Nasal Cannula 2.0 12/19/18 13:56 104 129/58 12/19/18 02:51 98.5 16 98.5 Intake and Output 12/19/18 07:00 Intake Total 200 ml Output Total 0 ml Balance 200 ml Intake Oral 200 ml Output Urine Total 0 ml # Voids 2 # Bowel Movements 3 Vitals Signs Vitals VS - Last 72 Hours, by Label Date Time Temp Pulse Resp B/P (MAP) Pulse Ox O2 Delivery O2 Flow Rate FiO2 12/19/18 13:56 96 Nasal Cannula 2.0 12/19/18 13:56 104 129/58 12/19/18 12:02 96 Nasal Cannula 2.0 12/19/18 08:56 96 Nasal Cannula 2.0 12/19/18 08:00 Nasal Cannula 2.0 12/19/18 07:32 100 Nasal Cannula 2.0 12/19/18 02:51 98.5 78 16 158/56 (90) 100 Nasal Cannula 2.0 98.5 12/18/18 23:51 99.1 83 16 148/58 (88) 98 Nasal Cannula 2.0 99.1 12/18/18 20:00 Nasal Cannula 2.5 12/18/18 19:54 98.7 81 16 157/64 (95) 99 Nasal Cannula 2.0 98.7 12/18/18 19:53 96 Nasal Cannula 2.0 12/18/18 19:42 96 Nasal Cannula 2.0 12/18/18 18:10 96 Nasal Cannula 2.0 12/18/18 18:10 68 136/49 12/18/18 16:49 96 Nasal Cannula 2.0 12/18/18 15:12 68 136/49 12/18/18 15:00 98.2 80 16 145/66 (92) 99 Nasal Cannula 2.0 98.2 12/18/18 11:40 98 Nasal Cannula 2.5 12/18/18 11:00 98.4 68 16 136/49 (78) 100 Nasal Cannula 2.0 98.4 12/18/18 09:48 82 120/57 12/18/18 09:48 98 Nasal Cannula 2.5 12/18/18 08:00 Nasal Cannula 2.5 12/18/18 07:11 98 Nasal Cannula 2.0 12/18/18 07:00 98.1 82 16 120/57 (78) 98 Nasal Cannula 2.0 98.1 Laboratory Laboratory Laboratory Tests Test 12/18/18 17:39 12/18/18 20:18 12/19/18 14:04 Glucose (Fingerstick) 126 mg/dL (70-99) 162 mg/dL (70-99) 118 mg/dL (70-99) Microbiology 12/15/18 Blood Culture - Preliminary, Resulted NO GROWTH AFTER 3 DAYS Medication Medications Current Medications Acetaminophen (Tylenol) 500 mg 1X PRN PRN PO MILD PAIN / TEMP; Start 12/19/18 at 07:15; Stop 12/20/18 at 07:14 Albumin Human 200 ml @ 200 mls/hr 1X PRN PRN IV Hypotension; Start 12/19/18 at 07:15; Stop 12/19/18 at 13:14; Status DC Darbepoetin Joshua (ARANESP for DIALYSIS PTS) 60 mcg Th SQ Last administered on 12/18/18at 20:40; Start 12/18/18 at 21:00 Diphenhydramine HCl (Benadryl) 25 mg 1X PRN PRN IV ITCHING; Start 12/19/18 at 07:15; Stop 12/20/18 at 07:14 Diphenhydramine HCl (Benadryl) 25 mg 1X PRN PRN IV ITCHING; Start 12/19/18 at 07:15; Stop 12/20/18 at 07:14 Info (PHARMACY MONITORING -- do not chart) 1 each PRN DAILY PRN MC SEE COMMENTS; Start 12/19/18 at 07:15 Sodium Chloride 1,000 ml @ 400 mls/hr Q2H30M PRN IV PATENCY; Start 12/19/18 at 07:01; Stop 12/19/18 at 19:00 Sodium Chloride 1,000 ml @ 1,000 mls/hr Q1H PRN IV hypotension; Start 12/19/18 at 07:01; Stop 12/19/18 at 13:00; Status DC Comment Review of Relevant I have reviewed the following items girish (where applicable) has been applied. LEON DOHERTY MD Dec 19, 2018 14:13
[2018-12-19 15:00] VITALS: BP 110/79
[2018-12-19 19:47] VITALS: BP 157/90
[2018-12-19] MEDS: DICLOFENAC SODIUM 1% TOPICAL GEL 100GM TUBE. TP PRN (21:13)
[2018-12-19] MEDS: ATORVASTATIN CALCIUM 40 MG TABLET. PO SCH (21:13)
[2018-12-19 23:15] VITALS: BP 146/60
[2018-12-20] MEDS: oxyCODONE IR 5 MG TABLET PO SCH ×4 (01:23→17:28)
[2018-12-20 03:27] VITALS: BP 111/54
[2018-12-20] MEDS: DICLOFENAC SODIUM 1% TOPICAL GEL 100GM TUBE. TP PRN (05:18)
[2018-12-20] MEDS: DIPYRIDAMOLE 25 MG TABLET. PO SCH ×2 (05:19→17:27)
[2018-12-20] MEDS: HEPARIN for SUB-Q USE 5,000 UNIT/ML VIAL. SQ SCH ×3 (05:28→21:24)
[2018-12-20] MEDS: LINACLOTIDE 72 MCG PO SCH (05:30)
[2018-12-20 07:00] VITALS: BP 156/54
[2018-12-20] MEDS: BUDESONIDE 0.5 MG/2 ML NEBU. NEB SCH ×2 (07:44→19:45)
[2018-12-20] MEDS: ALBUTEROL SULFATE 2.5 MG/3 ML NEBU. NEB SCH ×4 (07:44→19:45)
[2018-12-20] MEDS: PANTOPRAZOLE 40 MG TABLET.DR. PO SCH (07:45)
[2018-12-20] MEDS: MIDODRINE 5 MG TABLET PO SCH ×3 (08:00→17:00)
[2018-12-20] MEDS: SODIUM BICARBONATE 650 MG TABLET. PO SCH ×2 (09:08→21:12)
[2018-12-20] MEDS: LACTOBACILLUS RHAMNOSUS GG 1 CAPSULE. PO SCH ×2 (09:08→21:12)
[2018-12-20] MEDS: FOLIC/VIT B COMP W-C (RENAL) TABLET. PO SCH (09:08)
[2018-12-20] MEDS: CALCITRIOL 0.25 MCG CAPSULE. PO SCH (09:08)
[2018-12-20] MEDS: CALCIUM ACETATE 667 MG CAPSULE PO SCH ×3 (09:08→17:27)
[2018-12-20] MEDS: FLUTICASONE 50MCG/NASAL SPRAY 16GM BOTTLE. NS SCH ×2 (09:09→21:12)
[2018-12-20] MEDS: TRIAMCINOLONE ACETONIDE 0.1% TOPICAL OINTMENT 15GM TUBE. TP SCH ×2 (09:10→21:22)
[2018-12-20] MEDS: INSULIN LISPRO 300 UNITS/3 ML VIAL. SQ SCH ×3 (09:12→17:29)
[2018-12-20 11:00] VITALS: BP 121/55
--- NOTE | 2018-12-20 11:19 | PDOC ---
Renal-Progress Notes Subjective Notes Notes NO NEW COMPLAINTS History of Present Illness Hx of present illness STABLE Vitals Vitals Vital Signs Date Time Temp Pulse Resp B/P (MAP) Pulse Ox O2 Delivery O2 Flow Rate FiO2 12/20/18 09:35 83 156/54 12/20/18 07:47 96 Nasal Cannula 2.0 12/20/18 07:00 98.5 12 98.5 Weight Weight [ ] I.O. Intake and Output Intake and Output 12/20/18 07:00 Intake Total 200 ml Output Total 0 ml Balance 200 ml Intake Oral 200 ml Output Urine Total 0 ml Labs Labs Laboratory Tests Test 12/19/18 14:04 12/19/18 16:46 12/19/18 21:23 12/20/18 08:09 Glucose (Fingerstick) 118 mg/dL (70-99) 171 mg/dL (70-99) 172 mg/dL (70-99) 151 mg/dL (70-99) Micro Micro Microbiology 12/15/18 Blood Culture - Preliminary, Resulted NO GROWTH AFTER 4 DAYS Review of Systems Constitutional: yes: weakness, alert Ears/Nose/Throat: Yes: no symptom reported Eyes: Yes: no symptom reported Pulmonary: Yes no symptom reported Cardiovascular: Yes no symptom reported Gastrointestional: Yes: no symptom reported Musculoskeletal: Yes: no symptom reported Skin: Yes no symptom reported Psychiatric/Neurological: Yes: no symptom reported Endocrine: Yes: no symptom reported Physical Exam General Appearance: no apparent distress Skin: warm Respiratory: decreased breath sounds Heart: S1S2 Abdomen: soft, bowel sounds present Genitourinary: bladder flat Neurology: alert Musculoskeletal: Other Assessment Assessment IMP HYPERKALEMIA-RESOLVED ESRD ANEMIA DIASTOLIC CHF-COMPENSATED DM II HTN ENCEPHALOPATHY-BETTER DECONDITIONING PLAN HD MWF ARANESP ID EVAL AND TX QUINCY SULLIVAN MD Dec 20, 2018 11:19
--- NOTE | 2018-12-20 11:42 | PDOC ---
PROGRESS NOTES Subjective Subjective pain rt shoulder Objective Objective Vital Signs Date Time Temp Pulse Resp B/P (MAP) Pulse Ox O2 Delivery O2 Flow Rate FiO2 12/20/18 09:35 83 156/54 12/20/18 07:47 96 Nasal Cannula 2.0 12/20/18 07:00 98.5 12 98.5 Intake and Output 12/20/18 07:00 Intake Total 200 ml Output Total 0 ml Balance 200 ml Intake Oral 200 ml Output Urine Total 0 ml Physical Exam Abdomen: Normal bowel sounds, Soft, No tenderness Heart: Regular rate Extremities: No cyanosis General: mild distress HEENT: Atraumatic, PERRLA Lungs: Clear to auscultation, Normal air movement MUSCULOSKELETAL: No swelling Psych/Mental Status: Other (more awake, verbal today) Skin: No breakdown COMMENT tender rt shoulder Diagnosis Problem List Problems Medical Problems: (1) End stage renal disease Status: Acute (2) Hyperkalemia Status: Acute (3) Weakness Status: Acute Assessment Assessment Problems Medical Problems: (1) End stage renal disease Status: Acute (2) Hyperkalemia Status: Acute (3) Weakness Status: Acute FINAL IMPRESSION: 1. Encephalopathy.Change in mental status .., improving daily almost back to normal. 2. Hyperkalemia po t 7.0. The patient is a dialysis patient.corrected with emergency dialysis. 3. On dialysis, end-stage renal disease, Saturday, Saturday, and Saturday. She went to dialysis, Saturday. 4. Mechanical fall with some maybe orbital cellulitis. 5. History of recurrent infections, has been to 3 [address] in last [address] [facility] and [place]. 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 6. Diabetes. 7. Hypertension. 8. Hyperlipidemia. 9. General debility. 10.Rt shoulder and hand pain after fall at home. PLAN: xray rt shoulder , hand brace for fracture Dialysis m,w,f. EEG neg MRI brain -ve for cva. resume lovenox. rehab consult pt/ot Off iv antibiotics.c/s neg spoke with ID. labs ok Plan Plan of Care Problems Medical Problems: (1) End stage renal disease Status: Acute (2) Hyperkalemia Status: Acute (3) Weakness Status: Acute Comment Review of Relevant I have reviewed the following items girish (where applicable) has been applied. Labs Laboratory Tests Test 12/19/18 14:04 12/19/18 16:46 12/19/18 21:23 12/20/18 08:09 Glucose (Fingerstick) 118 mg/dL (70-99) 171 mg/dL (70-99) 172 mg/dL (70-99) 151 mg/dL (70-99) Microbiology 12/15/18 Blood Culture - Preliminary, Resulted NO GROWTH AFTER 4 DAYS Vitals/I & O Vital Sign - Last 24 Hours 12/19/18 12/19/18 12/19/18 12/19/18 12:02 13:56 13:56 15:00 Temp 98.9 98.9 Pulse 104 111 Resp 12 B/P (MAP) 129/58 110/79 (89) Pulse Ox 96 96 100 O2 Delivery Nasal Cannula Nasal Cannula Room Air O2 Flow Rate 2.0 2.0 12/19/18 12/19/18 12/19/18 12/19/18 15:14 15:38 18:40 19:21 Pulse 111 B/P (MAP) 110/79 Pulse Ox 96 96 O2 Delivery Nasal Cannula Nasal Cannula Nasal Cannula O2 Flow Rate 2.0 2.0 2.0 12/19/18 12/19/18 12/19/18 12/19/18 19:47 19:57 19:57 20:05 Temp 99.4 99.4 Pulse 95 Resp 16 B/P (MAP) 157/90 (112) Pulse Ox 95 96 96 O2 Delivery Nasal Cannula Nasal Cannula Nasal Cannula Nasal Cannula O2 Flow Rate 2.0 2.0 2.0 2.0 12/19/18 12/20/18 12/20/18 12/20/18 23:15 03:27 07:00 07:47 Temp 99.0 99.0 98.5 99.0 99.0 98.5 Pulse 97 86 83 Resp 16 16 12 B/P (MAP) 146/60 (88) 111/54 (73) 156/54 (88) Pulse Ox 97 99 96 96 O2 Delivery Nasal Cannula Nasal Cannula Nasal Cannula Nasal Cannula O2 Flow Rate 2.0 2.0 2.0 2.0 12/20/18 09:35 Pulse 83 B/P (MAP) 156/54 Intake and Output 12/19/18 12/19/18 12/20/18 15:00 23:00 07:00 Intake Total 100 ml 100 ml Output Total 0 ml Balance 100 ml 100 ml LYLE ELENA MD Dec 20, 2018 11:41
--- NOTE | 2018-12-20 11:49 | PDOC ---
PROGRESS NOTES Subjective Subjective She c/o pain and weaknes in her right shoulder area. Objective Objective Vital Signs Date Time Temp Pulse Resp B/P (MAP) Pulse Ox O2 Delivery O2 Flow Rate FiO2 12/20/18 09:35 83 156/54 12/20/18 07:47 96 Nasal Cannula 2.0 12/20/18 07:00 98.5 12 98.5 Intake and Output 12/20/18 07:00 Intake Total 200 ml Output Total 0 ml Balance 200 ml Intake Oral 200 ml Output Urine Total 0 ml Physical Exam Physical Exam She had tenderness to palpation over anterior aspect of right shoulder with significant weakness of right shoulder girdle muscles and still protecting her right hand,mainly thumb. She requires maximal help with bed mobility and transfers. Assessment Assessment Problems Medical Problems: (1) End stage renal disease Status: Acute (2) Hyperkalemia Status: Acute (3) Weakness Status: Acute Plan Plan of Care She probably need transfer to rehab unit rather than SNF when medically stable with all her problems. To obtain mri scan of right shoulder to rule out rotator cuff lesion. Comment Review of Relevant I have reviewed the following items girish (where applicable) has been applied. Labs Laboratory Tests Test 12/18/18 12:05 12/18/18 17:39 12/18/18 20:18 12/19/18 14:04 Glucose (Fingerstick) 122 mg/dL (70-99) 126 mg/dL (70-99) 162 mg/dL (70-99) 118 mg/dL (70-99) Test 12/19/18 16:46 12/19/18 21:23 12/20/18 08:09 Glucose (Fingerstick) 171 mg/dL (70-99) 172 mg/dL (70-99) 151 mg/dL (70-99) Laboratory Tests Test 12/19/18 14:04 12/19/18 16:46 12/19/18 21:23 12/20/18 08:09 Glucose (Fingerstick) 118 mg/dL (70-99) 171 mg/dL (70-99) 172 mg/dL (70-99) 151 mg/dL (70-99) Microbiology 12/15/18 Blood Culture - Preliminary, Resulted NO GROWTH AFTER 4 DAYS Medications Current Medications Acetaminophen (Tylenol) 1,000 mg 1X ONCE PO Last administered on 12/15/18at 15:53; Start 12/15/18 at 14:15; Stop 12/15/18 at 14:16; Status DC Vancomycin HCl 1.25 gm/Sodium Chloride 250 ml @ 166.667 mls/hr 1X ONCE IV ; Start 12/15/18 at 14:15; Stop 12/15/18 at 15:44; Status UNV Piperacillin Sod/ Tazobactam Sod (Zosyn Per Pharmacy) 1 each PRN DAILY PRN MC SEE COMMENTS; Start 12/15/18 at 14:15; Stop 12/18/18 at 16:27; Status DC Piperacillin Sod/ Tazobactam Sod 3.375 gm/Sodium Chloride 50 ml @ 100 mls/hr 1X ONCE IV Last administered on 12/15/18at 15:03; Start 12/15/18 at 14:30; Stop 12/15/18 at 14:59; Status DC Vancomycin HCl 2 gm/Sodium Chloride 500 ml @ 250 mls/hr 1X ONCE IV Last administered on 12/15/18at 15:53; Start 12/15/18 at 15:00; Stop 12/15/18 at 16:59; Status DC Piperacillin Sod/ Tazobactam Sod 2.25 gm/Sodium Chloride 50 ml @ 100 mls/hr Q8HRS IV Last administered on 12/18/18at 15:12; Start 12/15/18 at 22:00; Stop 12/18/18 at 16:19; Status DC Calcium Gluconate (Calcium Gluconate) 2,000 mg 1X ONCE IVP Last administered on 12/15/18at 16:11; Start 12/15/18 at 16:00; Stop 12/15/18 at 16:01; Status DC Sodium Bicarbonate (Sodium Bicarb Adult 8.4% Syr) 50 meq 1X ONCE IV Last administered on 12/15/18at 16:11; Start 12/15/18 at 16:00; Stop 12/15/18 at 16:01; Status DC Insulin Human Regular (HumuLIN R VIAL) 10 unit 1X ONCE IV Last administered on 12/15/18at 16:11; Start 12/15/18 at 16:00; Stop 12/15/18 at 16:01; Status DC Dextrose (Dextrose 50%-Water Syringe) 25 gm 1X ONCE IV Last administered on 12/15/18at 16:11; Start 12/15/18 at 16:00; Stop 12/15/18 at 16:01; Status DC Sodium Chloride 1,000 ml @ 1,000 mls/hr Q1H PRN IV hypotension; Start 12/15/18 at 19:54; Stop 12/15/18 at 20:04; Status DC Albumin Human 200 ml @ 200 mls/hr 1X PRN PRN IV Hypotension; Start 12/15/18 at 20:00; Stop 12/16/18 at 01:59; Status DC Sodium Chloride 1,000 ml @ 400 mls/hr Q2H30M PRN IV PATENCY; Start 12/15/18 at 19:54; Stop 12/15/18 at 20:05; Status DC Info (PHARMACY MONITORING -- do not chart) 1 each PRN DAILY PRN MC SEE COMME NTS; Start 12/15/18 at 20:00; Status UNV Info (PHARMACY MONITORING -- do not chart) 1 each PRN DAILY PRN MC SEE COMMENTS; Start 12/15/18 at 20:00; Status Cancel Sodium Chloride 1,000 ml @ 1,000 mls/hr Q1H PRN IV hypotension; Start 12/15/18 at 20:15; Stop 12/17/18 at 09:22; Status DC Sodium Chloride 1,000 ml @ 400 mls/hr Q2H30M PRN IV PATENCY; Start 12/15/18 at 20:15; Stop 12/17/18 at 09:22; Status DC Albuterol Sulfate (Ventolin Neb Soln) 2.5 mg PRN TID PRN NEB SHORTNESS OF BREATH; Start 12/15/18 at 23:30; Stop 12/16/18 at 02:43; Status DC Calcitriol (Rocaltrol) 0.25 mcg DAILY PO Last administered on 12/20/18at 09:12; Start 12/16/18 at 09:00 Diclofenac Sodium (Voltaren) 1 stefano PRN BID PRN TP PAIN Last administered on 12/20/18at 05:28; Start 12/15/18 at 23:30 Fluticasone Propionate (Flonase) 2 spray BID NS Last administered on 12/20/18at 09:12; Start 12/16/18 at 09:00 Gabapentin (Neurontin) 100 mg TID PO Last administered on 12/16/18at 20:51; Start 12/15/18 at 23:45; Stop 12/17/18 at 09:24; Status DC Lactobacillus Rhamnosus (Culturelle) 1 cap BID PO Last administered on 12/20/18at 09:12; Start 12/16/18 at 09:00 Midodrine (Proamatine) 5 mg TIDWMEALS PO Last administered on 12/19/18at 13:56; Start 12/16/18 at 08:00 Oxycodone HCl (Roxicodone) 5 mg Q6HRS PO Last administered on 12/20/18 05:28; Start 12/16/18 at 00:00 Sodium Bicarbonate (Sodium Bicarbonate) 1,300 mg BID PO Last administered on 12/20/18 09:12; Start 12/16/18 at 09:00 Triamcinolone Acetonide (Kenalog 0.1%) 1 stefano BID TP Last administered on 12/20/18 09:12; Start 12/16/18 at 09:00 Non-Formulary Medication (Albuterol Sulfate (Albuterol Sulfate Neb Soln)) 0.83 % TID PRN NEB WHEEZING; Start 12/15/18 at 23:30; Status UNV Non-Formulary Medication (Albuterol Sulfate (Ventolin Hfa Inhaler)) 2 puff Q4HRS PRN INH SHORTNESS OF BREATH; Start 12/15/18 at 23:30; Status UNV Atorvastatin Calcium (Lipitor) 80 mg HS PO Last administered on 12/19/18at 21:21; Start 12/16/18 at 21:00 Non-Formulary Medication (Budesonide/ Formoterol Fumarate (Symbicort 160-4.5 Mcg Inhaler)) 2 puff BID IH ; Start 12/16/18 at 09:00; Status UNV Calcium Acetate (Phoslo) 667 mg TIDWMEALS PO Last administered on 12/20/18 09:12; Start 12/16/18 at 08:00 Non-Formulary Medication (Linaclotide (Linzess)) 72 mcg DAILY07 PO ; Start 12/04 07/22 at 07:00; Stop 12/17/18 at 10:00; Status DC Nystatin (Nystop) 1 stefano PRN BID PRN TP REDNESS Last administered on 12/18/18at 20:40; Start 12/15/18 at 23:45 Pantoprazole Sodium (Protonix) 40 mg DAILYAC PO Last administered on 12/20/18 07:46; Start 12/16/18 at 07:30 Ondansetron HCl (Zofran Odt) 8 mg PRN Q12HR PRN PO NAUSEA; Start 12/15/18 at 23:30 Triamcinolone Acetonide (Kenalog 0.1%) 1 stefano PRN BID PRN TP ITCHING; Start 12/15/18 at 23:30 Vitamin B Complex/ Vitamin C (Steph-Neri) 1 tab DAILY PO Last administered on 12/20/18 09:12; Start 12/16/18 at 09:00 Info (PHARMACY MONITORING -- do not chart) 1 each PRN DAILY PRN MC SEE COMMENTS; Start 12/15/18 at 23:30 Non-Formulary Medication ([lanacane cream] ) 1 stefano PRN PRN TOP dialysis fistula before dialys; Start 12/15/18 at 23:30; Status UNV Insulin Human Lispro (HumaLOG) 0-5 UNITS TIDWMEALS SQ Last administered on 12/20/18 09:12; Start 12/16/18 at 08:00 Dextrose (Dextrose 50%-Water Syringe) 12.5 gm PRN Q15MIN PRN IV SEE COMMENTS; Start 12/15/18 at 23:30 Dextrose 250 ml PRN Q15MIN PRN IV SEE COMMENTS; Start 12/15/18 at 23:30 Enoxaparin Sodium (Lovenox 30mg Syringe) 30 mg Q24H SQ Last administered on 12/16/18at 01:15; Start 12/15/18 at 23:30; Stop 12/16/18 at 13:14; Status DC Budesonide (Pulmicort) 0.5 mg RTBID NEB Last administered on 12/20/18 07:44; Start 12/16/18 at 08:00 Albuterol Sulfate (Ventolin Neb Soln) 2.5 mg RTQID NEB Last administered on 12/20/18 07:44; Start 12/16/18 at 08:00 Albuterol Sulfate (Ventolin Neb Soln) 2.5 mg PRN Q4HRS PRN NEB SHORTNESS OF BREATH Last administered on 8/13/19at 08:32; Start 12/16/18 at 02:45 Vancomycin HCl (Vanco Per Pharmacy) 1 each PRN DAILY PRN MC SEE COMMENTS Last administered on 12/18/18at 15:10; Start 12/16/18 at 13:15; Stop 12/18/18 at 16:27; Status DC Vancomycin HCl (Vancomycin Random Level) 1 each 1X ONCE MC Last administered on 12/17/18at 13:16; Start 12/17/18 at 05:00; Stop 12/17/18 at 05:01; Status DC Heparin Sodium (Porcine) (Heparin Sodium) 5,000 unit Q8HRS SQ Last administered on 12/17/18at 05:44; Start 12/16/18 at 22:00; Stop 12/17/18 at 09:24; Status DC Sodium Chloride 1,000 ml @ 1,000 mls/hr Q1H PRN IV hypotension; Start 12/17/18 at 09:01; Stop 12/17/18 at 15:00; Status DC Albumin Human 200 ml @ 200 mls/hr 1X PRN PRN IV Hypotension; Start 12/17/18 at 09:15; Stop 12/17/18 at 15:14; Status DC Sodium Chloride 1,000 ml @ 400 mls/hr Q2H30M PRN IV PATENCY; Start 12/17/18 at 09:01; Stop 12/17/18 at 21:00; Status DC Info (PHARMACY MONITORING -- do not chart) 1 each PRN DAILY PRN MC SEE ELIZABETH TS; Start 12/17/18 at 09:15; Status UNV Info (PHARMACY MONITORING -- do not chart) 1 each PRN DAILY PRN MC SEE COMMENTS; Start 12/17/18 at 09:15 Non-Formulary Medication 1 ea DAILY07 PO ; Start 12/16/18 at 07:00; Stop 12/20/18 at 10:47; Status DC Vancomycin HCl 500 mg/Sodium Chloride 100 ml @ 100 mls/hr QMWF IV ; Start 12/17/18 at 17:00; Status Cancel Vancomycin HCl 750 mg/Sodium Chloride 250 ml @ 250 mls/hr QMWF IV Last administered on 12/17/18at 20:05; Start 12/17/18 at 17:00; Stop 12/18/18 at 16:19 ; Status DC Dipyridamole (Persantine) 25 mg BID66 PO Last administered on 12/20/18at 05:28; Start 12/17/18 at 18:00 Heparin Sodium (Porcine) (Heparin Sodium) 5,000 unit Q8HRS SQ Last administered on 12/20/18at 05:28; Start 12/18/18 at 14:00 Darbepoetin Joshua (ARANESP for DIALYSIS PTS) 60 mcg Th SQ Last administered on 12/18/18at 20:40; Start 12/18/18 at 21:00 Sodium Chloride 1,000 ml @ 1,000 mls/hr Q1H PRN IV hypotension; Start 12/19/18 at 07:01; Stop 12/19/18 at 13:00; Status DC Albumin Human 200 ml @ 200 mls/hr 1X PRN PRN IV Hypotension; Start 12/19/18 at 07:15; Stop 12/19/18 at 13:14; Status DC Acetaminophen (Tylenol) 500 mg 1X PRN PRN PO MILD PAIN / TEMP; Start 12/19/18 at 07:15; Stop 12/20/18 at 07:14; Status DC Diphenhydramine HCl (Benadryl) 25 mg 1X PRN PRN IV ITCHING; Start 12/19/18 at 07:15; Stop 12/20/18 at 07:14; Status DC Diphenhydramine HCl (Benadryl) 25 mg 1X PRN PRN IV ITCHING; Start 12/19/18 at 07:15; Stop 12/20/18 at 07:14; Status DC Sodium Chloride 1,000 ml @ 400 mls/hr Q2H30M PRN IV PATENCY; Start 12/19/18 at 07:01; Stop 12/19/18 at 19:00; Status DC Info (PHARMACY MONITORING -- do not chart) 1 each PRN DAILY PRN MC SEE COMMENTS; Start 12/19/18 at 07:15 Lidocaine (Lidoderm) 1 patch DAILY TD ; Start 12/21/18 at 09:00; Status UNV Miscellaneous (Lidoderm Patch Removal) 1 ea QHS MC ; Start 12/20/18 at 21:00; Status UNV Diclofenac Sodium (Voltaren) 1 stefano BID TP ; Start 12/20/18 at 11:45; Status UNV Active Scripts Active [Dialysis Patient] 1 EACH Each 1 Each MC PRN DAILY PRN 30 Days Culturelle (Lactobacillus Rhamnosus Gg) 1 Each Cap.sprink 1 Cap PO BID 10 Days Humalog (Insulin Lispro) 100 Unit/1 Ml Insuln.pen 1 Units SQ TIDWMEALS 10 Days Oxycodone Hcl Immed.release (Oxycodone Hcl) 5 Mg Tablet 5 Mg PO PRN Q8HRS PRN 10 Days Proair Hfa (Albuterol Sulfate) 8.5 Gm Hfa.aer.ad 2.5 Mg NEB PRN TID PRN 30 Days Novolog Flexpen (Insulin Aspart) 100 Unit/1 Ml Insuln.pen 1 Unit SQ [id number] 10 Days Novolog FlexPen Sliding Scale: For fingerstick blood glucose: 150-200 take 2 units 201-250 take 4 units 251-300 take 6 units 301-350 take 8 units 351-400 take 10 units If blood glucose greater than [address] Corona. Reported [lanacane cream] 1 Stefano TOP PRN PRN Midodrine Hcl 5 Mg Tablet 5 Mg PO TID Ventolin Hfa Inhaler (Albuterol Sulfate) 18 Gm Hfa.aer.ad 2 Puff INH Q4HRS PRN Nephro-Neri Rx Tablet (Vit B Cmplx 3/Fa/Vit C/Biotin) 1 Each Tablet 1 Each PO DAILY Nystatin 1 Each Powder.ea. 1 Each PO BID PRN Calcium Acetate 667 Mg Tablet 667 Mg PO TIDWMEALS Linzess (Linaclotide) 145 Mcg Capsule 72 Mcg PO DAILY07 Zofran (Ondansetron Hcl) 8 Mg Tablet 1 Tab PO Q12HR PRN Triamcinolone Acetonide 80 Gm Oint...g. 1 Stefano TP BID PRN Fluticasone Propionate Nasal [place] (Fluticasone Propionate) 16 Gm [place].susp 2 [place] NS BID Calcitriol 0.25 Mcg Capsule 1 Cap PO DAILY Atorvastatin Calcium 80 Mg Tablet 80 Mg PO DAILY Voltaren (Diclofenac Sodium) 100 Gm Gel..gram. 1 Gm TP BID PRN Triamcinolone Acetonide 0.1% Oint (Triamcinolone Acetonide) 15 Gm Oint...g. 1 Stefano TP BID MIX WITH EUCERIN DIRECTED BY PHYSICIAN Symbicort 160-4.5 Mcg Inhaler (Budesonide/Formoterol Fumarate) 10.2 Gm Hfa.aer.ad 2 Puff IH BID Sodium Bicarbonate 650 Mg Tablet 2 Tab PO BID Oxycodone Hcl Immed.release (Oxycodone Hcl) 5 Mg Tablet 1 Tab PO Q6HRS Omeprazole 40 Mg Capsule.dr 1 Cap PO DAILY Gabapentin (Gabapentin) 100 Mg Capsule 100 Mg PO TID Albuterol Sulfate Neb Soln (Albuterol Sulfate) 0.63 Mg/3 Ml Vial.neb 0.83 % NEB TID PRN Vitals/I & O Vital Sign - Last 24 Hours 12/19/18 12/19/18 12/19/18 12/19/18 12:02 13:56 13:56 15:00 Temp 98.9 98.9 Pulse 104 111 Resp 12 B/P (MAP) 129/58 110/79 (89) Pulse Ox 96 96 100 O2 Delivery Nasal Cannula Nasal Cannula Room Air O2 Flow Rate 2.0 2.0 12/19/18 12/19/18 12/19/18 12/19/18 15:14 15:38 18:40 19:21 Pulse 111 B/P (MAP) 110/79 Pulse Ox 96 96 O2 Delivery Nasal Cannula Nasal Cannula Nasal Cannula O2 Flow Rate 2.0 2.0 2.0 12/19/18 12/19/18 12/19/18 12/19/18 19:47 19:57 19:57 20:05 Temp 99.4 99.4 Pulse 95 Resp 16 B/P (MAP) 157/90 (112) Pulse Ox 95 96 96 O2 Delivery Nasal Cannula Nasal Cannula Nasal Cannula Nasal Cannula O2 Flow Rate 2.0 2.0 2.0 2.0 12/19/18 12/20/18 12/20/18 12/20/18 23:15 03:27 07:00 07:47 Temp 99.0 99.0 98.5 99.0 99.0 98.5 Pulse 97 86 83 Resp 16 16 12 B/P (MAP) 146/60 (88) 111/54 (73) 156/54 (88) Pulse Ox 97 99 96 96 O2 Delivery Nasal Cannula Nasal Cannula Nasal Cannula Nasal Cannula O2 Flow Rate 2.0 2.0 2.0 2.0 12/20/18 09:35 Pulse 83 B/P (MAP) 156/54 Intake and Output 12/19/18 12/19/18 12/20/18 15:00 23:00 07:00 Intake Total 100 ml 100 ml Output Total 0 ml Balance 100 ml 100 ml SAJAN BOLTON MD Dec 20, 2018 11:49
[2018-12-20] MEDS: DICLOFENAC SODIUM 1% TOPICAL GEL 100GM TUBE. TP SCH ×2 (13:21→21:13)
[2018-12-20] MEDS: LIDOCAINE (700MG/PATCH) PATCH. TD SCH (13:30)
--- NOTE | 2018-12-20 14:15 | RAD ---
EXAM: 3 views right shoulder DATE: 12/20/2018 11:35 AM INDICATION: Right shoulder pain COMPARISON: No Prior FINDINGS: No evidence of acute fracture or dislocation. Decreased bone mineral density. AC joint degenerative changes are seen. Glenohumeral joint osteoarthritis. Small ossific density adjacent to the greater tuberosity is a well-corticated, possibly heterotopic ossification, or old trauma. IMPRESSION: 1. Within the constraints of osteopenia no evidence for acute fracture or dislocation. 2. Subtle ossific density adjacent to the greater tuberosity, likely from old trauma or heterotopic ossification. 3. AC joint degenerative changes are seen. Electronically signed by: Charly Benavidez MD (12/20/2018 2:12 PM) [facility]
--- NOTE | 2018-12-20 14:48 | PDOC ---
PROGRESS NOTES Assessment Assessment Metabolic encephalopathy. Confusion. Generalized weakness. Hyperkalemia, K+ 7 Fever, low grade. Right hand 3rd metacarpal fracture. ESRD on dialysis. DM. CAD. COPD. HTN. HLD. Diabetic peripheral neuropathy. Obesity. No evidence of acute CVA this time. RECOMMENDATIONS/PLAN: Persantine 25 mg bid. Treat medical diseases. OT/PT. HCT: Negative. EEG on 12/17/18: Diffuse encephalopathy. MRI: No acute findings. HISTORY OF THE PRESENT ILLNESS: This is a 78-year-old -[place] female with history of diabetes, hype rtension and end-stage renal disease who was brought into the ER of [facility] due to weakness and change in mental status. She was noted low garde fever as well of 99.9 degree. She had bacteremia before and was treated fully in June, and subsequently she had infection and she ended up at [facility] and maybe other hospital as well. Neurology was requested for consultation for MS changes and confusion. Her mentation further improved on 12/20/18. PAST MEDICAL HISTORY: Diabetes; hypertension; end-stage renal disease, on hemodialysis, neuropathy, COPD, coronary artery disease. PAST SURGICAL HISTORY: AV graft in the left forearm. Hysterectomy, gastric bypass. SOCIAL HISTORY: Lives at home. Denied current smoking, alcohol, illicit drug use. ALLERGIES: IV DYE, NONSTEROIDALS. MEDICATIONS: Refer to [facility] FAMILY HISTORY: Non contributory. REVIEW OF SYSTEMS: Constitutional: Obesity. Head: No recent traumatic brain or head injury. Skin: No edema, or rash. Ear: No infection. Eyes: No vision loss or color blindness. Nose: No bleeding or purulent discharges. Hearing: Hearing decrease. Neck: No injury. Cardiac: CAD, HTN, HLD. Pulmonary: COPD. GI: No GI ulcer, GI bleeding. Urinary/genital: ESRD on dialysis. Endocrinologic: Diabetes Mellitus, obesity. Skeletomuscular: Generalized weakness. Neurological: see HP. Psychiatric: Denies drug use/abuse. Otherwise, not [id number] review of systems. PHYSICAL EXAMINATION: General appearance is in subacute distress. HEENT: Normocephalic and nontraumatic. Eyes, nose, ears, and throat are unremarkable. Neck is supple. No lymphadenopathy. No crepitus. Cardiovascular: S1, S2, regular rate and rhythm. Pulmonary: Clear to auscultation bilaterally. Abdomen: Bowel sounds are positive. Extremities: No rash, lesions, or edema. No restriction of range of motion NEUROLOGICAL EXAMINATION: Awake. Oriented to time, place and person. PERRL. EOMI. CN: no focal findings. Muscle tone: decreased. Muscle strength: 4 DTR: 1 Plantar reflex: Neutral response bilaterally Gait: not examined in bed. Sensory exam: no abnormal findings. No cerebellar signs elicited. F-T-N test fine. Objective Objective Vital Signs Date Time Temp Pulse Resp B/P (MAP) Pulse Ox O2 Delivery O2 Flow Rate FiO2 12/20/18 13:30 16 Room Air 12/20/18 13:30 82 121/55 12/20/18 12:30 96 2.0 12/20/18 11:00 98.7 98.7 Intake and Output 12/20/18 06:59 Intake Total 200 ml Output Total 0 ml Balance 200 ml Intake Oral 200 ml Output Urine Total 0 ml Vitals Signs Vitals VS - Last 72 Hours, by Label Date Time Temp Pulse Resp B/P (MAP) Pulse Ox O2 Delivery O2 Flow Rate FiO2 12/20/18 13:30 16 Room Air 12/20/18 13:30 82 121/55 12/20/18 12:30 96 Nasal Cannula 2.0 12/20/18 11:00 98.7 82 16 121/55 (77) 99 Nasal Cannula 2.0 98.7 12/20/18 09:35 83 156/54 12/20/18 08:00 Nasal Cannula 2.0 12/20/18 07:47 96 Nasal Cannula 2.0 12/20/18 07:00 98.5 83 12 156/54 (88) 96 Nasal Cannula 2.0 98.5 12/20/18 03:27 99.0 86 16 111/54 (73) 99 Nasal Cannula 2.0 99.0 12/19/18 23:15 99.0 97 16 146/60 (88) 97 Nasal Cannula 2.0 99.0 12/19/18 20:05 Nasal Cannula 2.0 12/19/18 19:57 96 Nasal Cannula 2.0 12/19/18 19:57 96 Nasal Cannula 2.0 12/19/18 19:47 99.4 95 16 157/90 (112) 95 Nasal Cannula 2.0 99.4 12/19/18 19:21 111 110/79 12/19/18 18:40 96 Nasal Cannula 2.0 12/19/18 15:38 96 Nasal Cannula 2.0 12/19/18 15:14 Nasal Cannula 2.0 12/19/18 15:00 98.9 111 12 110/79 (89) 100 Room Air 98.9 12/19/18 13:56 96 Nasal Cannula 2.0 12/19/18 13:56 104 129/58 12/19/18 12:02 96 Nasal Cannula 2.0 12/19/18 08:56 96 Nasal Cannula 2.0 12/19/18 08:00 Nasal Cannula 2.0 12/19/18 07:32 100 Nasal Cannula 2.0 Laboratory Laboratory Laboratory Tests Test 12/19/18 16:46 12/19/18 21:23 12/20/18 08:09 12/20/18 12:08 Glucose (Fingerstick) 171 mg/dL (70-99) 172 mg/dL (70-99) 151 mg/dL (70-99) 147 mg/dL (70-99) Microbiology 12/15/18 Blood Culture - Preliminary, Resulted NO GROWTH AFTER 4 DAYS Medication Medications Current Medications Diclofenac Sodium (Voltaren) 1 barbara BID TP Last administered on 12/20/18at 13:30; Start 12/20/18 at 11:45 Lidocaine (Lidoderm) 1 patch DAILY TD Last administered on 12/20/18at 13:30; Start 12/20/18 at 12:00 Miscellaneous (Lidoderm Patch Removal) [address] [facility] ; Start 12/20/18 at 21:00 Comment Review of Relevant I have reviewed the following items girish (where applicable) has been applied. LEON DOHERTY MD Dec 20, 2018 14:48
[2018-12-20 15:00] VITALS: BP 147/42
[2018-12-20 19:06] VITALS: BP 125/48
[2018-12-20] MEDS: PATCH REMOVAL. MC SCH (21:00)
[2018-12-20] MEDS: ATORVASTATIN CALCIUM 40 MG TABLET. PO SCH (21:12)
[2018-12-20 23:45] VITALS: BP 146/59
[2018-12-21 03:35] VITALS: BP 145/63
[2018-12-21] MEDS: DIPYRIDAMOLE 25 MG TABLET. PO SCH ×2 (06:14→18:01)
[2018-12-21] MEDS: oxyCODONE IR 5 MG TABLET PO SCH ×4 (06:15→18:01)
[2018-12-21] MEDS: HEPARIN for SUB-Q USE 5,000 UNIT/ML VIAL. SQ SCH ×3 (06:19→22:11)
[2018-12-21 07:00] VITALS: BP 138/66
[2018-12-21] MEDS: ALBUTEROL SULFATE 2.5 MG/3 ML NEBU. NEB SCH ×4 (07:33→19:35)
[2018-12-21] MEDS: BUDESONIDE 0.5 MG/2 ML NEBU. NEB SCH ×2 (07:33→19:35)
[2018-12-21] MEDS: INSULIN LISPRO 300 UNITS/3 ML VIAL. SQ SCH ×3 (08:00→17:13)
[2018-12-21] MEDS: MIDODRINE 5 MG TABLET PO SCH ×3 (08:00→16:09)
[2018-12-21] MEDS: TRIAMCINOLONE ACETONIDE 0.1% TOPICAL OINTMENT 15GM TUBE. TP SCH ×3 (08:32→21:00)
[2018-12-21] MEDS: DICLOFENAC SODIUM 1% TOPICAL GEL 100GM TUBE. TP SCH ×2 (08:33→21:08)
[2018-12-21] MEDS: CALCITRIOL 0.25 MCG CAPSULE. PO SCH (08:33)
[2018-12-21] MEDS: FOLIC/VIT B COMP W-C (RENAL) TABLET. PO SCH (08:33)
[2018-12-21] MEDS: SODIUM BICARBONATE 650 MG TABLET. PO SCH ×2 (08:33→21:07)
[2018-12-21] MEDS: LACTOBACILLUS RHAMNOSUS GG 1 CAPSULE. PO SCH ×2 (08:33→21:07)
[2018-12-21] MEDS: CALCIUM ACETATE 667 MG CAPSULE PO SCH ×3 (08:33→17:09)
[2018-12-21] MEDS: PANTOPRAZOLE 40 MG TABLET.DR. PO SCH (08:33)
[2018-12-21] MEDS: LIDOCAINE (700MG/PATCH) PATCH. TD SCH (08:34)
[2018-12-21] MEDS: FLUTICASONE 50MCG/NASAL SPRAY 16GM BOTTLE. NS SCH ×2 (08:34→21:07)
--- NOTE | 2018-12-21 10:31 | PDOC ---
PROGRESS NOTES Subjective Subjective no complaints Objective Objective Vital Signs Date Time Temp Pulse Resp B/P (MAP) Pulse Ox O2 Delivery O2 Flow Rate FiO2 12/21/18 08:38 Nasal Cannula 12/21/18 08:00 2.0 12/21/18 07:34 96 12/21/18 07:00 98.4 82 12 138/66 (90) 98.4 Intake and Output 12/21/18 07:00 Intake Total 1090 ml Balance 1090 ml Intake Oral 1090 ml Physical Exam Abdomen: Normal bowel sounds, Soft, No tenderness Heart: Regular rate Extremities: No cyanosis General: mild distress HEENT: Atraumatic, PERRLA Lungs: Clear to auscultation, Normal air movement MUSCULOSKELETAL: No swelling Psych/Mental Status: Other (more awake, verbal today) Skin: No breakdown COMMENT tender rt shoulder Diagnosis Problem List Problems Medical Problems: (1) End stage renal disease Status: Acute (2) Hyperkalemia Status: Acute (3) Weakness Status: Acute Assessment Assessment Problems Medical Problems: (1) End stage renal disease Status: Acute (2) Hyperkalemia Status: Acute (3) Weakness Status: Acute FINAL IMPRESSION: 1. Encephalopathy.Change in mental status .., improving , back to normal. 2. Hyperkalemia po t 7.0. The patient is a dialysis patient.corrected with emergency dialysis. 3. On dialysis, end-stage renal disease, Saturday, Saturday, and Saturday. She went to dialysis, Saturday. 4. Mechanical fall with some maybe orbital cellulitis. 5. History of recurrent infections, has been to 3 hospitals in last 3 months [facility] and [facility]. 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 6. Diabetes. 7. Hypertension. 8. Hyperlipidemia. 9. General debility. 10.Rt shoulder and hand pain after fall at home. PLAN: SNU screen. x ray rt shoulder -ve for fracture , Rt hand brace for fracture 3 rt carpal Dialysis m,w,f. EEG neg MRI brain -ve for cva. resume lovenox. rehab consult pt/ot Off iv antibiotics.c/s neg spoke with ID. labs ok Plan Plan of Care Problems Medical Problems: (1) End stage renal disease Status: Acute (2) Hyperkalemia Status: Acute (3) Weakness Status: Acute Comment Review of Relevant I have reviewed the following items girish (where applicable) has been applied. Labs Laboratory Tests Test 12/20/18 12:08 12/20/18 17:17 12/20/18 20:35 12/21/18 07:41 Glucose (Fingerstick) 147 mg/dL (70-99) 155 mg/dL (70-99) 180 mg/dL (70-99) 115 mg/dL (70-99) Microbiology 12/15/18 Blood Culture - Final, Complete NO GROWTH AFTER 5 DAYS Medications Current Medications Diclofenac Sodium (Voltaren) 1 barbara BID TP Last administered on 12/21/18at 08:38; Start 12/20/18 at 11:45 Lidocaine (Lidoderm) 1 patch DAILY TD Last administered on 12/21/18at 08:38; Start 12/20/18 at 12:00 Miscellaneous (Lidoderm Patch Removal) 1 ea QHS MC Last administered on 12/20/18at 21:24; Start 12/20/18 at 21:00 Vitals/I & O Vital Sign - Last 24 Hours 12/20/18 12/20/18 12/20/18 12/20/18 11:00 12:30 13:30 13:30 Temp 98.7 98.7 Pulse 82 82 Resp 16 16 B/P (MAP) 121/55 (77) 121/55 Pulse Ox 99 96 O2 Delivery Nasal Cannula Nasal Cannula Room Air O2 Flow Rate 2.0 2.0 12/20/18 12/20/18 12/20/18 12/20/18 14:57 15:00 16:54 17:30 Temp 98.7 98.7 Pulse 85 Resp 16 16 16 B/P (MAP) 147/42 (77) Pulse Ox 96 97 96 96 O2 Delivery Nasal Cannula Nasal Cannula Nasal Cannula Nasal Cannula O2 Flow Rate 2.0 2.0 2.0 2.0 12/20/18 12/20/18 12/20/18 12/20/18 17:30 19:06 19:45 20:20 Temp 98.1 98.1 Pulse 85 86 Resp 18 B/P (MAP) 138/53 125/48 (73) Pulse Ox 97 96 O2 Delivery Room Air Nasal Cannula Nasal Cannula O2 Flow Rate 2.0 2.0 12/20/18 12/20/18 12/21/18 12/21/18 21:24 23:45 03:35 06:19 Temp 97.6 98.5 97.6 98.5 Pulse 85 84 Resp 18 16 B/P (MAP) 146/59 (88) 145/63 (90) Pulse Ox 97 95 O2 Delivery Nasal Cannula Nasal Cannula Nasal Cannula Nasal Cannula O2 Flow Rate 2.0 2.0 2.0 2.0 12/21/18 12/21/18 12/21/18 12/21/18 07:00 07:34 08:00 08:38 Temp 98.4 98.4 Pulse 82 Resp 12 B/P (MAP) 138/66 (90) Pulse Ox 100 96 O2 Delivery Nasal Cannula Nasal Cannula Nasal Cannula Nasal Cannula O2 Flow Rate 2.0 2.0 2.0 Intake and Output 12/20/18 12/20/18 12/21/18 15:00 23:00 07:00 Intake Total 120 ml 370 ml 600 ml Balance 120 ml 370 ml 600 ml LYLE ELENA MD Dec 21, 2018 10:31
[2018-12-21 11:00] VITALS: BP 147/60
--- NOTE | 2018-12-21 12:12 | PDOC ---
Renal-Progress Notes Subjective Notes Notes STABLE History of Present Illness Hx of present illness NO CHANGE Vitals Vitals Vital Signs Date Time Temp Pulse Resp B/P (MAP) Pulse Ox O2 Delivery O2 Flow Rate FiO2 12/21/18 12:09 Nasal Cannula 12/21/18 11:09 2.0 12/21/18 11:00 98.4 85 12 147/60 (89) 100 98.4 Weight Weight [ ] I.O. Intake and Output Intake and Output 12/21/18 07:00 Intake Total 1090 ml Balance 1090 ml Intake Oral 1090 ml Labs Labs Laboratory Tests Test 12/20/18 17:17 12/20/18 20:35 12/21/18 07:41 Glucose (Fingerstick) 155 mg/dL (70-99) 180 mg/dL (70-99) 115 mg/dL (70-99) Micro Micro Microbiology 12/15/18 Blood Culture - Final, Complete NO GROWTH AFTER 5 DAYS Review of Systems Constitutional: yes: weakness, alert Ears/Nose/Throat: Yes: no symptom reported Eyes: Yes: no symptom reported Pulmonary: Yes no symptom reported Cardiovascular: Yes no symptom reported Gastrointestional: Yes: no symptom reported Musculoskeletal: Yes: no symptom reported Skin: Yes no symptom reported Psychiatric/Neurological: Yes: no symptom reported Endocrine: Yes: no symptom reported Physical Exam General Appearance: no apparent distress Skin: warm Respiratory: decreased breath sounds Heart: S1S2 Abdomen: soft, bowel sounds present Genitourinary: bladder flat Neurology: alert Musculoskeletal: Other Assessment Assessment IMP HYPERKALEMIA-RESOLVED ESRD ANEMIA DIASTOLIC CHF-COMPENSATED DM II HTN ENCEPHALOPATHY-BETTER DECONDITIONING PLAN HD MWF ARANESP OFF ANTIBIOTICS NOW QUINCY SULLIVAN MD Dec 21, 2018 12:12
--- NOTE | 2018-12-21 14:17 | PDOC ---
PROGRESS NOTES Assessment Assessment Metabolic encephalopathy. Confusion. Generalized weakness. Hyperkalemia. Fever, low grade. Right hand 3rd metacarpal fracture. ESRD on dialysis. DM. CAD. COPD. HTN. HLD. Diabetic peripheral neuropathy. Obesity. No evidence of acute CVA this time. RECOMMENDATIONS/PLAN: Persantine 25 mg bid. Treat medical diseases. OT/PT. FU with PCP. HCT: Negative. EEG on 12/17/18: Diffuse encephalopathy. MRI: No acute findings. HISTORY OF THE PRESENT ILLNESS: This is a 78-year-old -[place] female with history of diabetes, hypertension and end-stage renal disease who was brought into the ER of [facility] due to weakness and change in mental status. She was noted low garde fever as well of 99.9 degree. She had bacteremia before and was treated fully in June, and subsequently she had infection and she ended up at [facility] and maybe other hospital as well. Neurology was requested for consultation for MS changes and confusion. Her mentation near her baseline on 12/21/18. PAST MEDICAL HISTORY: Diabetes; hypertension; end-stage renal disease, on hemodialysis, neuropathy, COPD, coronary artery disease. PAST SURGICAL HISTORY: AV graft in the left forearm. Hysterectomy, gastric bypass. SOCIAL HISTORY: Lives at home. Denied current smoking, alcohol, illicit drug use. ALLERGIES: IV DYE, NONSTEROIDALS. MEDICATIONS: Refer to [facility] FAMILY HISTORY: Non contributory. REVIEW OF SYSTEMS: Constitutional: Obesity. Head: No recent traumatic brain or head injury. Skin: No edema, or rash. Ear: No infection. Eyes: No vision loss or color blindness. Nose: No bleeding or purulent discharges. Hearing: Hearing decrease. Neck: No injury. Cardiac: CAD, HTN, HLD. Pulmonary: COPD. GI: No GI ulcer, GI bleeding. Urinary/genital: ESRD on dialysis. Endocrinologic: Diabetes Mellitus, obesity. Skeletomuscular: Generalized weakness. Neurological: see HP. Psychiatric: Denies drug use/abuse. Otherwise, not [id number] review of systems. PHYSICAL EXAMINATION: General appearance is in subacute distress. HEENT: Normocephalic and nontraumatic. Eyes, nose, ears, and throat are unremarkable. Neck is supple. No lymphadenopathy. No crepitus. Cardiovascular: S1, S2, regular rate and rhythm. Pulmonary: Clear to auscultation bilaterally. Abdomen: Bowel sounds are positive. Extremities: No rash, lesions, or edema. No restriction of range of motion NEUROLOGICAL EXAMINATION: Awake. Oriented to time, place and person. PERRL. EOMI. CN: no focal findings. Muscle tone: decreased. Muscle strength: 4+ DTR: 1 Plantar reflex: Neutral response bilaterally Gait: not examined in bed. Sensory exam: no abnormal findings. No cerebellar signs elicited. F-T-N test fine. Objective Objective Vital Signs Date Time Temp Pulse Resp B/P (MAP) Pulse Ox O2 Delivery O2 Flow Rate FiO2 12/21/18 13:16 Nasal Cannula 12/21/18 11:09 2.0 12/21/18 11:00 98.4 85 12 147/60 (89) 100 98.4 Intake and Output 12/21/18 07:00 Intake Total 1090 ml Balance 1090 ml Intake Oral 1090 ml Vitals Signs Vitals VS - Last 72 Hours, by Label Date Time Temp Pulse Resp B/P (MAP) Pulse Ox O2 Delivery O2 Flow Rate FiO2 12/21/18 13:16 Nasal Cannula 12/21/18 12:09 Nasal Cannula 12/21/18 11:09 Nasal Cannula 2.0 12/21/18 11:00 98.4 85 12 147/60 (89) 100 Nasal Cannula 2.0 98.4 12/21/18 08:38 Nasal Cannula 12/21/18 08:00 Nasal Cannula 2.0 12/21/18 07:34 96 Nasal Cannula 2.0 12/21/18 07:00 98.4 82 12 138/66 (90) 100 Nasal Cannula 2.0 98.4 12/21/18 06:19 Nasal Cannula 2.0 12/21/18 03:35 98.5 84 16 145/63 (90) 95 Nasal Cannula 2.0 98.5 12/20/18 23:45 97.6 85 18 146/59 (88) 97 Nasal Cannula 2.0 97.6 12/20/18 21:24 Nasal Cannula 2.0 12/20/18 20:20 Nasal Cannula 2.0 12/20/18 19:45 96 Nasal Cannula 2.0 12/20/18 19:06 98.1 86 18 125/48 (73) 97 Room Air 98.1 12/20/18 17:30 85 138/53 12/20/18 17:30 16 96 Nasal Cannula 2.0 12/20/18 16:54 96 Nasal Cannula 2.0 12/20/18 15:00 98.7 85 16 147/42 (77) 97 Nasal Cannula 2.0 98.7 12/20/18 14:57 16 96 Nasal Cannula 2.0 12/20/18 13:30 16 Room Air 12/20/18 13:30 82 121/55 12/20/18 12:30 96 Nasal Cannula 2.0 12/20/18 11:00 98.7 82 16 121/55 (77) 99 Nasal Cannula 2.0 98.7 12/20/18 09:35 83 156/54 12/20/18 08:00 Nasal Cannula 2.0 12/20/18 07:47 96 Nasal Cannula 2.0 12/20/18 07:00 98.5 83 12 156/54 (88) 96 Nasal Cannula 2.0 98.5 Laboratory Laboratory Laboratory Tests Test 12/20/18 17:17 12/20/18 20:35 12/21/18 07:41 12/21/18 12:06 Glucose (Fingerstick) 155 mg/dL (70-99) 180 mg/dL (70-99) 115 mg/dL (70-99) 133 mg/dL (70-99) Microbiology 12/15/18 Blood Culture - Final, Complete NO GROWTH AFTER 5 DAYS Medication Medications Current Medications Miscellaneous (Lidoderm Patch Removal) 1 ea [facility] Last administered on 12/20/18at 21:24; Start 12/20/18 at 21:00 Comment Review of Relevant I have reviewed the following items girish (where applicable) has been applied. LEON DOHERTY MD Dec 21, 2018 14:17
[2018-12-21 15:00] VITALS: BP 138/64
[2018-12-21 19:06] VITALS: BP 137/54
[2018-12-21] MEDS: PATCH REMOVAL. MC SCH (21:00)
[2018-12-21] MEDS: ATORVASTATIN CALCIUM 40 MG TABLET. PO SCH (21:07)
[2018-12-21 23:15] VITALS: BP 123/53
[2018-12-22] MEDS: oxyCODONE IR 5 MG TABLET PO SCH ×4 (00:12→18:02)
[2018-12-22 03:10] VITALS: BP 118/58
[2018-12-22 06:08] LABS: BASO % 0 % (0-3); EOS # 0.2 x10^3/uL (0.0-0.7); EOS % 3 % (0-3); HEMATOCRIT 28.5 % (36.0-47.0); HEMOGLOBIN 9.3 g/dL (12.0-15.5); LYMPH # 1.1 x10^3/uL (1.0-4.8); LYMPH % 20 % (24-48); MEAN CORPUSCULAR HEMOGLOBIN 32 pg (25-35); MEAN CORPUSCULAR HGB CONC 33 g/dL (31-37); MEAN CORPUSCULAR VOLUME 98 fL (79-100); MONO # 0.5 x10^3/uL (0.0-1.1); MONO % 8 % (0-9); NEUT # 3.9 x10^3/uL (1.8-7.7); NEUT % 69 % (31-73); PLATELET COUNT 150 x10^3/uL (140-400); RED BLOOD COUNT 2.89 x10^6/uL (3.50-5.40); RED CELL DISTRIBUTION WIDTH 17.1 % (11.5-14.5); WHITE BLOOD COUNT 5.7 x10^3/uL (4.0-11.0)
[2018-12-22 06:20] LABS: CALCIUM 9.4 mg/dL (8.5-10.1); CREATININE 7.5 mg/dL (0.6-1.0); GFR 6.4; POTASSIUM 4.7 mmol/L (3.5-5.1)
[2018-12-22] MEDS: DIPYRIDAMOLE 25 MG TABLET. PO SCH ×2 (06:25→18:01)
[2018-12-22] MEDS: HEPARIN for SUB-Q USE 5,000 UNIT/ML VIAL. SQ SCH ×3 (06:27→20:55)
[2018-12-22 07:50] VITALS: BP 131/55
[2018-12-22] MEDS: MIDODRINE 5 MG TABLET PO SCH ×3 (08:00→18:01)
[2018-12-22] MEDS: INSULIN LISPRO 300 UNITS/3 ML VIAL. SQ SCH ×3 (08:00→17:00)
[2018-12-22] MEDS: CALCIUM ACETATE 667 MG CAPSULE PO SCH ×3 (08:00→18:01)
[2018-12-22] MEDS: ALBUTEROL SULFATE 2.5 MG/3 ML NEBU. NEB SCH ×4 (08:00→19:43)
[2018-12-22] MEDS: FLUTICASONE 50MCG/NASAL SPRAY 16GM BOTTLE. NS SCH ×2 (09:00→20:47)
[2018-12-22] MEDS ORDERED: IV NORMAL SALINE 1000ML BAG 1,000 ML IV PRN ×2 (09:13)
--- NOTE | 2018-12-22 09:14 | PDOC ---
PROGRESS NOTES Subjective Subjective No new complaints. Objective Objective Vital Signs Date Time Temp Pulse Resp B/P (MAP) Pulse Ox O2 Delivery O2 Flow Rate FiO2 12/22/18 07:50 97.8 74 20 131/55 (80) 100 Nasal Cannula 2.0 97.8 Intake and Output 12/22/18 06:59 Intake Total 1130 ml Output Total 201 ml Balance 929 ml Intake Oral 1130 ml Output Urine Total 201 ml Physical Exam Physical Exam She is alert,supine on dialysis bed and she continues with relative weakness of right shoulder girdle muscles and mobility and self care limitations. Assessment Assessment Problems Medical Problems: (1) CAD (coronary artery disease) Status: Chronic (2) Confusion Status: Acute (3) COPD (chronic obstructive pulmonary disease) Status: Chronic (4) Diabetes mellitus Status: Chronic (5) Diabetic peripheral neuropathy Status: Chronic (6) DJD (degenerative joint disease) Status: Chronic (7) End stage renal disease Status: Acute (8) ESRD on dialysis Status: Chronic (9) Generalized weakness Status: Chronic (10) HTN (hypertension) Status: Chronic (11) Hyperkalemia Status: Acute (12) Metabolic encephalopathy Status: Acute (13) Nondisplaced fracture of metacarpal bone Status: Acute (14) Obesity Status: Chronic (15) Weakness Status: Acute Plan Plan of Care To rehab unit or SNF when medically stable. Comment Review of Relevant I have reviewed the following items girish (where applicable) has been applied. Labs Laboratory Tests Test 12/20/18 12:08 12/20/18 17:17 12/20/18 20:35 12/21/18 07:41 Glucose (Fingerstick) 147 mg/dL (70-99) 155 mg/dL (70-99) 180 mg/dL (70-99) 115 mg/dL (70-99) Test 12/21/18 12:06 12/21/18 17:00 12/21/18 20:48 12/22/18 05:35 Glucose (Fingerstick) 133 mg/dL (70-99) 163 mg/dL (70-99) 156 mg/dL (70-99) White Blood Count 5.7 x10^3/uL (4.0-11.0) Red Blood Count 2.89 x10^6/uL (3.50-5.40) Hemoglobin 9.3 g/dL (12.0-15.5) Hematocrit 28.5 % (36.0-47.0) Mean Corpuscular Volume 98 fL (79-100) Mean Corpuscular Hemoglobin 32 pg (25-35) Mean Corpuscular Hemoglobin Concent 33 g/dL (31-37) Red Cell Distribution Width 17.1 % (11.5-14.5) Platelet Count 150 x10^3/uL (140-400) Neutrophils (%) (Auto) 69 % (31-73) Lymphocytes (%) (Auto) 20 % (24-48) Monocytes (%) (Auto) 8 % (0-9) Eosinophils (%) (Auto) 3 % (0-3) Basophils (%) (Auto) 0 % (0-3) Neutrophils # (Auto) 3.9 x10^3/uL (1.8-7.7) Lymphocytes # (Auto) 1.1 x10^3/uL (1.0-4.8) Monocytes # (Auto) 0.5 x10^3/uL (0.0-1.1) Eosinophils # (Auto) 0.2 x10^3/uL (0.0-0.7) Basophils # (Auto) 0.0 x10^3/uL (0.0-0.2) Sodium Level 137 mmol/L (136-145) Potassium Level 4.7 mmol/L (3.5-5.1) Chloride Level 95 mmol/L (98-107) Carbon Dioxide Level 31 mmol/L (21-32) Anion Gap 11 (6-14) Blood Urea Nitrogen 66 mg/dL (7-20) Creatinine 7.5 mg/dL (0.6-1.0) Estimated GFR (Cockcroft-Gault) 6.4 Glucose Level 130 mg/dL (70-99) Calcium Level 9.4 mg/dL (8.5-10.1) Test 12/22/18 07:14 Glucose (Fingerstick) 126 mg/dL (70-99) Laboratory Tests Test 12/21/18 12:06 12/21/18 17:00 12/21/18 20:48 12/22/18 05:35 Glucose (Fingerstick) 133 mg/dL (70-99) 163 mg/dL (70-99) 156 mg/dL (70-99) White Blood Count 5.7 x10^3/uL (4.0-11.0) Red Blood Count 2.89 x10^6/uL (3.50-5.40) Hemoglobin 9.3 g/dL (12.0-15.5) Hematocrit 28.5 % (36.0-47.0) Mean Corpuscular Volume 98 fL (79-100) Mean Corpuscular Hemoglobin 32 pg (25-35) Mean Corpuscular Hemoglobin Concent 33 g/dL (31-37) Red Cell Distribution Width 17.1 % (11.5-14.5) Platelet Count 150 x10^3/uL (140-400) Neutrophils (%) (Auto) 69 % (31-73) Lymphocytes (%) (Auto) 20 % (24-48) Monocytes (%) (Auto) 8 % (0-9) Eosinophils (%) (Auto) 3 % (0-3) Basophils (%) (Auto) 0 % (0-3) Neutrophils # (Auto) 3.9 x10^3/uL (1.8-7.7) Lymphocytes # (Auto) 1.1 x10^3/uL (1.0-4.8) Monocytes # (Auto) 0.5 x10^3/uL (0.0-1.1) Eosinophils # (Auto) 0.2 x10^3/uL (0.0-0.7) Basophils # (Auto) 0.0 x10^3/uL (0.0-0.2) Sodium Level 137 mmol/L (136-145) Potassium Level 4.7 mmol/L (3.5-5.1) Chloride Level 95 mmol/L (98-107) Carbon Dioxide Level 31 mmol/L (21-32) Anion Gap 11 (6-14) Blood Urea Nitrogen 66 mg/dL (7-20) Creatinine 7.5 mg/dL (0.6-1.0) Estimated GFR (Cockcroft-Gault) 6.4 Glucose Level 130 mg/dL (70-99) Calcium Level 9.4 mg/dL (8.5-10.1) Test 12/22/18 07:14 Glucose (Fingerstick) 126 mg/dL (70-99) Microbiology 12/15/18 Blood Culture - Final, Complete NO GROWTH AFTER 5 DAYS Medications Current Medications Acetaminophen (Tylenol) 1,000 mg 1X ONCE PO Last administered on 12/15/18at 15:53; Start 12/15/18 at 14:15; Stop 12/15/18 at 14:16; Status DC Vancomycin HCl 1.25 gm/Sodium Chloride 250 ml @ 166.667 mls/hr 1X ONCE IV ; Start 12/15/18 at 14:15; Stop 12/15/18 at 15:44; Status UNV Piperacillin Sod/ Tazobactam Sod (Zosyn Per Pharmacy) 1 each PRN DAILY PRN MC SEE COMMENTS; Start 12/15/18 at 14:15; Stop 12/18/18 at 16:27; Status DC Piperacillin Sod/ Tazobactam Sod 3.375 gm/Sodium Chloride 50 ml @ 100 mls/hr 1X ONCE IV Last administered on 12/15/18at 15:03; Start 12/15/18 at 14:30; Stop 12/15/18 at 14:59; Status DC Vancomycin HCl 2 gm/Sodium Chloride 500 ml @ 250 mls/hr 1X ONCE IV Last administered on 12/15/18at 15:53; Start 12/15/18 at 15:00; Stop 12/15/18 at 16:59; Status DC Piperacillin Sod/ Tazobactam Sod 2.25 gm/Sodium Chloride 50 ml @ 100 mls/hr Q8HRS IV Last administered on 12/18/18at 15:12; Start 12/15/18 at 22:00; Stop 12/18/18 at 16:19; Status DC Calcium Gluconate (Calcium Gluconate) 2,000 mg 1X ONCE IVP Last administered on 12/15/18at 16:11; Start 12/15/18 at 16:00; Stop 12/15/18 at 16:01; Status DC Sodium Bicarbonate (Sodium Bicarb Adult 8.4% Syr) 50 meq 1X ONCE IV Last administered on 12/15/18at 16:11; Start 12/15/18 at 16:00; Stop 12/15/18 at 16:01; Status DC Insulin Human Regular (HumuLIN R VIAL) 10 unit 1X ONCE IV Last administered on 12/15/18at 16:11; Start 12/15/18 at 16:00; Stop 12/15/18 at 16:01; Status DC Dextrose (Dextrose 50%-Water Syringe) 25 gm 1X ONCE IV Last administered on 12/15/18at 16:11; Start 12/15/18 at 16:00; Stop 12/15/18 at 16:01; Status DC Sodium Chloride 1,000 ml @ 1,000 mls/hr Q1H PRN IV hypotension; Start 12/15/18 at 19:54; Stop 12/15/18 at 20:04; Status DC Albumin Human 200 ml @ 200 mls/hr 1X PRN PRN IV Hypotension; Start 12/15/18 at 20:00; Stop 12/16/18 at 01:59; Status DC Sodium Chloride 1,000 ml @ 400 mls/hr Q2H30M PRN IV PATENCY; Start 12/15/18 at 19:54; Stop 12/15/18 at 20:05; Status DC Info (PHARMACY MONITORING -- do not chart) 1 each PRN DAILY PRN MC SEE COMMENTS; Start 12/15/18 at 20:00; Status UNV Info (PHARMACY MONITORING -- do not chart) 1 each PRN DAILY PRN MC SEE COMMENTS; Start 12/15/18 at 20:00; Status Cancel Sodium Chloride 1,000 ml @ 1,000 mls/hr Q1H PRN IV hypotension; Start 12/15/18 at 20:15; Stop 12/17/18 at 09:22; Status DC Sodium Chloride 1,000 ml @ 400 mls/hr Q2H30M PRN IV PATENCY; Start 12/15/18 at 20:15; Stop 12/17/18 at 09:22; Status DC Albuterol Sulfate (Ventolin Neb Soln) 2.5 mg PRN TID PRN NEB SHORTNESS OF BREATH; Start 12/15/18 at 23:30; Stop 12/16/18 at 02:43; Status DC Calcitriol (Rocaltrol) 0.25 mcg DAILY PO Last administered on 12/21/18at 08:38; Start 12/16/18 at 09:00 Diclofenac Sodium (Voltaren) 1 stefano PRN BID PRN TP PAIN Last administered on 12/20/18at 05:28; Start 12/15/18 at 23:30 Fluticasone Propionate (Flonase) 2 spray BID NS Last administered on 12/21/18at 21:09; Start 12/16/18 at 09:00 Gabapentin (Neurontin) 100 mg TID PO Last administered on 12/16/18 20:51; Start 12/15/18 at 23:45; Stop 12/17/18 at 09:24; Status DC Lactobacillus Rhamnosus (Culturelle) 1 cap BID PO Last administered on 12/21/18 21:09; Start 12/16/18 at 09:00 Midodrine (Proamatine) 5 mg TIDWMEALS PO Last administered on 12/19/18at 13:56; Start 12/16/18 at 08:00 Oxycodone HCl (Roxicodone) 5 mg Q6HRS PO Last administered on 12/22/18 06:27; Start 12/16/18 at 00:00 Sodium Bicarbonate (Sodium Bicarbonate) 1,300 mg BID PO Last administered on 12/21/18 21:09; Start 12/16/18 at 09:00 Triamcinolone Acetonide (Kenalog 0.1%) 1 stefano BID TP Last administered on 12/20/18 21:24; Start 12/16/18 at 09:00 Non-Formulary Medication (Albuterol Sulfate (Albuterol Sulfate Neb Soln)) 0.83 % TID PRN NEB WHEEZING; Start 12/15/18 at 23:30; Status UNV Non-Formulary Medication (Albuterol Sulfate (Ventolin Hfa Inhaler)) 2 puff Q4HRS PRN INH SHORTNESS OF BREATH; Start 12/15/18 at 23:30; Status UNV Atorvastatin Calcium (Lipitor) 80 mg HS PO Last administered on 12/21/18at 21:09; Start 12/16/18 at 21:00 Non-Formulary Medication (Budesonide/ Formoterol Fumarate (Symbicort 160-4.5 Mcg Inhaler)) 2 puff BID IH ; Start 12/16/18 at 09:00; Status UNV Calcium Acetate (Phoslo) 667 mg TIDWMEALS PO Last administered on 12/21/18 17:13; Start 12/16/18 at 08:00 Non-Formulary Medication (Linaclotide (Linzess)) 72 mcg DAILY07 PO ; Start 12/16/18 at 07:00; Stop 12/17/18 at 10:00; Status DC Nystatin (Nystop) 1 stefano PRN BID PRN TP REDNESS Last administered on 12/18/18at 20:40; Start 12/15/18 at 23:45 Pantoprazole Sodium (Protonix) 40 mg DAILYAC PO Last administered on 12/21/18at 08:38; Start 12/16/18 at 07:30 Ondansetron HCl (Zofran Odt) 8 mg PRN Q12HR PRN PO NAUSEA; Start 12/15/18 at 23:30 Triamcinolone Acetonide (Kenalog 0.1%) 1 stefano PRN BID PRN TP ITCHING; Start 12/15/18 at 23:30 Vitamin B Complex/ Vitamin C (Steph-Neri) 1 tab DAILY PO Last administered on 12/21/18at 08:38; Start 12/16/18 at 09:00 Info (PHARMACY MONITORING -- do not chart) 1 each PRN DAILY PRN MC SEE COMMENTS; Start 12/15/18 at 23:30; Stop 12/21/18 at 16:22; Status DC Non-Formulary Medication ([lanacane cream] ) 1 stefano PRN PRN TOP dialysis fistula before dialys; Start 12/15/18 at 23:30; Status UNV Insulin Human Lispro (HumaLOG) 0-5 UNITS TIDWMEALS SQ Last administered on 12/21/18at 17:13; Start 12/16/18 at 08:00 Dextrose (Dextrose 50%-Water Syringe) 12.5 gm PRN Q15MIN PRN IV SEE COMMENTS; Start 12/15/18 at 23:30 Dextrose 250 ml PRN Q15MIN PRN IV SEE COMMENTS; Start 12/15/18 at 23:30 Enoxaparin Sodium (Lovenox 30mg Syringe) 30 mg Q24H SQ Last administered on 12/16/18at 01:15; Start 12/15/18 at 23:30; Stop 12/16/18 at 13:14; Status DC Budesonide (Pulmicort) 0.5 mg RTBID NEB Last administered on 12/21/18at 19:35; Start 12/16/18 at 08:00 Albuterol Sulfate (Ventolin Neb Soln) 2.5 mg RTQID NEB Last administered on 12/21/18at 19:35; Start 12/16/18 at 08:00 Albuterol Sulfate (Ventolin Neb Soln) 2.5 mg PRN Q4HRS PRN NEB SHORTNESS OF BREATH Last administered on 12/16/18at 08:32; Start 12/16/18 at 02:45 Vancomycin HCl (Vanco Per Pharmacy) 1 each PRN DAILY PRN MC SEE COMMENTS Last administered on 12/18/18at 15:10; Start 12/16/18 at 13:15; Stop 12/18/18 at 16:27; Status DC Vancomycin HCl (Vancomycin Random Level) 1 each 1X ONCE MC Last administered on 12/17/18at 13:16; Start 12/17/18 at 05:00; Stop 12/17/18 at 05:01; Status DC Heparin Sodium (Porcine) (Heparin Sodium) 5,000 unit Q8HRS SQ Last administered on 12/17/18at 05:44; Start 12/16/18 at 22:00; Stop 12/17/18 at 09:24; Status DC Sodium Chloride 1,000 ml @ 1,000 mls/hr Q1H PRN IV hypotension; Start 12/17/18 at 09:01; Stop 12/17/18 at 15:00; Status DC Albumin Human 200 ml @ 200 mls/hr 1X PRN PRN IV Hypotension; Start 12/17/18 at 09:15; Stop 12/17/18 at 15:14; Status DC Sodium Chloride 1,000 ml @ 400 mls/hr Q2H30M PRN IV PATENCY; Start 12/17/18 at 09:01; Stop 12/17/18 at 21:00; Status DC Info (PHARMACY MONITORING -- do not chart) 1 each PRN DAILY PRN MC SEE COMMENTS; Start 12/17/18 at 09:15; Status UNV Info (PHARMACY MONITORING -- do not chart) 1 each PRN DAILY PRN MC SEE COMMENTS; Start 12/17/18 at 09:15; Stop 12/21/18 at 16:22; Status DC Non-Formulary Medication 1 ea DAILY07 PO ; Start 12/16/18 at 07:00; Stop 12/20/18 at 10:47; Status DC Vancomycin HCl 500 mg/Sodium Chloride 100 ml @ 100 mls/hr QMWF IV ; Start 12/17/18 at 17:00; Status Cancel Vancomycin HCl 750 mg/Sodium Chloride 250 ml @ 250 mls/hr QMWF IV Last administered on 12/17/18at 20:05; Start 12/17/18 at 17:00; Stop 12/18/18 at 16:19; Status DC Dipyridamole (Persantine) 25 mg [id number] PO Last administered on 12/22/18at 06:27; Start 12/17/18 at 18:00 Heparin Sodium (Porcine) (Heparin Sodium) 5,000 unit Q8HRS SQ Last administered on 12/22/18at 06:27; Start 12/18/18 at 14:00 Darbepoetin Joshua (ARANESP for DIALYSIS PTS) 60 mcg Th SQ Last administered on 12/18/18at 20:40; Start 12/18/18 at 21:00 Sodium Chloride 1,000 ml @ 1,000 mls/hr Q1H PRN IV hypotension; Start 12/19/18 at 07:01; Stop 12/19/18 at 13:00; Status DC Albumin Human 200 ml @ 200 mls/hr 1X PRN PRN IV Hypotension; Start 12/19/18 at 07:15; Stop 12/19/18 at 13:14; Status DC Acetaminophen (Tylenol) 500 mg 1X PRN PRN PO MILD PAIN / TEMP; Start 12/19/18 at 07:15; Stop 12/20/18 at 07:14; Status DC Diphenhydramine HCl (Benadryl) 25 mg 1X PRN PRN IV ITCHING; Start 12/19/18 at 07:15; Stop 12/20/18 at 07:14; Status DC Diphenhydramine HCl (Benadryl) 25 mg 1X PRN PRN IV ITCHING; Start 12/19/18 at 07:15; Stop 12/20/18 at 07:14; Status DC Sodium Chloride 1,000 ml @ 400 mls/hr Q2H30M PRN IV PATENCY; Start 12/19/18 at 07:01; Stop 12/19/18 at 19:00; Status DC Info (PHARMACY MONITORING -- do not chart) 1 each PRN DAILY PRN MC SEE COMMENTS; Start 12/19/18 at 07:15 Lidocaine (Lidoderm) 1 patch DAILY TD Last administered on 12/21/18at 08:38; Start 12/20/18 at 12:00 Miscellaneous (Lidoderm Patch Removal) 1 ea QHS MC Last administered on 12/21/18at 21:09; Start 12/20/18 at 21:00 Diclofenac Sodium (Voltaren) 1 stefano BID TP Last administered on 12/21/18at 21:09; Start 12/20/18 at 11:45 Active Scripts Active [Dialysis Patient] 1 EACH Each 1 Each MC PRN DAILY PRN 30 Days Culturelle (Lactobacillus Rhamnosus Gg) 1 Each Cap.sprink 1 Cap PO BID 10 Days Humalog (Insulin Lispro) 100 Unit/1 Ml Insuln.pen 1 Units SQ TIDWMEALS 10 Days Oxycodone Hcl Immed.release (Oxycodone Hcl) 5 Mg Tablet 5 Mg PO PRN Q8HRS PRN 10 Days Proair Hfa (Albuterol Sulfate) 8.5 Gm Hfa.aer.ad 2.5 Mg NEB PRN TID PRN 30 Days Novolog Flexpen (Insulin Aspart) 100 Unit/1 Ml Insuln.pen 1 Unit SQ [id number] 10 Days Novolog FlexPen Sliding Scale: For fingerstick blood glucose: 150-200 take 2 units 201-250 take 4 units 251-300 take 6 units 301-350 take 8 units 351-400 take 10 units If blood glucose greater than [address] Corona. Reported [lanacane cream] 1 Stefano TOP PRN PRN Midodrine Hcl 5 Mg Tablet 5 Mg PO TID Ventolin Hfa Inhaler (Albuterol Sulfate) 18 Gm Hfa.aer.ad 2 Puff INH Q4HRS PRN Nephro-Neri Rx Tablet (Vit B Cmplx 3/Fa/Vit C/Biotin) 1 Each Tablet 1 Each PO DAILY Nystatin 1 Each Powder.ea. 1 Each PO BID PRN Calcium Acetate 667 Mg Tablet 667 Mg PO TIDWMEALS Linzess (Linaclotide) 145 Mcg Capsule 72 Mcg PO DAILY07 Zofran (Ondansetron Hcl) 8 Mg Tablet 1 Tab PO Q12HR PRN Triamcinolone Acetonide 80 Gm Oint...g. 1 Stefano TP BID PRN Fluticasone Propionate Nasal Goldonna (Fluticasone Propionate) 16 Gm Goldonna.susp 2 Goldonna NS BID Calcitriol 0.25 Mcg Capsule 1 Cap PO DAILY Atorvastatin Calcium 80 Mg Tablet 80 Mg PO DAILY Voltaren (Diclofenac Sodium) 100 Gm Gel..gram. 1 Gm TP BID PRN Triamcinolone Acetonide 0.1% Oint (Triamcinolone Acetonide) 15 Gm Oint...g. 1 Stefano TP BID MIX WITH EUCERIN DIRECTED BY PHYSICIAN Symbicort 160-4.5 Mcg Inhaler (Budesonide/Formoterol Fumarate) 10.2 Gm Hfa.aer.ad 2 Puff IH BID Sodium Bicarbonate 650 Mg Tablet 2 Tab PO BID Oxycodone Hcl Immed.release (Oxycodone Hcl) 5 Mg Tablet 1 Tab PO Q6HRS Omeprazole 40 Mg Capsule. 1 Cap PO DAILY Gabapentin (Gabapentin) 100 Mg Capsule 100 Mg PO TID Albuterol Sulfate Neb Soln (Albuterol Sulfate) 0.63 Mg/3 Ml Vial.neb 0.83 % NEB TID PRN Vitals/I & O Vital Sign - Last 24 Hours 12/21/18 12/21/18 12/21/18 12/21/18 11:00 11:09 12:09 13:16 Temp 98.4 98.4 Pulse 85 Resp 12 B/P (MAP) 147/60 (89) Pulse Ox 100 O2 Delivery Nasal Cannula Nasal Cannula Nasal Cannula Nasal Cannula O2 Flow Rate 2.0 2.0 12/21/18 12/21/18 12/21/18 12/21/18 15:00 15:40 18:01 19:06 Temp 98.4 98.4 98.4 98.4 Pulse 83 85 Resp 12 18 B/P (MAP) 138/64 (88) 137/54 (81) Pulse Ox 98 99 O2 Delivery Nasal Cannula Nasal Cannula Nasal Cannula Nasal Cannula O2 Flow Rate 2.0 2.0 12/21/18 12/21/18 12/21/18 12/21/18 19:18 19:37 19:38 20:00 Pulse Ox 98 98 O2 Delivery Nasal Cannula Nasal Cannula Nasal Cannula Nasal Cannula O2 Flow Rate 2.0 2.0 2.0 12/21/18 12/22/18 12/22/18 12/22/18 23:15 00:12 01:24 03:10 Temp 98.6 98.1 98.6 98.1 Pulse 74 76 Resp 18 18 B/P (MAP) 123/53 (76) 118/58 (78) Pulse Ox 99 99 O2 Delivery Nasal Cannula Nasal Cannula Nasal Cannula Nasal Cannula O2 Flow Rate 2.0 2.0 12/22/18 12/22/18 06:27 07:50 Temp 97.8 97.8 Pulse 74 Resp 20 B/P (MAP) 131/55 (80) Pulse Ox 100 O2 Delivery Nasal Cannula Nasal Cannula O2 Flow Rate 2.0 2.0 Intake and Output 12/21/18 12/21/18 12/22/18 14:59 22:59 06:59 Intake Total 880 ml 250 ml Output Total 1 ml 200 ml Balance 879 ml 50 ml SAJAN BOLTON MD Dec 22, 2018 09:14
[2018-12-22] MEDS ORDERED: diphenhydrAMINE 50 MG/ML VIAL IV PRN ×2 (09:15)
[2018-12-22] MEDS ORDERED: DIALYSIS PATIENT. MC PRN (09:15)
--- NOTE | 2018-12-22 09:51 | PDOC ---
PROGRESS NOTES Subjective Subjective vaginal itching Objective Objective Vital Signs Date Time Temp Pulse Resp B/P (MAP) Pulse Ox O2 Delivery O2 Flow Rate FiO2 12/22/18 09:30 18 Nasal Cannula 2.0 12/22/18 07:50 97.8 74 131/55 (80) 100 97.8 Intake and Output 12/22/18 06:59 Intake Total 1130 ml Output Total 201 ml Balance 929 ml Intake Oral 1130 ml Output Urine Total 201 ml Physical Exam Abdomen: Normal bowel sounds, Soft, No tenderness Heart: Regular rate Extremities: No cyanosis General: mild distress HEENT: Atraumatic, PERRLA Lungs: Clear to auscultation, Normal air movement MUSCULOSKELETAL: No swelling Neuro: Normal speech Psych/Mental Status: Other (more awake, verbal today) Skin: No breakdown COMMENT tender rt shoulder Diagnosis Problem List Problems Medical Problems: (1) CAD (coronary artery disease) Status: Chronic (2) Confusion Status: Acute (3) COPD (chronic obstructive pulmonary disease) Status: Chronic (4) Diabetes mellitus Status: Chronic (5) Diabetic peripheral neuropathy Status: Chronic (6) DJD (degenerative joint disease) Status: Chronic (7) End stage renal disease Status: Acute (8) ESRD on dialysis Status: Chronic (9) Generalized weakness Status: Chronic (10) HTN (hypertension) Status: Chronic (11) Hyperkalemia Status: Acute (12) Metabolic encephalopathy Status: Acute (13) Nondisplaced fracture of metacarpal bone Status: Acute (14) Obesity Status: Chronic (15) Weakness Status: Acute Assessment Assessment Problems Medical Problems: (1) End stage renal disease Status: Acute (2) Hyperkalemia Status: Acute (3) Weakness Status: Acute FINAL IMPRESSION:vaginitis yeast 1. Encephalopathy.Change in mental status .., improving , back to normal. 2. Hyperkalemia po t 7.0. The patient is a dialysis patient.corrected with emergency dialysis. 3. On dialysis, end-stage renal disease, Saturday, Saturday, and Saturday. She went to dialysis, Saturday. 4. Mechanical fall with some maybe orbital cellulitis. 5. History of recurrent infections, has been to 3 hospitals in last 3 months , [facility] and [place]. 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 6. Diabetes. 7. Hypertension. 8. Hyperlipidemia. 9. General debility. 10.Rt shoulder and hand pain after fall at home. PLAN: SNU transfer . Dialsis today Monistat for vaginitis x ray rt shoulder -ve for fracture , Rt hand brace for fracture 3 rt carpal Dialysis m,w,f. EEG neg MRI brain -ve for cva. resume lovenox. rehab consult pt/ot Off iv antibiotics.c/s neg Plan Plan of Care Problems Medical Problems: (1) CAD (coronary artery disease) Status: Chronic (2) Confusion Status: Acute (3) COPD (chronic obstructive pulmonary disease) Status: Chronic (4) Diabetes mellitus Status: Chronic (5) Diabetic peripheral neuropathy Status: Chronic (6) DJD (degenerative joint disease) Status: Chronic (7) End stage renal disease Status: Acute (8) ESRD on dialysis Status: Chronic (9) Generalized weakness Status: Chronic (10) HTN (hypertension) Status: Chronic (11) Hyperkalemia Status: Acute (12) Metabolic encephalopathy Status: Acute (13) Nondisplaced fracture of metacarpal bone Status: Acute (14) Obesity Status: Chronic (15) Weakness Status: Acute Comment Review of Relevant I have reviewed the following items girish (where applicable) has been applied. Labs Laboratory Tests Test 12/21/18 12:06 12/21/18 17:00 12/21/18 20:48 12/22/18 05:35 Glucose (Fingerstick) 133 mg/dL (70-99) 163 mg/dL (70-99) 156 mg/dL (70-99) White Blood Count 5.7 x10^3/uL (4.0-11.0) Red Blood Count 2.89 x10^6/uL (3.50-5.40) Hemoglobin 9.3 g/dL (12.0-15.5) Hematocrit 28.5 % (36.0-47.0) Mean Corpuscular Volume 98 fL (79-100) Mean Corpuscular Hemoglobin 32 pg (25-35) Mean Corpuscular Hemoglobin Concent 33 g/dL (31-37) Red Cell Distribution Width 17.1 % (11.5-14.5) Platelet Count 150 x10^3/uL (140-400) Neutrophils (%) (Auto) 69 % (31-73) Lymphocytes (%) (Auto) 20 % (24-48) Monocytes (%) (Auto) 8 % (0-9) Eosinophils (%) (Auto) 3 % (0-3) Basophils (%) (Auto) 0 % (0-3) Neutrophils # (Auto) 3.9 x10^3/uL (1.8-7.7) Lymphocytes # (Auto) 1.1 x10^3/uL (1.0-4.8) Monocytes # (Auto) 0.5 x10^3/uL (0.0-1.1) Eosinophils # (Auto) 0.2 x10^3/uL (0.0-0.7) Basophils # (Auto) 0.0 x10^3/uL (0.0-0.2) Sodium Level 137 mmol/L (136-145) Potassium Level 4.7 mmol/L (3.5-5.1) Chloride Level 95 mmol/L (98-107) Carbon Dioxide Level 31 mmol/L (21-32) Anion Gap 11 (6-14) Blood Urea Nitrogen 66 mg/dL (7-20) Creatinine 7.5 mg/dL (0.6-1.0) Estimated GFR (Cockcroft-Gault) 6.4 Glucose Level 130 mg/dL (70-99) Calcium Level 9.4 mg/dL (8.5-10.1) Test 12/22/18 07:14 Glucose (Fingerstick) 126 mg/dL (70-99) Microbiology 12/15/18 Blood Culture - Final, Complete NO GROWTH AFTER 5 DAYS Medications Current Medications Diphenhydramine HCl (Benadryl) 25 mg 1X PRN PRN IV ITCHING; Start 12/22/18 at 09:15; Stop 12/23/18 at 09:14 Diphenhydramine HCl (Benadryl) 25 mg 1X PRN PRN IV ITCHING; Start 12/22/18 at 09:15; Stop 12/23/18 at 09:14 Info (PHARMACY MONITORING -- do not chart) 1 each PRN DAILY PRN MC SEE COMMENTS; Start 12/22/18 at 09:15 Sodium Chloride 1,000 ml @ 400 mls/hr Q2H30M PRN IV PATENCY; Start 12/22/18 at 09:13; Stop 12/22/18 at 21:12 Sodium Chloride 1,000 ml @ 1,000 mls/hr Q1H PRN IV hypotension; Start 12/22/18 at 09:13; Stop 12/22/18 at 15:12 Vitals/I & O Vital Sign - Last 24 Hours 12/21/18 12/21/18 12/21/18 12/21/18 11:00 11:09 12:09 13:16 Temp 98.4 98.4 Pulse 85 Resp 12 B/P (MAP) 147/60 (89) Pulse Ox 100 O2 Delivery Nasal Cannula Nasal Cannula Nasal Cannula Nasal Cannula O2 Flow Rate 2.0 2.0 12/21/18 12/21/18 12/21/18 12/21/18 15:00 15:40 18:01 19:06 Temp 98.4 98.4 98.4 98.4 Pulse 83 85 Resp 12 18 B/P (MAP) 138/64 (88) 137/54 (81) Pulse Ox 98 99 O2 Delivery Nasal Cannula Nasal Cannula Nasal Cannula Nasal Cannula O2 Flow Rate 2.0 2.0 12/21/18 12/21/18 12/21/18 12/21/18 19:18 19:37 19:38 20:00 Pulse Ox 98 98 O2 Delivery Nasal Cannula Nasal Cannula Nasal Cannula Nasal Cannula O2 Flow Rate 2.0 2.0 2.0 12/21/18 12/22/18 12/22/18 12/22/18 23:15 00:12 01:24 03:10 Temp 98.6 98.1 98.6 98.1 Pulse 74 76 Resp 18 18 B/P (MAP) 123/53 (76) 118/58 (78) Pulse Ox 99 99 O2 Delivery Nasal Cannula Nasal Cannula Nasal Cannula Nasal Cannula O2 Flow Rate 2.0 2.0 12/22/18 12/22/18 12/22/18 06:27 07:50 09:30 Temp 97.8 97.8 Pulse 74 Resp 20 18 B/P (MAP) 131/55 (80) Pulse Ox 100 O2 Delivery Nasal Cannula Nasal Cannula Nasal Cannula O2 Flow Rate 2.0 2.0 2.0 Intake and Output 12/21/18 12/21/18 12/22/18 14:59 22:59 06:59 Intake Total 880 ml 250 ml Output Total 1 ml 200 ml Balance 879 ml 50 ml LYLE ELENA MD Dec 22, 2018 09:51
[2018-12-22] MEDS ORDERED: LIDO700A21 TD (09:57)
[2018-12-22] MEDS ORDERED: DIPY25TA PO (09:57)
--- NOTE | 2018-12-22 09:59 | SNU/HH DC ---
DISCHARGE ORDERS DISCHARGE INFORMATION: DISCHARGE DATE: Dec 22, 2018 FINAL DIAGNOSIS Problems Medical Problems: (1) CAD (coronary artery disease) Status: Chronic (2) Confusion Status: Acute (3) COPD (chronic obstructive pulmonary disease) Status: Chronic (4) Diabetes mellitus Status: Chronic (5) Diabetic peripheral neuropathy Status: Chronic (6) DJD (degenerative joint disease) Status: Chronic (7) End stage renal disease Status: Acute (8) ESRD on dialysis Status: Chronic (9) Generalized weakness Status: Chronic (10) HTN (hypertension) Status: Chronic (11) Hyperkalemia Status: Acute (12) Metabolic encephalopathy Status: Acute (13) Nondisplaced fracture of metacarpal bone Status: Acute (14) Obesity Status: Chronic (15) Weakness Status: Acute CONDITION ON DISCHARGE: Stable CODE STATUS: Code Status: Full CARE HOME: SNF STAY <30 DAYS: Yes HOSPICE: HOSPICE: No POST DISCHARGE ORDERS: ACTIVITY ORDERS: Activity as tolerated WEIGHT BEARING STATUS: As tolerated BATHING ORDERS: No Tub Bath until see Dr. GANDARA AFTER DISCHARGE: Renal WOUND/INCISION CARE: No wound care needed OTHER ORDERS: dialsis m,w,f CHECKS AFTER DISCHARGE: CHECKS AFTER DISCHARGE: Check blood sugar, ac/hs TREATMENT/EQUIPMENT ORDERS: ADAPTIVE EQUIPMENT NEEDED: None, Wheelchair Physical Therapy For: Evalulation/Treatment Occupational Therapy For: Evaluation/Treatment DISCHARGE MEDICATIONS: Home Meds Active Scripts Dipyridamole (DIPYRIDAMOLE) 25 Mg Tablet, 25 MG PO [id number] for mild cva/tia for 30 Days, #60 TAB Prov:LYLE CORONA MD 12/22/18 Lidocaine (Lidocaine PATCH ) 1 Each Adh..patch, 1 PATCH TD DAILY for painshoulder for 30 Days, #30 PATCH Prov:LYLE CORONA MD 12/22/18 Reported Medications Albuterol Sulfate (VENTOLIN HFA INHALER) 18 Gm Hfa.aer.ad, 2 PUFF INH Q4HRS PRN for SHORTNESS OF BREATH, INHALER 0 Refills 05/01/18 Vit B Cmplx 3/Fa/Vit C/Biotin (NEPHRO-ROSALIE RX TABLET) 1 Each Tablet, 1 EACH PO DAILY for kidneys, TAB 05/01/18 Nystatin (NYSTATIN) 1 Each Powder.ea., 1 EACH PO BID PRN for REDNESS, EACH 05/01/18 Calcium Acetate (CALCIUM ACETATE) 667 Mg Tablet, 667 MG PO TIDWMEALS for DIALYSIS PATIENTS, CAP 05/01/18 Ondansetron Hcl (ZOFRAN) 8 Mg Tablet, 1 TAB PO Q12HR PRN for NAUSEA, #30 TAB 1 Refill 04/30/18 Fluticasone Propionate (FLUTICASONE PROPIONATE NASAL SPRAY) 16 Gm Bryan.susp, 2 SPRAY NS BID for asthma, #1 INHALER 11 Refills 06/21/17 Calcitriol (CALCITRIOL) 0.25 Mcg Capsule, 1 CAP PO DAILY for supplement, #30 CAP 3 Refills 06/21/17 Atorvastatin Calcium (ATORVASTATIN CALCIUM) 80 Mg Tablet, 80 MG PO DAILY for FOR CHOLESTEROL, #30 TAB 0 Refills 06/21/17 Diclofenac Sodium (VOLTAREN) 100 Gm Gel..gram., 1 GM TP BID PRN for PAIN, #100 GM 2 Refills 11/15/15 Triamcinolone Acetonide (TRIAMCINOLONE ACETONIDE 0.1% OINT) 15 Gm Oint...g., 1 KEVIN TP BID for WOUND CARE, #1 TUBE MIX WITH EUCERIN DIRECTED BY PHYSICIAN 11/15/15 Budesonide/Formoterol Fumarate (SYMBICORT 160-4.5 MCG INHALER) 10.2 Gm Hfa .aer.ad, 2 PUFF IH BID for COPD, #10.6 GM 3 Refills 11/15/15 Sodium Bicarbonate (SODIUM BICARBONATE) 650 Mg Tablet, 2 TAB PO BID for supplement, #180 TAB 3 Refills 11/15/15 Omeprazole (OMEPRAZOLE) 40 Mg Capsule.dr, 1 CAP PO DAILY for GERD, #30 CAP 3 Refills 11/15/15 Gabapentin (GABAPENTIN ) 100 Mg Capsule, 100 MG PO TID for neuropathy, CAP 11/15/15 Albuterol Sulfate (ALBUTEROL SULFATE NEB SOLN) 0.63 Mg/3 Ml Vial.neb, 0.83 % NEB TID PRN for WHEEZING, EACH 0 Refills 11/15/15 Discontinued Reported Medications [lanacane cream] No Conflict Check, 1 KEVIN TOP PRN PRN for dialysis fistula before dialys 07/08/18 Midodrine Hcl (MIDODRINE HCL) 5 Mg Tablet, 5 MG PO TID for orthostatic , TAB 07/08/18 Linaclotide (LINZESS) 145 Mcg Capsule, 72 MCG PO DAILY07 for IRRITABLE BOWEL, CAP 05/01/18 Triamcinolone Acetonide (TRIAMCINOLONE ACETONIDE) 80 Gm Oint...g., 1 KEVIN TP BID PRN for ITCHING, #30 GM 1 Refill 06/21/17 Oxycodone Hcl (OXYCODONE HCL IMMED.RELEASE ) 5 Mg Tablet, 1 TAB PO Q6HRS for pain, #120 TAB 11/15/15 Discontinued Scripts [Dialysis Patient] 1 EACH EACH No Conflict Check, 1 EACH MC PRN DAILY PRN for SEE COMMENTS for 30 Days Prov:LYLE CORONA MD 07/10/18 Lactobacillus Rhamnosus Gg (CULTURELLE) 1 Each Cap.sprink, 1 CAP PO BID for gi for 10 Days, #20 CAP Prov:LYLE CORONA MD 07/10/18 Insulin Lispro (HUMALOG) 100 Unit/1 Ml Insuln.pen, 1 UNITS SQ TIDWMEALS for diabetes for 10 Days, EACH Prov:LYLE CORONA MD 07/10/18 Oxycodone Hcl (OXYCODONE HCL IMMED.RELEASE ) 5 Mg Tablet, 5 MG PO PRN Q8HRS PRN for PAIN for 10 Days, TAB Prov:LYLE CORONA MD 07/10/18 Albuterol Sulfate (Proair Hfa) 8.5 Gm Hfa.aer.ad, 2.5 MG NEB PRN TID PRN for SHORTNESS OF BREATH for 30 Days, INHALER Prov:LYLE CORONA MD 07/10/18 Insulin Aspart (NOVOLOG FLEXPEN) 100 Unit/1 Ml Insuln.pen, 1 UNIT SQ [id number] for diabetes for 10 Days, SYR Novolog FlexPen Sliding Scale: For fingerstick blood glucose: 150-200 take 2 units 201-250 take 4 units 251-300 take 6 units 301-350 take 8 units 351-400 take 10 units If blood glucose greater than [address] Corona. Prov:LYLE CORONA MD 07/10/18 LYLE CORONA MD Dec 22, 2018 09:59
--- NOTE | 2018-12-22 10:04 | NUR ---
SS following up with discharge planning. PT/OT recommending group home unit. Per notes, family wanted [facility] and they were unable to take last week. SS contacted [facility], ; fax [phone], to see if they could accept pt this week. SS awaiting response at this time. SS phoned and faxed new referral to [facility]. SS notified pt's RN that pt will need updated PT/OT notes for insurance authorization. SS contacted pt's daughters and spoke with Ivanna, . Pt's daughter reported that there first choice is [facility] and she will discuss second options with her sister today. SS will continue to follow for discharge planning.
--- NOTE | 2018-12-22 10:12 | PDOC ---
PROGRESS NOTES Assessment Problems Medical Problems: (1) CAD (coronary artery disease) Status: Chronic (2) Confusion Status: Acute (3) COPD (chronic obstructive pulmonary disease) Status: Chronic (4) Diabetes mellitus Status: Chronic (5) Diabetic peripheral neuropathy Status: Chronic (6) DJD (degenerative joint disease) Status: Chronic (7) End stage renal disease Status: Acute (8) ESRD on dialysis Status: Chronic (9) Generalized weakness Status: Chronic (10) HTN (hypertension) Status: Chronic (11) Hyperkalemia Status: Acute (12) Metabolic encephalopathy Status: Acute (13) Nondisplaced fracture of metacarpal bone Status: Acute (14) Obesity Status: Chronic (15) Weakness Status: Acute Metabolic encephalopathy. Generalized weakness. Right hand 3rd metacarpal fracture. Diabetic peripheral neuropathy. No evidence of acute CVA. Dr. Monroe and myself have seen her in past for head and neck pain, small-vessel cerebrovascular disease, mild degenerative cervical spine changes, migraine headaches, myoclonus and asterixis, left Sanders's palsy, and the diabetic neuropathy Plan Treat medical diseases. Agree with discharge plans Subjective No complaints Objective Vital Signs Date Time Temp Pulse Resp B/P (MAP) Pulse Ox O2 Delivery O2 Flow Rate FiO2 12/22/18 09:30 18 Nasal Cannula 2.0 12/22/18 07:50 97.8 74 131/55 (80) 100 97.8 Intake and Output 12/22/18 06:59 Intake Total 1130 ml Output Total 201 ml Balance 929 ml Intake Oral 1130 ml Output Urine Total 201 ml PHYSICAL EXAM Alert. Oriented to time, place and person, jocular. PERRL. EOMI. CN: no focal findings. Muscle tone: normal. Muscle strength: 4+/5, right wrist in a split DTR: 1+ Plantar reflex: flexor Gait: not examined in bed. Sensory exam: no abnormal findings. No cerebellar signs elicited. Review of Relevant I have reviewed the following items girish (where applicable) has been applied. Labs Laboratory Tests Test 12/20/18 12:08 12/20/18 17:17 12/20/18 20:35 12/21/18 07:41 Glucose (Fingerstick) 147 mg/dL (70-99) 155 mg/dL (70-99) 180 mg/dL (70-99) 115 mg/dL (70-99) Test 12/21/18 12:06 12/21/18 17:00 12/21/18 20:48 12/22/18 05:35 Glucose (Fingerstick) 133 mg/dL (70-99) 163 mg/dL (70-99) 156 mg/dL (70-99) White Blood Count 5.7 x10^3/uL (4.0-11.0) Red Blood Count 2.89 x10^6/uL (3.50-5.40) Hemoglobin 9.3 g/dL (12.0-15.5) Hematocrit 28.5 % (36.0-47.0) Mean Corpuscular Volume 98 fL (79-100) Mean Corpuscular Hemoglobin 32 pg (25-35) Mean Corpuscular Hemoglobin Concent 33 g/dL (31-37) Red Cell Distribution Width 17.1 % (11.5-14.5) Platelet Count 150 x10^3/uL (140-400) Neutrophils (%) (Auto) 69 % (31-73) Lymphocytes (%) (Auto) 20 % (24-48) Monocytes (%) (Auto) 8 % (0-9) Eosinophils (%) (Auto) 3 % (0-3) Basophils (%) (Auto) 0 % (0-3) Neutrophils # (Auto) 3.9 x10^3/uL (1.8-7.7) Lymphocytes # (Auto) 1.1 x10^3/uL (1.0-4.8) Monocytes # (Auto) 0.5 x10^3/uL (0.0-1.1) Eosinophils # (Auto) 0.2 x10^3/uL (0.0-0.7) Basophils # (Auto) 0.0 x10^3/uL (0.0-0.2) Sodium Level 137 mmol/L (136-145) Potassium Level 4.7 mmol/L (3.5-5.1) Chloride Level 95 mmol/L (98-107) Carbon Dioxide Level 31 mmol/L (21-32) Anion Gap 11 (6-14) Blood Urea Nitrogen 66 mg/dL (7-20) Creatinine 7.5 mg/dL (0.6-1.0) Estimated GFR (Cockcroft-Gault) 6.4 Glucose Level 130 mg/dL (70-99) Calcium Level 9.4 mg/dL (8.5-10.1) Test 12/22/18 07:14 Glucose (Fingerstick) 126 mg/dL (70-99) Laboratory Tests Test 12/21/18 12:06 12/21/18 17:00 12/21/18 20:48 12/22/18 05:35 Glucose (Fingerstick) 133 mg/dL (70-99) 163 mg/dL (70-99) 156 mg/dL (70-99) White Blood Count 5.7 x10^3/uL (4.0-11.0) Red Blood Count 2.89 x10^6/uL (3.50-5.40) Hemoglobin 9.3 g/dL (12.0-15.5) Hematocrit 28.5 % (36.0-47.0) Mean Corpuscular Volume 98 fL (79-100) Mean Corpuscular Hemoglobin 32 pg (25-35) Mean Corpuscular Hemoglobin Concent 33 g/dL (31-37) Red Cell Distribution Width 17.1 % (11.5-14.5) Platelet Count 150 x10^3/uL (140-400) Neutrophils (%) (Auto) 69 % (31-73) Lymphocytes (%) (Auto) 20 % (24-48) Monocytes (%) (Auto) 8 % (0-9) Eosinophils (%) (Auto) 3 % (0-3) Basophils (%) (Auto) 0 % (0-3) Neutrophils # (Auto) 3.9 x10^3/uL (1.8-7.7) Lymphocytes # (Auto) 1.1 x10^3/uL (1.0-4.8) Monocytes # (Auto) 0.5 x10^3/uL (0.0-1.1) Eosinophils # (Auto) 0.2 x10^3/uL (0.0-0.7) Basophils # (Auto) 0.0 x10^3/uL (0.0-0.2) Sodium Level 137 mmol/L (136-145) Potassium Level 4.7 mmol/L (3.5-5.1) Chloride Level 95 mmol/L (98-107) Carbon Dioxide Level 31 mmol/L (21-32) Anion Gap 11 (6-14) Blood Urea Nitrogen 66 mg/dL (7-20) Creatinine 7.5 mg/dL (0.6-1.0) Estimated GFR (Cockcroft-Gault) 6.4 Glucose Level 130 mg/dL (70-99) Calcium Level 9.4 mg/dL (8.5-10.1) Test 12/22/18 07:14 Glucose (Fingerstick) 126 mg/dL (70-99) Microbiology 12/15/18 Blood Culture - Final, Complete NO GROWTH AFTER 5 DAYS Medications Current Medications Acetaminophen (Tylenol) 1,000 mg 1X ONCE PO Last administered on 12/15/18at 15:53; Start 12/15/18 at 14:15; Stop 12/15/18 at 14:16; Status DC Vancomycin HCl 1.25 gm/Sodium Chloride 250 ml @ 166.667 mls/hr 1X ONCE IV ; Start 12/15/18 at 14:15; Stop 12/15/18 at 15:44; Status UNV Piperacillin Sod/ Tazobactam Sod (Zosyn Per Pharmacy) 1 each PRN DAILY PRN MC SEE COMMENTS; Start 12/15/18 at 14:15; Stop 12/18/18 at 16:27; Status DC Piperacillin Sod/ Tazobactam Sod 3.375 gm/Sodium Chloride 50 ml @ 100 mls/hr 1X ONCE IV Last administered on 12/15/18at 15:03; Start 12/15/18 at 14:30; Stop 12/15/18 at 14:59; Status DC Vancomycin HCl 2 gm/Sodium Chloride 500 ml @ 250 mls/hr 1X ONCE IV Last administered on 12/15/18at 15:53; Start 12/15/18 at 15:00; Stop 12/15/18 at 16:59; Status DC Piperacillin Sod/ Tazobactam Sod 2.25 gm/Sodium Chloride 50 ml @ 100 mls/hr Q8HRS IV Last administered on 12/18/18at 15:12; Start 12/15/18 at 22:00; Stop 12/18/18 at 16:19; Status DC Calcium Gluconate (Calcium Gluconate) 2,000 mg 1X ONCE IVP Last administered on 12/15/18at 16:11; Start 12/15/18 at 16:00; Stop 12/15/18 at 16:01; Status DC Sodium Bicarbonate (Sodium Bicarb Adult 8.4% Syr) 50 meq 1X ONCE IV Last administered on 12/15/18at 16:11; Start 12/15/18 at 16:00; Stop 12/15/18 at 16:01; Status DC Insulin Human Regular (HumuLIN R VIAL) 10 unit 1X ONCE IV Last administered on 12/15/18at 16:11; Start 12/15/18 at 16:00; Stop 12/15/18 at 16:01; Status DC Dextrose (Dextrose 50%-Water Syringe) 25 gm 1X ONCE IV Last administered on 12/15/18at 16:11; Start 12/15/18 at 16:00; Stop 12/15/18 at 16:01; Status DC Sodium Chloride 1,000 ml @ 1,000 mls/hr Q1H PRN IV hypotension; Start 12/15/18 at 19:54; Stop 12/15/18 at 20:04; Status DC Albumin Human 200 ml @ 200 mls/hr 1X PRN PRN IV Hypotension; Start 12/15/18 at 20:00; Stop 12/16/18 at 01:59; Status DC Sodium Chloride 1,000 ml @ 400 mls/hr Q2H30M PRN IV PATENCY; Start 12/15/18 at 19:54; Stop 12/15/18 at 20:05; Status DC Info (PHARMACY MONITORING -- do not chart) 1 each PRN DAILY PRN MC SEE COMMENTS; Start 12/15/18 at 20:00; Status UNV Info (PHARMACY MONITORING -- do not chart) 1 each PRN DAILY PRN MC SEE COMMENTS; Start 12/15/18 at 20:00; Status Cancel Sodium Chloride 1,000 ml @ 1,000 mls/hr Q1H PRN IV hypotension; Start 12/15/18 at 20:15; Stop 12/17/18 at 09:22; Status DC Sodium Chloride 1,000 ml @ 400 mls/hr Q2H30M PRN IV PATENCY; Start 12/15/18 at 20:15; Stop 12/17/18 at 09:22; Status DC Albuterol Sulfate (Ventolin Neb Soln) 2.5 mg PRN TID PRN NEB SHORTNESS OF BREATH; Start 12/15/18 at 23:30; Stop 12/16/18 at 02:43; Status DC Calcitriol (Rocaltrol) 0.25 mcg DAILY PO Last administered on 12/21/18 08:38; Start 12/16/18 at 09:00 Diclofenac Sodium (Voltaren) 1 stefano PRN BID PRN TP PAIN Last administered on 12/20/18 05:28; Start 12/15/18 at 23:30 Fluticasone Propionate (Flonase) 2 spray BID NS Last administered on 12/21/18 21:09; Start 12/16/18 at 09:00 Gabapentin (Neurontin) 100 mg TID PO Last administered on 12/16/18 20:51; Start 12/15/18 at 23:45; Stop 12/17/18 at 09:24; Status DC Lactobacillus Rhamnosus (Culturelle) 1 cap BID PO Last administered on 12/21/18 21:09; Start 12/16/18 at 09:00 Midodrine (Proamatine) 5 mg TIDWMEALS PO Last administered on 12/19/18 13:56; Start 12/16/18 at 08:00 Oxycodone HCl (Roxicodone) 5 mg Q6HRS PO Last administered on 12/22/18 06:27; Start 12/16/18 at 00:00 Sodium Bicarbonate (Sodium Bicarbonate) 1,300 mg BID PO Last administered on 21:09; Start 12/16/18 at 09:00 Triamcinolone Acetonide (Kenalog 0.1%) 1 stefano BID TP Last administered on 12/20/18 21:24; Start 12/16/18 at 09:00 Non-Formulary Medication (Albuterol Sulfate (Albuterol Sulfate Neb Soln)) 0.83 % TID PRN NEB WHEEZING; Start 12/15/18 at 23:30; Status UNV Non-Formulary Medication (Albuterol Sulfate (Ventolin Hfa Inhaler)) 2 puff Q4HRS PRN INH SHORTNESS OF BREATH; Start 12/15/18 at 23:30; Status UNV Atorvastatin Calcium (Lipitor) 80 mg HS PO Last administered on 12/21/18 21:09; Start 12/16/18 at 21:00 Non-Formulary Medication (Budesonide/ Formoterol Fumarate (Symbicort 160-4.5 Mcg Inhaler)) 2 puff BID IH ; Start 12/16/18 at 09:00; Status UNV Calcium Acetate (Phoslo) 667 mg TIDWMEALS PO Last administered on 12/21/18at 17:13; Start 12/16/18 at 08:00 Non-Formulary Medication (Linaclotide (Linzess)) 72 mcg DAILY07 PO ; Start 12/16/18 at 07:00; Stop 12/17/18 at 10:00; Status DC Nystatin (Nystop) 1 stefano PRN BID PRN TP REDNESS Last administered on 12/18/18at 20:40; Start 12/15/18 at 23:45 Pantoprazole Sodium (Protonix) 40 mg DAILYAC PO Last administered on 12/21/18at 08:38; Start 12/16/18 at 07:30 Ondansetron HCl (Zofran Odt) 8 mg PRN Q12HR PRN PO NAUSEA; Start 12/15/18 at 23:30 Triamcinolone Acetonide (Kenalog 0.1%) 1 stefano PRN BID PRN TP ITCHING; Start 12/15/18 at 23:30 Vitamin B Complex/ Vitamin C (Steph-Neri) 1 tab DAILY PO Last administered on 12/21/18at 08:38; Start 12/16/18 at 09:00 Info (PHARMACY MONITORING -- do not chart) 1 each PRN DAILY PRN MC SEE COMMENTS; Start 12/15/18 at 23:30; Stop 12/21/18 at 16:22; Status DC Non-Formulary Medication ([lanacane cream] ) 1 stefano PRN PRN TOP dialysis fistula before dialys; Start 12/15/18 at 23:30; Status UNV Insulin Human Lispro (HumaLOG) 0-5 UNITS TIDWMEALS SQ Last administered on 12/21/18at 17:13; Start 12/16/18 at 08:00 Dextrose (Dextrose 50%-Water Syringe) 12.5 gm PRN Q15MIN PRN IV SEE COMMENTS; Start 12/15/18 at 23:30 Dextrose 250 ml PRN Q15MIN PRN IV SEE COMMENTS; Start 12/15/18 at 23:30 Enoxaparin Sodium (Lovenox 30mg Syringe) 30 mg Q24H SQ Last administered on 12/16/18at 01:15; Start 12/15/18 at 23:30; Stop 12/16/18 at 13:14; Status DC Budesonide (Pulmicort) 0.5 mg RTBID NEB Last administered on 12/21/18at 19:35; Start 12/16/18 at 08:00 Albuterol Sulfate (Ventolin Neb Soln) 2.5 mg RTQID NEB Last administered on 12/21/18at 19:35; Start 12/16/18 at 08:00 Albuterol Sulfate (Ventolin Neb Soln) 2.5 mg PRN Q4HRS PRN NEB SHORTNESS OF BREATH Last administered on 12/16/18at 08:32; Start 12/16/18 at 02:45 Vancomycin HCl (Vanco Per Pharmacy) 1 each PRN DAILY PRN MC SEE COMMENTS Last administered on 12/18/18at 15:10; Start 12/16/18 at 13:15; Stop 12/18/18 at 16:27; Status DC Vancomycin HCl (Vancomycin Random Level) 1 each 1X ONCE MC Last administered on 12/17/18at 13:16; Start 12/17/18 at 05:00; Stop 12/17/18 at 05:01; Status DC Heparin Sodium (Porcine) (Heparin Sodium) 5,000 unit Q8HRS SQ Last administered on 12/17/18at 05:44; Start 12/16/18 at 22:00; Stop 12/17/18 at 09:24; Status DC Sodium Chloride 1,000 ml @ 1,000 mls/hr Q1H PRN IV hypotension; Start 12/17/18 at 09:01; Stop 12/17/18 at 15:00; Status DC Albumin Human 200 ml @ 200 mls/hr 1X PRN PRN IV Hypotension; Start 12/17/18 at 09:15; Stop 12/17/18 at 15:14; Status DC Sodium Chloride 1,000 ml @ 400 mls/hr Q2H30M PRN IV PATENCY; Start 12/17/18 at 09:01; Stop 12/17/18 at 21:00; Status DC Info (PHARMACY MONITORING -- do not chart) 1 each PRN DAILY PRN MC SEE COMMENTS; Start 12/17/18 at 09:15; Status UNV Info (PHARMACY MONITORING -- do not chart) 1 each PRN DAILY PRN MC SEE COMMENTS; Start 12/17/18 at 09:15; Stop 12/21/18 at 16:22; Status DC Non-Formulary Medication 1 ea DAILY07 PO ; Start 12/16/18 at 07:00; Stop 12/20/18 at 10:47; Status DC Vancomycin HCl 500 mg/Sodium Chloride 100 ml @ 100 mls/hr QMWF IV ; Start at 17:00; Status Cancel Vancomycin HCl 750 mg/Sodium Chloride 250 ml @ 250 mls/hr QMWF IV Last administered on 12/17/18at 20:05; Start 12/17/18 at 17:00; Stop 12/18/18 at 16:19; Status DC Dipyridamole (Persantine) 25 mg [id number] PO Last administered on 12/22/18at 06:27; Start 12/17/18 at 18:00 Heparin Sodium (Porcine) (Heparin Sodium) 5,000 unit Q8HRS SQ Last administered on 12/22/18at 06:27; Start 12/18/18 at 14:00 Darbepoetin Joshua (ARANESP for DIALYSIS PTS) 60 mcg Th SQ Last administered on 12/18/18at 20:40; Start 12/18/18 at 21:00 Sodium Chloride 1,000 ml @ 1,000 mls/hr Q1H PRN IV hypotension; Start 12/19/18 at 07:01; Stop 12/19/18 at 13:00; Status DC Albumin Human 200 ml @ 200 mls/hr 1X PRN PRN IV Hypotension; Start 12/19/18 at 07:15; Stop 12/19/18 at 13:14; Status DC Acetaminophen (Tylenol) 500 mg 1X PRN PRN PO MILD PAIN / TEMP; Start 12/19/18 at 07:15; Stop 12/20/18 at 07:14; Status DC Diphenhydramine HCl (Benadryl) 25 mg 1X PRN PRN IV ITCHING; Start 12/19/18 at 07:15; Stop 12/20/18 at 07:14; Status DC Diphenhydramine HCl (Benadryl) 25 mg 1X PRN PRN IV ITCHING; Start 12/19/18 at 07:15; Stop 12/20/18 at 07:14; Status DC Sodium Chloride 1,000 ml @ 400 mls/hr Q2H30M PRN IV PATENCY; Start 12/19/18 at 07:01; Stop 12/19/18 at 19:00; Status DC Info (PHARMACY MONITORING -- do not chart) 1 each PRN DAILY PRN MC SEE COMMENTS; Start 12/19/18 at 07:15 Lidocaine (Lidoderm) 1 patch DAILY TD Last administered on 12/21/18at 08:38; Start 12/20/18 at 12:00 Miscellaneous (Lidoderm Patch Removal) 1 ea QHS MC Last administered on 12/21/18at 21:09; Start 12/20/18 at 21:00 Diclofenac Sodium (Voltaren) 1 stefano BID TP Last administered on 12/21/18at 21:09; Start 12/20/18 at 11:45 Sodium Chloride 1,000 ml @ 1,000 mls/hr Q1H PRN IV hypotension; Start 12/22/18 at 09:13; Stop 12/22/18 at 15:12 Diphenhydramine HCl (Benadryl) 25 mg 1X PRN PRN IV ITCHING; Start 12/22/18 at 09:15; Stop 12/23/18 at 09:14 Diphenhydramine HCl (Benadryl) 25 mg 1X PRN PRN IV ITCHING; Start 12/22/18 at 09:15; Stop 12/23/18 at 09:14 Sodium Chloride 1,000 ml @ 400 mls/hr Q2H30M PRN IV PATENCY; Start 12/22/18 at 09:13; Stop 12/22/18 at 21:12 Info (PHARMACY MONITORING -- do not chart) 1 each PRN DAILY PRN MC SEE COMMENTS; Start 12/22/18 at 09:15 Miconazole Nitrate (Monistat-Derm) 1 stefano BID TP ; Start 12/22/18 at 11:00 Active Scripts Active Dipyridamole 25 Mg Tablet 25 Mg PO [id number] 30 Days Lidocaine PATCH (Lidocaine) 1 Each Adh..patch 1 Patch TD DAILY 30 Days Reported Ventolin Hfa Inhaler (Albuterol Sulfate) 18 Gm Hfa.aer.ad 2 Puff INH Q4HRS PRN Nephro-Neri Rx Tablet (Vit B Cmplx 3/Fa/Vit C/Biotin) 1 Each Tablet 1 Each PO DAILY Nystatin 1 Each Powder.ea. 1 Each PO BID PRN Calcium Acetate 667 Mg Tablet 667 Mg PO TIDWMEALS Zofran (Ondansetron Hcl) 8 Mg Tablet 1 Tab PO Q12HR PRN Fluticasone Propionate Nasal [place] (Fluticasone Propionate) 16 Gm [place].susp 2 [place] NS BID Calcitriol 0.25 Mcg Capsule 1 Cap PO DAILY Atorvastatin Calcium 80 Mg Tablet 80 Mg PO DAILY Voltaren (Diclofenac Sodium) 100 Gm Gel..gram. 1 Gm TP BID PRN Triamcinolone Acetonide 0.1% Oint (Triamcinolone Acetonide) 15 Gm Oint...g. 1 Stefano TP BID MIX WITH EUCERIN DIRECTED BY PHYSICIAN Symbicort 160-4.5 Mcg Inhaler (Budesonide/Formoterol Fumarate) 10.2 Gm Hfa.aer.ad 2 Puff IH BID Sodium Bicarbonate 650 Mg Tablet 2 Tab PO BID Omeprazole 40 Mg Capsule. 1 Cap PO DAILY Gabapentin (Gabapentin) 100 Mg Capsule 100 Mg PO TID Albuterol Sulfate Neb Soln (Albuterol Sulfate) 0.63 Mg/3 Ml Vial.neb 0.83 % NEB TID PRN Vitals/I & O Vital Sign - Last 24 Hours 12/21/18 12/21/18 12/21/18 12/21/18 11:00 11:09 12:09 13:16 Temp 98.4 98.4 Pulse 85 Resp 12 B/P (MAP) 147/60 (89) Pulse Ox 100 O2 Delivery Nasal Cannula Nasal Cannula Nasal Cannula Nasal Cannula O2 Flow Rate 2.0 2.0 12/21/18 12/21/18 12/21/18 12/21/18 15:00 15:40 18:01 19:06 Temp 98.4 98.4 98.4 98.4 Pulse 83 85 Resp 12 18 B/P (MAP) 138/64 (88) 137/54 (81) Pulse Ox 98 99 O2 Delivery Nasal Cannula Nasal Cannula Nasal Cannula Nasal Cannula O2 Flow Rate 2.0 2.0 12/21/18 12/21/18 12/21/18 12/21/18 19:18 19:37 19:38 20:00 Pulse Ox 98 98 O2 Delivery Nasal Cannula Nasal Cannula Nasal Cannula Nasal Cannula O2 Flow Rate 2.0 2.0 2.0 12/21/18 12/22/18 12/22/18 12/22/18 23:15 00:12 01:24 03:10 Temp 98.6 98.1 98.6 98.1 Pulse 74 76 Resp 18 18 B/P (MAP) 123/53 (76) 118/58 (78) Pulse Ox 99 99 O2 Delivery Nasal Cannula Nasal Cannula Nasal Cannula Nasal Cannula O2 Flow Rate 2.0 2.0 12/22/18 12/22/18 12/22/18 06:27 07:50 09:30 Temp 97.8 97.8 Pulse 74 Resp 20 18 B/P (MAP) 131/55 (80) Pulse Ox 100 O2 Delivery Nasal Cannula Nasal Cannula Nasal Cannula O2 Flow Rate 2.0 2.0 2.0 Intake and Output 12/21/18 12/21/18 12/22/18 14:59 22:59 06:59 Intake Total 880 ml 250 ml Output Total 1 ml 200 ml Balance 879 ml 50 ml YEIMI RENEE MD Dec 22, 2018 10:12
--- NOTE | 2018-12-22 10:32 | NUR ---
SS following up with discharge planning. SS received phone contact from [facility] stating that they could not accept pt because they do not have availability to transport pt to and from dialysis. SS contacted pt's daughter, Ivanna, , and notified. Ivanna reported that she would discuss with her sister, Cecilia, and would contact SS with second choice. SS will await return call from pt's daughter and updated PT/OT notes and will proceed accordingly.
--- NOTE | 2018-12-22 10:41 | PDOC ---
SUBJECTIVE ROS Seen on HD, No complaints OBJECTIVE Vital Signs Vital Signs Date Time Temp Pulse Resp B/P (MAP) Pulse Ox O2 Delivery O2 Flow Rate FiO2 12/22/18 09:30 18 Nasal Cannula 2.0 12/22/18 07:50 97.8 74 131/55 (80) 100 97.8 I & 0 Intake and Output 12/22/18 07:00 Intake Total 1130 ml Output Total 201 ml Balance 929 ml Intake Oral 1130 ml Output Urine Total 201 ml PHYSICAL EXAM Physical Exam Abdomen: Normal bowel sounds, Soft, No tenderness Heart: Regular rate Extremities: No cyanosis General: mild distress HEENT: OM moist Lungs: Clear to auscultation, Normal air movement Neuro: Grossly normal Psych/Mental Status: Other (more awake, verbal today) Skin: No rash DIAGNOSIS/ASSESSMENT Assessment & Plan ESRD- On HD MWF Seen on HD, tolerating well Continue as ordered, Ty Rendon Anemia-On CHASITY per protocol Encephalopathy.Change in mental status ..at presentation back to normal. Hyperkalemia - at presentation, needed emergent HD Mechanical fall History of recurrent infections, has been to 3 hospitals in last 3 months , [facility] and [place]. 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 Diabetes. Hypertension. COMMENT/RELEVANT DATA Meds Current Medications Medications (Trade) Dose Ordered Sig/Noelle Start Time Stop Time Status Last Admin Dose Admin Acetaminophen (Tylenol) 500 mg 1X PRN PRN 12/19/18 07:15 12/20/18 07:14 DC Albumin Human 200 ml @ 200 mls/hr 1X PRN PRN 12/19/18 07:15 12/19/18 13:14 DC Albuterol Sulfate (Ventolin Neb Soln) 2.5 mg PRN Q4HRS PRN 12/16/18 02:45 12/16/18 08:32 2.5 MG Atorvastatin Calcium (Lipitor) 80 mg HS 12/16/18 21:00 12/21/18 21:09 80 MG Budesonide (Pulmicort) 0.5 mg RTBID 12/16/18 08:00 12/21/18 19:35 0.5 MG Calcitriol (Rocaltrol) 0.25 mcg DAILY 12/16/18 09:00 12/21/18 08:38 0.25 MCG Calcium Acetate (Phoslo) 667 mg TIDWMEALS 12/16/18 08:00 12/21/18 17:13 667 MG Calcium Gluconate (Calcium Gluconate) 2,000 mg 1X ONCE 12/15/18 16:00 12/15/18 16:01 DC 12/15/18 16:11 2,000 MG Darbepoetin Joshua (ARANESP for DIALYSIS PTS) 60 mcg Th 12/18/18 21:00 12/18/18 20:40 60 MCG Dextrose 250 ml PRN Q15MIN PRN 12/15/18 23:30 Dextrose (Dextrose 50%-Water Syringe) 12.5 gm PRN Q15MIN PRN 12/15/18 23:30 Diclofenac Sodium (Voltaren) 1 barbara BID 12/20/18 11:45 12/21/18 21:09 1 BARBARA Diphenhydramine HCl (Benadryl) 25 mg 1X PRN PRN 12/22/18 09:15 12/23/18 09:14 Dipyridamole (Persantine) 25 mg BID66 12/17/18 18:00 12/22/18 06:27 25 MG Enoxaparin Sodium (Lovenox 30mg Syringe) 30 mg Q24H 12/15/18 23:30 12/16/18 13:14 DC 12/16/18 01:15 30 MG Fluticasone Propionate (Flonase) 2 spray BID 12/16/18 09:00 12/21/18 21:09 2 SPRAY Gabapentin (Neurontin) 100 mg TID 12/15/18 23:45 12/17/18 09:24 DC 12/16/18 20:51 100 MG Heparin Sodium (Porcine) (Heparin Sodium) 5,000 unit Q8HRS 12/18/18 14:00 12/22/18 06:27 5,000 UNIT Info (PHARMACY MONITORING -- do not chart) 1 each PRN DAILY PRN 12/22/18 09:15 Insulin Human Lispro (HumaLOG) 0-5 UNITS TIDWMEALS 12/16/18 08:00 12/21/18 17:13 2 UNITS Insulin Human Regular (HumuLIN R VIAL) 10 unit 1X ONCE 12/15/18 16:00 12/15/18 16:01 DC 12/15/18 16:11 10 UNIT Lactobacillus Rhamnosus (Culturelle) 1 cap BID 12/16/18 09:00 12/21/18 21:09 1 CAP Lidocaine (Lidoderm) 1 patch DAILY 12/20/18 12:00 12/21/18 08:38 1 PATCH Miconazole Nitrate (Monistat-Derm) 1 barbara BID 12/22/18 11:00 Midodrine (Proamatine) 5 mg TIDWMEALS 12/16/18 08:00 12/19/18 13:56 5 MG Miscellaneous (Lidoderm Patch Removal) 1 ea QHS 12/20/18 21:00 12/21/18 21:09 1 EA Non-Formulary Medication 1 ea DAILY07 12/16/18 07:00 12/20/18 10:47 DC Non-Formulary Medication (Albuterol Sulfate (Albuterol Sulfate Neb Soln)) 0.83 % TID PRN 12/15/18 23:30 UNV Non-Formulary Medication (Albuterol Sulfate (Ventolin Hfa Inhaler)) 2 puff Q4HRS PRN 12/15/18 23:30 UNV Non-Formulary Medication (Budesonide/ Formoterol Fumarate (Symbicort 160-4.5 Mcg Inhaler)) 2 puff BID 12/16/18 09:00 UNV Non-Formulary Medication (Linaclotide (Linzess)) 72 mcg DAILY07 12/16/18 07:00 12/17/18 10:00 DC Non-Formulary Medication ([lanacane cream] ) 1 barbara PRN PRN 12/15/18 23:30 UNV Nystatin (Nystop) 1 barbara PRN BID PRN 12/15/18 23:45 12/18/18 20:40 1 BARBARA Ondansetron HCl (Zofran Odt) 8 mg PRN Q12HR PRN 12/15/18 23:30 Oxycodone HCl (Roxicodone) 5 mg Q6HRS 12/16/18 00:00 12/22/18 06:27 5 MG Pantoprazole Sodium (Protonix) 40 mg DAILYAC 12/16/18 07:30 12/21/18 08:38 40 MG Piperacillin Sod/ Tazobactam Sod (Zosyn Per Pharmacy) 1 each PRN DAILY PRN 12/15/18 14:15 12/18/18 16:27 DC Piperacillin Sod/ Tazobactam Sod 2.25 gm/Sodium Chloride 50 ml @ 100 mls/hr Q8HRS 12/15/18 22:00 12/18/18 16:19 DC 12/18/18 15:12 100 MLS/HR Piperacillin Sod/ Tazobactam Sod 3.375 gm/Sodium Chloride 50 ml @ 100 mls/hr 1X ONCE 12/15/18 14:30 12/15/18 14:59 DC 12/15/18 15:03 100 MLS/HR Sodium Bicarbonate (Sodium Bicarbonate) 1,300 mg BID 12/16/18 09:00 12/21/18 21:09 1,300 MG Sodium Bicarbonate (Sodium Bicarb Adult 8.4% Syr) 50 meq 1X ONCE 12/15/18 16:00 12/15/18 16:01 DC 12/15/18 16:11 50 MEQ Sodium Chloride 1,000 ml @ 400 mls/hr Q2H30M PRN 12/22/18 09:13 12/22/18 21:12 Triamcinolone Acetonide (Kenalog 0.1%) 1 barbara PRN BID PRN 12/15/18 23:30 Vancomycin HCl (Vanco Per Pharmacy) 1 each PRN DAILY PRN 12/16/18 13:15 12/18/18 16:27 DC 12/18/18 15:10 1 EACH Vancomycin HCl (Vancomycin Random Level) 1 each 1X ONCE 12/17/18 05:00 12/17/18 05:01 DC 12/17/18 13:16 1 EACH Vancomycin HCl 1.25 gm/Sodium Chloride 250 ml @ 166.667 mls/hr 1X ONCE 12/15/18 14:15 12/15/18 15:44 UNV Vancomycin HCl 500 mg/Sodium Chloride 100 ml @ 100 mls/hr QMWF 12/17/18 17:00 Cancel Vancomycin HCl 750 mg/Sodium Chloride 250 ml @ 250 mls/hr QMWF 12/17/18 17:00 12/18/18 16:19 DC 12/17/18 20:05 250 MLS/HR Vancomycin HCl 2 gm/Sodium Chloride 500 ml @ 250 mls/hr 1X ONCE 12/15/18 15:00 12/15/18 16:59 DC 12/15/18 15:53 250 MLS/HR Vitamin B Complex/ Vitamin C (Steph-Neri) 1 tab DAILY 12/16/18 09:00 12/21/18 08:38 1 TAB Lab Laboratory Tests Test 12/21/18 12:06 12/21/18 17:00 12/21/18 20:48 12/22/18 05:35 Glucose (Fingerstick) 133 mg/dL (70-99) 163 mg/dL (70-99) 156 mg/dL (70-99) White Blood Count 5.7 x10^3/uL (4.0-11.0) Red Blood Count 2.89 x10^6/uL (3.50-5.40) Hemoglobin 9.3 g/dL (12.0-15.5) Hematocrit 28.5 % (36.0-47.0) Mean Corpuscular Volume 98 fL (79-100) Mean Corpuscular Hemoglobin 32 pg (25-35) Mean Corpuscular Hemoglobin Concent 33 g/dL (31-37) Red Cell Distribution Width 17.1 % (11.5-14.5) Platelet Count 150 x10^3/uL (140-400) Neutrophils (%) (Auto) 69 % (31-73) Lymphocytes (%) (Auto) 20 % (24-48) Monocytes (%) (Auto) 8 % (0-9) Eosinophils (%) (Auto) 3 % (0-3) Basophils (%) (Auto) 0 % (0-3) Neutrophils # (Auto) 3.9 x10^3/uL (1.8-7.7) Lymphocytes # (Auto) 1.1 x10^3/uL (1.0-4.8) Monocytes # (Auto) 0.5 x10^3/uL (0.0-1.1) Eosinophils # (Auto) 0.2 x10^3/uL (0.0-0.7) Basophils # (Auto) 0.0 x10^3/uL (0.0-0.2) Sodium Level 137 mmol/L (136-145) Potassium Level 4.7 mmol/L (3.5-5.1) Chloride Level 95 mmol/L (98-107) Carbon Dioxide Level 31 mmol/L (21-32) Anion Gap 11 (6-14) Blood Urea Nitrogen 66 mg/dL (7-20) Creatinine 7.5 mg/dL (0.6-1.0) Estimated GFR (Cockcroft-Gault) 6.4 Glucose Level 130 mg/dL (70-99) Calcium Level 9.4 mg/dL (8.5-10.1) Test 12/22/18 07:14 Glucose (Fingerstick) 126 mg/dL (70-99) Results All relevant outside records, renal labs, imaging studies, telemetry/EKG's were reviewed. BRIEN GIRALDO MD Dec 22, 2018 10:41
[2018-12-22] MEDS: BUDESONIDE 0.5 MG/2 ML NEBU. NEB SCH ×2 (12:33→19:43)
[2018-12-22 12:34] VITALS: BP 125/52
[2018-12-22] MEDS: DICLOFENAC SODIUM 1% TOPICAL GEL 100GM TUBE. TP SCH ×2 (13:23→20:46)
[2018-12-22] MEDS: PANTOPRAZOLE 40 MG TABLET.DR. PO SCH (13:24)
[2018-12-22] MEDS: SODIUM BICARBONATE 650 MG TABLET. PO SCH ×2 (13:24→20:47)
[2018-12-22] MEDS: LACTOBACILLUS RHAMNOSUS GG 1 CAPSULE. PO SCH ×2 (13:25→20:48)
[2018-12-22] MEDS: LIDOCAINE (700MG/PATCH) PATCH. TD SCH (13:31)
[2018-12-22] MEDS: MICONAZOLE NITRATE 2% TOPICAL CREAM 28GM TUBE. TP SCH ×2 (13:32→20:47)
[2018-12-22] MEDS: CALCITRIOL 0.25 MCG CAPSULE. PO SCH (13:32)
[2018-12-22] MEDS: TRIAMCINOLONE ACETONIDE 0.1% TOPICAL OINTMENT 15GM TUBE. TP SCH ×2 (13:34→20:47)
[2018-12-22 15:38] VITALS: BP 158/57
[2018-12-22] MEDS: FOLIC/VIT B COMP W-C (RENAL) TABLET. PO SCH (15:39)
--- NOTE | 2018-12-22 16:54 | NUR ---
SS following up with discharge planning. Pt's daughter, Cecilia, contacted SS and requested referral be phoned and faxed to [facility], ; fax [phone]. tool and production planner phoned and faxed referral. SS will await insurance determination and acceptance decision and will proceed accordingly with discharge planning.
--- NOTE | 2018-12-22 18:19 | NUR ---
Pt will be transferred to room 534. Report was called to Yasmin IGNACIO and daughter Brenda notified of transfer. Pt will be moved at change of shift.
[2018-12-22 19:00] VITALS: BP 122/47
[2018-12-22] MEDS: ATORVASTATIN CALCIUM 40 MG TABLET. PO SCH (20:48)
[2018-12-22] MEDS: PATCH REMOVAL. MC SCH (20:56)
[2018-12-22 23:00] VITALS: BP 101/51
[2018-12-23 03:00] VITALS: BP 113/44
[2018-12-23] MEDS: DIPYRIDAMOLE 25 MG TABLET. PO SCH (05:45)
[2018-12-23] MEDS: oxyCODONE IR 5 MG TABLET PO SCH ×3 (05:46→12:04)
[2018-12-23] MEDS: HEPARIN for SUB-Q USE 5,000 UNIT/ML VIAL. SQ SCH ×2 (05:48→14:29)
[2018-12-23 07:00] VITALS: BP 132/49
[2018-12-23] MEDS: BUDESONIDE 0.5 MG/2 ML NEBU. NEB SCH (07:14)
[2018-12-23] MEDS: ALBUTEROL SULFATE 2.5 MG/3 ML NEBU. NEB SCH ×3 (07:15→15:56)
[2018-12-23] MEDS: PANTOPRAZOLE 40 MG TABLET.DR. PO SCH (07:48)
[2018-12-23] MEDS: INSULIN LISPRO 300 UNITS/3 ML VIAL. SQ SCH ×3 (07:57→17:00)
[2018-12-23] MEDS: MIDODRINE 5 MG TABLET PO SCH ×4 (08:00→17:00)
[2018-12-23] MEDS: CALCITRIOL 0.25 MCG CAPSULE. PO SCH (08:00)
[2018-12-23] MEDS: SODIUM BICARBONATE 650 MG TABLET. PO SCH (08:00)
[2018-12-23] MEDS: LACTOBACILLUS RHAMNOSUS GG 1 CAPSULE. PO SCH (08:00)
[2018-12-23] MEDS: CALCIUM ACETATE 667 MG CAPSULE PO SCH ×3 (08:01→17:26)
[2018-12-23] MEDS: FOLIC/VIT B COMP W-C (RENAL) TABLET. PO SCH (08:01)
[2018-12-23] MEDS: FLUTICASONE 50MCG/NASAL SPRAY 16GM BOTTLE. NS SCH (08:02)
[2018-12-23] MEDS: MICONAZOLE NITRATE 2% TOPICAL CREAM 28GM TUBE. TP SCH (08:02)
[2018-12-23] MEDS: LIDOCAINE (700MG/PATCH) PATCH. TD SCH (08:02)
[2018-12-23] MEDS: DICLOFENAC SODIUM 1% TOPICAL GEL 100GM TUBE. TP SCH (08:03)
[2018-12-23] MEDS: TRIAMCINOLONE ACETONIDE 0.1% TOPICAL OINTMENT 15GM TUBE. TP SCH (08:04)
--- NOTE | 2018-12-23 08:41 | NUR ---
JOSE CRUZ following pt. Insurance for SN[facility] pending. Will continue to follow. Addendum: 12/23/18 at 0847 by MATTHEW BILLINGSLEY Disregard above note. Spoke with Anisha, they are still reviewing clinicals and have not submitted for auth yet.
--- NOTE | 2018-12-23 09:04 | PDOC ---
PROGRESS NOTES Subjective Subjective She admits continued pain and weakness in her right shoulder. Objective Objective Vital Signs Date Time Temp Pulse Resp B/P (MAP) Pulse Ox O2 Delivery O2 Flow Rate FiO2 12/23/18 08:06 80 132/49 12/23/18 07:46 16 Room Air 12/23/18 07:16 98 2.0 12/23/18 07:00 98.2 98.2 Intake and Output 12/23/18 06:59 Intake Total 650 ml Output Total 0 ml Balance 650 ml Intake Oral 650 ml Output Urine Total 0 ml Physical Exam Physical Exam She is sitting up in bed and had right wrist cock up splint in place and she continues with tenderness to palpation over right shoulder anterior aspect with associated weakness of right shoulder girdle muscles. She is participating with therapy and very low physical endurance. Assessment Assessment Problems Medical Problems: (1) CAD (coronary artery disease) Status: Chronic (2) Confusion Status: Acute (3) COPD (chronic obstructive pulmonary disease) Status: Chronic (4) Diabetes mellitus Status: Chronic (5) Diabetic peripheral neuropathy Status: Chronic (6) DJD (degenerative joint disease) Status: Chronic (7) End stage renal disease Status: Acute (8) ESRD on dialysis Status: Chronic (9) Generalized weakness Status: Chronic (10) HTN (hypertension) Status: Chronic (11) Hyperkalemia Status: Acute (12) Metabolic encephalopathy Status: Acute (13) Nondisplaced fracture of metacarpal bone Status: Acute (14) Obesity Status: Chronic (15) Weakness Status: Acute Plan Plan of Care To continue present rehab efforts as tolerated and await mri scan of right shoulder to confirm right rotator cuff tear and to consider injecting her right shoulder and what happened to rehab unit screen. Comment Review of Relevant I have reviewed the following items girish (where applicable) has been applied. Labs Laboratory Tests Test 12/21/18 12:06 12/21/18 17:00 12/21/18 20:48 12/22/18 05:35 Glucose (Fingerstick) 133 mg/dL (70-99) 163 mg/dL (70-99) 156 mg/dL (70-99) White Blood Count 5.7 x10^3/uL (4.0-11.0) Red Blood Count 2.89 x10^6/uL (3.50-5.40) Hemoglobin 9.3 g/dL (12.0-15.5) Hematocrit 28.5 % (36.0-47.0) Mean Corpuscular Volume 98 fL (79-100) Mean Corpuscular Hemoglobin 32 pg (25-35) Mean Corpuscular Hemoglobin Concent 33 g/dL (31-37) Red Cell Distribution Width 17.1 % (11.5-14.5) Platelet Count 150 x10^3/uL (140-400) Neutrophils (%) (Auto) 69 % (31-73) Lymphocytes (%) (Auto) 20 % (24-48) Monocytes (%) (Auto) 8 % (0-9) Eosinophils (%) (Auto) 3 % (0-3) Basophils (%) (Auto) 0 % (0-3) Neutrophils # (Auto) 3.9 x10^3/uL (1.8-7.7) Lymphocytes # (Auto) 1.1 x10^3/uL (1.0-4.8) Monocytes # (Auto) 0.5 x10^3/uL (0.0-1.1) Eosinophils # (Auto) 0.2 x10^3/uL (0.0-0.7) Basophils # (Auto) 0.0 x10^3/uL (0.0-0.2) Sodium Level 137 mmol/L (136-145) Potassium Level 4.7 mmol/L (3.5-5.1) Chloride Level 95 mmol/L (98-107) Carbon Dioxide Level 31 mmol/L (21-32) Anion Gap 11 (6-14) Blood Urea Nitrogen 66 mg/dL (7-20) Creatinine 7.5 mg/dL (0.6-1.0) Estimated GFR (Cockcroft-Gault) 6.4 Glucose Level 130 mg/dL (70-99) Calcium Level 9.4 mg/dL (8.5-10.1) Test 12/22/18 07:14 12/22/18 12:33 12/22/18 16:34 12/22/18 20:47 Glucose (Fingerstick) 126 mg/dL (70-99) 141 mg/dL (70-99) 133 mg/dL (70-99) 188 mg/dL (70-99) Test 12/23/18 07:30 Glucose (Fingerstick) 100 mg/dL (70-99) Laboratory Tests Test 12/22/18 12:33 12/22/18 16:34 12/22/18 20:47 12/23/18 07:30 Glucose (Fingerstick) 141 mg/dL (70-99) 133 mg/dL (70-99) 188 mg/dL (70-99) 100 mg/dL (70-99) Microbiology 12/15/18 Blood Culture - Final, Complete NO GROWTH AFTER 5 DAYS Medications Current Medications Acetaminophen (Tylenol) 1,000 mg 1X ONCE PO Last administered on 12/15/18at 15:53; Start 12/15/18 at 14:15; Stop 12/15/18 at 14:16; Status DC Vancomycin HCl 1.25 gm/Sodium Chloride 250 ml @ 166.667 mls/hr 1X ONCE IV ; Start 12/15/18 at 14:15; Stop 12/15/18 at 15:44; Status UNV Piperacillin Sod/ Tazobactam Sod (Zosyn Per Pharmacy) 1 each PRN DAILY PRN MC SEE COMMENTS; Start 12/15/18 at 14:15; Stop 12/18/18 at 16:27; Status DC Piperacillin Sod/ Tazobactam Sod 3.375 gm/Sodium Chloride 50 ml @ 100 mls/hr 1X ONCE IV Last administered on 12/15/18at 15:03; Start 12/15/18 at 14:30; Stop 12/15/18 at 14:59; Status DC Vancomycin HCl 2 gm/Sodium Chloride 500 ml @ 250 mls/hr 1X ONCE IV Last administered on 12/15/18at 15:53; Start 12/15/18 at 15:00; Stop 12/15/18 at 16:59; Status DC Piperacillin Sod/ Tazobactam Sod 2.25 gm/Sodium Chloride 50 ml @ 100 mls/hr Q8HRS IV Last administered on 12/18/18at 15:12; Start 12/15/18 at 22:00; Stop 12/18/18 at 16:19; Status DC Calcium Gluconate (Calcium Gluconate) 2,000 mg 1X ONCE IVP Last administered on 12/15/18at 16:11; Start 12/15/18 at 16:00; Stop 12/15/18 at 16:01; Status DC Sodium Bicarbonate (Sodium Bicarb Adult 8.4% Syr) 50 meq 1X ONCE IV Last administered on 12/15/18at 16:11; Start 12/15/18 at 16:00; Stop 12/15/18 at 16:01; Status DC Insulin Human Regular (HumuLIN R VIAL) 10 unit 1X ONCE IV Last administered on 12/15/18at 16:11; Start 12/15/18 at 16:00; Stop 12/15/18 at 16:01; Status DC Dextrose (Dextrose 50%-Water Syringe) 25 gm 1X ONCE IV Last administered on 12/15/18at 16:11; Start 12/15/18 at 16:00; Stop 12/15/18 at 16:01; Status DC Sodium Chloride 1,000 ml @ 1,000 mls/hr Q1H PRN IV hypotension; Start 12/15/18 at 19:54; Stop 12/15/18 at 20:04; Status DC Albumin Human 200 ml @ 200 mls/hr 1X PRN PRN IV Hypotension; Start 12/15/18 at 20:00; Stop 12/16/18 at 01:59; Status DC Sodium Chloride 1,000 ml @ 400 mls/hr Q2H30M PRN IV PATENCY; Start 12/15/18 at 19:54; Stop 12/15/18 at 20:05; Status DC Info (PHARMACY MONITORING -- do not chart) 1 each PRN DAILY PRN MC SEE COMMENTS; Start 12/15/18 at 20:00; Status UNV Info (PHARMACY MONITORING -- do not chart) 1 each PRN DAILY PRN MC SEE COMMENTS; Start 12/15/18 at 20:00; Status Cancel Sodium Chloride 1,000 ml @ 1,000 mls/hr Q1H PRN IV hypotension; Start 12/15/18 at 20:15; Stop 12/17/18 at 09:22; Status DC Sodium Chloride 1,000 ml @ 400 mls/hr Q2H30M PRN IV PATENCY; Start 12/15/18 at 20:15; Stop 12/17/18 at 09:22; Status DC Albuterol Sulfate (Ventolin Neb Soln) 2.5 mg PRN TID PRN NEB SHORTNESS OF BREATH; Start 12/15/18 at 23:30; Stop 12/16/18 at 02:43; Status DC Calcitriol (Rocaltrol) 0.25 mcg DAILY PO Last administered on 12/23/18 08:04; Start 12/16/18 at 09:00 Diclofenac Sodium (Voltaren) 1 stefano PRN BID PRN TP PAIN Last administered on 12/20/18 05:28; Start 12/15/18 at 23:30 Fluticasone Propionate (Flonase) 2 spray BID NS Last administered on 12/23/18 08:04; Start 12/16/18 at 09:00 Gabapentin (Neurontin) 100 mg TID PO Last administered on 12/16/18 20:51; Start 12/15/18 at 23:45; Stop 12/17/18 at 09:24; Status DC Lactobacillus Rhamnosus (Culturelle) 1 cap BID PO Last administered on 12/23/18 08:04; Start 12/16/18 at 09:00 Midodrine (Proamatine) 5 mg TIDWMEALS PO Last administered on 12/22/18 18:02; Start 12/16/18 at 08:00 Oxycodone HCl (Roxicodone) 5 mg Q6HRS PO Last administered on 12/23/18 05:48; Start 12/16/18 at 00:00 Sodium Bicarbonate (Sodium Bicarbonate) 1,300 mg BID PO Last administered on 12/23/18 08:04; Start 12/16/18 at 09:00 Triamcinolone Acetonide (Kenalog 0.1%) 1 stefano BID TP Last administered on 12/23/18 08:05; Start 12/16/18 at 09:00 Non-Formulary Medication (Albuterol Sulfate (Albuterol Sulfate Neb Soln)) 0.83 % TID PRN NEB WHEEZING; Start 12/15/18 at 23:30; Status UNV Non-Formulary Medication (Albuterol Sulfate (Ventolin Hfa Inhaler)) 2 puff Q4HRS PRN INH SHORTNESS OF BREATH; Start 12/15/18 at 23:30; Status UNV Atorvastatin Calcium (Lipitor) 80 mg HS PO Last administered on 12/22/18 20:55; Start 12/16/18 at 21:00 Non-Formulary Medication (Budesonide/ Formoterol Fumarate (Symbicort 160-4.5 Mcg Inhaler)) 2 puff BID IH ; Start 12/16/18 at 09:00; Status UNV Calcium Acetate (Phoslo) 667 mg TIDWMEALS PO Last administered on 12/23/18at 08:04; Start 12/16/18 at 08:00 Non-Formulary Medication (Linaclotide (Linzess)) 72 mcg DAILY07 PO ; Start 12/16/18 at 07:00; Stop 12/17/18 at 10:00; Status DC Nystatin (Nystop) 1 stefano PRN BID PRN TP REDNESS Last administered on 12/18/18at 20:40; Start 12/15/18 at 23:45 Pantoprazole Sodium (Protonix) 40 mg DAILYAC PO Last administered on 12/23/18at 07:50; Start 12/16/18 at 07:30 Ondansetron HCl (Zofran Odt) 8 mg PRN Q12HR PRN PO NAUSEA Last administered on 12/22/18at 13:34; Start 12/15/18 at 23:30 Triamcinolone Acetonide (Kenalog 0.1%) 1 stefano PRN BID PRN TP ITCHING; Start 12/15/18 at 23:30 Vitamin B Complex/ Vitamin C (Steph-Neir) 1 tab DAILY PO Last administered on 12/23/18at 08:04; Start 12/16/18 at 09:00 Info (PHARMACY MONITORING -- do not chart) 1 each PRN DAILY PRN MC SEE COMMENTS; Start 12/15/18 at 23:30; Stop 12/21/18 at 16:22; Status DC Non-Formulary Medication ([lanacane cream] ) 1 stefano PRN PRN TOP dialysis fistula before dialys; Start 12/15/18 at 23:30; Status UNV Insulin Human Lispro (HumaLOG) 0-5 UNITS TIDWMEALS SQ Last administered on 12/21/18at 17:13; Start 12/16/18 at 08:00 Dextrose (Dextrose 50%-Water Syringe) 12.5 gm PRN Q15MIN PRN IV SEE COMMENTS; Start 12/15/18 at 23:30 Dextrose 250 ml PRN Q15MIN PRN IV SEE COMMENTS; Start 12/15/18 at 23:30 Enoxaparin Sodium (Lovenox 30mg Syringe) 30 mg Q24H SQ Last administered on 12/16/18at 01:15; Start 12/15/18 at 23:30; Stop 12/16/18 at 13:14; Status DC Budesonide (Pulmicort) 0.5 mg RTBID NEB Last administered on 12/23/18at 07:15; Start 12/16/18 at 08:00 Albuterol Sulfate (Ventolin Neb Soln) 2.5 mg RTQID NEB Last administered on 12/23/18at 07:15; Start 12/16/18 at 08:00 Albuterol Sulfate (Ventolin Neb Soln) 2.5 mg PRN Q4HRS PRN NEB SHORTNESS OF BREATH Last administered on 12/16/18at 08:32; Start 12/16/18 at 02:45 Vancomycin HCl (Vanco Per Pharmacy) 1 each PRN DAILY PRN MC SEE COMMENTS Last administered on 12/18/18at 15:10; Start 12/16/18 at 13:15; Stop 12/18/18 at 16:27; Status DC Vancomycin HCl (Vancomycin Random Level) 1 each 1X ONCE MC Last administered on 12/17/18at 13:16; Start 12/17/18 at 05:00; Stop 12/17/18 at 05:01; Status DC Heparin Sodium (Porcine) (Heparin Sodium) 5,000 unit Q8HRS SQ Last administered on 12/17/18at 05:44; Start 12/16/18 at 22:00; Stop 12/17/18 at 09:24; Status DC Sodium Chloride 1,000 ml @ 1,000 mls/hr Q1H PRN IV hypotension; Start 12/17/18 at 09:01; Stop 12/17/18 at 15:00; Status DC Albumin Human 200 ml @ 200 mls/hr 1X PRN PRN IV Hypotension; Start 12/17/18 at 09:15; Stop 12/17/18 at 15:14; Status DC Sodium Chloride 1,000 ml @ 400 mls/hr Q2H30M PRN IV PATENCY; Start 12/17/18 at 09:01; Stop 12/17/18 at 21:00; Status DC Info (PHARMACY MONITORING -- do not chart) 1 each PRN DAILY PRN MC SEE COMMENTS; Start 12/17/18 at 09:15; Status UNV Info (PHARMACY MONITORING -- do not chart) 1 each PRN DAILY PRN MC SEE COMMENTS; Start 12/17/18 at 09:15; Stop 12/21/18 at 16:22; Status DC Non-Formulary Medication 1 ea DAILY07 PO ; Start 12/16/18 at 07:00; Stop 12/20/18 at 10:47; Status DC Vancomycin HCl 500 mg/Sodium Chloride 100 ml @ 100 mls/hr QMWF IV ; Start 12/17/18 at 17:00; Status Cancel Vancomycin HCl 750 mg/Sodium Chloride 250 ml @ 250 mls/hr QMWF IV Last administered on 12/17/18at 20:05; Start 12/17/18 at 17:00; Stop 12/18/18 at 16:19; Status DC Dipyridamole (Persantine) 25 mg [id number] PO Last administered on 12/23/18at 05:48; Start 12/17/18 at 18:00 Heparin Sodium (Porcine) (Heparin Sodium) 5,000 unit Q8HRS SQ Last administered on 12/23/18at 05:48; Start 12/18/18 at 14:00 Darbepoetin Joshua (ARANESP for DIALYSIS PTS) 60 mcg Th SQ Last administered on 12/18/18at 20:40; Start 12/18/18 at 21:00 Sodium Chloride 1,000 ml @ 1,000 mls/hr Q1H PRN IV hypotension; Start 12/19/18 at 07:01; Stop 12/19/18 at 13:00; Status DC Albumin Human 200 ml @ 200 mls/hr 1X PRN PRN IV Hypotension; Start 12/19/18 at 07:15; Stop 12/19/18 at 13:14; Status DC Acetaminophen (Tylenol) 500 mg 1X PRN PRN PO MILD PAIN / TEMP; Start 12/19/18 at 07:15; Stop 12/20/18 at 07:14; Status DC Diphenhydramine HCl (Benadryl) 25 mg 1X PRN PRN IV ITCHING; Start 12/19/18 at 07:15; Stop 12/20/18 at 07:14; Status DC Diphenhydramine HCl (Benadryl) 25 mg 1X PRN PRN IV ITCHING; Start 12/19/18 at 07:15; Stop 12/20/18 at 07:14; Status DC Sodium Chloride 1,000 ml @ 400 mls/hr Q2H30M PRN IV PATENCY; Start 12/19/18 at 07:01; Stop 12/19/18 at 19:00; Status DC Info (PHARMACY MONITORING -- do not chart) 1 each PRN DAILY PRN MC SEE COMMENTS; Start 12/19/18 at 07:15 Lidocaine (Lidoderm) 1 patch DAILY TD Last administered on 12/23/18at 08:04; Start 12/20/18 at 12:00 Miscellaneous (Lidoderm Patch Removal) 1 ea QHS MC Last administered on 12/22/18at 20:56; Start 12/20/18 at 21:00 Diclofenac Sodium (Voltaren) 1 stefano BID TP Last administered on 12/23/18at 08:04; Start 12/20/18 at 11:45 Sodium Chloride 1,000 ml @ 1,000 mls/hr Q1H PRN IV hypotension; Start 12/22/18 at 09:13; Stop 12/22/18 at 15:12; Status DC Diphenhydramine HCl (Benadryl) 25 mg 1X PRN PRN IV ITCHING; Start 12/22/18 at 09:15; Stop 12/23/18 at 09:14 Diphenhydramine HCl (Benadryl) 25 mg 1X PRN PRN IV ITCHING; Start 12/22/18 at 09:15; Stop 12/23/18 at 09:14 Sodium Chloride 1,000 ml @ 400 mls/hr Q2H30M PRN IV PATENCY; Start 12/22/18 at 09:13; Stop 12/22/18 at 21:12; Status DC Info (PHARMACY MONITORING -- do not chart) 1 each PRN DAILY PRN MC SEE COMMENTS; Start 12/22/18 at 09:15 Miconazole Nitrate (Monistat-Derm) 1 stefano BID TP Last administered on 12/23/18at 08:04; Start 12/22/18 at 11:00 Active Scripts Active Dipyridamole 25 Mg Tablet 25 Mg PO [id number] 30 Days Lidocaine PATCH (Lidocaine) 1 Each Adh..patch 1 Patch TD DAILY 30 Days Reported Ventolin Hfa Inhaler (Albuterol Sulfate) 18 Gm Hfa.aer.ad 2 Puff INH Q4HRS PRN Nephro-Neri Rx Tablet (Vit B Cmplx 3/Fa/Vit C/Biotin) 1 Each Tablet 1 Each PO DAILY Nystatin 1 Each Powder.ea. 1 Each PO BID PRN Calcium Acetate 667 Mg Tablet 667 Mg PO TIDWMEALS Zofran (Ondansetron Hcl) 8 Mg Tablet 1 Tab PO Q12HR PRN Fluticasone Propionate Nasal [place] (Fluticasone Propionate) 16 Gm [place].susp 2 [place] NS BID Calcitriol 0.25 Mcg Capsule 1 Cap PO DAILY Atorvastatin Calcium 80 Mg Tablet 80 Mg PO DAILY Voltaren (Diclofenac Sodium) 100 Gm Gel..gram. 1 Gm TP BID PRN Triamcinolone Acetonide 0.1% Oint (Triamcinolone Acetonide) 15 Gm Oint...g. 1 Stefano TP BID MIX WITH EUCERIN DIRECTED BY PHYSICIAN Symbicort 160-4.5 Mcg Inhaler (Budesonide/Formoterol Fumarate) 10.2 Gm Hfa.aer.ad 2 Puff IH BID Sodium Bicarbonate 650 Mg Tablet 2 Tab PO BID Omeprazole 40 Mg Capsule. 1 Cap PO DAILY Gabapentin (Gabapentin) 100 Mg Capsule 100 Mg PO TID Albuterol Sulfate Neb Soln (Albuterol Sulfate) 0.63 Mg/3 Ml Vial.neb 0.83 % NEB TID PRN Vitals/I & O Vital Sign - Last 24 Hours 12/22/18 12/22/18 12/22/18 12/22/18 09:30 12:34 12:36 13:34 Temp 98.5 98.5 Pulse 96 96 Resp 18 20 B/P (MAP) 125/52 (76) 125/52 Pulse Ox 96 96 O2 Delivery Nasal Cannula Nasal Cannula Nasal Cannula O2 Flow Rate 2.0 2.0 2.0 12/22/18 12/22/18 12/22/18 12/22/18 13:34 15:38 15:43 16:21 Temp 97.2 97.2 Pulse 92 Resp 18 18 18 B/P (MAP) 158/57 (90) Pulse Ox 95 96 O2 Delivery Nasal Cannula Nasal Cannula Nasal Cannula Nasal Cannula O2 Flow Rate 2.0 2.0 2.0 2.0 12/22/18 12/22/18 12/22/18 12/22/18 18:02 18:02 19:00 19:36 Temp 99.4 99.4 Pulse 92 88 Resp 18 18 12 B/P (MAP) 158/57 122/47 (72) Pulse Ox 96 96 O2 Delivery Nasal Cannula Nasal Cannula Nasal Cannula O2 Flow Rate 2.0 2.0 2.0 12/22/18 12/22/18 12/22/18 12/22/18 19:45 19:45 20:07 23:00 Temp 98.4 98.4 Pulse 90 Resp 18 B/P (MAP) 101/51 (68) Pulse Ox 98 O2 Delivery Nasal Cannula Nasal Cannula Nasal Cannula Nasal Cannula O2 Flow Rate 2.0 2.0 2.0 2.0 12/23/18 12/23/18 12/23/18 12/23/18 00:18 01:00 03:00 05:48 Temp 98.0 98.0 Pulse 84 Resp 18 B/P (MAP) 113/44 (67) Pulse Ox 98 O2 Delivery Nasal Cannula Nasal Cannula Nasal Cannula Room Air O2 Flow Rate 2.0 2.0 2.0 12/23/18 12/23/18 12/23/18 12/23/18 07:00 07:16 07:46 08:06 Temp 98.2 98.2 Pulse 80 80 Resp 16 16 B/P (MAP) 132/49 (76) 132/49 Pulse Ox 98 98 O2 Delivery Nasal Cannula Nasal Cannula Room Air O2 Flow Rate 2.0 2.0 Intake and Output 12/22/18 12/22/18 12/23/18 14:59 22:59 06:59 Intake Total 150 ml 100 ml 400 ml Output Total 0 ml Balance 150 ml 100 ml 400 ml SAJAN BOLTON MD Dec 23, 2018 09:04
--- NOTE | 2018-12-23 09:39 | PDOC ---
PROGRESS NOTES Subjective Subjective feels good Objective Objective Vital Signs Date Time Temp Pulse Resp B/P (MAP) Pulse Ox O2 Delivery O2 Flow Rate FiO2 12/23/18 08:06 80 132/49 12/23/18 07:46 16 Room Air 12/23/18 07:16 98 2.0 12/23/18 07:00 98.2 98.2 Intake and Output 12/23/18 06:59 Intake Total 650 ml Output Total 0 ml Balance 650 ml Intake Oral 650 ml Output Urine Total 0 ml Physical Exam Abdomen: Normal bowel sounds, Soft, No tenderness Heart: Regular rate Extremities: No cyanosis General: mild distress HEENT: Atraumatic, PERRLA Lungs: Clear to auscultation, Normal air movement MUSCULOSKELETAL: No swelling Neuro: Normal speech Psych/Mental Status: Other (more awake, verbal today) Skin: No breakdown COMMENT tender rt shoulder Diagnosis Problem List Problems Medical Problems: (1) CAD (coronary artery disease) Status: Chronic (2) Confusion Status: Acute (3) COPD (chronic obstructive pulmonary disease) Status: Chronic (4) Diabetes mellitus Status: Chronic (5) Diabetic peripheral neuropathy Status: Chronic (6) DJD (degenerative joint disease) Status: Chronic (7) End stage renal disease Status: Acute (8) ESRD on dialysis Status: Chronic (9) Generalized weakness Status: Chronic (10) HTN (hypertension) Status: Chronic (11) Hyperkalemia Status: Acute (12) Metabolic encephalopathy Status: Acute (13) Nondisplaced fracture of metacarpal bone Status: Acute (14) Obesity Status: Chronic (15) Weakness Status: Acute Assessment Assessment Problems Medical Problems: (1) End stage renal disease Status: Acute (2) Hyperkalemia Status: Acute (3) Weakness Status: Acute FINAL IMPRESSION:vaginitis yeast 1. Encephalopathy.Change in mental status .., improving , back to normal. 2. Hyperkalemia po t 7.0. The patient is a dialysis patient.corrected with emergency dialysis. 3. On dialysis, end-stage renal disease, Saturday, Saturday, and Saturday. She went to dialysis, Saturday. 4. Mechanical fall with some maybe orbital cellulitis. 5. History of recurrent infections, has been to 3 hospitals in last 3 months [facility] and [facility]. 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 6. Diabetes. 7. Hypertension. 8. Hyperlipidemia. 9. General debility. 10.Rt shoulder and hand pain after fall at home. PLAN: SNU/Rehab transfer today . Dialysis tomorrow Monistat for vaginitis x ray rt shoulder -ve for fracture , Rt hand brace for fracture 3 rt carpal Dialysis m,w,f. EEG neg MRI brain -ve for cva. resume lovenox. rehab consult pt/ot Off iv antibiotics.c/s neg Plan Plan of Care Problems Medical Problems: (1) CAD (coronary artery disease) Status: Chronic (2) Confusion Status: Acute (3) COPD (chronic obstructive pulmonary disease) Status: Chronic (4) Diabetes mellitus Status: Chronic (5) Diabetic peripheral neuropathy Status: Chronic (6) DJD (degenerative joint disease) Status: Chronic (7) End stage renal disease Status: Acute (8) ESRD on dialysis Status: Chronic (9) Generalized weakness Status: Chronic (10) HTN (hypertension) Status: Chronic (11) Hyperkalemia Status: Acute (12) Metabolic encephalopathy Status: Acute (13) Nondisplaced fracture of metacarpal bone Status: Acute (14) Obesity Status: Chronic (15) Weakness Status: Acute Comment Review of Relevant I have reviewed the following items girish (where applicable) has been applied. Labs Laboratory Tests Test 12/22/18 12:33 12/22/18 16:34 12/22/18 20:47 12/23/18 07:30 Glucose (Fingerstick) 141 mg/dL (70-99) 133 mg/dL (70-99) 188 mg/dL (70-99) 100 mg/dL (70-99) Microbiology 12/15/18 Blood Culture - Final, Complete NO GROWTH AFTER 5 DAYS Medications Current Medications Miconazole Nitrate (Monistat-Derm) 1 barbara BID TP Last administered on 12/23/18at 08:04; Start 12/22/18 at 11:00 Vitals/I & O Vital Sign - Last 24 Hours 12/22/18 12/22/18 12/22/18 12/22/18 12:34 12:36 13:34 13:34 Temp 98.5 98.5 Pulse 96 96 Resp 20 18 B/P (MAP) 125/52 (76) 125/52 Pulse Ox 96 96 O2 Delivery Nasal Cannula Nasal Cannula Nasal Cannula O2 Flow Rate 2.0 2.0 2.0 12/22/18 12/22/18 12/22/18 12/22/18 15:38 15:43 16:21 18:02 Temp 97.2 97.2 Pulse 92 92 Resp 18 18 B/P (MAP) 158/57 (90) 158/57 Pulse Ox 95 96 O2 Delivery Nasal Cannula Nasal Cannula Nasal Cannula O2 Flow Rate 2.0 2.0 2.0 12/22/18 12/22/18 12/22/18 12/22/18 18:02 19:00 19:36 19:45 Temp 99.4 99.4 Pulse 88 Resp 18 18 12 B/P (MAP) 122/47 (72) Pulse Ox 96 96 O2 Delivery Nasal Cannula Nasal Cannula Nasal Cannula Nasal Cannula O2 Flow Rate 2.0 2.0 2.0 2.0 12/22/18 12/22/18 12/22/18 12/23/18 19:45 20:07 23:00 00:18 Temp 98.4 98.4 Pulse 90 Resp 18 B/P (MAP) 101/51 (68) Pulse Ox 98 O2 Delivery Nasal Cannula Nasal Cannula Nasal Cannula Nasal Cannula O2 Flow Rate 2.0 2.0 2.0 2.0 12/23/18 12/23/18 12/23/18 12/23/18 01:00 03:00 05:48 07:00 Temp 98.0 98.2 98.0 98.2 Pulse 84 80 Resp 18 16 B/P (MAP) 113/44 (67) 132/49 (76) Pulse Ox 98 98 O2 Delivery Nasal Cannula Nasal Cannula Room Air Nasal Cannula O2 Flow Rate 2.0 2.0 2.0 12/23/18 12/23/18 12/23/18 07:16 07:46 08:06 Pulse 80 Resp 16 B/P (MAP) 132/49 Pulse Ox 98 O2 Delivery Nasal Cannula Room Air O2 Flow Rate 2.0 Intake and Output 12/22/18 12/22/18 12/23/18 14:59 22:59 06:59 Intake Total 150 ml 100 ml 400 ml Output Total 0 ml Balance 150 ml 100 ml 400 ml LYLE ELENA MD Dec 23, 2018 09:38
--- NOTE | 2018-12-23 10:55 | PDOC ---
PROGRESS NOTES Assessment Problems Medical Problems: (1) CAD (coronary artery disease) Status: Chronic (2) Confusion Status: Acute (3) COPD (chronic obstructive pulmonary disease) Status: Chronic (4) Diabetes mellitus Status: Chronic (5) Diabetic peripheral neuropathy Status: Chronic (6) DJD (degenerative joint disease) Status: Chronic (7) End stage renal disease Status: Acute (8) ESRD on dialysis Status: Chronic (9) Generalized weakness Status: Chronic (10) HTN (hypertension) Status: Chronic (11) Hyperkalemia Status: Acute (12) Metabolic encephalopathy Status: Acute (13) Nondisplaced fracture of metacarpal bone Status: Acute (14) Obesity Status: Chronic (15) Weakness Status: Acute Metabolic encephalopathy. Generalized weakness. Right hand 3rd metacarpal fracture. Diabetic peripheral neuropathy. No evidence of acute CVA. Dr. Monroe and myself have seen her in past for head and neck pain, small-vessel cerebrovascular disease, mild degenerative cervical spine changes, migraine headaches, myoclonus and asterixis, left Sanders's palsy, and the diabetic neuropathy Plan Treat medical diseases. Agree with discharge plans Follow-up with neurology as needed Subjective No complaints, ready to go home Objective Vital Signs Date Time Temp Pulse Resp B/P (MAP) Pulse Ox O2 Delivery O2 Flow Rate FiO2 12/23/18 08:06 80 132/49 12/23/18 08:00 Nasal Cannula 2.0 12/23/18 07:46 16 12/23/18 07:16 98 12/23/18 07:00 98.2 98.2 Intake and Output 12/23/18 06:59 Intake Total 650 ml Output Total 0 ml Balance 650 ml Intake Oral 650 ml Output Urine Total 0 ml PHYSICAL EXAM Alert. Oriented to time, place and person, jocular. PERRL. EOMI. CN: no focal findings. Muscle tone: normal. Muscle strength: 4+/5, right wrist in a split DTR: 1+ Plantar reflex: flexor Gait: not examined in bed. Sensory exam: no abnormal findings. No cerebellar signs elicited. Review of Relevant I have reviewed the following items girish (where applicable) has been applied. Labs Laboratory Tests Test 12/21/18 12:06 12/21/18 17:00 12/21/18 20:48 12/22/18 05:35 Glucose (Fingerstick) 133 mg/dL (70-99) 163 mg/dL (70-99) 156 mg/dL (70-99) White Blood Count 5.7 x10^3/uL (4.0-11.0) Red Blood Count 2.89 x10^6/uL (3.50-5.40) Hemoglobin 9.3 g/dL (12.0-15.5) Hematocrit 28.5 % (36.0-47.0) Mean Corpuscular Volume 98 fL (79-100) Mean Corpuscular Hemoglobin 32 pg (25-35) Mean Corpuscular Hemoglobin Concent 33 g/dL (31-37) Red Cell Distribution Width 17.1 % (11.5-14.5) Platelet Count 150 x10^3/uL (140-400) Neutrophils (%) (Auto) 69 % (31-73) Lymphocytes (%) (Auto) 20 % (24-48) Monocytes (%) (Auto) 8 % (0-9) Eosinophils (%) (Auto) 3 % (0-3) Basophils (%) (Auto) 0 % (0-3) Neutrophils # (Auto) 3.9 x10^3/uL (1.8-7.7) Lymphocytes # (Auto) 1.1 x10^3/uL (1.0-4.8) Monocytes # (Auto) 0.5 x10^3/uL (0.0-1.1) Eosinophils # (Auto) 0.2 x10^3/uL (0.0-0.7) Basophils # (Auto) 0.0 x10^3/uL (0.0-0.2) Sodium Level 137 mmol/L (136-145) Potassium Level 4.7 mmol/L (3.5-5.1) Chloride Level 95 mmol/L (98-107) Carbon Dioxide Level 31 mmol/L (21-32) Anion Gap 11 (6-14) Blood Urea Nitrogen 66 mg/dL (7-20) Creatinine 7.5 mg/dL (0.6-1.0) Estimated GFR (Cockcroft-Gault) 6.4 Glucose Level 130 mg/dL (70-99) Calcium Level 9.4 mg/dL (8.5-10.1) Test 12/22/18 07:14 12/22/18 12:33 12/22/18 16:34 12/22/18 20:47 Glucose (Fingerstick) 126 mg/dL (70-99) 141 mg/dL (70-99) 133 mg/dL (70-99) 188 mg/dL (70-99) Test 12/23/18 07:30 Glucose (Fingerstick) 100 mg/dL (70-99) Laboratory Tests Test 12/22/18 12:33 12/22/18 16:34 12/22/18 20:47 12/23/18 07:30 Glucose (Fingerstick) 141 mg/dL (70-99) 133 mg/dL (70-99) 188 mg/dL (70-99) 100 mg/dL (70-99) Microbiology 12/15/18 Blood Culture - Final, Complete NO GROWTH AFTER 5 DAYS Medications Current Medications Acetaminophen (Tylenol) 1,000 mg 1X ONCE PO Last administered on 12/15/18at 15:53; Start 12/15/18 at 14:15; Stop 12/15/18 at 14:16; Status DC Vancomycin HCl 1.25 gm/Sodium Chloride 250 ml @ 166.667 mls/hr 1X ONCE IV ; Start 12/15/18 at 14:15; Stop 12/15/18 at 15:44; Status UNV Piperacillin Sod/ Tazobactam Sod (Zosyn Per Pharmacy) 1 each PRN DAILY PRN MC SEE COMMENTS; Start 12/15/18 at 14:15; Stop 12/18/18 at 16:27; Status DC Piperacillin Sod/ Tazobactam Sod 3.375 gm/Sodium Chloride 50 ml @ 100 mls/hr 1X ONCE IV Last administered on 12/15/18at 15:03; Start 12/15/18 at 14:30; Stop 12/15/18 at 14:59; Status DC Vancomycin HCl 2 gm/Sodium Chloride 500 ml @ 250 mls/hr 1X ONCE IV Last administered on 12/15/18at 15:53; Start 12/15/18 at 15:00; Stop 12/15/18 at 16:59; Status DC Piperacillin Sod/ Tazobactam Sod 2.25 gm/Sodium Chloride 50 ml @ 100 mls/hr Q8HRS IV Last administered on 12/18/18at 15:12; Start 12/15/18 at 22:00; Stop 12/18/18 at 16:19; Status DC Calcium Gluconate (Calcium Gluconate) 2,000 mg 1X ONCE IVP Last administered on 12/15/18at 16:11; Start 12/15/18 at 16:00; Stop 12/15/18 at 16:01; Status DC Sodium Bicarbonate (Sodium Bicarb Adult 8.4% Syr) 50 meq 1X ONCE IV Last administered on 12/15/18at 16:11; Start 12/15/18 at 16:00; Stop 12/15/18 at 16:01; Status DC Insulin Human Regular (HumuLIN R VIAL) 10 unit 1X ONCE IV Last administered on 12/15/18at 16:11; Start 12/15/18 at 16:00; Stop 12/15/18 at 16:01; Status DC Dextrose (Dextrose 50%-Water Syringe) 25 gm 1X ONCE IV Last administered on 12/15/18at 16:11; Start 12/15/18 at 16:00; Stop 12/15/18 at 16:01; Status DC Sodium Chloride 1,000 ml @ 1,000 mls/hr Q1H PRN IV hypotension; Start 12/15/18 at 19:54; Stop 12/15/18 at 20:04; Status DC Albumin Human 200 ml @ 200 mls/hr 1X PRN PRN IV Hypotension; Start 12/15/18 at 20:00; Stop 12/16/18 at 01:59; Status DC Sodium Chloride 1,000 ml @ 400 mls/hr Q2H30M PRN IV PATENCY; Start 12/15/18 at 19:54; Stop 12/15/18 at 20:05; Status DC Info (PHARMACY MONITORING -- do not chart) 1 each PRN DAILY PRN MC SEE COMMENTS; Start 12/15/18 at 20:00; Status UNV Info (PHARMACY MONITORING -- do not chart) 1 each PRN DAILY PRN MC SEE COMMENTS; Start 12/15/18 at 20:00; Status Cancel Sodium Chloride 1,000 ml @ 1,000 mls/hr Q1H PRN IV hypotension; Start 12/15/18 at 20:15; Stop 12/17/18 at 09:22; Status DC Sodium Chloride 1,000 ml @ 400 mls/hr Q2H30M PRN IV PATENCY; Start 12/15/18 at 20:15; Stop 12/17/18 at 09:22; Status DC Albuterol Sulfate (Ventolin Neb Soln) 2.5 mg PRN TID PRN NEB SHORTNESS OF BREATH; Start 12/15/18 at 23:30; Stop 12/16/18 at 02:43; Status DC Calcitriol (Rocaltrol) 0.25 mcg DAILY PO Last administered on 12/23/18 08:04; Start 12/16/18 at 09:00 Diclofenac Sodium (Voltaren) 1 stefano PRN BID PRN TP PAIN Last administered on 12/20/18 05:28; Start 12/15/18 at 23:30 Fluticasone Propionate (Flonase) 2 spray BID NS Last administered on 12/23/18 08:04; Start 12/16/18 at 09:00 Gabapentin (Neurontin) 100 mg TID PO Last administered on 12/16/18 20:51; Start 12/15/18 at 23:45; Stop 12/17/18 at 09:24; Status DC Lactobacillus Rhamnosus (Culturelle) 1 cap BID PO Last administered on 12/23/18 08:04; Start 12/16/18 at 09:00 Midodrine (Proamatine) 5 mg TIDWMEALS PO Last administered on 12/22/18 18:02; Start 12/16/18 at 08:00 Oxycodone HCl (Roxicodone) 5 mg Q6HRS PO Last administered on 12/23/18 05:48; Start 12/16/18 at 00:00 Sodium Bicarbonate (Sodium Bicarbonate) 1,300 mg BID PO Last administered on 12/23/18 08:04; Start 12/16/18 at 09:00 Triamcinolone Acetonide (Kenalog 0.1%) 1 stefano BID TP Last administered on 12/23/18 08:05; Start 12/16/18 at 09:00 Non-Formulary Medication (Albuterol Sulfate (Albuterol Sulfate Neb Soln)) 0.83 % TID PRN NEB WHEEZING; Start 12/15/18 at 23:30; Status UNV Non-Formulary Medication (Albuterol Sulfate (Ventolin Hfa Inhaler)) 2 puff Q4HRS PRN INH SHORTNESS OF BREATH; Start 12/15/18 at 23:30; Status UNV Atorvastatin Calcium (Lipitor) 80 mg HS PO Last administered on 12/22/18at 20:55; Start 12/16/18 at 21:00 Non-Formulary Medication (Budesonide/ Formoterol Fumarate (Symbicort 160-4.5 Mcg Inhaler)) 2 puff BID IH ; Start 12/16/18 at 09:00; Status UNV Calcium Acetate (Phoslo) 667 mg TIDWMEALS PO Last administered on 12/23/18at 08:04; Start 12/16/18 at 08:00 Non-Formulary Medication (Linaclotide (Linzess)) 72 mcg DAILY07 PO ; Start 12/16/18 at 07:00; Stop 12/17/18 at 10:00; Status DC Nystatin (Nystop) 1 stefano PRN BID PRN TP REDNESS Last administered on 12/18/18at 20:40; Start 12/15/18 at 23:45 Pantoprazole Sodium (Protonix) 40 mg DAILYAC PO Last administered on 12/23/18at 07:50; Start 12/16/18 at 07:30 Ondansetron HCl (Zofran Odt) 8 mg PRN Q12HR PRN PO NAUSEA Last administered on 12/22/18 13:34; Start 12/15/18 at 23:30 Triamcinolone Acetonide (Kenalog 0.1%) 1 stefano PRN BID PRN TP ITCHING; Start 12/15/18 at 23:30 Vitamin B Complex/ Vitamin C (Steph-Neri) 1 tab DAILY PO Last administered on 12/23/18at 08:04; Start 12/16/18 at 09:00 Info (PHARMACY MONITORING -- do not chart) 1 each PRN DAILY PRN MC SEE COMMENTS; Start 12/15/18 at 23:30; Stop 12/21/18 at 16:22; Status DC Non-Formulary Medication ([lanacane cream] ) 1 stefano PRN PRN TOP dialysis fistula before dialys; Start 12/15/18 at 23:30; Status UNV Insulin Human Lispro (HumaLOG) 0-5 UNITS TIDWMEALS SQ Last administered on 12/21/18at 17:13; Start 12/16/18 at 08:00 Dextrose (Dextrose 50%-Water Syringe) 12.5 gm PRN Q15MIN PRN IV SEE COMMENTS; Start 12/15/18 at 23:30 Dextrose 250 ml PRN Q15MIN PRN IV SEE COMMENTS; Start 12/15/18 at 23:30 Enoxaparin Sodium (Lovenox 30mg Syringe) 30 mg Q24H SQ Last administered on 12/16/18at 01:15; Start 12/15/18 at 23:30; Stop 12/16/18 at 13:14; Status DC Budesonide (Pulmicort) 0.5 mg RTBID NEB Last administered on 12/23/18at 07:15; Start 12/16/18 at 08:00 Albuterol Sulfate (Ventolin Neb Soln) 2.5 mg RTQID NEB Last administered on 12/23/18at 07:15; Start 12/16/18 at 08:00 Albuterol Sulfate (Ventolin Neb Soln) 2.5 mg PRN Q4HRS PRN NEB SHORTNESS OF BREATH Last administered on 12/16/18at 08:32; Start 12/16/18 at 02:45 Vancomycin HCl (Vanco Per Pharmacy) 1 each PRN DAILY PRN MC SEE COMMENTS Last administered on 12/18/18at 15:10; Start 12/16/18 at 13:15; Stop 12/18/18 at 16:27; Status DC Vancomycin HCl (Vancomycin Random Level) 1 each 1X ONCE MC Last administered on 12/17/18at 13:16; Start 12/17/18 at 05:00; Stop 12/17/18 at 05:01; Status DC Heparin Sodium (Porcine) (Heparin Sodium) 5,000 unit Q8HRS SQ Last administered on 12/17/18at 05:44; Start 12/16/18 at 22:00; Stop 12/17/18 at 09:24; Status DC Sodium Chloride 1,000 ml @ 1,000 mls/hr Q1H PRN IV hypotension; Start 12/17/18 at 09:01; Stop 12/17/18 at 15:00; Status DC Albumin Human 200 ml @ 200 mls/hr 1X PRN PRN IV Hypotension; Start 12/17/18 at 09:15; Stop 12/17/18 at 15:14; Status DC Sodium Chloride 1,000 ml @ 400 mls/hr Q2H30M PRN IV PATENCY; Start 12/17/18 at 09:01; Stop 12/17/18 at 21:00; Status DC Info (PHARMACY MONITORING -- do not chart) 1 each PRN DAILY PRN MC SEE COMMENTS; Start 12/17/18 at 09:15; Status UNV Info (PHARMACY MONITORING -- do not chart) 1 each PRN DAILY PRN MC SEE COMMENTS; Start 12/17/18 at 09:15; Stop 12/21/18 at 16:22; Status DC Non-Formulary Medication 1 ea DAILY07 PO ; Start 12/16/18 at 07:00; Stop 12/20/18 at 10:47; Status DC Vancomycin HCl 500 mg/Sodium Chloride 100 ml @ 100 mls/hr QMWF IV ; Start 12/17/18 at 17:00; Status Cancel Vancomycin HCl 750 mg/Sodium Chloride 250 ml @ 250 mls/hr QMWF IV Last administered on 12/17/18at 20:05; Start 12/17/18 at 17:00; Stop 12/18/18 at 16:19; Status DC Dipyridamole (Persantine) 25 mg BID66 PO Last administered on 12/23/18at 05:48; Start 12/17/18 at 18:00 Heparin Sodium (Porcine) (Heparin Sodium) 5,000 unit Q8HRS SQ Last administered on 12/23/18at 05:48; Start 12/18/18 at 14:00 Darbepoetin Joshua (ARANESP for DIALYSIS PTS) 60 mcg Th SQ Last administered on 12/18/18at 20:40; Start 12/18/18 at 21:00 Sodium Chloride 1,000 ml @ 1,000 mls/hr Q1H PRN IV hypotension; Start 12/19/18 at 07:01; Stop 12/19/18 at 13:00; Status DC Albumin Human 200 ml @ 200 mls/hr 1X PRN PRN IV Hypotension; Start 12/19/18 at 07:15; Stop 12/19/18 at 13:14; Status DC Acetaminophen (Tylenol) 500 mg 1X PRN PRN PO MILD PAIN / TEMP; Start 12/19/18 at 07:15; Stop 12/20/18 at 07:14; Status DC Diphenhydramine HCl (Benadryl) 25 mg 1X PRN PRN IV ITCHING; Start 12/19/18 at 07:15; Stop 12/20/18 at 07:14; Status DC Diphenhydramine HCl (Benadryl) 25 mg 1X PRN PRN IV ITCHING; Start 12/19/18 at 07:15; Stop 12/20/18 at 07:14; Status DC Sodium Chloride 1,000 ml @ 400 mls/hr Q2H30M PRN IV PATENCY; Start 12/19/18 at 07:01; Stop 12/19/18 at 19:00; Status DC Info (PHARMACY MONITORING -- do not chart) 1 each PRN DAILY PRN MC SEE COMMENTS; Start 12/19/18 at 07:15 Lidocaine (Lidoderm) 1 patch DAILY TD Last administered on 12/23/18at 08:04; Start 12/20/18 at 12:00 Miscellaneous (Lidoderm Patch Removal) 1 ea QHS MC Last administered on 12/22/18at 20:56; Start 12/20/18 at 21:00 Diclofenac Sodium (Voltaren) 1 stefano BID TP Last administered on 12/23/18at 08:04; Start 12/20/18 at 11:45 Sodium Chloride 1,000 ml @ 1,000 mls/hr Q1H PRN IV hypotension; Start 12/22/18 at 09:13; Stop 12/22/18 at 15:12; Status DC Diphenhydramine HCl (Benadryl) 25 mg 1X PRN PRN IV ITCHING; Start 12/22/18 at 09:15; Stop 12/23/18 at 09:14; Status DC Diphenhydramine HCl (Benadryl) 25 mg 1X PRN PRN IV ITCHING; Start 12/22/18 at 09:15; Stop 12/23/18 at 09:14; Status DC Sodium Chloride 1,000 ml @ 400 mls/hr Q2H30M PRN IV PATENCY; Start 12/22/18 at 09:13; Stop 12/22/18 at 21:12; Status DC Info (PHARMACY MONITORING -- do not chart) 1 each PRN DAILY PRN MC SEE COMMENTS; Start 12/22/18 at 09:15 Miconazole Nitrate (Monistat-Derm) 1 stefano BID TP Last administered on 12/23/18at 08:04; Start 12/22/18 at 11:00 Active Scripts Active Dipyridamole 25 Mg Tablet 25 Mg PO [id number] 30 Days Lidocaine PATCH (Lidocaine) 1 Each Adh..patch 1 Patch TD DAILY 30 Days Reported Ventolin Hfa Inhaler (Albuterol Sulfate) 18 Gm Hfa.aer.ad 2 Puff INH Q4HRS PRN Nephro-Neri Rx Tablet (Vit B Cmplx 3/Fa/Vit C/Biotin) 1 Each Tablet 1 Each PO DAILY Nystatin 1 Each Powder.ea. 1 Each PO BID PRN Calcium Acetate 667 Mg Tablet 667 Mg PO TIDWMEALS Zofran (Ondansetron Hcl) 8 Mg Tablet 1 Tab PO Q12HR PRN Fluticasone Propionate Nasal [place] (Fluticasone Propionate) 16 Gm [place].susp 2 [place] NS BID Calcitriol 0.25 Mcg Capsule 1 Cap PO DAILY Atorvastatin Calcium 80 Mg Tablet 80 Mg PO DAILY Voltaren (Diclofenac Sodium) 100 Gm Gel..gram. 1 Gm TP BID PRN Triamcinolone Acetonide 0.1% Oint (Triamcinolone Acetonide) 15 Gm Oint...g. 1 Stefano TP BID MIX WITH EUCERIN DIRECTED BY PHYSICIAN Symbicort 160-4.5 Mcg Inhaler (Budesonide/Formoterol Fumarate) 10.2 Gm Hfa.aer.ad 2 Puff IH BID Sodium Bicarbonate 650 Mg Tablet 2 Tab PO BID Omeprazole 40 Mg Capsule. 1 Cap PO DAILY Gabapentin (Gabapentin) 100 Mg Capsule 100 Mg PO TID Albuterol Sulfate Neb Soln (Albuterol Sulfate) 0.63 Mg/3 Ml Vial.neb 0.83 % NEB TID PRN Vitals/I & O Vital Sign - Last 24 Hours 12/22/18 12/22/18 12/22/18 12/22/18 12:34 12:36 13:34 13:34 Temp 98.5 98.5 Pulse 96 96 Resp 20 18 B/P (MAP) 125/52 (76) 125/52 Pulse Ox 96 96 O2 Delivery Nasal Cannula Nasal Cannula Nasal Cannula O2 Flow Rate 2.0 2.0 2.0 12/22/18 12/22/18 12/22/18 12/22/18 15:38 15:43 16:21 18:02 Temp 97.2 97.2 Pulse 92 92 Resp 18 18 B/P (MAP) 158/57 (90) 158/57 Pulse Ox 95 96 O2 Delivery Nasal Cannula Nasal Cannula Nasal Cannula O2 Flow Rate 2.0 2.0 2.0 12/22/18 12/22/18 12/22/18 12/22/18 18:02 19:00 19:36 19:45 Temp 99.4 99.4 Pulse 88 Resp 18 18 12 B/P (MAP) 122/47 (72) Pulse Ox 96 96 O2 Delivery Nasal Cannula Nasal Cannula Nasal Cannula Nasal Cannula O2 Flow Rate 2.0 2.0 2.0 2.0 12/22/18 12/22/18 12/22/18 12/23/18 19:45 20:07 23:00 00:18 Temp 98.4 98.4 Pulse 90 Resp 18 B/P (MAP) 101/51 (68) Pulse Ox 98 O2 Delivery Nasal Cannula Nasal Cannula Nasal Cannula Nasal Cannula O2 Flow Rate 2.0 2.0 2.0 2.0 12/23/18 12/23/18 12/23/18 12/23/18 01:00 03:00 05:48 07:00 Temp 98.0 98.2 98.0 98.2 Pulse 84 80 Resp 18 16 B/P (MAP) 113/44 (67) 132/49 (76) Pulse Ox 98 98 O2 Delivery Nasal Cannula Nasal Cannula Room Air Nasal Cannula O2 Flow Rate 2.0 2.0 2.0 12/23/18 12/23/18 12/23/18 12/23/18 07:16 07:46 08:00 08:06 Pulse 80 Resp 16 B/P (MAP) 132/49 Pulse Ox 98 O2 Delivery Nasal Cannula Room Air Nasal Cannula O2 Flow Rate 2.0 2.0 Intake and Output 12/22/18 12/22/18 12/23/18 14:59 22:59 06:59 Intake Total 150 ml 100 ml 400 ml Output Total 0 ml Balance 150 ml 100 ml 400 ml YEIMI RENEE MD Dec 23, 2018 10:55
[2018-12-23 11:00] VITALS: BP 137/48
[2018-12-23 15:00] VITALS: BP 119/50
--- NOTE | 2018-12-23 15:27 | NUR ---
SW following pt. Pt accepted at [facility] insurance approved [facility]. Orders faxed to [facility] and pt will transport via facility arranged w/c van between [phone]. Left a voice mail to pt's daughter, Cecilia about plans. Pt aware of plans and agreeable (provided with copy of approval letter). Discussed with RN.
--- NOTE | 2018-12-23 15:42 | NUR ---
Report called to Robbin IGNACIO at [facility], see nursing communication, orders and notes. Patient and her dtr. v/u POC.
[2018-12-23 17:00] VITALS: BP 119/50
== END 2018-12-23 17:50 | DRG 562 ==
LOC: ER 13:54 → ED HOLD 18:00 → 6 SOUTH 23:22 → 5 NORTH 12-22 19:15
PROVIDERS: ADMIT Internal Medicine; ATTEND Internal Medicine
PROC: 5A1D70Z Performance of Urinary Filtration, Intermittent, Less than 6 Hours Per Day (ICD-10-PCS; 2018-12-15)
PROC: 2W3EX1Z Immobilization of Right Hand using Splint (ICD-10-PCS; 2018-12-15)
PROC: 5A1D70Z Performance of Urinary Filtration, Intermittent, Less than 6 Hours Per Day (ICD-10-PCS; 2018-12-17)
PROC: 5A1D70Z Performance of Urinary Filtration, Intermittent, Less than 6 Hours Per Day (ICD-10-PCS; 2018-12-19)
PROC: 5A1D70Z Performance of Urinary Filtration, Intermittent, Less than 6 Hours Per Day (ICD-10-PCS; principal; 2018-12-22)
DX: S62.309A Unspecified fracture of unspecified metacarpal bone, initial encounter for closed fracture (principal); G93.41 Metabolic encephalopathy; N18.6 End stage renal disease; I13.2 Hypertensive heart and chronic kidney disease with heart failure and with stage 5 chronic kidney disease, or end stage renal disease; I50.30 Unspecified diastolic (congestive) heart failure; J98.11 Atelectasis; E87.5 Hyperkalemia; B37.3 Candidiasis of vulva and vagina; D64.9 Anemia, unspecified; E11.22 Type 2 diabetes mellitus with diabetic chronic kidney disease; E11.42 Type 2 diabetes mellitus with diabetic polyneuropathy; E11.59 Type 2 diabetes mellitus with other circulatory complications; E66.9 Obesity, unspecified; E78.5 Hyperlipidemia, unspecified; G25.3 Myoclonus; G43.909 Migraine, unspecified, not intractable, without status migrainosus; G51.0 Bell's palsy; I25.10 Atherosclerotic heart disease of native coronary artery without angina pectoris; E21.3 Hyperparathyroidism, unspecified; J44.9 Chronic obstructive pulmonary disease, unspecified; K57.90 Diverticulosis of intestine, part unspecified, without perforation or abscess without bleeding; K21.9 Gastro-esophageal reflux disease without esophagitis; M17.0 Bilateral primary osteoarthritis of knee; M79.7 Fibromyalgia; Z82.49 Family history of ischemic heart disease and other diseases of the circulatory system; Z83.3 Family history of diabetes mellitus; Z86.19 Personal history of other infectious and parasitic diseases; Z87.11 Personal history of peptic ulcer disease; Z90.49 Acquired absence of other specified parts of digestive tract; Z98.84 Bariatric surgery status; Z99.2 Dependence on renal dialysis; Z90.710 Acquired absence of both cervix and uterus; Z88.8 Allergy status to other drugs, medicaments and biological substances; Z79.899 Other long term (current) drug therapy; W18.39XA Other fall on same level, initial encounter; Y93.89 Activity, other specified; Y92.89 Other specified places as the place of occurrence of the external cause; Y99.8 Other external cause status
CPT/HCPCS: 36415; 70450; 70551; 71045; 73030; 73070; 73120; 80048; 80053; 80061; 80202; 81001; 82550; 82607; 82962; 83036; 83605; 83735; 84439; 84443; 84484; 85025; 85027; 85610; 87040; 93005; 94640; 94760; 95816; 96365; 96367; 96375; J0610; J0882; J1644; J1650; J1815; J2543; J3370; J7040; J7042; J7050; J7613; J7626; Q0162; 97110; 97530; 97535; 99291-25; G0378; J7030

== ENCOUNTER 2019-01-27 08:52 | Day surgery (SDC) | payer BC ==
[~2019-01-27] VITALS: Ht 162.6 cm; Wt 97.6 kg
[~2019-01-27 08:52] MED LIST changes: +BUPIVACAINE-EPI 0.5%-1:200000 MPF 30 ML VIAL. INJ ONE; +DIPY25TA PO; +FOLI0.8T3 PO; +GABA-689 PO; +HEPARIN SODIUM 5,000 UNIT in IV NORMAL SALINE 500ML BAG 500 ML IRR ONE; +IV NORMAL SALINE 1000ML BAG 1,000 ML IV SCH; +IV RINGERS,LACTATED 1000ML 1,000 ML IV SCH; +LIDO700A21 TD; +LIDOCAINE 1% PF 2 ML VIAL. ID PRN; +LOPE-101 PO; -LOPE2CAP88 PO; -NITR0.4T SL; +NITR0.4T24 SL; +ONDANSETRON PF 4 MG/2 ML VIAL. IV PRN; +PROCHLORPERAZINE 10 MG/2 ML VIAL. IV PRN; +fentaNYL PF VIAL 100 MCG/2 ML VIAL IV PRN
[2019-01-27] MEDS ORDERED: PROPOFOL 20 ML IV ONE (09:06)
[2019-01-27] MEDS ORDERED: LIDOCAINE 2% PF 5 ML VIAL. ONE (09:06)
[2019-01-27] MEDS ORDERED: fentaNYL PF VIAL 100 MCG/2 ML VIAL ONE (09:07)
[2019-01-27] MEDS ORDERED: ROCURONIUM 50 MG/5 ML VIAL. ONE (09:07)
[2019-01-27] MEDS ORDERED: SUCCINYLCHOLINE 200 MG/10 ML VIAL. ONE (09:07)
[2019-01-27 09:59] LABS: BASO % 1 % (0-3); EOS # 0.2 x10^3/uL (0.0-0.7); EOS % 3 % (0-3); HEMATOCRIT 31.1 % (36.0-47.0); HEMOGLOBIN 9.9 g/dL (12.0-15.5); LYMPH # 1.9 x10^3/uL (1.0-4.8); LYMPH % 39 % (24-48); MEAN CORPUSCULAR HEMOGLOBIN 32 pg (25-35); MEAN CORPUSCULAR HGB CONC 32 g/dL (31-37); MEAN CORPUSCULAR VOLUME 102 fL (79-100); MONO # 0.6 x10^3/uL (0.0-1.1); MONO % 12 % (0-9); NEUT # 2.2 x10^3/uL (1.8-7.7); NEUT % 46 % (31-73); PLATELET COUNT 173 x10^3/uL (140-400); RED BLOOD COUNT 3.05 x10^6/uL (3.50-5.40); RED CELL DISTRIBUTION WIDTH 19.7 % (11.5-14.5); WHITE BLOOD COUNT 4.9 x10^3/uL (4.0-11.0)
[2019-01-27] MEDS ORDERED: INSULIN LISPRO 100 UNIT/ML 3ML VIAL for OP,RR ONLY. SQ PRN (10:00)
[2019-01-27] MEDS ORDERED: ceFAZolin 2GM PREMIX 2 GM/50 ML BAG IV ONE (10:00)
[2019-01-27 10:10] LABS: ALBUMIN 3.3 g/dL (3.4-5.0); CALCIUM 8.6 mg/dL (8.5-10.1); CREATININE 6.8 mg/dL (0.6-1.0); GFR 7.1
[2019-01-27] MEDS ORDERED: ONDANSETRON PF 4 MG/2 ML VIAL. ONE (11:33)
[2019-01-27] MEDS ORDERED: DEXAMETHASONE SOD PHOS 4 MG/ML VIAL ONE (11:33)
[2019-01-27] MEDS ORDERED: PHENYLEPHRINE in 0.9% NACL PF 1 MG/10 ML SYRINGE. IV ONE (11:33)
[2019-01-27] MEDS ORDERED: DESFLURANE 31 TO 60 MINUTES IH ONE (11:33)
[2019-01-27] MEDS ORDERED: GLYCOPYRROLATE 1 MG/5 ML VIAL. ONE (11:41)
[2019-01-27] MEDS ORDERED: NEOSTIGMINE METHYLSULFATE 5 MG/5 ML SYRINGE. ONE (11:41)
--- NOTE | 2019-01-27 14:14 | DISCH ---
DISCHARGE INSTRUCTIONS Condition on Discharge Condition on Discharge: Stable Activity After Discharge Activity Instructions for Disc: Activity as tolerated Lifting Instructions after Dis: No heavy lifting Exercise Instruction after Dis: Exercise per therapy Driving Instructions after Dis: Do not drive Weight Bearing Status after Di: As tolerated Diet after Discharge Diet after Discharge: Renal Dialysis Diet Texture: Regular Wound Incision Care Wound/Incision Care: Ice to area for comfort, Keep wound/cast CDI, No wound care needed Checks after Discharge Checks after discharge: Check blood sugar, ac/hs Follow-Up Follow up with: Theodore two weeks Treatment/Equipment after DC Adaptive Equipment Issued: None, Wheelchair SUKHDEEP LI MD Jan 27, 2019 14:14
[2019-01-27] MEDS ORDERED: HYDR-3164 PO (14:20)
--- NOTE | 2019-01-27 14:20 | PDOC ---
BRIEF OPERATIVE NOTE Date: Jan 27, 2019 Pre-Op Diagnosis ESRD Post-Op Diagnosis same, abdominal adhesions Procedure Performed l/s placement PD catheter, CELINA Surgeon Theodore Anesthesia Type: General Blood Loss 25cc IV Fluid 1000cc Urine Output 40cc Specimens Obtained none Findings abdominal adhesions Complications none Operative Note Wk # [id number] SUKHDEEP LI MD Jan 27, 2019 14:20
[2019-01-27] MEDS ORDERED: HYDROcodone/APAP 5/325MG 1 TAB TABLET PO ONE ×2 (14:30)
--- NOTE | 2019-01-27 15:11 | OP ---
DATE OF SURGERY: 01/27/2019 PREOPERATIVE DIAGNOSIS: End-stage renal disease, requesting peritoneal dialysis catheter. POSTOPERATIVE DIAGNOSES: End-stage renal disease, requesting peritoneal dialysis catheter, with abdominal adhesions. PROCEDURE: Laparoscopic placement of peritoneal dialysis catheter, lysis of adhesions. SURGEON: Jacob Li MD ANESTHESIA: General endotracheal. ESTIMATED BLOOD LOSS: 25. INTRAVENOUS FLUIDS: A liter. URINE OUTPUT: 40 mL. INDICATIONS: The patient is a 78-year-old end-stage renal patient, requesting peritoneal dialysis catheter placement. OPERATIVE FINDINGS: Extensive adhesions of omentum and small bowel were encountered with the left upper quadrant somewhat spared. DESCRIPTION OF PROCEDURE: The patient brought to the operating suite, given a general endotracheal anesthetic and the abdomen prepped and draped in usual sterile fashion. An open laparoscopy was performed at the area of the insertion site of the catheter by dissecting down the peritoneum and elevating and opening sharply and this allowed placement of a port and established a pneumoperitoneum. The left upper quadrant to the right of midline was adhesion free and as such, a midline 5 mm port was placed under direct vision. This allowed takedown of the extensive adhesions with blunt, sharp, and cautery dissection, being careful to avoid injury to the adjacent bowel. Once adequate mobilization of the contents had been achieved, the catheter was placed through the initial port site into the true pelvis and the Dacron cuff was secured just above the peritoneum. Pneumoperitoneum released and the catheter was tunneled subcutaneously at the access site. Catheter was flushed with 500 mL of saline, which were then returned to gravity drainage. Subcutaneous approximated with 3-0 Vicryl, skin closed with joce. Sterile dressings applied. The catheter was "packed" with heparinized saline. The patient was awakened from her anesthetic and taken to the recovery room in satisfactory condition. JACOB LI MD DR: NITO/kimberly JOB#: [id number] / [id number] MARIBETH Souza MD
[2019-01-27 16:00] VITALS: BP 117/78
== END 2019-01-27 16:00 | disposition home or self-care (01) ==
LOC: SURG 08:52
PROVIDERS: ATTEND Surgery
DX: E11.22 Type 2 diabetes mellitus with diabetic chronic kidney disease (principal); I13.2 Hypertensive heart and chronic kidney disease with heart failure and with stage 5 chronic kidney disease, or end stage renal disease; I50.9 Heart failure, unspecified; N18.6 End stage renal disease; E11.40 Type 2 diabetes mellitus with diabetic neuropathy, unspecified; J44.9 Chronic obstructive pulmonary disease, unspecified; I25.10 Atherosclerotic heart disease of native coronary artery without angina pectoris; E78.5 Hyperlipidemia, unspecified; F32.9 Major depressive disorder, single episode, unspecified; E66.9 Obesity, unspecified; Z68.38 Body mass index [BMI] 38.0-38.9, adult; Z79.82 Long term (current) use of aspirin; Z79.84 Long term (current) use of oral hypoglycemic drugs; Z90.710 Acquired absence of both cervix and uterus; Z90.49 Acquired absence of other specified parts of digestive tract; Z98.84 Bariatric surgery status; Z98.890 Other specified postprocedural states; Z88.8 Allergy status to other drugs, medicaments and biological substances; Z88.6 Allergy status to analgesic agent; Z91.041 Radiographic dye allergy status; Z98.49 Cataract extraction status, unspecified eye; Z96.1 Presence of intraocular lens
CPT/HCPCS: 36415; 49324; 80048; 82040; 82962; 85025; A7015; J0330; J0696; J1100; J1644; J2001; J2370; J2405; J2704; J2710; J3010; J3490; J7030; J7040

== ENCOUNTER 2019-02-11 08:02 | Outpatient (CLI) | payer BC ==
[~2019-02-11] VITALS: Ht 162.6 cm; Wt 108.0 kg
[~2019-02-11 08:02] MED LIST changes: -BUPIVACAINE-EPI 0.5%-1:200000 MPF 30 ML VIAL. INJ ONE; -HEPARIN SODIUM 5,000 UNIT in IV NORMAL SALINE 500ML BAG 500 ML IRR ONE; +HYDR-3164 PO; -IV NORMAL SALINE 1000ML BAG 1,000 ML IV SCH; -IV RINGERS,LACTATED 1000ML 1,000 ML IV SCH; -LIDOCAINE 1% PF 2 ML VIAL. ID PRN; -MIDO5TAB PO; +MIDO5TAB4 PO; +OMEP40CA45 PO; -OMEP40CA5 PO; -ONDANSETRON PF 4 MG/2 ML VIAL. IV PRN; -PROCHLORPERAZINE 10 MG/2 ML VIAL. IV PRN; -fentaNYL PF VIAL 100 MCG/2 ML VIAL IV PRN
[2019-02-11 08:41] VITALS: BP 147/87
[2019-02-11] MEDS ORDERED: IOHEXOL 240 MG/ML 50ML VIAL. ONE (09:22)
[2019-02-11 10:19] VITALS: BP 133/67
--- NOTE | 2019-02-13 14:51 | RAD ---
Fluoroscopic evaluation of peritoneal dialysis catheter 02/11/2019 Indication: Nonfunctional catheter COMPARISON STUDY: None FINDINGS: Fluoroscopic evaluation of the peritoneal dialysis catheter was performed. Contrast was not administered secondary to patient allergy. Catheter tip is positioned left pelvis. A guidewire was advanced through the catheter, the catheter would not straighten. Adhesions could cause this appearance. Multiple fibrinous deposits were aspirated through the catheter. Some improvement in aspiration and flushing was seen following this, and advancing a wire through the catheter, though sluggish aspiration persisted. Fluoroscopy time 2.8 minutes Dose area product 17 Gycm2 IMPRESSION: Multiple fibrinous deposits aspirated through the catheter with some improvement in aspiration and flushing. Aspiration remains somewhat limited.
== END 2019-02-11 10:27 | disposition home or self-care (01) ==
LOC: INTRAD 08:02
PROVIDERS: ATTEND Internal Medicine Nephrology
DX: T85.691A Other mechanical complication of intraperitoneal dialysis catheter, initial encounter (principal); Y83.8 Other surgical procedures as the cause of abnormal reaction of the patient, or of later complication, without mention of misadventure at the time of the procedure; Y92.89 Other specified places as the place of occurrence of the external cause
CPT/HCPCS: 49400; 74190; C1769

== ENCOUNTER → 2019-02-20 | Outpatient (CLI) | payer BC ==
[2019-02-11 10:19] VITALS: BP 133/67
--- NOTE | 2019-02-20 16:27 | RAD ---
Examination: CT ABDOMEN PELVIS WO CONTRAST History: Peritoneal dialysis catheter. Comparison/Correlation: None Findings: Axial images of the abdomen and pelvis were obtained without contrast. Sagittal and coronal reformatted images were provided. Visualized lung bases are clear. Unenhanced liver, spleen, pancreas, and adrenal glands are unremarkable. Small renal cysts are present. No radiopaque collecting system calculi. Urinary bladder is decompressed. Gallbladder is not identified. Diverticulosis of the colon is present. No inflammatory process about the cecum identified. Left mid abdominal peritoneal dialysis catheter is present terminating within the left lower pelvic region. No significant loculated collection is seen. Evaluation is limited without oral contrast and IV contrast. No extraluminal gas. Moderate L4-5 disc space narrowing is present. Fusion which may be developmental is present at the posterior elements of L4-5. Impression: Diverticulosis. No loculated collection densely seen on this limited exam. No radiopaque collecting system calculi. No hydronephrosis. PQRS Compliance Statement: One or more of the following individualized dose reduction techniques were utilized for this examination: 1. Automated exposure control 2. Adjustment of the mA and/or kV according to patient size 3. Use of iterative reconstruction technique Electronically signed by: Scott Hernandez MD (02/20/2019 4:24 PM) [facility]
== END | disposition home or self-care (01) ==
LOC: CT 12:00
PROVIDERS: ATTEND Surgery
DX: T85.611A Breakdown (mechanical) of intraperitoneal dialysis catheter, initial encounter (principal); K57.30 Diverticulosis of large intestine without perforation or abscess without bleeding; N28.1 Cyst of kidney, acquired; M48.061 Spinal stenosis, lumbar region without neurogenic claudication; Y83.8 Other surgical procedures as the cause of abnormal reaction of the patient, or of later complication, without mention of misadventure at the time of the procedure; Y92.89 Other specified places as the place of occurrence of the external cause
CPT/HCPCS: 74176

== ENCOUNTER 2019-03-03 10:52 | Day surgery (SDC) | payer BC ==
[~2019-03-03 10:52] MED LIST changes: +BUPIVACAINE-EPI 0.5%-1:200000 MPF 30 ML VIAL. INJ ONE; +HEPARIN SODIUM 5,000 UNIT in IV NORMAL SALINE 500ML BAG 500 ML IRR ONE; +IV RINGERS,LACTATED 1000ML 1,000 ML IV SCH; +ONDANSETRON PF 4 MG/2 ML VIAL. IV PRN; +PROAIR RESPICL90 MCG IH; +PROCHLORPERAZINE 10 MG/2 ML VIAL. IV PRN; +fentaNYL PF VIAL 100 MCG/2 ML VIAL IV PRN
[2019-03-03] MEDS ORDERED: IV NORMAL SALINE 1000ML BAG 1,000 ML IV SCH (12:45)
[2019-03-03] MEDS ORDERED: NEOMY/BACITR/POLYMYXIN OINT PACKET. TP ONE (13:18)
[2019-03-03 13:29] LABS: BASO # 0.1 x10^3/uL (0.0-0.2); BASO % 1 % (0-3); EOS # 0.2 x10^3/uL (0.0-0.7); EOS % 4 % (0-3); HEMOGLOBIN 9.6 g/dL (12.0-15.5); LYMPH # 2.4 x10^3/uL (1.0-4.8); LYMPH % 38 % (24-48); MEAN CORPUSCULAR HEMOGLOBIN 31 pg (25-35); MEAN CORPUSCULAR HGB CONC 31 g/dL (31-37); MEAN CORPUSCULAR VOLUME 101 fL (79-100); MONO # 0.5 x10^3/uL (0.0-1.1); MONO % 8 % (0-9); NEUT # 3.1 x10^3/uL (1.8-7.7); NEUT % 50 % (31-73); PLATELET COUNT 295 x10^3/uL (140-400); RED BLOOD COUNT 3.07 x10^6/uL (3.50-5.40); RED CELL DISTRIBUTION WIDTH 19.3 % (11.5-14.5); WHITE BLOOD COUNT 6.3 x10^3/uL (4.0-11.0)
[2019-03-03] MEDS ORDERED: INSULIN LISPRO 100 UNIT/ML 3ML VIAL for OP,RR ONLY. SQ PRN (13:30)
--- NOTE | 2019-03-03 13:51 | PDOC1 ---
History and Physical Date of Admission Date of Admission DATE: 03/03/19 TIME: 13:47 Identification/Chief Complaint Chief Complaint malfunctioning PD catheter Source Source: Caregiver, Chart review, Patient History of Present Illness History of Present Illness Montanez is s/p placement of PD catheter that is now not draining adequately Past Medical History Cardiovascular: CAD, CHF, Hyperlipidemia Pulmonary: Asthma, COPD, Other CENTRAL NERVOUS SYSTEM: Periperal neuropathy, Other GI: Diverticulosis, GERD, Peptic Ulcer disease Heme/Onc: Anemia NOS, Iron deficiency Anemia Musculoskeletal: Other Rheumatologic: Fibromyalgia Renal/: Chronic renal failure Endocrine: Diabetes, Hyperparathyroidism Past Surgical History Past Surgical History: Cholecystectomy, Hysterectomy, Other Family History Family History: Hypertension Social History Smoke: No ALCOHOL: none Drugs: None Current Medications Current Medications Current Medications Heparin Sodium (Porcine) 5000 unit/Sodium Chloride 505 ml @ 505 mls/hr 1X ONCE IRR ; Start 03/03/19 at 06:00; Stop 03/03/19 at 06:59; Status DC Bupivacaine HCl/ Epinephrine Bitart (Sensorcain-Epi 0.5%-1:277708 Mpf) 30 ml 1X ONCE INJ ; Start 03/03/19 at 06:00; Stop 03/03/19 at 06:01; Status DC Ondansetron HCl (Zofran) 4 mg PRN Q6HRS PRN IV NAUSEA/VOMITING; Start 03/03/19 at 07:00; Stop 03/04/19 at 06:59 Fentanyl Citrate (Fentanyl 2ml Vial) 25 mcg PRN Q5MIN PRN IV MILD PAIN 1-3; Start 03/03/19 at 07:00; Stop 03/04/19 at 06:59 Fentanyl Citrate (Fentanyl 2ml Vial) 50 mcg PRN Q5MIN PRN IV MODERATE TO SEVERE PAIN; Start 03/03/19 at 07:00; Stop 03/04/19 at 06:59 Ringer's Solution 1,000 ml @ 30 mls/hr Q24H IV ; Start 03/03/19 at 07:00; Stop 03/03/19 at 18:59 Prochlorperazine Edisylate (Compazine) 5 mg PACU PRN PRN IV NAUSEA, MRX1; Start 03/03/19 at 07:00; Stop 03/04/19 at 06:59 Sodium Chloride 1,000 ml @ 0 mls/hr Q0M IV Last administered on 03/03/19at 12:42; Start 03/03/19 at 12:45 Neomycin/ Polymyxin/ Bacitracin (Triple Antibiotic Ointment) 1 pkt STK-MED ONCE TP ; Start 03/03/19 at 13:18; Stop 03/03/19 at 13:19; Status DC Insulin Human Lispro (HumaLOG VIAL for OP,RR ONLY) 0-10 units PRN Q1HR PRN SQ PER PROTOCOL; Start 03/03/19 at 13:30; Stop 03/04/19 at 13:29 Active Scripts Active Reported Proair Respiclick (Albuterol Sulfate) 90 Mcg Aer.pow.ba 2 Puff IH PRN Q4-6HRS PRN Dicyclomine Hcl 10 Mg Capsule 1 Cap PO TID Tizanidine Hcl 4 Mg Tablet 2 Tab PO BID Vitamin D (Cholecalciferol (Vitamin D3)) 2,000 Unit Capsule 1 Cap PO DAILY Aspirin 325 Mg Tablet 1 Tab PO DAILY Nephro-Neri Tablet (Folic Acid/Vitamin B Comp W-C) 0.8 Mg Tablet 1 Tab PO DAILY Lidocaine-Prilocaine Cream (Lidocaine/Prilocaine) 30 Gm Cream..g. 1 Stefano TP UD Gabapentin (Gabapentin) 400 Mg Capsule 400 Mg PO TID Nephro-Neri Rx Tablet (Vit B Cmplx 3/Fa/Vit C/Biotin) 1 Each Tablet 1 Each PO DAILY Nystatin 1 Each Powder.ea. 1 Each PO BID PRN Calcium Acetate 667 Mg Tablet 667 Mg PO TIDWMEALS Zofran (Ondansetron Hcl) 8 Mg Tablet 1 Tab PO Q12HR PRN Fluticasone Propionate Nasal [place] (Fluticasone Propionate) 16 Gm [place]on.susp 2 [place]on NS BID Calcitriol 0.25 Mcg Capsule 1 Cap PO DAILY Atorvastatin Calcium 80 Mg Tablet 80 Mg PO QHS Voltaren (Diclofenac Sodium) 100 Gm Gel..gram. 1 Gm TP BID PRN Triamcinolone Acetonide 0.1% Oint (Triamcinolone Acetonide) 15 Gm Oint...g. 1 Stefano TP BID MIX WITH EUCERIN DIRECTED BY PHYSICIAN Symbicort 160-4.5 Mcg Inhaler (Budesonide/Formoterol Fumarate) 10.2 Gm Hfa.aer.ad 2 Puff IH BID Sodium Bicarbonate 650 Mg Tablet 2 Tab PO BID Omeprazole 40 Mg Capsule.dr 1 Cap PO DAILY Albuterol Sulfate Neb Soln (Albuterol Sulfate) 0.63 Mg/3 Ml Vial.neb 0.83 % NEB TID PRN Allergies Allergies: Coded Allergies: NSAIDS (Non-Steroidal Anti-Inflamma (Verified Allergy, Severe, Swelling, 02/26/19) pregabalin (Verified Allergy, Severe, Swelling, 02/26/19) tramadol (Verified Allergy, Severe, Swelling, 02/26/19) Iodinated Contrast Media (Verified Allergy, Intermediate, ITCHING/HIVES, 02/26/19) Iodine and Iodide Containing Produc (Verified Allergy, Intermediate, ITCHING/HIVES, 02/26/19) ibuprofen (Verified Adverse Reaction, Intermediate, UPSET STOMACH, 02/26/19) ROS Review of System negative with exception of present complaints Physical Exam General: Alert, No acute distress HEENT: Atraumatic Lungs: Normal air movement Heart: RRR Abdomen: Soft, Other (obese, PD catheter present LUQ) Vitals Vitals Vital Signs Date Time Temp Pulse Resp B/P (MAP) Pulse Ox O2 Delivery O2 Flow Rate FiO2 03/03/19 12:10 98.5 85 20 142/75 95 Room Air 98.5 Labs Labs Laboratory Tests Test 03/03/19 13:00 White Blood Count 6.3 x10^3/uL (4.0-11.0) Red Blood Count 3.07 x10^6/uL (3.50-5.40) Hemoglobin 9.6 g/dL (12.0-15.5) Hematocrit 31.0 % (36.0-47.0) Mean Corpuscular Volume 101 fL (79-100) Mean Corpuscular Hemoglobin 31 pg (25-35) Mean Corpuscular Hemoglobin Concent 31 g/dL (31-37) Red Cell Distribution Width 19.3 % (11.5-14.5) Platelet Count 295 x10^3/uL (140-400) Neutrophils (%) (Auto) 50 % (31-73) Lymphocytes (%) (Auto) 38 % (24-48) Monocytes (%) (Auto) 8 % (0-9) Eosinophils (%) (Auto) 4 % (0-3) Basophils (%) (Auto) 1 % (0-3) Neutrophils # (Auto) 3.1 x10^3/uL (1.8-7.7) Lymphocytes # (Auto) 2.4 x10^3/uL (1.0-4.8) Monocytes # (Auto) 0.5 x10^3/uL (0.0-1.1) Eosinophils # (Auto) 0.2 x10^3/uL (0.0-0.7) Basophils # (Auto) 0.1 x10^3/uL (0.0-0.2) Laboratory Tests Test 03/03/19 13:00 White Blood Count 6.3 x10^3/uL (4.0-11.0) Red Blood Count 3.07 x10^6/uL (3.50-5.40) Hemoglobin 9.6 g/dL (12.0-15.5) Hematocrit 31.0 % (36.0-47.0) Mean Corpuscular Volume 101 fL (79-100) Mean Corpuscular Hemoglobin 31 pg (25-35) Mean Corpuscular Hemoglobin Concent 31 g/dL (31-37) Red Cell Distribution Width 19.3 % (11.5-14.5) Platelet Count 295 x10^3/uL (140-400) Neutrophils (%) (Auto) 50 % (31-73) Lymphocytes (%) (Auto) 38 % (24-48) Monocytes (%) (Auto) 8 % (0-9) Eosinophils (%) (Auto) 4 % (0-3) Basophils (%) (Auto) 1 % (0-3) Neutrophils # (Auto) 3.1 x10^3/uL (1.8-7.7) Lymphocytes # (Auto) 2.4 x10^3/uL (1.0-4.8) Monocytes # (Auto) 0.5 x10^3/uL (0.0-1.1) Eosinophils # (Auto) 0.2 x10^3/uL (0.0-0.7) Basophils # (Auto) 0.1 x10^3/uL (0.0-0.2) VTE Prophylaxis Ordered VTE Prophylaxis Devices: Yes VTE Pharmacological Prophylaxi: No Assessment/Plan Assessment/Plan ESRD with malfunctioning PD catheter l/s eval with repositioning/replacement of PD catheter risks including but not limited to bleeding, infection, injury to abdominal contents requiring further surgery, possible non fx catheter. she will proceed SUKHDEEP LI MD Mar 03, 2019 13:51
[2019-03-03 14:33] LABS: ALBUMIN 2.9 g/dL (3.4-5.0); CALCIUM 7.8 mg/dL (8.5-10.1); CREATININE 5.8 mg/dL (0.6-1.0); GFR 8.6; POTASSIUM 4.7 mmol/L (3.5-5.1)
[2019-03-03] MEDS ORDERED: ROCURONIUM 100 MG/10 ML VIAL. ONE (14:34)
[2019-03-03] MEDS ORDERED: LIDOCAINE 2% PF 5 ML VIAL. ONE (14:34)
[2019-03-03] MEDS ORDERED: PROPOFOL 20 ML IV ONE (14:34)
[2019-03-03] MEDS ORDERED: ONDANSETRON PF 4 MG/2 ML VIAL. ONE (14:35)
[2019-03-03] MEDS ORDERED: DEXAMETHASONE SOD PHOS 4 MG/ML VIAL ONE (14:35)
[2019-03-03] MEDS ORDERED: ceFAZolin SODIUM 1 GM VIAL ONE (14:35)
[2019-03-03] MEDS ORDERED: NEOSTIGMINE METHYLSULFATE 5 MG/5 ML SYRINGE. ONE (15:49)
--- NOTE | 2019-03-03 16:07 | DISCH ---
DISCHARGE INSTRUCTIONS Condition on Discharge Condition on Discharge: Stable Activity After Discharge Activity Instructions for Disc: Activity as tolerated, Avoid exertion Lifting Instructions after Dis: No heavy lifting Exercise Instruction after Dis: Exercise per therapy Driving Instructions after Dis: Do not drive Weight Bearing Status after Di: As tolerated Diet after Discharge Diet after Discharge: Renal Dialysis Diet Texture: Regular Wound Incision Care Wound/Incision Care: Ice to area for comfort Checks after Discharge Checks after discharge: Check blood sugar, ac/hs Follow-Up Follow up with: Theodore next week Treatment/Equipment after DC Adaptive Equipment Issued: None SUKHDEEP LI MD Mar 03, 2019 16:07
--- NOTE | 2019-03-03 16:13 | PDOC ---
BRIEF OPERATIVE NOTE Date: Mar 03, 2019 Pre-Op Diagnosis ESRD with malfunctioning PD catheter Post-Op Diagnosis same Procedure Performed Dx l/s CELINA repositioning of PD catheter Surgeon Theodore Anesthesia Type: General Blood Loss 25cc IV Fluid 500cc Specimens Obtained none Findings catheter wrapped in small bowel/omentum with adhesions to the abdominal wall Complications none Operative Note Wk # [id number] SUKHDEEP LI MD Mar 03, 2019 16:13
[2019-03-03] MEDS ORDERED: PROCHLORPERAZINE 10 MG/2 ML VIAL. ONE (16:26)
[2019-03-03] MEDS ORDERED: HYDROcodone/APAP 5/325MG 1 TAB TABLET PO ONE (16:30)
--- NOTE | 2019-03-03 16:36 | OP ---
DATE OF SURGERY: 03/03/2019 PREOPERATIVE DIAGNOSIS: End-stage renal disease with malfunctioning PD catheter. POSTOPERATIVE DIAGNOSIS: End-stage renal disease with malfunctioning PD catheter secondary to small bowel and omental adhesions. PROCEDURES: 1. Diagnostic laparoscopy. 2. Lysis of adhesions. 3. Repositioning PD catheter. SURGEON: Jacob Li MD ANESTHESIA: General endotracheal. ESTIMATED BLOOD LOSS: 25 mL. INTRAVENOUS FLUIDS: 500 mL. DESCRIPTION OF PROCEDURE: The patient brought to the operating suite, given a general endotracheal anesthetic and the abdomen prepped and draped in the usual sterile fashion. An epigastric scar from previous laparoscopy was infiltrated with local incised and a 5-mm Visiport used to safely gain access into the abdominal cavity, taking care to avoid injury to abdominal contents. Pneumoperitoneum established. Camera inserted. Inspection carried out, showing extensive small bowel and omental adhesions, enveloping the PD catheter as well as adherence to the abdominal wall. Two left-sided ports were placed under direct vision to allow mobilization of the small bowel off the catheter and the abdominal wall, being careful to avoid injury to the bowel. The bowel was carefully traced throughout with no evidence of enterotomy found. The catheter contained a fibrinous clot and as such was delivered extracorporeally and the clot milked from the catheter, which was then flushed and flushed easily. Catheter returned to the pelvis. Abdomen decompressed, camera removed. The ports were removed. Catheter was flushed with a liter of saline, which was readily accepted and drained a similar volume. Skin incisions were closed with 4-0 nylon. Sterile dressings applied. The catheter was "packed" with heparinized saline at the end of the procedure. Sterile dressings applied. The patient awakened from her anesthetic and taken to the recovery room in satisfactory condition. JACOB LI MD DR: NITO/kimberly JOB#: [id number] / [id number] QUINCY Benavides MD
[2019-03-03 16:56] VITALS: BP 156/76
== END 2019-03-03 18:00 | disposition home or self-care (01) ==
LOC: SURG 10:52
PROVIDERS: ATTEND Surgery
DX: T85.611A Breakdown (mechanical) of intraperitoneal dialysis catheter, initial encounter (principal); I11.0 Hypertensive heart disease with heart failure; I50.9 Heart failure, unspecified; I43 Cardiomyopathy in diseases classified elsewhere; J44.9 Chronic obstructive pulmonary disease, unspecified; G47.30 Sleep apnea, unspecified; K21.9 Gastro-esophageal reflux disease without esophagitis; K57.30 Diverticulosis of large intestine without perforation or abscess without bleeding; M17.0 Bilateral primary osteoarthritis of knee; M79.7 Fibromyalgia; M10.9 Gout, unspecified; E11.42 Type 2 diabetes mellitus with diabetic polyneuropathy; E03.9 Hypothyroidism, unspecified; D64.9 Anemia, unspecified; F32.9 Major depressive disorder, single episode, unspecified; E78.00 Pure hypercholesterolemia, unspecified; E66.01 Morbid (severe) obesity due to excess calories; Z68.41 Body mass index [BMI] 40.0-44.9, adult; Z79.899 Other long term (current) drug therapy; Z90.710 Acquired absence of both cervix and uterus; Z86.73 Personal history of transient ischemic attack (TIA), and cerebral infarction without residual deficits; Z98.42 Cataract extraction status, left eye; Z96.1 Presence of intraocular lens; Z79.84 Long term (current) use of oral hypoglycemic drugs; Z98.41 Cataract extraction status, right eye; Y83.8 Other surgical procedures as the cause of abnormal reaction of the patient, or of later complication, without mention of misadventure at the time of the procedure; Y92.89 Other specified places as the place of occurrence of the external cause
CPT/HCPCS: 36415; 49325; 80048; 82040; 82962; 85025; A7015; J0690; J0780; J1100; J1644; J2001; J2405; J2704; J2710; J3490; J7030; J7040

== ENCOUNTER 2019-03-09 10:27 | Outpatient (CLI) | payer BC ==
[~2019-03-09] VITALS: Ht 162.6 cm; Wt 90.8 kg
[~2019-03-09 10:27] MED LIST changes: -BUPIVACAINE-EPI 0.5%-1:200000 MPF 30 ML VIAL. INJ ONE; -HEPARIN SODIUM 5,000 UNIT in IV NORMAL SALINE 500ML BAG 500 ML IRR ONE; -IV RINGERS,LACTATED 1000ML 1,000 ML IV SCH; -ONDANSETRON PF 4 MG/2 ML VIAL. IV PRN; -PROCHLORPERAZINE 10 MG/2 ML VIAL. IV PRN; -fentaNYL PF VIAL 100 MCG/2 ML VIAL IV PRN
[2019-03-09 10:58] VITALS: BP 140/66
--- NOTE | 2019-03-11 08:37 | RAD ---
Fluoroscopic evaluation of peritoneal dialysis catheter 02/11/2019 Indication: Nonfunctional catheter COMPARISON STUDY: None FINDINGS: Fluoroscopic evaluation of the peritoneal dialysis catheter was performed. Contrast was not administered secondary to patient allergy. Catheter tip is positioned left pelvis. A guidewire was advanced through the catheter,, which would not freely exit the catheter tip. The catheter would not straighten. Adhesions could cause this appearance. Minimal tenderness deposits were aspirated through the catheter. The catheter persists with sluggish aspiration, and sluggish flushing with patient discomfort. And No Sedation Dose area product Gycm2 Total fluoroscopy time: 1.7 min IMPRESSION: Nonmobile catheter in the left pelvis with sluggish aspiration and flushing.
== END 2019-03-09 13:15 | disposition home or self-care (01) ==
LOC: INTRAD 10:27
PROVIDERS: ATTEND Internal Medicine Nephrology
DX: T85.898A Other specified complication of other internal prosthetic devices, implants and grafts, initial encounter (principal); Y84.1 Kidney dialysis as the cause of abnormal reaction of the patient, or of later complication, without mention of misadventure at the time of the procedure; Y92.89 Other specified places as the place of occurrence of the external cause
CPT/HCPCS: 49400; 74190; C1769

== ENCOUNTER 2019-04-01 11:56 | Day surgery (SDC) | payer BC ==
[~2019-04-01] VITALS: Ht 162.6 cm; Wt 95.0 kg
[~2019-04-01 11:56] MED LIST changes: +BUPIVACAINE-EPI 0.5%-1:200000 MPF 30 ML VIAL. INJ ONE; +DEXAMETHASONE SOD PHOS 4 MG/ML VIAL ONE; +IV NORMAL SALINE 1000ML BAG 1,000 ML IV SCH; +LIDOCAINE 2% PF 5 ML VIAL. ONE; +ONDANSETRON PF 4 MG/2 ML VIAL. IV PRN; +ONDANSETRON PF 4 MG/2 ML VIAL. ONE; +PROCHLORPERAZINE 10 MG/2 ML VIAL. IV PRN; +PROPOFOL 20 ML IV ONE; +SEVOFLURANE 16 TO 30 MINUTES. IH ONE; +ceFAZolin 2GM PREMIX 2 GM/50 ML BAG IV ONE; +fentaNYL PF VIAL 100 MCG/2 ML VIAL IV PRN
[2019-04-01 12:57] LABS: CALCIUM 10.2 mg/dL (8.5-10.1); CREATININE 4.6 mg/dL (0.6-1.0); GFR 11.2; POTASSIUM 3.8 mmol/L (3.5-5.1)
[2019-04-01] MEDS ORDERED: NEOMY/BACITR/POLYMYXIN OINT PACKET. TP ONE (13:30)
--- NOTE | 2019-04-01 13:40 | DISCH ---
DISCHARGE INSTRUCTIONS Condition on Discharge Condition on Discharge: Stable Activity After Discharge Activity Instructions for Disc: Activity as tolerated, Avoid exertion Lifting Instructions after Dis: No heavy lifting Exercise Instruction after Dis: Exercise per therapy Driving Instructions after Dis: Do not drive Weight Bearing Status after Di: As tolerated Diet after Discharge Diet after Discharge: Renal Dialysis Diet Texture: Regular Wound Incision Care Wound/Incision Care: Ice to area for comfort Other wound/incision instructi: may shower Saturday Checks after Discharge Checks after discharge: Check blood sugar, ac/hs Follow-Up Follow up with: Theodore two weeks Treatment/Equipment after DC Adaptive Equipment Issued: None SUKHDEEP LI MD Apr 01, 2019 13:40
--- NOTE | 2019-04-01 13:42 | PDOC ---
BRIEF OPERATIVE NOTE Date: Apr 01, 2019 Pre-Op Diagnosis malfunctioning PD catheter Post-Op Diagnosis same Procedure Performed removal Surgeon Theodore Anesthesia Type: General Blood Loss 5cc IV Fluid 50cc Specimens Obtained none Findings catheter packed with mucinous material Complications none SUKHDEEP LI MD Apr 01, 2019 13:42
[2019-04-01] MEDS ORDERED: DOCU50CA9 PO (13:50)
[2019-04-01] MEDS ORDERED: HYDR-3164 PO (13:50)
[2019-04-01 14:15] VITALS: BP 164/76
[2019-04-01] MEDS ORDERED: HYDROcodone/APAP 5/325MG 1 TAB TABLET PO ONE (14:15)
--- NOTE | 2019-04-01 16:52 | OP ---
DATE OF SURGERY: 04/01/2019 PREOPERATIVE DIAGNOSIS: Nonfunctioning peritoneal dialysis catheter. POSTOPERATIVE DIAGNOSIS: Nonfunctioning peritoneal dialysis catheter. PROCEDURE: Removal of catheter. SURGEON: Jacob Li MD ANESTHESIA: General LMA. BLOOD LOSS: 5. INTRAVENOUS FLUIDS: 50. DESCRIPTION OF PROCEDURE: The patient brought to the operating suite, given a general LMA and the abdomen prepped and draped in usual sterile fashion. A 0.5% Marcaine with epinephrine was infiltrated over the insertion site. Incision made and dissection carried down to the catheter. It was traced down to the Dacron cuff, which was freed and the catheter removed intact. A small fascial defect was closed with a single stitch of 0 Vicryl. Subcutaneous cuff freed and the remaining catheter removed. When hemostasis was present, wounds were closed with joce. Sterile dressings applied. The patient awakened from her anesthetic and taken to the recovery room in satisfactory condition. JACOB LI MD DR: NITO/kimberly JOB#: [id number] / [id number] MARIBETH Souza MD
== END 2019-04-01 14:30 | disposition home or self-care (01) ==
LOC: SURG 11:56
PROVIDERS: ATTEND Surgery
DX: T85.691A Other mechanical complication of intraperitoneal dialysis catheter, initial encounter (principal); I11.0 Hypertensive heart disease with heart failure; I50.9 Heart failure, unspecified; E11.42 Type 2 diabetes mellitus with diabetic polyneuropathy; I11.9 Hypertensive heart disease without heart failure; I43 Cardiomyopathy in diseases classified elsewhere; G43.909 Migraine, unspecified, not intractable, without status migrainosus; E78.00 Pure hypercholesterolemia, unspecified; J44.9 Chronic obstructive pulmonary disease, unspecified; G47.30 Sleep apnea, unspecified; M10.9 Gout, unspecified; M79.7 Fibromyalgia; D64.9 Anemia, unspecified; F32.9 Major depressive disorder, single episode, unspecified; Z98.42 Cataract extraction status, left eye; Z98.41 Cataract extraction status, right eye; Z90.710 Acquired absence of both cervix and uterus; Z98.890 Other specified postprocedural states; Z91.041 Radiographic dye allergy status; Z88.6 Allergy status to analgesic agent; Z88.8 Allergy status to other drugs, medicaments and biological substances; Z79.899 Other long term (current) drug therapy; Z96.1 Presence of intraocular lens; Z79.84 Long term (current) use of oral hypoglycemic drugs; Y83.8 Other surgical procedures as the cause of abnormal reaction of the patient, or of later complication, without mention of misadventure at the time of the procedure; Y92.89 Other specified places as the place of occurrence of the external cause
CPT/HCPCS: 36415; 49422; 80048; 82962; J0696; J1100; J2001; J2405; J2704; J3490

== ENCOUNTER → 2019-07-07 | Outpatient (CLI) | payer BC ==
[~2019-07-07] MED LIST changes: -BUPIVACAINE-EPI 0.5%-1:200000 MPF 30 ML VIAL. INJ ONE; -CETI10TA22 PO; +CETI10TA24 PO; -DEXAMETHASONE SOD PHOS 4 MG/ML VIAL ONE; +DOCU50CA9 PO; -IV NORMAL SALINE 1000ML BAG 1,000 ML IV SCH; -LIDOCAINE 2% PF 5 ML VIAL. ONE; -ONDANSETRON PF 4 MG/2 ML VIAL. IV PRN; -ONDANSETRON PF 4 MG/2 ML VIAL. ONE; -PROCHLORPERAZINE 10 MG/2 ML VIAL. IV PRN; -PROPOFOL 20 ML IV ONE; -SEVOFLURANE 16 TO 30 MINUTES. IH ONE; -ceFAZolin 2GM PREMIX 2 GM/50 ML BAG IV ONE; -fentaNYL PF VIAL 100 MCG/2 ML VIAL IV PRN
--- NOTE | 2019-07-07 17:17 | RAD ---
EXAM: CHEST PA LATERAL INDICATION: Shortness of breath. TECHNIQUE: PA and lateral views of the chest COMPARISON: 12/15/2018 chest x-ray FINDINGS: Heart is enlarged, similar to prior. Great vessels show aortic tortuosity. Mediastinal prominence is present, likely reflecting patient body habitus. No hilar or mediastinal mass is clearly apparent. Lungs show prominent interstitial markings, now more conspicuous in the interval. No focal parenchymal lung consolidation. There is no pleural effusion or pneumothorax. There are no significant osseous abnormalities. IMPRESSION: Cardiomegaly and developing pulmonary vascular congestion. Electronically signed by: Cuca Bassett MD (07/07/2019 5:14 PM) [id number]
== END | disposition home or self-care (01) ==
LOC: RAD 12:21
PROVIDERS: ATTEND Internal Medicine Cardiovascular Disease
DX: R09.89 Other specified symptoms and signs involving the circulatory and respiratory systems (principal); Q25.46 Tortuous aortic arch; I51.7 Cardiomegaly
CPT/HCPCS: 71046

== ENCOUNTER → 2019-07-07 | Outpatient (CLI) | payer BC ==
[2019-07-07 15:03] LABS: CREATININE 4.6 mg/dL (0.6-1.0); GFR 11.2
== END | disposition home or self-care (01) ==
LOC: LAB 14:04
PROVIDERS: ATTEND Psychiatry & Neurology Neurology
DX: G56.03 Carpal tunnel syndrome, bilateral upper limbs (principal)
CPT/HCPCS: 36415; 82565; 84520

== ENCOUNTER → 2019-07-16 | Outpatient (CLI) | payer BC ==
--- NOTE | 2019-07-17 11:56 | RAD ---
History: Routine screening. Technique: Bilateral digital mammographic routine views were obtained with CAD - computer aided detection. Comparison: 07/10/2018, 06/13/2017.. Findings: Breast Tissue Density B :The breast tissue is composed of mixed fatty and fibroglandular tissue. There are no suspicious masses, microcalcifications or areas of architectural distortion. Impression: Negative mammogram. BI-RADS Category 1: Negative. Normal interval followup. A mammogram does not have 100% sensitivity and therefore a negative imaging study should not delay further work up of a suspicious abnormality. The patient will receive a letter with the results in the mail. Patient information is entered into the reminder system with a target due date for the next screening mammogram. The patient will receive a reminder. "Our facility is accredited by the [employer] Mammography Program." BI-RADS 1 -- negative findings (within normal)
== END | disposition home or self-care (01) ==
LOC: MAMMO 10:27
PROVIDERS: ATTEND Internal Medicine
DX: Z12.31 Encounter for screening mammogram for malignant neoplasm of breast (principal)
CPT/HCPCS: 77067

== ENCOUNTER → 2019-09-11 | Outpatient (CLI) | payer BC ==
[2019-08-14 07:00] VITALS: BP 167/72
[~2019-09-11] MED LIST changes: +ASPI-630 PO; -DICL100G18 TP; +DICL100G54 TP; +HUM100VI5 SQ; +methylPREDNISolone ACETATE 40 MG/ML VIAL. ONE; +methylPREDNISolone ACETATE 80 MG/ML VIAL. ONE
--- NOTE | 2019-09-11 11:55 | PAIN ---
DATE OF SERVICE: 09/11/2019 INITIAL CONSULTATION FOR PAIN CLINIC CHIEF COMPLAINT: Neck and right greater than left upper extremity pain. HISTORY OF PRESENT ILLNESS: This is a 79-year-old female who presents with history of pain in the base of neck and shoulders, upper extremities, mostly on the right, but also on the left for many years. The patient reports it has been much worse over the past 6-8 months. No specific injury or action that she is aware of, but she has been getting more pain in the base of neck and shoulders radiating to the right upper extremity, left upper extremity, anterior shoulder, anterior bicep, forearm on the right side especially and into the hand and fingers with some numbness and tingling. The patient reports also into the left shoulder, more on the anterior aspect and in the biceps, but not into the forearm as much. The patient reports also in the base of neck and shoulders, causing some headaches, worse with weightbearing, walking, standing, changing positions, using her upper extremities with reaching for items or any weightbearing in the upper extremities with the arms outstretched as well as lifting above her head with her arms. Patient reports she has been dropping items at home and her daughter will not let her cook anymore. She has been dropping large pots and pans and afraid that she may injure herself with this. The patient reports no overt loss of motor function, but significant weakness in the upper extremities, especially on the right side and she is right handed. The patient reports it awakens her from sleep at night, can affect her bowel or bladder control, but no loss of continence and does affect her ability to walk as she feels somewhat unstable and the shoulder pain. The patient has tried previous physical therapy, chiropractic treatments, exercises on her own without specific improvement. She has also had some epidural injections in the past that did help temporarily, that was at [facility]. She has tried tramadol, oxycodone, clonidine, which the oxycodone did help the pain, but the TRAMADOL SHE DEVELOPED AN ALLERGY TO. The patient rates her disability rating from 0-10, 10 being the worst, is at 9 with family and home responsibilities, 10 with recreation and social activity, occupation and sexual behavior, 7 with self-care and 5 with life support activities. She did have an MRI scan of cervical spine showing multilevel degenerative changes with posterior disk osteophyte complexes throughout the cervical spine, most noticeable at C4-C5, C5-C6, C6-C7, C7-T1. C5-C6 shows advanced uncovertebral joint disease with severe left and moderate right neural foraminal stenosis and mild spinal canal stenosis. C6-C7 shows posterior disk osteophyte complex with central disk protrusion, advanced uncovertebral degenerative joint disease as well as severe right and moderate left neural foraminal stenosis, C7-T1 shows a central disk extrusion with moderate spinal canal stenosis as well. PAST MEDICAL HISTORY: Significant for diabetes, COPD, oxygen use at home, history of asthma, hypertension, congestive heart failure, dizziness, arthritis, osteoporosis, kidney failure with dialysis 3 times weekly. PREVIOUS SURGERY: Includes a carpal tunnel, bilateral cataract extraction, hysterectomy, left upper extremity AV shunt, cholecystectomy and lumbar fusion in 1988. CURRENT MEDICATIONS: Include daily baby aspirin, NovoLog insulin, gabapentin, dicyclomine, tizanidine, Symbicort inhaler, sodium bicarbonate, triamcinolone, omeprazole, albuterol inhaler, calcitriol, docusate, atorvastatin, calcium, vitamin B complex, fluticasone, diclofenac and Zofran. ALLERGIES: THE PATIENT IS ALLERGIC TO TRAMADOL AND CONTRAST MEDIA, ALSO PREGABALIN AND IBUPROFEN, WHICH CAUSES STOMACH UPSET. FAMILY HISTORY: Significant for diabetes, congestive heart failure. SOCIAL HISTORY: The patient does not drink alcohol, does not smoke. She does not use any illegal, illicit or recreational drugs. She is single, lives locally in her own home in [place], [place] and is currently retired. REVIEW OF SYSTEMS: The patient's review of systems is positive for those items mentioned in history of present illness. All systems reviewed and otherwise negative. It is complete, full and well documented on the patient's chart. PHYSICAL EXAMINATION: VITAL SIGNS: The patient's blood pressure 166/87, pulse 88, respirations 18, temperature 98.6 degrees Fahrenheit, height is 5 feet 3 inches, weight is 218 pounds. GENERAL: The patient is awake, alert, oriented, appropriate, very pleasant demeanor. HEENT: Exam shows normocephalic, atraumatic. Extraocular movements are intact and symmetrical. Oral cavity shows mucous membranes moist and pink. Dentition is intact. NECK: Shows anterior throat supple without palpable lymphadenopathy noted. Swallow reflex symmetrical. CHEST: Shows normal on inspection. Breath sounds are clear bilaterally. No rales, rhonchi or wheezes auscultated. HEART: Shows S1, S2 clear. No murmurs auscultated. ABDOMEN: Obese, soft, nontender, nondistended. No palpable organomegaly is noted. No rebound or guarding demonstrated. BACK: Shows spine grossly in the midline. Normal appearing cervical lordotic curvature, slight increase in thoracic kyphosis and some minor flattening of lumbar lordotic curvature with lumbar well-healed surgical scar. Cervical paraspinous muscle shows symmetrical on inspection, on palpation shows some moderate tenderness diffusely bilaterally throughout the upper, middle and lower distribution of paraspinous muscles, but only diffusely without significant radiation, no trigger points. The patient does show good rotational motion, slightly guarded, but full rotation past 45 degrees right and left, closer to 90 degrees as well as full extension, full forward flexion without significant increase in pain. EXTREMITIES: The patient's upper extremities show deep tendon reflexes 1+ in the biceps, triceps tendons. The patient does have an AV shunt on the left. Motor exam is approximately 4/5 on the left and 3/5 on the right with flask pusher strength, bicep and tricep flexion is 4/5 right, 5/5 on the left. Peripheral pulses are 1+ posterior tibia. No peripheral edema is noted in the upper extremities bilaterally, they are warm and dry to touch, equal in color and appearance. Shoulder shrug is strong and intact without loss of strength on resistance with some mild tenderness on the right side at the base of neck and shoulder. This is true with abduction of shoulder to 90 degrees as well without loss of strength on resistance, but with pain in the right neck and shoulder as well. SKIN: Shows warm and dry, good turgor. No edema. No sores, rashes or bruising throughout. IMPRESSION: 1. This is a 79-year-old female with long history many years, worse over the past 6-8 months of pain in the base of neck and upper extremities, more on the right than the left in a radicular fashion. 2. MRI scan of cervical spine as noted. 3. Hypertension. 4. Chronic obstructive pulmonary disease. 5. Diabetes. 6. Chronic renal failure. 7. Arthritis and osteoporosis. PLAN: Options were discussed with the patient. We will continue physical therapies, medical managements, interventional techniques and she has done well with interventional techniques by her report in the past. We will proceed with a cervical epidural steroid injection today with fluoroscopic guidance. Risks were discussed including but not limited to bleeding, infection, possibility of epidural hematoma, subsequent neurological compromise, dural puncture, headaches, spinal cord and/or nerve damage, side effects of steroid medication and poor results regarding pain control. The patient understands and wished to proceed. The patient will return to clinic in approximately 2 weeks for followup. She was counseled on return appointment, activity level and side effects to be aware of. DIAGNOSES: Cervical radiculopathy with cervical degenerative disk disease and cervical spinal stenosis. PROCEDURE: Cervical epidural steroid injection, translaminar approach C6-C7 level using C-arm fluoroscopic guidance under sterile prep and drape using local anesthetic. MEDICATION INJECTED: A total of 120 mg Depo-Medrol plus 5 mL of preservative-free normal saline and 2 mL of contrast. CONDITION AT DISCHARGE: Stable. The patient tolerated the procedure well, had no complications. PABLO VEGAS MD DR: JUSTIN/kimberly JOB#: [id number] / [id number] LYLE Lucero MD
== END | disposition home or self-care (01) ==
LOC: PNCL 09:17
PROVIDERS: ATTEND Anesthesiology
DX: M50.123 Cervical disc disorder at C6-C7 level with radiculopathy (principal); M48.02 Spinal stenosis, cervical region; M19.90 Unspecified osteoarthritis, unspecified site; I11.0 Hypertensive heart disease with heart failure; I50.9 Heart failure, unspecified; E11.9 Type 2 diabetes mellitus without complications; M81.0 Age-related osteoporosis without current pathological fracture; J44.9 Chronic obstructive pulmonary disease, unspecified; Z90.710 Acquired absence of both cervix and uterus; Z88.8 Allergy status to other drugs, medicaments and biological substances; Z79.4 Long term (current) use of insulin; Z79.899 Other long term (current) drug therapy; Z90.49 Acquired absence of other specified parts of digestive tract; Z83.3 Family history of diabetes mellitus; Z98.890 Other specified postprocedural states; Z91.041 Radiographic dye allergy status; Z82.49 Family history of ischemic heart disease and other diseases of the circulatory system; Z88.6 Allergy status to analgesic agent
CPT/HCPCS: 62321; J1030; J1040

== ENCOUNTER → 2019-09-25 | Outpatient (CLI) | payer BC ==
[2019-08-14 07:00] VITALS: BP 167/72
--- NOTE | 2019-09-25 10:22 | PAIN ---
DATE OF SERVICE: 09/25/2019 PROGRESS NOTE FOR PAIN CLINIC DIAGNOSES: Cervical radiculopathy with cervical degenerative disk disease and cervical spinal stenosis. HISTORY OF PRESENT ILLNESS: The patient is a 79-year-old female who returns for followup status post cervical epidural steroid injection x 1 on 09/10. The patient reports she did very well with about 50% improvement in the pain in the neck and the right greater than left upper extremity, still significant and still in the base of neck and shoulders, but much improved. The patient reports it is beginning to wear off; however, over the last few days has been a 10 on a scale of 10. The patient reports no new motor or sensory deficits, describes the pain as aching and sharp, shooting in the upper extremities, tingling, burning, cramping, radiating, severe at times, constant with activity, but initially doing much better with household activities, traveling with greater ease, sleeping better at night. The patient reports it generally does not awaken her from sleep, worse with activity when she is up and around. PHYSICAL EXAMINATION: VITAL SIGNS: The patient's blood pressure 163/90, pulse 96, respirations are 20, temperature 98.2 degrees Fahrenheit, weight is 224 pounds. GENERAL: The patient is awake, alert, oriented, appropriate, very pleasant demeanor. HEENT: Shows normocephalic, atraumatic. Extraocular movements are intact and symmetrical. Oral cavity: Mucous membranes moist and pink. Dentition is intact. NECK: Shows anterior throat supple without palpable lymphadenopathy noted. Swallow reflex symmetrical. CHEST: Shows normal on inspection. Breath sounds are clear bilaterally. HEART: Shows S1, S2 clear. No murmurs auscultated. ABDOMEN: Soft, nontender, nondistended. No palpable organomegaly is noted. BACK: Shows spine grossly in the midline, normal-appearing cervical lordotic curvature. There is slightly increased thoracic kyphosis, some flattening of lumbar lordotic curvature. Cervical paraspinous muscle shows symmetrical on inspection, with palpation shows some mild tenderness diffusely in the middle and lower distribution of paraspinous muscles, but not in the upper distribution. The patient has no specific trigger points, no radiation of pain. The patient does show good rotational motion of cervical spine laterally greater than 45 degrees closer to 90 degrees as well as full extension, full forward flexion without significant increase in pain. EXTREMITIES: Upper extremities show deep tendon reflexes 1+ in the biceps and triceps tendons. The patient has an AV fistula in the left forearm. Motor exam is approximately 4 on a scale of 5 bilaterally with program arranger strength, bicep and tricep flexion and symmetrical on exam today. Peripheral pulses are 1+ radial left and 2+ radial right. Options were discussed with the patient. The patient's old chart was reviewed as her current medication regimen updated. Current review of systems updated today as well. We will proceed with a second in the series of cervical epidural steroid injection today with fluoroscopic guidance. Risks were again discussed including, but not limited to bleeding, infection, possibility of epidural hematoma, subsequent neurological compromise, dural puncture, headaches, spinal cord and/or nerve damage, side effects of steroid medication and poor results regarding pain control. The patient understands and wished to proceed. The patient will return to clinic in approximately 2 weeks for followup. She was counseled on return appointment, activity level and side effects to be aware of. DIAGNOSES: Cervical radiculopathy with cervical degenerative disk disease and cervical spinal stenosis. PROCEDURE: Cervical epidural steroid injection, translaminar approach at C6-C7 level using C-arm fluoroscopic guidance under sterile prep and drape using local anesthetic. MEDICATION INJECTED: A total of 120 mg Depo-Medrol plus 10 mL of preservative-free normal saline and 2 mL of contrast. CONDITION AT DISCHARGE: Stable. The patient tolerated the procedure well, had no complications. PABLO VEGAS MD DR: JUSTIN/kimberly JOB#: [id number] / [id number]
== END | disposition home or self-care (01) ==
LOC: PNCL 09:22
PROVIDERS: ATTEND Anesthesiology
DX: M50.123 Cervical disc disorder at C6-C7 level with radiculopathy (principal); M48.02 Spinal stenosis, cervical region; Z91.041 Radiographic dye allergy status; Z88.6 Allergy status to analgesic agent; Z88.8 Allergy status to other drugs, medicaments and biological substances; Z98.890 Other specified postprocedural states
CPT/HCPCS: 62321; J1030; J1040; 62323

== ENCOUNTER → 2019-10-15 | Outpatient (CLI) | payer BC ==
[2019-08-14 07:00] VITALS: BP 167/72
--- NOTE | 2019-10-15 12:07 | PAIN ---
DATE OF SERVICE: 10/15/2019 PROGRESS NOTE FOR PAIN CLINIC DIAGNOSES: Cervical radiculopathy with cervical spinal stenosis and cervical degenerative disk disease. HISTORY OF PRESENT ILLNESS: The patient is a 79-year-old female who returns for followup status post cervical epidural steroid injections x 2. The patient reports about 50% improvement overall in the base of the neck and shoulders, more pain in the left than the right upper extremity at this time. The patient reports the pain is 10 on a scale of 10 at all times, the least, worst and average during the last week. The patient reports no new motor or sensory deficits. Also has some pain in the low back, which she has seen Dr. Faustin for where some trigger point injections, she reports helped temporarily. The patient reports currently that her pain at base of the neck and shoulders, upper extremities, somewhat worse on the left than the right. The patient reports it is aching, shooting, tingling, stabbing, radiating, becoming constant, severe, unbearable at times, especially with walking using home walker and putting weight on her shoulders and arms. The patient reports that the tingling in the hand is much better as well as the shoulders. No new motor or sensory deficits or other complaints. The patient had dialysis yesterday. PHYSICAL EXAMINATION: VITAL SIGNS: The patient's blood pressure 137/81, pulse 94, respirations 18, temperature 98.4 degrees Fahrenheit, height is 5 feet 3 inches, weight is 211 pounds. GENERAL: The patient is awake, alert, oriented, appropriate, very pleasant demeanor. HEENT: Shows normocephalic, atraumatic. Extraocular movements are intact and symmetrical. Oral cavity: Mucous membranes moist and pink. Dentition is intact. NECK: Shows anterior throat supple without palpable lymphadenopathy noted. Swallow reflex symmetrical. CHEST: Shows normal on inspection. Breath sounds are clear bilaterally. No rales, rhonchi or wheezes auscultated. HEART: Shows S1, S2 clear. No murmurs auscultated. ABDOMEN: Soft, nontender, nondistended. BACK: Shows spine grossly in the midline. Exaggerated thoracic kyphosis, some minor flattening of lumbar lordotic curvature. Cervical paraspinous muscle shows symmetrical on inspection with normal cervical lordotic curvature with palpation shows some moderate tenderness diffusely throughout the upper, middle, and lower distribution of paraspinous muscles bilaterally, but without radiation or trigger points. The patient has good rotational motion of cervical spine, both laterally as well as extension and flexion without significant difficulty. EXTREMITIES: Upper extremities show deep tendon reflexes 1+ in the biceps and triceps tendons. Motor exam is strong with plate embosser strength at 4/5 and equal. Peripheral pulses are decreased on the left with AV fistula in the left forearm, but 2+ on the right. PLAN: Options were discussed with the patient. The patient's old chart was reviewed as her current medication regimen updated. Current review of systems updated today as well. We will proceed with a third in the series of cervical epidural steroid injection today with fluoroscopic guidance. Risks were again discussed including, but not limited to bleeding, infection, possibility of epidural hematoma, subsequent neurological compromise, dural puncture, headaches, spinal cord and/or nerve damage, side effects of steroid medication and poor results regarding pain control. The patient understands and wished to proceed. The patient will return to clinic in approximately 2 weeks or as necessary. She was counseled on return appointment, activity level and side effects to be aware of. DIAGNOSES: Cervical radiculopathy with cervical spinal stenosis and cervical degenerative disk disease. PROCEDURE: Cervical epidural steroid injection, translaminar approach C6-C7 level using C-arm fluoroscopic guidance under sterile prep and drape using local anesthetic. MEDICATION INJECTED: A total of 120 mg Depo-Medrol plus 5 mL of preservative-free normal saline and 2 mL of contrast. CONDITION AT DISCHARGE: Stable. The patient tolerated the procedure well, had no complications. PABLO VEGAS MD DR: JUSTIN/kimberly JOB#: [id number] / [id number]
== END ==
LOC: PNCL 10:25
PROVIDERS: ATTEND Anesthesiology
DX: M50.123 Cervical disc disorder at C6-C7 level with radiculopathy (principal); M48.02 Spinal stenosis, cervical region
CPT/HCPCS: 62321; J1030; J1040

== ENCOUNTER 2019-12-23 15:17 | Inpatient (IN) | payer BC ==
[~2019-12-23] VITALS: Ht 162.6 cm; Wt 95.2 kg
[~2019-12-23 15:17] MED LIST changes: -CETI10TA24 PO; +CETI10TA74 PO; -methylPREDNISolone ACETATE 40 MG/ML VIAL. ONE; -methylPREDNISolone ACETATE 80 MG/ML VIAL. ONE
--- NOTE | 2019-12-23 17:18 | PHYS DOC ---
Past Medical History Past Medical History: CAD, CHF, COPD, Diabetes-Type II, GERD, Hypertension, Renal Failure, Other Additional Past Medical Histor: Neuropathy, sepsis (SHANNON DOS SANTOS DO) Past Surgical History: Cholecystectomy, Hysterectomy, Other Additional Past Surgical Histo: shunt placement left forearm, gastric bypass (SHANNON DOS SANTOS DO) Smoking Status: Never Smoker Alcohol Use: None Drug Use: None (SHANNON DOS SANTOS DO) General Adult EDM: Chief Complaint: RECTAL BLEED HPI: HPI: Patient is a 79-year-old female with multiple medical problems including end- stage renal disease on dialysis who presents with some rectal bleeding. She states she had this similar problem back in August and required blood transfusions at the time. She denies any abdominal pain. She is not had any dizziness or orthostatic type symptoms. She denies any fever chills or sweats. She denies any dysuria or gross hematuria. She states she has had blood in 2 diapers that she is worn but has had no profuse bleeding here recently. She states when she was at dialysis today the dialysis nurse told her she seemed a little weak and probably needed to go get her blood count checked [] (SHANNON DSO SANTOS DO) Review of Systems: Review of Systems: Constitutional: Denies fever or chills. [] Eyes: Denies change in visual acuity. [] HENT: Denies nasal congestion or sore throat. [] Respiratory: Denies cough or shortness of breath. [] Cardiovascular: Denies chest pain or edema. [] GI: Per HPI [] : Denies dysuria. [] Musculoskeletal: Denies back pain or joint pain. [] Integument: Denies rash. [] Neurologic: Denies headache, focal weakness or sensory changes. [] Endocrine: Denies polyuria or polydipsia. [] Lymphatic: Denies swollen glands. [] Psychiatric: Denies depression or anxiety. [] (SHANNON DOS SANTOS DO) Heart Score: Risk Factors: Risk Factors: DM, Current or recent (<one month) smoker, HTN, HLP, family history of CAD, obesity. Risk Scores: Score 0 - 3: 2.5% MACE over next 6 weeks - Discharge Home Score 4 - 6: 20.3% MACE over next 6 weeks - Admit for Clinical Observation Score 7 - 10: 72.7% MACE over next 6 weeks - Early Invasive Strategies (SHANNON DOS SANTOS DO) Allergies: Allergies: Allergies Coded Allergies Type Severity Reaction Last Updated Verified NSAIDS (Non-Steroidal Anti-Inflamma Allergy Severe Swelling 03/31/19 Yes pregabalin Allergy Severe Swelling 03/31/19 Yes tramadol Allergy Severe Swelling 04/01/19 Yes Iodinated Contrast Media Allergy Intermediate ITCHING/HIVES 03/31/19 Yes Iodine and Iodide Containing Produc Allergy Intermediate ITCHING/HIVES 03/31/19 Yes ibuprofen Adverse Reaction Intermediate UPSET STOMACH 03/31/19 Yes (SHANNON DOS SANTOS DO) Physical Exam: PE: Constitutional: Well developed, well nourished, no acute distress, non-toxic appearance. [] HENT: Normocephalic, atraumatic, bilateral external ears normal, oropharynx moist, no oral exudates, nose normal. [] Eyes: PERRLA, EOMI, conjunctiva normal, no discharge. [] Neck: Normal range of motion, no tenderness, supple, no stridor. [] Cardiovascular:Heart rate regular rhythm, no murmur [] Lungs & Thorax: Bilateral breath sounds clear to auscultation [] Abdomen: Bowel sounds normal, soft, no tenderness, no masses, no pulsatile masses. [] Skin: Warm, dry, no erythema, no rash. [] Back: No tenderness, no CVA tenderness. [] Extremities: Dialysis fistula left upper extremity with good thrill [] Neurologic: Alert and oriented X 3, normal motor function, normal sensory function, no focal deficits noted. [] Psychologic: Depressed affect [] (SHANNON DOS SANTOS DO) Current Patient Data: Vital Signs: Vital Signs Date Time Temp Pulse Resp B/P (MAP) Pulse Ox O2 Delivery O2 Flow Rate FiO2 12/23/19 16:32 98.8 85 16 198/87 (124) 95 Room Air 98.8 (SHANNON DOS SANTOS DO) EKG: EKG: [] (SHANNON DOS SANTOS DO) Radiology/Procedures: Radiology/Procedures: [] (SHANNON DOS SANTOS DO) Course & Med Decision Making: Course & Med Decision Making Pertinent Labs and Imaging studies reviewed. (See chart for details) [] (SHANNON DOS SANTOS DO) Course & Med Decision Making 1950-the patient was seen and examined. I reviewed her medical record. CT scan did not show any acute intra-abdominal pathology. I suspect that this time she is having a diverticular bleed. Given the fact that she is having bright red blood and clots coming from her rectum I think a period of observation be warranted given her risk factors. I will discussed the case with the attending physician. 2019-the patient was seen and reevaluated. Patient is done well with no further bleeding while here in the emergency department. CT scan did not show anything acute in the abdomen. I discussed the case with Dr. Elena who agreed to admit the patient. He asked for consult from Dr. Thien Cano. (DAVID LORA MD) Dragon Disclaimer: Dragon Disclaimer: This electronic medical record was generated, in whole or in part, using a voice recognition dictation system. (SHANNON DOS SANTOS DO) Departure Departure Impression: Primary Impression: Acute lower GI bleeding Additional Impressions: ESRD on dialysis Obesity (BMI 30-39.9) Disposition: ADMITTED INPATIENT Condition: STABLE Referrals: LYLE ELENA MD (PCP) Justicifation of Admission Dx: Justifications for Admission: Justification of Admission Dx: Yes Comments: Lower GI bleed (DAVID LORA MD) SHANNON DOS SANTOS DO Dec 23, 2019 17:18 DAVID LORA MD Dec 23, 2019 19:54
[2019-12-23 18:49] LABS: BASO % 1 % (0-3); EOS # 0.2 x10^3/uL (0.0-0.7); EOS % 3 % (0-3); HEMATOCRIT 31.6 % (36.0-47.0); HEMOGLOBIN 10.1 g/dL (12.0-15.5); LYMPH % 41 % (24-48); MEAN CORPUSCULAR HEMOGLOBIN 31 pg (25-35); MEAN CORPUSCULAR HGB CONC 32 g/dL (31-37); MEAN CORPUSCULAR VOLUME 97 fL (79-100); MONO # 0.4 x10^3/uL (0.0-1.1); MONO % 9 % (0-9); NEUT # 2.3 x10^3/uL (1.8-7.7); NEUT % 47 % (31-73); PLATELET COUNT 146 x10^3/uL (140-400); RED BLOOD COUNT 3.26 x10^6/uL (3.50-5.40); RED CELL DISTRIBUTION WIDTH 19.4 % (11.5-14.5)
[2019-12-23 18:58] LABS: CALCIUM 8.5 mg/dL (8.5-10.1); CREATININE 3.2 mg/dL (0.6-1.0); POTASSIUM 4.9 mmol/L (3.5-5.1)
[2019-12-23 19:04] LABS: ALBUMIN 3.2 g/dL (3.4-5.0); TOTAL BILIRUBIN 0.2 mg/dL (0.2-1.0); TOTAL PROTEIN 6.5 g/dL (6.4-8.2)
--- NOTE | 2019-12-23 19:20 | RAD ---
EXAM: CT Abdomen and Pelvis without IV contrast INDICATION: Reason: GENERALIZED ABD PAIN / Spl. Instructions: / History: TECHNIQUE: Multi-detector row CT images were acquired from the lung bases through the abdomen and pelvis without the use of IV contrast. Sagittal and coronal images were acquired from the transaxial data. All CT scans performed at this facility utilize dose optimization techniques as appropriate to the exam, including the following: Automated exposure control and adjustment of the mA and/or KV according to patient size (this includes techniques or standardized protocols for targeted exams where dose is indication/reason for exam). ORAL CONTRAST: None COMPARISON: Noncontrast abdomen pelvis CT of 02/20/2019 FINDINGS: The absence of IV contrast limits evaluation of soft tissue pathology. LOWER CHEST: Borderline cardiomegaly. LIVER: Unremarkable BILIARY SYSTEM: Gallbladder is absent.. Bile ducts are prominent postcholecystectomy, similar to prior.. PANCREAS: Unremarkable SPLEEN: Unremarkable ADRENALS: Unremarkable KIDNEYS & URETERS: Unremarkable BLADDER: Unremarkable REPRODUCTIVE ORGANS: Unremarkable GASTROINTESTINAL: Extensive colonic diverticulosis. Post surgical changes from partial right colectomy. The stomach, small bowel, and colon are otherwise unremarkable. The appendix is not well seen but there are no findings of acute appendicitis.. MESENTERY/PERITONEUM/RETROPERITONEUM: Unremarkable VASCULAR: Unremarkable LYMPH NODES: No adenopathy OSSEOUS & SOFT TISSUES: Unremarkable IMPRESSION: No acute abdomen or pelvic pathology on noncontrast CT. Electronically signed by: Cuca Bassett MD (12/23/2019 7:17 PM) [facility] [place]
[2019-12-23] MEDS ORDERED: ALBUTEROL SULFATE NEB PRN (23:00)
[2019-12-23] MEDS ORDERED: ONDANSETRON ODT 4 MG TAB.RAPDIS. PO PRN (23:00)
[2019-12-23] MEDS ORDERED: DICLOFENAC SODIUM 1% TOPICAL GEL 100GM TUBE. TP PRN (23:00)
[2019-12-23] MEDS ORDERED: NON FORMULARY ITEM (Albuterol Sulfate (Proair Respiclick) 2 PUFF) IH PRN (23:00)
[2019-12-23] MEDS ORDERED: DEXTROSE 50% 25 GM / 50ML DISP.SYRIN. IV PRN (23:15)
[2019-12-23] MEDS ORDERED: LIDOCAINE/PRILOCAINE TOPICAL CREAM 5GM TUBE. TP ONE (23:15)
[2019-12-23 23:36] VITALS: BP 126/70
[2019-12-23] MEDS ORDERED: ALBUTEROL SULFATE 2.5 MG/3 ML NEBU. NEB PRN (23:45)
--- NOTE | 2019-12-23 23:50 | NUR ---
Admit from ED to [address] [place] [address] room 254 via [facility]. Stood from [facility] in [place] and amb to bath room in room with walker with supervised assist. Had maroon BM with clots on arrival. Hgb noted to be stable at 10.1. A/O x4. Pleasant. Orientated to room and call light. Reviewed POC to include Hgb and HCT monitoring, Tele monitor, AM labs and call for assist while out of bed. Verbalized understanding. Spoke to Daughter, Brenda Draper, for patient update. Resting in bed watching TV. Call light at hand.
[2019-12-24 03:22] VITALS: BP 120/60
[2019-12-24 07:00] VITALS: BP 118/54
[2019-12-24 07:27] LABS: BASO % 1 % (0-3); EOS # 0.2 x10^3/uL (0.0-0.7); EOS % 4 % (0-3); HEMATOCRIT 28.6 % (36.0-47.0); HEMOGLOBIN 8.9 g/dL (12.0-15.5); LYMPH # 1.8 x10^3/uL (1.0-4.8); LYMPH % 37 % (24-48); MEAN CORPUSCULAR HEMOGLOBIN 30 pg (25-35); MEAN CORPUSCULAR HGB CONC 31 g/dL (31-37); MEAN CORPUSCULAR VOLUME 98 fL (79-100); MONO # 0.4 x10^3/uL (0.0-1.1); MONO % 9 % (0-9); NEUT # 2.4 x10^3/uL (1.8-7.7); NEUT % 49 % (31-73); PLATELET COUNT 137 x10^3/uL (140-400); RED BLOOD COUNT 2.93 x10^6/uL (3.50-5.40); RED CELL DISTRIBUTION WIDTH 19.1 % (11.5-14.5); WHITE BLOOD COUNT 4.9 x10^3/uL (4.0-11.0)
[2019-12-24 07:49] LABS: CALCIUM 8.2 mg/dL (8.5-10.1); CREATININE 3.8 mg/dL (0.6-1.0); GFR 13.9; POTASSIUM 4.9 mmol/L (3.5-5.1)
[2019-12-24] MEDS: BUDESONIDE 0.5 MG/2 ML NEBU. NEB SCH ×2 (07:53→20:21)
[2019-12-24] MEDS: ALBUTEROL SULFATE 2.5 MG/3 ML NEBU. NEB SCH ×4 (07:53→20:21)
[2019-12-24] MEDS: INSULIN LISPRO 300 UNITS/3 ML VIAL. SQ SCH ×3 (08:00→17:00)
--- NOTE | 2019-12-24 08:46 | PDOC ---
Provider Note Provider Note Pt seen .Full H&P dictated.#[id number]. ?diverticular bleed/ESRD on dialysis Justicifation of Admission Dx: Justifications for Admission: Justification of Admission Dx: Yes LYLE ELENA MD Dec 24, 2019 08:46
[2019-12-24] MEDS: DOCUSATE 100 MG/10 ML SOLUTION. PO SCH (09:00)
[2019-12-24] MEDS ORDERED: NON FORMULARY ITEM (Budesonide/Formoterol Fumarate (Symbicort 160-4.5 Mcg Inhaler) 2 PUFF) IH SCH (09:00)
[2019-12-24] MEDS ORDERED: FOLIC/VIT B COMP W-C (RENAL) TABLET. PO SCH (09:00)
[2019-12-24] MEDS: TRIAMCINOLONE ACETONIDE 0.1% TOPICAL OINTMENT 15GM TUBE. TP SCH ×2 (09:00→21:00)
[2019-12-24] MEDS: FLUTICASONE 50MCG/NASAL SPRAY 16GM BOTTLE. NS SCH ×2 (09:09→21:10)
[2019-12-24] MEDS: SODIUM BICARBONATE 650 MG TABLET. PO SCH ×2 (09:09→21:09)
[2019-12-24] MEDS: GABAPENTIN 400 MG CAPSULE. PO SCH ×3 (09:10→21:11)
[2019-12-24] MEDS: CALCITRIOL 0.25 MCG CAPSULE. PO SCH (09:10)
[2019-12-24] MEDS: FOLIC/VIT B COMP W-C (RENAL) TABLET. PO SCH (09:10)
[2019-12-24] MEDS: CALCIUM ACETATE 667 MG CAPSULE PO SCH ×3 (09:10→17:27)
[2019-12-24] MEDS: PANTOPRAZOLE 40 MG TABLET.DR. PO SCH (09:10)
[2019-12-24] MEDS: CHOLECALCIFEROL (VITAMIN D3) 1,000 UNIT TABLET PO SCH (09:11)
[2019-12-24] MEDS: tiZANidine 4 MG TABLET. PO SCH ×3 (09:11→21:09)
[2019-12-24] MEDS: DICYCLOMINE HCL 10 MG CAPSULE PO SCH ×3 (09:11→21:10)
--- NOTE | 2019-12-24 09:44 | PDOC2 ---
GI CONSULT Date of Service: DATE: 12/24/19 TIME: 09:44 Reason For Consult: lower GI bleed HPI: HPI: 79 y/o female who started seeing bright red blood clots with and without stool on Saturday or Saturday. Last occurred overnight per nurse - "like uncooked liver." Tolerating diet. Has normal mid abdominal discomfort after eating after dialysis sometimes. We saw her in 08/2019 for severe anemia and +Hemoccult w/o overt bleeding. H/o GERD, chronic nausea and abd pain, and constipation. Remains on omeprazole QD and Linzess. H/o Marinol use. Multiple past EGDs - last in 2015 w/ reflux. Prior gastric biopsies negative for H. pylori. Last complete colonoscopy in 2010 normal except hemorrhoids. Incomplete colonoscopy to ascending colon in 2015. Past CTs and barium enema in 2015 w/ diverticulosis. Past imaging has also noted mildly dilated CBD and cholecystectomy. Barium swallow essentially unremarkable in 2018. S/p ileal- jejunal bypass in . On ASA. Takes a "[place] brand" medication for pain. Thinks she gets iron at dialysis. B12 normal in 2019. Denies vomiting, dysphagia, diarrhea, melena, and weight loss. Getting full liquid diet here. PMH: PMH: CAD, CHF, HTN, HLD, asthma, COPD, AMARIS, fibromyalgia, oA, ESRD on HD, DM, hypothyroidism cholecystectomy, hysterectomy, LUE AVF, PD cath placement, removal, CELINA, back surgery FH: Family History: Cancer (brother - CRC) Social History: Smoke: No ALCOHOL: none Drugs: None ROS: GEN: Denies fevers, chills, sweats HEENT: Denies blurred vision, sore throat CV: Denies chest pain RESP: Denies shortness of air, cough GI: Per HPI : Denies hematuria, dysuria ENDO: Denies weight changes NEURO: Denies confusion, dizziness MSK: Denies weakness, joint pain/swelling SKIN: Denies jaundice, pruritus Vitals: Vitals: Vital Signs Date Time Temp Pulse Resp B/P (MAP) Pulse Ox O2 Delivery O2 Flow Rate FiO2 12/24/19 07:57 94 Room Air 12/24/19 07:00 98.0 76 16 118/54 (75) 98.0 Labs: Labs: Laboratory Tests Test 12/23/19 18:43 12/24/19 06:40 12/24/19 07:10 White Blood Count 5.0 x10^3/uL (4.0-11.0) 4.9 x10^3/uL (4.0-11.0) Red Blood Count 3.26 x10^6/uL (3.50-5.40) 2.93 x10^6/uL (3.50-5.40) Hemoglobin 10.1 g/dL (12.0-15.5) 8.9 g/dL (12.0-15.5) Hematocrit 31.6 % (36.0-47.0) 28.6 % (36.0-47.0) Mean Corpuscular Volume 97 fL (79-100) 98 fL (79-100) Mean Corpuscular Hemoglobin 31 pg (25-35) 30 pg (25-35) Mean Corpuscular Hemoglobin Concent 32 g/dL (31-37) 31 g/dL (31-37) Red Cell Distribution Width 19.4 % (11.5-14.5) 19.1 % (11.5-14.5) Platelet Count 146 x10^3/uL (140-400) 137 x10^3/uL (140-400) Neutrophils (%) (Auto) 47 % (31-73) 49 % (31-73) Lymphocytes (%) (Auto) 41 % (24-48) 37 % (24-48) Monocytes (%) (Auto) 9 % (0-9) 9 % (0-9) Eosinophils (%) (Auto) 3 % (0-3) 4 % (0-3) Basophils (%) (Auto) 1 % (0-3) 1 % (0-3) Neutrophils # (Auto) 2.3 x10^3/uL (1.8-7.7) 2.4 x10^3/uL (1.8-7.7) Lymphocytes # (Auto) 2.0 x10^3/uL (1.0-4.8) 1.8 x10^3/uL (1.0-4.8) Monocytes # (Auto) 0.4 x10^3/uL (0.0-1.1) 0.4 x10^3/uL (0.0-1.1) Eosinophils # (Auto) 0.2 x10^3/uL (0.0-0.7) 0.2 x10^3/uL (0.0-0.7) Basophils # (Auto) 0.0 x10^3/uL (0.0-0.2) 0.0 x10^3/uL (0.0-0.2) Sodium Level 140 mmol/L (136-145) 140 mmol/L (136-145) Potassium Level 4.9 mmol/L (3.5-5.1) 4.9 mmol/L (3.5-5.1) Chloride Level 106 mmol/L (98-107) 107 mmol/L (98-107) Carbon Dioxide Level 26 mmol/L (21-32) 24 mmol/L (21-32) Anion Gap 8 (6-14) 9 (6-14) Blood Urea Nitrogen 26 mg/dL (7-20) 34 mg/dL (7-20) Creatinine 3.2 mg/dL (0.6-1.0) 3.8 mg/dL (0.6-1.0) Estimated GFR (Cockcroft-Gault) 17.0 13.9 BUN/Creatinine Ratio 8 (6-20) Glucose Level 88 mg/dL (70-99) 74 mg/dL (70-99) Calcium Level 8.5 mg/dL (8.5-10.1) 8.2 mg/dL (8.5-10.1) Total Bilirubin 0.2 mg/dL (0.2-1.0) Aspartate Amino Transf (AST/SGOT) 11 U/L (15-37) Alanine Aminotransferase (ALT/SGPT) 17 U/L (14-59) Alkaline Phosphatase 117 U/L (46-116) Total Protein 6.5 g/dL (6.4-8.2) Albumin 3.2 g/dL (3.4-5.0) Albumin/Globulin Ratio 1.0 (1.0-1.7) Glucose (Fingerstick) 69 mg/dL (70-99) Allergies: Coded Allergies: NSAIDS (Non-Steroidal Anti-Inflamma (Verified Allergy, Severe, Swelling, 03/31/19) pregabalin (Verified Allergy, Severe, Swelling, 03/31/19) tramadol (Verified Allergy, Severe, Swelling, 04/01/19) TAKES LORTAB AT HOME Iodinated Contrast Media (Verified Allergy, Intermediate, ITCHING/HIVES, 03/31/19) Iodine and Iodide Containing Produc (Verified Allergy, Intermediate, ITCHI NG/HIVES, 03/31/19) ibuprofen (Verified Adverse Reaction, Intermediate, UPSET STOMACH, 03/31/19) Medications: Current Medications Medications (Trade) Dose Ordered Sig/Noelle Route PRN Reason Start Time Stop Time Status Last Admin Dose Admin Calcitriol (Rocaltrol) 0.25 mcg DAILY PO 12/24/19 09:00 12/24/19 09:10 Dicyclomine HCl (Bentyl) 10 mg TID PO 12/24/19 09:00 12/24/19 09:11 Fluticasone Propionate (Flonase) 2 spray BID NS 12/24/19 09:00 12/24/19 09:09 Vitamin B Complex/ Vitamin C (Steph-Neri) 1 tab DAILY PO 12/24/19 09:00 12/24/19 09:10 Gabapentin (Neurontin) 400 mg TID PO 12/24/19 09:00 12/24/19 09:10 Sodium Bicarbonate (Sodium Bicarbonate) 1,300 mg BID PO 12/24/19 09:00 12/24/19 09:09 Tizanidine HCl (Zanaflex) 4 mg TID PO 12/24/19 09:00 12/24/19 09:11 Calcium Acetate (Phoslo) 667 mg TIDWMEALS PO 12/24/19 08:00 12/24/19 09:10 Vitamin D (Vitamin D3) 2,000 unit DAILY PO 12/24/19 09:00 12/24/19 09:11 Pantoprazole Sodium (Protonix) 40 mg DAILYAC PO 12/24/19 07:30 12/24/19 09:10 Budesonide (Pulmicort) 0.5 mg RTBID NEB 12/24/19 08:00 12/24/19 07:53 Albuterol Sulfate (Ventolin Neb Soln) 2.5 mg RTQID NEB 12/24/19 08:00 12/24/19 07:53 Imaging: Imaging: CT A/P IMPRESSION: No acute abdomen or pelvic pathology on noncontrast CT. PE: GEN: NAD HEENT: Atraumatic, PERRL LUNGS: CTAB HEART: RRR ABD: NABS, S/ND/NT EXTREMITY: No edema SKIN: No rashes, no jaundice NEURO/PSYCH: A & O 3 A/P: A/P: Hematochezia Chronic anemia GERD, chronic abd pain, chronic nausea, constipation - on PPI and Linzess CRC screen, FH CRC - complete colonoscopy 2010, to ascending colon in 2015 Diverticulosis, hemorrhoids S/p cholecystectomy, s/o ileal-jejunal bypass CAD, ESRD on HD - on ASA ?and iron -- Check bleeding scan and iron profile. Agree w/ PPI. Might keep to clear liquids for now. ELIJAH RIVERO Dec 24, 2019 09:44
[2019-12-24] MEDS ORDERED: HEPARIN for NUC MED 500 UNIT/5 ML DISP.SYRIN. IV ONE (10:00)
[2019-12-24 10:35] VITALS: BP 105/52
--- NOTE | 2019-12-24 10:45 | PDOC2 ---
CONSULT Date of Consult Date of Consult DATE: 12/24/19 TIME: 10:32 Reason for Consult Reason for Consult: ESRD Source Source: Chart review, Patient History of Present Illness Reason for Visit: 79 y/o AA female came to the ER with c/o bright red blood clots with and without stool on Saturday or Saturday. She reports she had it last night and looks like " liver." She denies any abdominal pain except mild chronic epigastric pain occasionally We saw her in 08/2019 for severe anemia and +Hemoccult w/o overt bleeding. H/o GERD, chronic nausea and abd pain, and constipation. Remains on omeprazole QD and Linzess. H/o Marinol use. She has had extensive GI work up---Multiple EGDs - last in 2015 w/ reflux. Prior gastric biopsies negative for H. pylori. Last complete colonoscopy in 2010 normal except hemorrhoids. Past CTs and barium enema in 2015 w/ diverticulosis. Barium swallow unremarkable in 2018. S/p ileal-jejunal bypass in . she is on ASA, no other blood thinners, denies NSAID's Denies nausea ,vomiting or diarrhea . Reports good appetite, No dysphagia. No CP or SOB. No f/c/cough Past Medical History Cardiovascular: CAD, CHF, Hyperlipidemia Pulmonary: Asthma, COPD, Other CENTRAL NERVOUS SYSTEM: Periperal neuropathy, Other GI: Diverticulosis, GERD, Peptic Ulcer disease Heme/Onc: Anemia NOS, Iron deficiency Anemia Musculoskeletal: Other Rheumatologic: Fibromyalgia Renal/: Chronic renal failure Endocrine: Diabetes, Hyperparathyroidism Past Surgical History Past Surgical History: Cholecystectomy, Hysterectomy, Other Family History Family History: Coronary Artery Disease, Diabetes, Hypertension, Kidney Disease Social History No ALCOHOL: none Drugs: None Lives: with Family Current Problem List Problem List Problems Medical Problems: (1) Acute lower GI bleeding Status: Acute (2) ESRD on dialysis Status: Chronic Current Medications Current Medications Current Medications Calcitriol (Rocaltrol) 0.25 mcg DAILY PO Last administered on 12/24/19at 09:10; Start 12/24/19 at 09:00 Diclofenac Sodium (Voltaren) 1 stefano PRN BID PRN TP PAIN; Start 12/23/19 at 23:00 Dicyclomine HCl (Bentyl) 10 mg TID PO Last administered on 12/24/19at 09:11; Start 12/24/19 at 09:00 Fluticasone Propionate (Flonase) 2 spray BID NS Last administered on 12/24/19 09:09; Start 12/24/19 at 09:00 Vitamin B Complex/ Vitamin C (Steph-Neri) 1 tab DAILY PO Last administered on 12/24/19 09:10; Start 12/24/19 at 09:00 Gabapentin (Neurontin) 400 mg TID PO Last administered on 12/24/19 09:10; Start 12/24/19 at 09:00 Lidocaine/ Prilocaine (Emla) 1 stefano 1X ONCE TP ; Start 12/23/19 at 23:15; Stop 12/23/19 at 23:16; Status DC Sodium Bicarbonate (Sodium Bicarbonate) 1,300 mg BID PO Last administered on 12/24/19 09:09; Start 12/24/19 at 09:00 Tizanidine HCl (Zanaflex) 4 mg TID PO Last administered on 12/24/19 09:11; Start 12/24/19 at 09:00 Triamcinolone Acetonide (Kenalog 0.1%) 1 stefano BID TP ; Start 12/24/19 at 09:00 Non-Formulary Medication (Albuterol Sulfate (Albuterol Sulfate Neb Soln)) 0.83 % TID PRN NEB WHEEZING; Start 12/23/19 at 23:00; Status UNV Non-Formulary Medication (Albuterol Sulfate (Proair Respiclick)) 2 puff PRN Q4- 6HRS PRN IH shortness of breath; Start 12/23/19 at 23:00; Status UNV Atorvastatin Calcium (Lipitor) 80 mg QHS PO ; Start 12/24/19 at 21:00 Non-Formulary Medication (Budesonide/ Formoterol Fumarate (Symbicort 160-4.5 Mcg Inhaler)) 2 puff BID IH ; Start 12/24/19 at 09:00; Status UNV Calcium Acetate (Phoslo) 667 mg TIDWMEALS PO Last administered on 12/24/19 09:10; Start 12/24/19 at 08:00 Vitamin D (Vitamin D3) 2,000 unit DAILY PO Last administered on 12/24/19 09:11; Start 12/24/19 at 09:00 Docusate Sodium (Colace Solution) 50 mg DAILY PO ; Start 12/24/19 at 09:00 Pantoprazole Sodium (Protonix) 40 mg DAILYAC PO Last administered on 12/24/19at 09:10; Start 12/24/19 at 07:30 Ondansetron HCl (Zofran Odt) 8 mg PRN Q12HR PRN PO NAUSEA; Start 12/23/19 at 23:00 Vitamin B Complex/ Vitamin C (Steph-Neri) 1 tab DAILY PO ; Start 12/24/19 at 09:00; Status Cancel Insulin Human Lispro (HumaLOG) 0-5 UNITS TIDWMEALS SQ ; Start 12/24/19 at 08:00 Dextrose (Dextrose 50%-Water Syringe) 12.5 gm PRN Q15MIN PRN IV SEE COMMENTS; Start 12/23/19 at 23:15 Albuterol Sulfate (Ventolin Neb Soln) 2.5 mg PRN Q4HRS PRN NEB SHORTNESS OF BREATH; Start 12/23/19 at 23:45 Budesonide (Pulmicort) 0.5 mg RTBID NEB Last administered on 12/24/19at 07:53; Start 12/24/19 at 08:00 Albuterol Sulfate (Ventolin Neb Soln) 2.5 mg RTQID NEB Last administered on 12/24/19at 07:53; Start 12/24/19 at 08:00 Heparin Sodium (Porcine) (HEPARIN for NUC MED) 100 unit 1X ONCE IV ; Start 12/24/19 at 10:00; Stop 12/24/19 at 10:04; Status DC Active Scripts Active Reported Tizanidine Hcl 4 Mg Tablet 1 Tab PO TID Dicyclomine Hcl 10 Mg Capsule 1 Cap PO TID Gabapentin (Gabapentin) 400 Mg Capsule 400 Mg PO TID Novolin 70-30 100 Unit/Ml Vial (Hum Insulin Nph/Reg Insulin Hm) 100 Unit/1 Ml Vial 1 Unit SQ TID Aspirin 81 Mg Tab.chew 1 Tab PO DAILY Stool Softener (Docusate Sodium) 50 Mg Capsule 1 Cap PO DAILY 30 Days Proair Respiclick (Albuterol Sulfate) 90 Mcg Aer.pow.ba 2 Puff IH PRN Q4-6HRS PRN Vitamin D (Cholecalciferol (Vitamin D3)) 2,000 Unit Capsule 1 Cap PO DAILY Nephro-Neri Tablet (Folic Acid/Vitamin B Comp W-C) 0.8 Mg Tablet 1 Tab PO DAILY Lidocaine-Prilocaine Cream (Lidocaine/Prilocaine) 30 Gm Cream..g. 1 Stefano TP UD Nephro-Neri Rx Tablet (Vit B Cmplx 3/Fa/Vit C/Biotin) 1 Each Tablet 1 Each PO DAILY Calcium Acetate 667 Mg Tablet 667 Mg PO TIDWMEALS Zofran (Ondansetron Hcl) 8 Mg Tablet 1 Tab PO Q12HR PRN Fluticasone Propionate Nasal Coleraine (Fluticasone Propionate) 16 Gm Coleraine.susp 2 Coleraine NS BID Calcitriol 0.25 Mcg Capsule 1 Cap PO DAILY Atorvastatin Calcium 80 Mg Tablet 80 Mg PO QHS Voltaren (Diclofenac Sodium) 100 Gm Gel..gram. 1 Gm TP BID PRN Triamcinolone Acetonide 0.1% Oint (Triamcinolone Acetonide) 15 Gm Oint...g. 1 Stefano TP BID MIX WITH EUCERIN DIRECTED BY PHYSICIAN Symbicort 160-4.5 Mcg Inhaler (Budesonide/Formoterol Fumarate) 10.2 Gm Hfa.aer.ad 2 Puff IH BID Sodium Bicarbonate 650 Mg Tablet 2 Tab PO BID Omeprazole 40 Mg Capsule.dr 1 Cap PO DAILY Albuterol Sulfate Neb Soln (Albuterol Sulfate) 0.63 Mg/3 Ml Vial.neb 0.83 % NEB TID PRN Allergies Allergies: Coded Allergies: NSAIDS (Non-Steroidal Anti-Inflamma (Verified Allergy, Severe, Swelling, 03/31/19) pregabalin (Verified Allergy, Severe, Swelling, 03/31/19) tramadol (Verified Allergy, Severe, Swelling, 04/01/19) TAKES LORTAB AT HOME Iodinated Contrast Media (Verified Allergy, Intermediate, ITCHING/HIVES, 03/31/19) Iodine and Iodide Containing Produc (Verified Allergy, Intermediate, ITCHING/HIVES, 03/31/19) ibuprofen (Verified Adverse Reaction, Intermediate, UPSET STOMACH, 03/31/19) ROS Review of System As per HPI, rest of the ROS is negative Physical Exam Physical Exam GENERAL: NAD , Obese HEENT: OM moist NECK: Supple, no JVP, no lymphadenopathy. LUNGS: Clear. HEART: S1, S2 regular. ABDOMEN: Obese, soft EXTREMITIES: No edema SKIN: No rash NEUROLOGIC: Alert, answers questions appropriately No Saldivar, No CVA or SP tenderness Vital Signs Vital Signs Date Time Temp Pulse Resp B/P (MAP) Pulse Ox O2 Delivery O2 Flow Rate FiO2 12/24/19 07:57 94 Room Air 12/24/19 07:00 98.0 76 16 118/54 (75) 98.0 Assessment & Plan ESRD : on MWF schedule Last Dialysis yesterday ,Currently No indication for HD today Hematochezia- Recurrent melena, extensive GI spear as in HPI (per GI) GI consulted GERD- - on PPI and Linzess Diverticulosis/ hemorrhoids S/p cholecystectomy, s/p ileal-jejunal bypass Hx of Thrombosed AV access: s/p Thrombolysis, left upper extremity AV graft , Treatment of outflow vein stenosis with angioplasty Fractured stent within the proximal outflow vein with subsequent significant narrowing following angioplasty treated with placement of a short segment covered stent on 08/10 Diabetes- primary managing . ANEMIA - Dialysis patients are mostly on IV Fe and CHASITY at there OP units based on Tsats, Hgb and Ferritin HTN- BP stable Labs Labs Laboratory Tests Test 12/23/19 18:43 12/24/19 06:40 12/24/19 07:10 White Blood Count 5.0 x10^3/uL (4.0-11.0) 4.9 x10^3/uL (4.0-11.0) Red Blood Count 3.26 x10^6/uL (3.50-5.40) 2.93 x10^6/uL (3.50-5.40) Hemoglobin 10.1 g/dL (12.0-15.5) 8.9 g/dL (12.0-15.5) Hematocrit 31.6 % (36.0-47.0) 28.6 % (36.0-47.0) Mean Corpuscular Volume 97 fL (79-100) 98 fL (79-100) Mean Corpuscular Hemoglobin 31 pg (25-35) 30 pg (25-35) Mean Corpuscular Hemoglobin Concent 32 g/dL (31-37) 31 g/dL (31-37) Red Cell Distribution Width 19.4 % (11.5-14.5) 19.1 % (11.5-14.5) Platelet Count 146 x10^3/uL (140-400) 137 x10^3/uL (140-400) Neutrophils (%) (Auto) 47 % (31-73) 49 % (31-73) Lymphocytes (%) (Auto) 41 % (24-48) 37 % (24-48) Monocytes (%) (Auto) 9 % (0-9) 9 % (0-9) Eosinophils (%) (Auto) 3 % (0-3) 4 % (0-3) Basophils (%) (Auto) 1 % (0-3) 1 % (0-3) Neutrophils # (Auto) 2.3 x10^3/uL (1.8-7.7) 2.4 x10^3/uL (1.8-7.7) Lymphocytes # (Auto) 2.0 x10^3/uL (1.0-4.8) 1.8 x10^3/uL (1.0-4.8) Monocytes # (Auto) 0.4 x10^3/uL (0.0-1.1) 0.4 x10^3/uL (0.0-1.1) Eosinophils # (Auto) 0.2 x10^3/uL (0.0-0.7) 0.2 x10^3/uL (0.0-0.7) Basophils # (Auto) 0.0 x10^3/uL (0.0-0.2) 0.0 x10^3/uL (0.0-0.2) Sodium Level 140 mmol/L (136-145) 140 mmol/L (136-145) Potassium Level 4.9 mmol/L (3.5-5.1) 4.9 mmol/L (3.5-5.1) Chloride Level 106 mmol/L (98-107) 107 mmol/L (98-107) Carbon Dioxide Level 26 mmol/L (21-32) 24 mmol/L (21-32) Anion Gap 8 (6-14) 9 (6-14) Blood Urea Nitrogen 26 mg/dL (7-20) 34 mg/dL (7-20) Creatinine 3.2 mg/dL (0.6-1.0) 3.8 mg/dL (0.6-1.0) Estimated GFR (Cockcroft-Gault) 17.0 13.9 BUN/Creatinine Ratio 8 (6-20) Glucose Level 88 mg/dL (70-99) 74 mg/dL (70-99) Calcium Level 8.5 mg/dL (8.5-10.1) 8.2 mg/dL (8.5-10.1) Total Bilirubin 0.2 mg/dL (0.2-1.0) Aspartate Amino Transf (AST/SGOT) 11 U/L (15-37) Alanine Aminotransferase (ALT/SGPT) 17 U/L (14-59) Alkaline Phosphatase 117 U/L (46-116) Total Protein 6.5 g/dL (6.4-8.2) Albumin 3.2 g/dL (3.4-5.0) Albumin/Globulin Ratio 1.0 (1.0-1.7) Glucose (Fingerstick) 69 mg/dL (70-99) Laboratory Tests Test 12/23/19 18:43 12/24/19 06:40 12/24/19 07:10 White Blood Count 5.0 x10^3/uL (4.0-11.0) 4.9 x10^3/uL (4.0-11.0) Red Blood Count 3.26 x10^6/uL (3.50-5.40) 2.93 x10^6/uL (3.50-5.40) Hemoglobin 10.1 g/dL (12.0-15.5) 8.9 g/dL (12.0-15.5) Hematocrit 31.6 % (36.0-47.0) 28.6 % (36.0-47.0) Mean Corpuscular Volume 97 fL (79-100) 98 fL (79-100) Mean Corpuscular Hemoglobin 31 pg (25-35) 30 pg (25-35) Mean Corpuscular Hemoglobin Concent 32 g/dL (31-37) 31 g/dL (31-37) Red Cell Distribution Width 19.4 % (11.5-14.5) 19.1 % (11.5-14.5) Platelet Count 146 x10^3/uL (140-400) 137 x10^3/uL (140-400) Neutrophils (%) (Auto) 47 % (31-73) 49 % (31-73) Lymphocytes (%) (Auto) 41 % (24-48) 37 % (24-48) Monocytes (%) (Auto) 9 % (0-9) 9 % (0-9) Eosinophils (%) (Auto) 3 % (0-3) 4 % (0-3) Basophils (%) (Auto) 1 % (0-3) 1 % (0-3) Neutrophils # (Auto) 2.3 x10^3/uL (1.8-7.7) 2.4 x10^3/uL (1.8-7.7) Lymphocytes # (Auto) 2.0 x10^3/uL (1.0-4.8) 1.8 x10^3/uL (1.0-4.8) Monocytes # (Auto) 0.4 x10^3/uL (0.0-1.1) 0.4 x10^3/uL (0.0-1.1) Eosinophils # (Auto) 0.2 x10^3/uL (0.0-0.7) 0.2 x10^3/uL (0.0-0.7) Basophils # (Auto) 0.0 x10^3/uL (0.0-0.2) 0.0 x10^3/uL (0.0-0.2) Sodium Level 140 mmol/L (136-145) 140 mmol/L (136-145) Potassium Level 4.9 mmol/L (3.5-5.1) 4.9 mmol/L (3.5-5.1) Chloride Level 106 mmol/L (98-107) 107 mmol/L (98-107) Carbon Dioxide Level 26 mmol/L (21-32) 24 mmol/L (21-32) Anion Gap 8 (6-14) 9 (6-14) Blood Urea Nitrogen 26 mg/dL (7-20) 34 mg/dL (7-20) Creatinine 3.2 mg/dL (0.6-1.0) 3.8 mg/dL (0.6-1.0) Estimated GFR (Cockcroft-Gault) 17.0 13.9 BUN/Creatinine Ratio 8 (6-20) Glucose Level 88 mg/dL (70-99) 74 mg/dL (70-99) Calcium Level 8.5 mg/dL (8.5-10.1) 8.2 mg/dL (8.5-10.1) Total Bilirubin 0.2 mg/dL (0.2-1.0) Aspartate Amino Transf (AST/SGOT) 11 U/L (15-37) Alanine Aminotransferase (ALT/SGPT) 17 U/L (14-59) Alkaline Phosphatase 117 U/L (46-116) Total Protein 6.5 g/dL (6.4-8.2) Albumin 3.2 g/dL (3.4-5.0) Albumin/Globulin Ratio 1.0 (1.0-1.7) Glucose (Fingerstick) 69 mg/dL (70-99) Review All relevant outside records, renal labs, imaging studies, telemetry/EKG's were reviewed. Images Images CT scan abdomen-- GASTROINTESTINAL: Extensive colonic diverticulosis. Post surgical changes from partial right colectomy. The stomach, small bowel, and colon are otherwise unremarkable. The appendix is not well seen but there are no findings of acute appendicitis.. IMPRESSION: No acute abdomen or pelvic pathology on noncontrast CT. BRIEN GIRALDO MD Dec 24, 2019 10:45
--- NOTE | 2019-12-24 10:50 | NUR ---
SS following for discharge planning. SS reviewed pt chart and discussed with pt RN. Pt is from home and is currently on room air. Pt on clear liquid diet. SS will continue to follow for discharge planning.
--- NOTE | 2019-12-24 12:08 | HP ---
ADMIT DATE: 12/23/2019 MEDICAL HISTORY AND PHYSICAL REASON FOR ADMISSION TO THE HOSPITAL: Lower GI bleed. HISTORY OF PRESENT ILLNESS: The patient is a 79-year-old female with a history of renal failure, on hemodialysis. She was noticing bleeding per rectum for the last 2-3 days, got progressively worse, came to the Emergency Room and the patient was seen in the Emergency Room, had a CT scan negative for acute diverticulitis, was admitted for further investigation and treatment. The patient was previously in the hospital approximately a year ago for GI bleed and subsided. PAST MEDICAL HISTORY: Other past medical history, the patient has a history of coronary artery disease, heart failure, hypertension, COPD, sleep apnea, fibromyalgia, diabetes, and hypothyroidism. PAST SURGICAL HISTORY: Gallbladder surgery, hysterectomy, back surgery, and AV shunt. The patient also had a past surgical history of ileal jejunal bypass in 1970s. Last colonoscopy was in 2010 and 2015. FAMILY HISTORY: Has a cancer in the brother. SOCIAL HISTORY: Denies smoking, alcohol, or drug abuse. ALLERGIES: IODINATED CONTRAST, NONSTEROIDALS, IBUPROFEN, LYRICA, AND TRAMADOL. MEDICATIONS AT HOME: The patient is on aspirin 81 mg daily, insulin she is on a very low dose if the sugar goes more than 200, albuterol 4 times daily inhaler and nebulizer, atorvastatin 80 mg daily, Symbicort 160/4.5 two puffs twice a day, calcitriol 0.25 daily, calcium acetate 667 mg 3 times a day, vitamin D 2000 daily, Voltaren gel daily, dicyclomine 10 mg 3 times a day, Colace 100 mg daily, Flonase twice a day, folic acid, Nephro-Neri 1 daily, gabapentin 400 mg 3 times daily, lidocaine daily with dialysis, omeprazole 40 mg daily, Zofran 8 mg daily, sodium bicarb 650 twice a day, tizanidine 8 mg 3 times a day for muscle relaxer. REVIEW OF SYSTEMS: Complains of bright red blood per rectum. No upper GI bleed. No nausea or vomiting. No fever. Rest of the 14 systems were reviewed and negative. PHYSICAL EXAMINATION: VITAL SIGNS: Temperature 97, pulse 77, respirations 16, blood pressure 120/60, 92% on room air. HEENT: Head is atraumatic. Pupils are equal. Oral cavity, no congestion. NECK: Supple. Thyroid, not enlarged. JVD, not elevated. CHEST: Symmetrical. CARDIOVASCULAR: S1 and S2. LUNGS: Clear to auscultation. ABDOMEN: Soft and obese. No masses palpable. EXTERNAL GENITALIA: No Saldivar. RECTAL: Deferred. EXTREMITIES: Has AV shunts in the extremities. No calf tenderness, no edema. Pulses are 1+. NEUROLOGIC: Moving all extremities. No focal deficits noted. LABORATORY DATA: Shows a white count of 5, hemoglobin 10, platelets 146. Electrolytes: Sodium 140, potassium 4.9, chloride 106, bicarb 26, BUN 26, creatinine 3.2. LFTs were normal. DIAGNOSTIC DATA: CT scan of the abdomen and pelvis shows no acute abdominal or pelvic pathology. FINAL IMPRESSION: 1. Lower gastrointestinal bleed. 2. Possible diverticular bleed. 3. End-stage renal disease, on hemodialysis. 4. Gastroesophageal reflux disease. 5. Multiple surgeries as mentioned above. PLAN: At this time, the patient is seen by GI, scheduled for a bleeding scan and type and cross, transfuse hemoglobin less than 8. The patient is going to go to dialysis tomorrow on a regular schedule on Saturday, Saturday, and Saturday. Clear liquid diet and monitor hemoglobin. LYLE ELENA MD DR: SHIVANI/kimberly JOB#: [id number] / [id number]
--- NOTE | 2019-12-24 12:51 | RAD ---
EXAM: Gastrointestinal bleeding study. HISTORY: Hematochezia. COMPARISON: None. FINDINGS: 33.0 mCi Tc-99m labeled tagged red blood cells were administered intravenously. Scintigraphic images of the abdomen and pelvis were obtained through 60 minutes. There is some motion artifact. There is no clear evidence of active hemorrhage. Some mobile activity within the upper abdomen likely reflects normal small bowel uptake and peristalsis. IMPRESSION: 1. No evidence of active hemorrhage. Electronically signed by: Nicola Garcia MD (12/24/2019 12:48 PM) [id number]
[2019-12-24 14:34] VITALS: BP 107/62
[2019-12-24 19:32] VITALS: BP 114/57
[2019-12-24] MEDS: ATORVASTATIN CALCIUM 40 MG TABLET. PO SCH (21:11)
[2019-12-24 22:31] VITALS: BP 106/52
[2019-12-25] VITALS (9 sets, daily range): BP systolic 96–144; BP diastolic 37–86
[2019-12-25 05:21] LABS: BASO % 1 % (0-3); EOS # 0.1 x10^3/uL (0.0-0.7); EOS % 2 % (0-3); HEMATOCRIT 25.2 % (36.0-47.0); HEMOGLOBIN 7.9 g/dL (12.0-15.5); LYMPH # 1.4 x10^3/uL (1.0-4.8); LYMPH % 31 % (24-48); MEAN CORPUSCULAR HEMOGLOBIN 31 pg (25-35); MEAN CORPUSCULAR HGB CONC 32 g/dL (31-37); MEAN CORPUSCULAR VOLUME 97 fL (79-100); MONO # 0.4 x10^3/uL (0.0-1.1); MONO % 8 % (0-9); NEUT # 2.6 x10^3/uL (1.8-7.7); NEUT % 58 % (31-73); PLATELET COUNT 129 x10^3/uL (140-400); RED BLOOD COUNT 2.59 x10^6/uL (3.50-5.40); RED CELL DISTRIBUTION WIDTH 19.3 % (11.5-14.5); WHITE BLOOD COUNT 4.5 x10^3/uL (4.0-11.0)
[2019-12-25 05:40] LABS: CALCIUM 8.5 mg/dL (8.5-10.1); CREATININE 4.7 mg/dL (0.6-1.0); GFR 10.9; POTASSIUM 5.2 mmol/L (3.5-5.1)
[2019-12-25] MEDS: BUDESONIDE 0.5 MG/2 ML NEBU. NEB SCH ×2 (07:44→20:00)
[2019-12-25] MEDS: ALBUTEROL SULFATE 2.5 MG/3 ML NEBU. NEB SCH ×4 (07:44→20:00)
[2019-12-25] MEDS: INSULIN LISPRO 300 UNITS/3 ML VIAL. SQ SCH ×3 (08:00→17:00)
[2019-12-25] MEDS ORDERED: IV NORMAL SALINE 1000ML BAG 1,000 ML IV PRN ×2 (08:15)
[2019-12-25] MEDS ORDERED: ALBUMIN HUMAN 25% 200 ML IV PRN (08:15)
[2019-12-25] MEDS ORDERED: DIALYSIS PATIENT. MC PRN ×2 (08:15)
--- NOTE | 2019-12-25 08:32 | PDOC ---
PROGRESS NOTES Date of Service: DATE: 12/25/19 TIME: 08:29 Subjective Subjective no blood in stools today Objective Objective Vital Signs Date Time Temp Pulse Resp B/P (MAP) Pulse Ox O2 Delivery O2 Flow Rate FiO2 12/25/19 07:45 94 Room Air 12/25/19 07:00 97.8 83 20 109/51 (70) 97.8 Intake and Output 12/25/19 07:00 Intake Total 800 ml Output Total 600 ml Balance 200 ml Intake Oral 800 ml Output Urine Total 600 ml # Bowel Movements 3 Physical Exam Abdomen: Soft Heart: Regular rate, Normal S1, Normal S2 Extremities: No clubbing General: Oriented X3 Lungs: Clear to auscultation MUSCULOSKELETAL: No deformity, Other Neuro: Normal speech Psych/Mental Status: Mental status NL Skin: No breakdown Diagnosis Problem List Problems Medical Problems: (1) Acute lower GI bleeding Status: Acute (2) ESRD on dialysis Status: Chronic Assessment Assessment Problems Medical Problems: (1) Acute lower GI bleeding Status: Acute (2) ESRD on dialysis Status: Chronic FINAL IMPRESSION: 1. Lower gastrointestinal bleed. 2. Possible diverticular bleed. 3. End-stage renal disease, on hemodialysis. 4. Gastroesophageal reflux disease. 5. Multiple surgeries as mentioned above. PLAN: GI bleeding scan -neg for active bleed Dialysis today HB 7.9 droped from 10 , transfuse 1 unit prbc with dialysis. home later today or tomorrow. hold asa for 2 weeks At this time, the patient is seen by GI, scheduled for a bleeding scan and type and cross, transfuse hemoglobin less than 8. The patient is going to go to dialysis tomorrow on a regular schedule on Saturday, Saturday, and Saturday. Clear liquid diet and monitor hemoglobin. Plan Plan of Care Problems Medical Problems: (1) Acute lower GI bleeding Status: Acute (2) ESRD on dialysis Status: Chronic Comment Review of Relevant I have reviewed the following items girish (where applicable) has been applied. Labs Laboratory Tests Test 12/24/19 12:19 12/24/19 16:32 12/24/19 20:51 12/25/19 05:00 Glucose (Fingerstick) 93 mg/dL (70-99) 105 mg/dL (70-99) 135 mg/dL (70-99) White Blood Count 4.5 x10^3/uL (4.0-11.0) Red Blood Count 2.59 x10^6/uL (3.50-5.40) Hemoglobin 7.9 g/dL (12.0-15.5) Hematocrit 25.2 % (36.0-47.0) Mean Corpuscular Volume 97 fL (79-100) Mean Corpuscular Hemoglobin 31 pg (25-35) Mean Corpuscular Hemoglobin Concent 32 g/dL (31-37) Red Cell Distribution Width 19.3 % (11.5-14.5) Platelet Count 129 x10^3/uL (140-400) Neutrophils (%) (Auto) 58 % (31-73) Lymphocytes (%) (Auto) 31 % (24-48) Monocytes (%) (Auto) 8 % (0-9) Eosinophils (%) (Auto) 2 % (0-3) Basophils (%) (Auto) 1 % (0-3) Neutrophils # (Auto) 2.6 x10^3/uL (1.8-7.7) Lymphocytes # (Auto) 1.4 x10^3/uL (1.0-4.8) Monocytes # (Auto) 0.4 x10^3/uL (0.0-1.1) Eosinophils # (Auto) 0.1 x10^3/uL (0.0-0.7) Basophils # (Auto) 0.0 x10^3/uL (0.0-0.2) Sodium Level 140 mmol/L (136-145) Potassium Level 5.2 mmol/L (3.5-5.1) Chloride Level 105 mmol/L (98-107) Carbon Dioxide Level 23 mmol/L (21-32) Anion Gap 12 (6-14) Blood Urea Nitrogen 47 mg/dL (7-20) Creatinine 4.7 mg/dL (0.6-1.0) Estimated GFR (Cockcroft-Gault) 10.9 Glucose Level 101 mg/dL (70-99) Calcium Level 8.5 mg/dL (8.5-10.1) Test 12/25/19 07:15 Glucose (Fingerstick) 84 mg/dL (70-99) Medications Current Medications Albumin Human 200 ml @ 200 mls/hr 1X PRN PRN IV Hypotension; Start 12/25/19 at 08:15; Stop 12/25/19 at 14:14; Status UNV Atorvastatin Calcium (Lipitor) 80 mg QHS PO Last administered on 12/24/19at 21:11; Start 12/24/19 at 21:00 Calcitriol (Rocaltrol) 0.25 mcg DAILY PO Last administered on 12/24/19at 09:10; Start 12/24/19 at 09:00 Dicyclomine HCl (Bentyl) 10 mg TID PO Last administered on 12/24/19at 21:10; Start 12/24/19 at 09:00 Docusate Sodium (Colace Solution) 50 mg DAILY PO ; Start 12/24/19 at 09:00 Fluticasone Propionate (Flonase) 2 spray BID NS Last administered on 12/24/19at 21:10; Start 12/24/19 at 09:00 Gabapentin (Neurontin) 400 mg TID PO Last administered on 12/24/19at 21:11; Start 12/24/19 at 09:00 Heparin Sodium (Porcine) (HEPARIN for NUC MED) 100 unit 1X ONCE IV ; Start 12/24/19 at 10:00; Stop 12/24/19 at 10:04; Status DC Info (PHARMACY MONITORING -- do not chart) 1 each PRN DAILY PRN MC SEE COMMENTS; Start 12/25/19 at 08:15; Status UNV Info (PHARMACY MONITORING -- do not chart) 1 each PRN DAILY PRN MC SEE COMMENTS; Start 12/25/19 at 08:15; Status UNV Non-Formulary Medication (Budesonide/ Formoterol Fumarate (Symbicort 160-4.5 Mcg Inhaler)) 2 puff BID IH ; Start 12/24/19 at 09:00; Status UNV Sodium Bicarbonate (Sodium Bicarbonate) 1,300 mg BID PO Last administered on 12/24/19at 21:09; Start 12/24/19 at 09:00 Sodium Chloride 1,000 ml @ 400 mls/hr Q2H30M PRN IV PATENCY; Start 12/25/19 at 08:15; Stop 12/25/19 at 20:14; Status UNV Sodium Chloride 1,000 ml @ 1,000 mls/hr Q1H PRN IV hypotension; Start 12/25/19 at 08:15; Stop 12/25/19 at 14:14; Status UNV Tizanidine HCl (Zanaflex) 4 mg TID PO Last administered on 12/24/19at 21:09; Start 12/24/19 at 09:00 Triamcinolone Acetonide (Kenalog 0.1%) 1 barbara BID TP Last administered on 12/24/19at 21:00; Start 12/24/19 at 09:00 Vitamin B Complex/ Vitamin C (Steph-Neri) 1 tab DAILY PO Last administered on 12/24/19at 09:10; Start 12/24/19 at 09:00 Vitamin B Complex/ Vitamin C (Steph-Neri) 1 tab DAILY PO ; Start 12/24/19 at 09:00; Status Cancel Vitamin D (Vitamin D3) 2,000 unit DAILY PO Last administered on 12/24/19at 09:11; Start 12/24/19 at 09:00 Vitals/I & O Vital Sign - Last 24 Hours 12/24/19 12/24/19 12/24/19 12/24/19 10:35 14:34 15:46 19:32 Temp 98.5 98.3 98.8 98.5 98.3 98.8 Pulse 80 90 85 Resp 16 16 16 B/P (MAP) 105/52 (69) 107/62 (77) 114/57 (76) Pulse Ox 90 94 94 94 O2 Delivery Room Air Room Air Room Air Room Air 12/24/19 12/24/19 12/24/19 12/25/19 20:05 20:21 22:31 03:28 Temp 98.2 98.0 98.2 98.0 Pulse 87 81 Resp 16 16 B/P (MAP) 106/52 (70) 132/69 (90) Pulse Ox 93 92 94 O2 Delivery Room Air Room Air Room Air Room Air 12/25/19 12/25/19 07:00 07:45 Temp 97.8 97.8 Pulse 83 Resp 20 B/P (MAP) 109/51 (70) Pulse Ox 93 94 O2 Delivery Room Air Room Air Intake and Output 12/24/19 12/24/19 12/25/19 15:00 23:00 07:00 Intake Total 0 ml 800 ml 0 ml Output Total 0 ml 600 ml Balance 0 ml 800 ml -600 ml Justicifation of Admission Dx: Justifications for Admission: Justification of Admission Dx: Yes Comments: gi bleed, lower gi diverticular bleed LYLE ELENA MD Dec 25, 2019 08:32
[2019-12-25] MEDS: tiZANidine 4 MG TABLET. PO SCH ×3 (09:00→21:25)
[2019-12-25] MEDS: GABAPENTIN 400 MG CAPSULE. PO SCH ×3 (09:00→21:25)
[2019-12-25] MEDS: DOCUSATE 100 MG/10 ML SOLUTION. PO SCH (09:00)
[2019-12-25] MEDS: DICYCLOMINE HCL 10 MG CAPSULE PO SCH ×3 (09:00→21:25)
[2019-12-25] MEDS: TRIAMCINOLONE ACETONIDE 0.1% TOPICAL OINTMENT 15GM TUBE. TP SCH ×2 (09:00→21:26)
--- NOTE | 2019-12-25 09:17 | PDOC ---
DATE OF SERVICE DATE: 12/25/19 TIME: 09:17 SUBJECTIVE ROS States lot of blood last night but much less this morning Seen on HD, no complaints currently OBJECTIVE Vital Signs Vital Signs Date Time Temp Pulse Resp B/P (MAP) Pulse Ox O2 Delivery O2 Flow Rate FiO2 12/25/19 07:45 94 Room Air 12/25/19 07:00 97.8 83 20 109/51 (70) 97.8 I & 0 Intake and Output 12/25/19 07:00 Intake Total 800 ml Output Total 600 ml Balance 200 ml Intake Oral 800 ml Output Urine Total 600 ml # Bowel Movements 3 PHYSICAL EXAM Physical Exam GENERAL: NAD , Obese HEENT: OM moist NECK: Supple, no JVP, no lymphadenopathy. LUNGS: Clear. HEART: S1, S2 regular. ABDOMEN: Obese, soft EXTREMITIES: No edema SKIN: No rash NEUROLOGIC: Alert, answers questions appropriately No Saldivar, No CVA or SP tenderness DIAGNOSIS/ASSESSMENT Assessment & Plan ESRD : on MWF schedule Seen on HD, tolerating well , continue as ordered, Ty Urbina Hematochezia- Recurrent melena, extensive GI spear as in HPI (per GI) Per GI GERD- - on PPI and Linzess Diverticulosis/ hemorrhoids S/p cholecystectomy, s/p ileal-jejunal bypass Hx of Thrombosed AV access: s/p Thrombolysis, left upper extremity AV graft , Treatment of outflow vein stenosis with angioplasty Fractured stent within the proximal outflow vein with subsequent significant narrowing following angioplasty treated with placement of a short segment covered stent on 08/10 Diabetes- primary managing . ANEMIA - Dialysis patients are mostly on IV Fe and CHASITY at there OP units based on Tsats, Hgb and Ferritin HTN- BP stable COMMENT/RELEVANT DATA Meds Current Medications Medications (Trade) Dose Ordered Sig/Noelle Start Time Stop Time Status Last Admin Dose Admin Albumin Human 200 ml @ 200 mls/hr 1X PRN PRN 12/25/19 08:15 12/25/19 14:14 Albuterol Sulfate (Ventolin Neb Soln) 2.5 mg RTQID 12/24/19 08:00 12/25/19 07:44 2.5 MG Atorvastatin Calcium (Lipitor) 80 mg QHS 12/24/19 21:00 12/24/19 21:11 80 MG Budesonide (Pulmicort) 0.5 mg RTBID 12/24/19 08:00 12/25/19 07:44 0.5 MG Calcitriol (Rocaltrol) 0.25 mcg DAILY 12/24/19 09:00 12/24/19 09:10 0.25 MCG Calcium Acetate (Phoslo) 667 mg TIDWMEALS 12/24/19 08:00 12/24/19 17:27 667 MG Dextrose (Dextrose 50%-Water Syringe) 12.5 gm PRN Q15MIN PRN 12/23/19 23:15 Diclofenac Sodium (Voltaren) 1 barbara PRN BID PRN 12/23/19 23:00 Dicyclomine HCl (Bentyl) 10 mg TID 12/24/19 09:00 12/24/19 21:10 10 MG Docusate Sodium (Colace Solution) 50 mg DAILY 12/24/19 09:00 Fluticasone Propionate (Flonase) 2 spray BID 12/24/19 09:00 12/24/19 21:10 2 SPRAY Gabapentin (Neurontin) 400 mg TID 12/24/19 09:00 12/24/19 21:11 400 MG Heparin Sodium (Porcine) (HEPARIN for NUC MED) 100 unit 1X ONCE 12/24/19 10:00 12/24/19 10:04 DC Info (PHARMACY MONITORING -- do not chart) 1 each PRN DAILY PRN 12/25/19 08:15 Insulin Human Lispro (HumaLOG) 0-5 UNITS TIDWMEALS 12/24/19 08:00 Lidocaine/ Prilocaine (Emla) 1 barbara 1X ONCE 12/23/19 23:15 12/23/19 23:16 DC Non-Formulary Medication (Albuterol Sulfate (Albuterol Sulfate Neb Soln)) 0.83 % TID PRN 12/23/19 23:00 UNV Non-Formulary Medication (Albuterol Sulfate (Proair Respiclick)) 2 puff PRN Q4-6HRS PRN 12/23/19 23:00 UNV Non-Formulary Medication (Budesonide/ Formoterol Fumarate (Symbicort 160-4.5 Mcg Inhaler)) 2 puff BID 12/24/19 09:00 UNV Ondansetron HCl (Zofran Odt) 8 mg PRN Q12HR PRN 12/23/19 23:00 Pantoprazole Sodium (Protonix) 40 mg DAILYAC 12/24/19 07:30 12/24/19 09:10 40 MG Sodium Bicarbonate (Sodium Bicarbonate) 1,300 mg BID 12/24/19 09:00 12/24/19 21:09 1,300 MG Sodium Chloride 1,000 ml @ 400 mls/hr Q2H30M PRN 12/25/19 08:15 12/25/19 20:14 Tizanidine HCl (Zanaflex) 4 mg TID 12/24/19 09:00 12/24/19 21:09 4 MG Triamcinolone Acetonide (Kenalog 0.1%) 1 barbara BID 12/24/19 09:00 12/24/19 21:00 1 BARBARA Vitamin B Complex/ Vitamin C (Steph-Neri) 1 tab DAILY 12/24/19 09:00 Cancel Vitamin D (Vitamin D3) 2,000 unit DAILY 12/24/19 09:00 12/24/19 09:11 2,000 UNIT Lab Laboratory Tests Test 12/24/19 12:19 12/24/19 16:32 12/24/19 20:51 12/25/19 05:00 Glucose (Fingerstick) 93 mg/dL (70-99) 105 mg/dL (70-99) 135 mg/dL (70-99) White Blood Count 4.5 x10^3/uL (4.0-11.0) Red Blood Count 2.59 x10^6/uL (3.50-5.40) Hemoglobin 7.9 g/dL (12.0-15.5) Hematocrit 25.2 % (36.0-47.0) Mean Corpuscular Volume 97 fL (79-100) Mean Corpuscular Hemoglobin 31 pg (25-35) Mean Corpuscular Hemoglobin Concent 32 g/dL (31-37) Red Cell Distribution Width 19.3 % (11.5-14.5) Platelet Count 129 x10^3/uL (140-400) Neutrophils (%) (Auto) 58 % (31-73) Lymphocytes (%) (Auto) 31 % (24-48) Monocytes (%) (Auto) 8 % (0-9) Eosinophils (%) (Auto) 2 % (0-3) Basophils (%) (Auto) 1 % (0-3) Neutrophils # (Auto) 2.6 x10^3/uL (1.8-7.7) Lymphocytes # (Auto) 1.4 x10^3/uL (1.0-4.8) Monocytes # (Auto) 0.4 x10^3/uL (0.0-1.1) Eosinophils # (Auto) 0.1 x10^3/uL (0.0-0.7) Basophils # (Auto) 0.0 x10^3/uL (0.0-0.2) Sodium Level 140 mmol/L (136-145) Potassium Level 5.2 mmol/L (3.5-5.1) Chloride Level 105 mmol/L (98-107) Carbon Dioxide Level 23 mmol/L (21-32) Anion Gap 12 (6-14) Blood Urea Nitrogen 47 mg/dL (7-20) Creatinine 4.7 mg/dL (0.6-1.0) Estimated GFR (Cockcroft-Gault) 10.9 Glucose Level 101 mg/dL (70-99) Calcium Level 8.5 mg/dL (8.5-10.1) Test 12/25/19 07:15 Glucose (Fingerstick) 84 mg/dL (70-99) Results All relevant outside records, renal labs, imaging studies, telemetry/EKG's were reviewed. Justicifation of Admission Dx: Justifications for Admission: Justification of Admission Dx: Yes BRIEN GIRALDO MD Dec 25, 2019 09:17
--- NOTE | 2019-12-25 10:42 | PDOC ---
Date of Service: DATE: 12/25/19 TIME: 10:38 Subjective: Subjective: Seen in dialysis - tells me a lot of blood last night but much less this morning. Objective: Objective: D/w nurse - ?DC today - small clots this morning. Vital Signs: Vital Signs Date Time Temp Pulse Resp B/P (MAP) Pulse Ox O2 Delivery O2 Flow Rate FiO2 12/25/19 10:15 97.8 89 20 144/86 97.8 12/25/19 07:45 94 Room Air Labs: Laboratory Tests Test 12/24/19 12:19 12/24/19 16:32 12/24/19 20:51 12/25/19 07:15 Glucose (Fingerstick) 93 mg/dL (70-99) 105 mg/dL (70-99) 135 mg/dL (70-99) 84 mg/dL (70-99) Imaging: GI bleed scan IMPRESSION: 1. No evidence of active hemorrhage. PE: GEN: dialzying - dialysis nurse says to transfuse also LUNGS: CTAB HEART: RRR ABD: S/ND/NT NEURO/PSYCH: A & O 3 A/P: Suspected diverticular bleed Chronic anemia, CAD, ESRD - on ASA GERD, chronic abd pain, chronic nausea, chronic constipation - on PPI and Linzess -- Reviewed w/ Dr. Cano - would keep to clears and observe for at least another day. Justicifation of Admission Dx: Justifications for Admission: Justification of Admission Dx: Yes ELIJAH RIVERO Dec 25, 2019 10:42
--- NOTE | 2019-12-25 12:21 | NUR ---
SS following up with discharge planning. SS reviewed pt chart and discussed with pt RN. Pt is currently on room air. Pt had transfusion today in dialysis. Pt has outpatient dialysis at [facility], ; fax [phone], Saturday, Saturday, and Saturday. SS phoned and faxed clinical updates to [facility]. Possible discharge to home tomorrow. SS will continue to follow for discharge planning.
[2019-12-25] MEDS: CALCIUM ACETATE 667 MG CAPSULE PO SCH ×3 (12:49→17:07)
[2019-12-25] MEDS: CALCITRIOL 0.25 MCG CAPSULE. PO SCH (12:49)
[2019-12-25] MEDS: SODIUM BICARBONATE 650 MG TABLET. PO SCH ×2 (12:50→21:25)
[2019-12-25] MEDS: FOLIC/VIT B COMP W-C (RENAL) TABLET. PO SCH (12:50)
[2019-12-25] MEDS: PANTOPRAZOLE 40 MG TABLET.DR. PO SCH (12:50)
[2019-12-25] MEDS: CHOLECALCIFEROL (VITAMIN D3) 1,000 UNIT TABLET PO SCH (12:50)
[2019-12-25] MEDS: FLUTICASONE 50MCG/NASAL SPRAY 16GM BOTTLE. NS SCH ×2 (12:50→21:25)
[2019-12-25] MEDS ORDERED: ACETAMINOPHEN 325 MG TABLET. PO PRN (18:15)
--- NOTE | 2019-12-25 19:45 | NUR ---
Pt in bed, daughter at bedside assessment completed vss poc explained will resume care and continue to monitor pt. Pt denied pain at this time and call light placed in reach.
[2019-12-25] MEDS: ATORVASTATIN CALCIUM 40 MG TABLET. PO SCH (21:25)
[2019-12-26 03:24] VITALS: BP 112/48
[2019-12-26] MEDS: PANTOPRAZOLE 40 MG TABLET.DR. PO SCH (06:34)
[2019-12-26 07:00] VITALS: BP 114/48
[2019-12-26] MEDS: INSULIN LISPRO 300 UNITS/3 ML VIAL. SQ SCH ×2 (08:00→12:00)
[2019-12-26] MEDS: ALBUTEROL SULFATE 2.5 MG/3 ML NEBU. NEB SCH ×2 (08:02→11:40)
[2019-12-26] MEDS: BUDESONIDE 0.5 MG/2 ML NEBU. NEB SCH (08:02)
[2019-12-26] MEDS: SODIUM BICARBONATE 650 MG TABLET. PO SCH (08:34)
[2019-12-26] MEDS: GABAPENTIN 400 MG CAPSULE. PO SCH ×2 (08:34→14:14)
[2019-12-26] MEDS: CHOLECALCIFEROL (VITAMIN D3) 1,000 UNIT TABLET PO SCH (08:34)
[2019-12-26] MEDS: FOLIC/VIT B COMP W-C (RENAL) TABLET. PO SCH (08:34)
[2019-12-26] MEDS: tiZANidine 4 MG TABLET. PO SCH ×2 (08:34→14:14)
[2019-12-26] MEDS: CALCITRIOL 0.25 MCG CAPSULE. PO SCH (08:34)
[2019-12-26] MEDS: CALCIUM ACETATE 667 MG CAPSULE PO SCH ×2 (08:35→12:17)
[2019-12-26] MEDS: DOCUSATE 100 MG/10 ML SOLUTION. PO SCH (08:35)
[2019-12-26] MEDS: DICYCLOMINE HCL 10 MG CAPSULE PO SCH ×2 (08:35→14:14)
[2019-12-26] MEDS: FLUTICASONE 50MCG/NASAL SPRAY 16GM BOTTLE. NS SCH (08:35)
[2019-12-26] MEDS: TRIAMCINOLONE ACETONIDE 0.1% TOPICAL OINTMENT 15GM TUBE. TP SCH (08:38)
[2019-12-26 10:16] VITALS: BP 93/45
--- NOTE | 2019-12-26 11:38 | PDOC ---
PROGRESS NOTES Date of Service: DATE: 12/26/19 TIME: 11:37 Subjective Subjective no more bleeding Objective Objective Vital Signs Date Time Temp Pulse Resp B/P (MAP) Pulse Ox O2 Delivery O2 Flow Rate FiO2 12/26/19 10:16 98.2 91 15 93/45 (61) 90 Room Air 98.2 Intake and Output 12/26/19 07:00 Intake Total 520 ml Balance 520 ml Intake Oral 510 ml Blood Product IV Normal Saline Flush 10 ml Physical Exam Abdomen: Soft Heart: Regular rate, Normal S1, Normal S2 Extremities: No clubbing General: Oriented X3 Lungs: Clear to auscultation MUSCULOSKELETAL: No deformity, Other Neuro: Normal speech Psych/Mental Status: Mental status NL Skin: No breakdown Diagnosis Problem List Problems Medical Problems: (1) Acute lower GI bleeding Status: Acute (2) ESRD on dialysis Status: Chronic Assessment Assessment Problems Medical Problems: (1) Acute lower GI bleeding Status: Acute (2) ESRD on dialysis Status: Chronic FINAL IMPRESSION: 1. Lower gastrointestinal bleed. 2. Possible diverticular bleed. 3. End-stage renal disease, on hemodialysis. 4. Gastroesophageal reflux disease. 5. Multiple surgeries as mentioned above. PLAN: d/c home later today GI bleeding scan -neg for active bleed Dialysis yesterday HB 7.9 droped from 10 , transfused 1 unit prbc with dialysis yesterday. Advance diet hold asa for 2 weeks At this time, the patient is seen by GI, scheduled for a bleeding scan and type and cross, transfuse hemoglobin less than 8. The patient is going to go to dialysis tomorrow on a regular schedule on Saturday, Saturday, and Saturday. Clear liquid diet and monitor hemoglobin. Plan Plan of Care Problems Medical Problems: (1) Acute lower GI bleeding Status: Acute (2) ESRD on dialysis Status: Chronic Comment Review of Relevant I have reviewed the following items girish (where applicable) has been applied. Labs Laboratory Tests Test 12/25/19 12:40 12/25/19 17:00 12/25/19 20:51 12/26/19 07:24 Glucose (Fingerstick) 105 mg/dL (70-99) 91 mg/dL (70-99) 139 mg/dL (70-99) 82 mg/dL (70-99) Test 12/26/19 11:23 Glucose (Fingerstick) 105 mg/dL (70-99) Medications Current Medications Acetaminophen (Tylenol) 650 mg PRN Q6HRS PRN PO PAIN Last administered on 12/25/19at 18:28; Start 12/25/19 at 18:15 Vitals/I & O Vital Sign - Last 24 Hours 12/25/19 12/25/19 12/25/19 12/25/19 12:10 12:54 15:00 19:22 Temp 98.0 98.5 99.3 98.0 98.5 99.3 Pulse 88 95 89 Resp 18 18 B/P (MAP) 127/64 (85) 117/60 (79) 114/57 (76) Pulse Ox 94 93 93 97 O2 Delivery Room Air Room Air Room Air Room Air 12/25/19 12/25/19 12/25/19 12/25/19 19:45 19:45 21:33 23:05 Temp 98.2 98.2 Pulse 84 Resp 16 B/P (MAP) 96/37 (56) Pulse Ox 94 93 O2 Delivery Room Air Room Air Room Air Room Air 12/26/19 12/26/19 12/26/19 12/26/19 03:24 07:00 08:00 08:04 Temp 98.2 98.2 98.2 98.2 Pulse 84 83 Resp 16 16 B/P (MAP) 112/48 (69) 114/48 (70) Pulse Ox 95 92 95 O2 Delivery Room Air Room Air Room Air Room Air 12/26/19 12/26/19 08:07 10:16 Temp 98.2 98.2 Pulse 91 Resp 15 B/P (MAP) 93/45 (61) Pulse Ox 95 90 O2 Delivery Room Air Room Air Intake and Output 12/25/19 12/25/19 12/26/19 15:00 23:00 07:00 Intake Total 10 ml 200 ml 310 ml Balance 10 ml 200 ml 310 ml Justicifation of Admission Dx: Justifications for Admission: Justification of Admission Dx: Yes LYLE ELENA MD Dec 26, 2019 11:38
--- NOTE | 2019-12-26 13:01 | PDOC ---
DATE OF SERVICE DATE: 12/26/19 TIME: 12:59 SUBJECTIVE ROS States feeling better and may be going home today OBJECTIVE Vital Signs Vital Signs Date Time Temp Pulse Resp B/P (MAP) Pulse Ox O2 Delivery O2 Flow Rate FiO2 12/26/19 11:41 Room Air 12/26/19 10:16 98.2 91 15 93/45 (61) 90 98.2 I & 0 Intake and Output 12/26/19 07:00 Intake Total 520 ml Balance 520 ml Intake Oral 510 ml Blood Product IV Normal Saline Flush 10 ml PHYSICAL EXAM Physical Exam GENERAL: NAD , Obese HEENT: OM moist NECK: Supple, no JVP, no lymphadenopathy. LUNGS: Clear. HEART: S1, S2 regular. ABDOMEN: Obese, soft EXTREMITIES: No edema SKIN: No rash NEUROLOGIC: Alert, answers questions appropriately No Saldivar, No CVA or SP tenderness DIAGNOSIS/ASSESSMENT Assessment & Plan ESRD : on MWF schedule No indication for HD today Hematochezia- Recurrent melena, extensive GI spear as in HPI (per GI) Per GI GERD- - on PPI and Linzess Diverticulosis/ hemorrhoids S/p cholecystectomy, s/p ileal-jejunal bypass Hx of Thrombosed AV access: s/p Thrombolysis, left upper extremity AV graft , Treatment of outflow vein stenosis with angioplasty Fractured stent within the proximal outflow vein with subsequent significant narrowing following angioplasty treated with placement of a short segment covered stent on 08/10 Diabetes- primary managing . ANEMIA - Dialysis patients are mostly on IV Fe and CHASITY at there OP units based on Tsats, Hgb and Ferritin Hgb 7.9 on 12/24 HTN- BP stable DC per Primary/GI COMMENT/RELEVANT DATA Meds Current Medications Medications (Trade) Dose Ordered Sig/Noelle Start Time Stop Time Status Last Admin Dose Admin Acetaminophen (Tylenol) 650 mg PRN Q6HRS PRN 12/25/19 18:15 12/25/19 18:28 650 MG Albumin Human 200 ml @ 200 mls/hr 1X PRN PRN 12/25/19 08:15 12/25/19 14:14 DC Albuterol Sulfate (Ventolin Neb Soln) 2.5 mg RTQID 12/24/19 08:00 12/26/19 11:40 2.5 MG Atorvastatin Calcium (Lipitor) 80 mg QHS 12/24/19 21:00 12/25/19 21:25 80 MG Budesonide (Pulmicort) 0.5 mg RTBID 12/24/19 08:00 12/26/19 08:02 0.5 MG Calcitriol (Rocaltrol) 0.25 mcg DAILY 12/24/19 09:00 12/26/19 08:34 0.25 MCG Calcium Acetate (Phoslo) 667 mg TIDWMEALS 12/24/19 08:00 12/26/19 12:17 667 MG Dextrose (Dextrose 50%-Water Syringe) 12.5 gm PRN Q15MIN PRN 12/23/19 23:15 Diclofenac Sodium (Voltaren) 1 barbara PRN BID PRN 12/23/19 23:00 Dicyclomine HCl (Bentyl) 10 mg TID 12/24/19 09:00 12/26/19 08:35 10 MG Docusate Sodium (Colace Solution) 50 mg DAILY 12/24/19 09:00 12/26/19 08:35 50 MG Fluticasone Propionate (Flonase) 2 spray BID 12/24/19 09:00 12/26/19 08:35 2 SPRAY Gabapentin (Neurontin) 400 mg TID 12/24/19 09:00 12/26/19 08:34 400 MG Heparin Sodium (Porcine) (HEPARIN for NUC MED) 100 unit 1X ONCE 12/24/19 10:00 12/24/19 10:04 DC Info (PHARMACY MONITORING -- do not chart) 1 each PRN DAILY PRN 12/25/19 08:15 Insulin Human Lispro (HumaLOG) 0-5 UNITS TIDWMEALS 12/24/19 08:00 Lidocaine/ Prilocaine (Emla) 1 barbara 1X ONCE 12/23/19 23:15 12/23/19 23:16 DC Non-Formulary Medication (Albuterol Sulfate (Albuterol Sulfate Neb Soln)) 0.83 % TID PRN 12/23/19 23:00 UNV Non-Formulary Medication (Albuterol Sulfate (Proair Respiclick)) 2 puff PRN Q4-6HRS PRN 12/23/19 23:00 UNV Non-Formulary Medication (Budesonide/ Formoterol Fumarate (Symbicort 160-4.5 Mcg Inhaler)) 2 puff BID 12/24/19 09:00 UNV Ondansetron HCl (Zofran Odt) 8 mg PRN Q12HR PRN 12/23/19 23:00 Pantoprazole Sodium (Protonix) 40 mg DAILYAC 12/24/19 07:30 12/26/19 06:34 40 MG Sodium Bicarbonate (Sodium Bicarbonate) 1,300 mg BID 12/24/19 09:00 12/26/19 08:34 1,300 MG Sodium Chloride 1,000 ml @ 400 mls/hr Q2H30M PRN 12/25/19 08:15 12/25/19 20:14 DC Tizanidine HCl (Zanaflex) 4 mg TID 12/24/19 09:00 12/26/19 08:34 4 MG Triamcinolone Acetonide (Kenalog 0.1%) 1 barbara BID 12/24/19 09:00 12/24/19 21:00 1 BARBARA Vitamin B Complex/ Vitamin C (Steph-Neri) 1 tab DAILY 12/24/19 09:00 Cancel Vitamin D (Vitamin D3) 2,000 unit DAILY 12/24/19 09:00 12/26/19 08:34 2,000 UNIT Lab Laboratory Tests Test 12/25/19 17:00 12/25/19 20:51 12/26/19 07:24 12/26/19 11:23 Glucose (Fingerstick) 91 mg/dL (70-99) 139 mg/dL (70-99) 82 mg/dL (70-99) 105 mg/dL (70-99) Results All relevant outside records, renal labs, imaging studies, telemetry/EKG's were reviewed. Justicifation of Admission Dx: Justifications for Admission: Justification of Admission Dx: Yes BRIEN GIRALDO MD Dec 26, 2019 13:01
[2019-12-26 14:26] VITALS: BP 108/63
--- NOTE | 2019-12-26 16:04 | NUR ---
Discharge Note: SHLOMO LATIF [address] Discharge instructions and discharge home medications reviewed with Patient and a copy given. All questions have been answered and understanding verbalized. Instructions and handouts were given. Discontinued lines and Tele. Patient discharged to home self care.
--- NOTE | 2019-12-28 11:34 | PDOC ---
Provider Note Provider Note Discharge summary dictated.#[id number]. LYLE ELENA MD Dec 28, 2019 11:34
--- NOTE | 2019-12-28 12:40 | DS ---
DATE OF DISCHARGE: 12/26/2019 REASON FOR ADMISSION TO THE HOSPITAL: Lower GI bleed, diverticular bleed. CONSULTATIONS: 1. Dr. Cano, GI. 2. Dr. Zelaya, Renal. PROCEDURES DONE: 1. Hemodialysis. 2. Transfusion of 1 unit of packed RBC. 3. CT scan of the abdomen and pelvis. 4. GI bleeding scan. HOSPITAL COURSE: The patient is a 79-year-old female with history of renal failure, on hemodialysis. She was having blood per rectum for a couple of days and was admitted to the hospital, seen by GI. Last colon was 5 years ago, showed diverticulosis. The patient was seen by GI, had GI bleeding scan that was negative for active bleed. CT scan of the abdomen and pelvis shows diverticulosis. The patient was monitored with serial hemoglobin monitoring, hemoglobin dropped down to 7.9, was given 1 unit of packed RBC. On the whole, condition stabilized, she was tolerating clear liquid diet, advanced to soft diet and the patient was discharged. SIGNIFICANT LABORATORY DATA: Creatinine 4.7, she is on dialysis. Hemoglobin 10, went down to 7.9. The patient was discharged home. Follow up as outpatient. FINAL DIAGNOSES: 1. Lower gastrointestinal bleed secondary to diverticular bleed. The patient's last colonoscopy attempt was 2015, had barium enema in 2017 consistent with diverticulosis. 2. End-stage renal disease, on hemodialysis. 3. Hypertension. 4. Hyperlipidemia. 5. Diastolic heart failure. DISPOSITION: Home. DISCHARGE MEDICATIONS: See [facility]AD refer discharge medications. LYLE ELENA MD DR: SHIVANI/kimberly JOB#: [id number] / [id number]
== END 2019-12-26 16:03 | disposition home or self-care (01) | DRG 377 ==
LOC: ER 15:17 → 2 SOUTH 21:13 → OBSVTOIN 23:05
PROVIDERS: ADMIT Internal Medicine; ATTEND Internal Medicine
PROC: 5A1D70Z Performance of Urinary Filtration, Intermittent, Less than 6 Hours Per Day (ICD-10-PCS; principal; 2019-12-25)
PROC: 30233N1 Transfusion of Nonautologous Red Blood Cells into Peripheral Vein, Percutaneous Approach (ICD-10-PCS; 2019-12-25)
DX: K57.91 Diverticulosis of intestine, part unspecified, without perforation or abscess with bleeding (principal); N18.6 End stage renal disease; I13.2 Hypertensive heart and chronic kidney disease with heart failure and with stage 5 chronic kidney disease, or end stage renal disease; D64.9 Anemia, unspecified; E03.9 Hypothyroidism, unspecified; E11.22 Type 2 diabetes mellitus with diabetic chronic kidney disease; E66.9 Obesity, unspecified; E78.5 Hyperlipidemia, unspecified; G47.33 Obstructive sleep apnea (adult) (pediatric); G89.29 Other chronic pain; I25.10 Atherosclerotic heart disease of native coronary artery without angina pectoris; I50.9 Heart failure, unspecified; J44.9 Chronic obstructive pulmonary disease, unspecified; K21.9 Gastro-esophageal reflux disease without esophagitis; K59.09 Other constipation; K83.8 Other specified diseases of biliary tract; M79.7 Fibromyalgia; Z79.82 Long term (current) use of aspirin; Z80.9 Family history of malignant neoplasm, unspecified; Z82.49 Family history of ischemic heart disease and other diseases of the circulatory system; Z83.3 Family history of diabetes mellitus; Z87.11 Personal history of peptic ulcer disease; Z90.710 Acquired absence of both cervix and uterus; Z98.84 Bariatric surgery status; Z99.2 Dependence on renal dialysis; D50.9 Iron deficiency anemia, unspecified; E21.3 Hyperparathyroidism, unspecified; Z88.8 Allergy status to other drugs, medicaments and biological substances
CPT/HCPCS: 36415; 74176; 78278; 80048; 80053; 82962; 83540; 83550; 85025; 86850; 86870; 86900; 86901; 86902; 86922; 94640; 94760; 96374; A9560; G0378; G0379; J1815; P9016; 99285-25; J7613; J7626

== ENCOUNTER → 2020-05-04 | Outpatient (CLI) | payer BC ==
[~2020-05-04] MED LIST changes: +AMLO-187 PO; -AMLO10TA8 PO
--- NOTE | 2020-05-05 04:47 | KCIC ---
XR FOOT_RIGHT 3 VIEWS 05/04/2020 2:43 PM INDICATION: Closed fracture COMPARISON: None available. TECHNIQUE: None available FINDINGS/ IMPRESSION: 1. Transversely oriented fracture involving base of the fifth metatarsal with extension to the tarsom etatarsal joint. 2. 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 Vascular calcifications are identified . 3. Mild demineralization visualized osseous structures. 4. Posterior plantar calcaneal enthesophyte is identified. Electronically signed by: Melany Ruby MD (05/05/2020 4:44 AM) GEORGE
== END ==
LOC: KCIC 14:21
PROVIDERS: ATTEND Family Medicine
DX: S92.351D Displaced fracture of fifth metatarsal bone, right foot, subsequent encounter for fracture with routine healing (principal); M19.071 Primary osteoarthritis, right ankle and foot; I70.90 Unspecified atherosclerosis; M81.0 Age-related osteoporosis without current pathological fracture; X58.XXXD Exposure to other specified factors, subsequent encounter
CPT/HCPCS: 73630

== ENCOUNTER 2020-10-17 16:27 | Emergency (ER) | payer BC ==
[~2020-10-17] VITALS: Ht 160 cm; Wt 98.0 kg
[~2020-10-17 16:27] MED LIST changes: -CINA30TA2 PO; +CINA30TA24 PO; -LIDO30CR TP; +LIDO30CR2 TP; -LISI-334 PO; +LISI20TA18 PO; -OMEP40CA45 PO; +OMEP40CA7 PO
--- NOTE | 2020-10-17 16:58 | ED.ADGEN ---
Past Medical History Past Medical History: CAD, CHF, COPD, Diabetes-Type II, Diverticulitis, Diverticulosis, Fibromyalgia, GERD, Hypertension, Renal Failure, Other Additional Past Medical Histor: Neuropathy, sepsis Past Surgical History: Cholecystectomy, Hysterectomy, Other Additional Past Surgical Histo: shunt placement left forearm, gastric bypass Smoking Status: Never Smoker Alcohol Use: None Drug Use: None General Adult EDM: Chief Complaint: MECHANICAL FALL HPI: HPI: Patient is a 80 year old female coming in for two falls in the past 2 days. Karma prietopebbles states that 3 days ago while she was waiting for her daughter to pick her up from dialysis she had a syncopal episode when she was sitting down and fell forward onto the ground. Patient states she hit the top of her head and fell onto her left leg. Is also noted that she has been more fatigued and in bed most of the weekend between her Saturday dialysis. Patient states she usually is a little bit fatigued immediately following the but that resolves quickly. Patient states she was not concerned 3 days ago because she has had multiple episodes of passing out after dialysis and no worked up many times. Said it was abnormal to be so fatigued she was in bed all weekend. Denies any other injuries from the first fall other than the head injury in the left leg. Patient again today had a mechanical fall while leaving dialysis were she lost her footing because her shoes were not properly and fell forward and caught herself on her right hand. Complaining of right wrist pain that is not worse than her baseline arthritis pain. Review of Systems: Review of Systems: All other systems within normal limits except for as noted in the HPI Allergies: Allergies: Allergies Coded Allergies Type Severity Reaction Last Updated Verified NSAIDS (Non-Steroidal Anti-Inflamma Allergy Severe Swelling 03/31/19 Yes pregabalin Allergy Severe Swelling 03/31/19 Yes tramadol Allergy Severe Swelling 04/01/19 Yes Iodinated Contrast Media Allergy Intermediate ITCHING/HIVES 03/31/19 Yes Iodine and Iodide Containing Produc Allergy Intermediate ITCHING/HIVES 03/31/19 Yes ibuprofen Adverse Reaction Intermediate UPSET STOMACH 03/31/19 Yes Physical Exam: PE: Constitutional: Well developed, well nourished, no acute distress, non-toxic appearance. [] HENT: Normocephalic, atraumatic, bilateral external ears normal, nose normal. [] Eyes: PERRLA, conjunctiva normal, no discharge. [] Neck: No rigidity, supple, no stridor. [] Cardiovascular: Regular rate and rhythm, brisk cap refill [] Lungs & Thorax: Non labored symmetric respirations, no tachypnea or respiratory distress [] Abdomen: Soft, nondistended. Skin: Warm, dry, no erythema, no rash. [] Back: Unremarkable Extremities: No deformities, range of motion grossly intact, no lower extremity edema [] Neurologic: Alert and oriented X 3, no focal deficits noted. [] Psychologic: Affect normal, judgement normal, mood normal. [] Current Patient Data: Labs: Laboratory Tests Test 10/17/20 17:00 10/17/20 17:55 White Blood Count 5.1 x10^3/uL (4.0-11.0) Red Blood Count 4.02 x10^6/uL (3.50-5.40) Hemoglobin 12.1 g/dL (12.0-15.5) Hematocrit 38.2 % (36.0-47.0) Mean Corpuscular Volume 95 fL (79-100) Mean Corpuscular Hemoglobin 30 pg (25-35) Mean Corpuscular Hemoglobin Concent 32 g/dL (31-37) Red Cell Distribution Width 19.0 % (11.5-14.5) H Platelet Count 237 x10^3/uL (140-400) Neutrophils (%) (Auto) 58 % (31-73) Lymphocytes (%) (Auto) 28 % (24-48) Monocytes (%) (Auto) 10 % (0-9) H Eosinophils (%) (Auto) 4 % (0-3) H Basophils (%) (Auto) 1 % (0-3) Neutrophils # (Auto) 2.9 x10^3/uL (1.8-7.7) Lymphocytes # (Auto) 1.4 x10^3/uL (1.0-4.8) Monocytes # (Auto) 0.5 x10^3/uL (0.0-1.1) Eosinophils # (Auto) 0.2 x10^3/uL (0.0-0.7) Basophils # (Auto) 0.0 x10^3/uL (0.0-0.2) Sodium Level 150 mmol/L (136-145) H Potassium Level 4.5 mmol/L (3.5-5.1) Chloride Level 105 mmol/L (98-107) Carbon Dioxide Level 31 mmol/L (21-32) Anion Gap 14 (6-14) Blood Urea Nitrogen 30 mg/dL (7-20) H Creatinine 4.4 mg/dL (0.6-1.0) H Estimated GFR (Cockcroft-Gault) 11.7 BUN/Creatinine Ratio 7 (6-20) Glucose Level 101 mg/dL (70-99) H Calcium Level 8.9 mg/dL (8.5-10.1) Phosphorus Level 3.5 mg/dL (2.6-4.7) Magnesium Level 2.1 mg/dL (1.8-2.4) Total Bilirubin 0.2 mg/dL (0.2-1.0) Aspartate Amino Transferase (AST) 17 U/L (15-37) Alanine Aminotransferase (ALT) 22 U/L (14-59) Alkaline Phosphatase 86 U/L (46-116) Troponin I Quantitative < 0.017 ng/mL (0.000-0.055) MK-Ggm-I-Type Natriuretic Peptide 2621 pg/mL (0-449) H Total Protein 7.2 g/dL (6.4-8.2) Albumin 3.5 g/dL (3.4-5.0) Albumin/Globulin Ratio 0.9 (1.0-1.7) L Urine Collection Type U cath Urine Color Yellow Urine Clarity Clear Urine pH 6.0 (<5.0-8.0) Urine Specific [place] 1.020 (1.000-1.030) Urine Protein 30 mg/dL (NEG-TRACE) Urine Glucose (UA) Negative mg/dL (NEG) Urine Ketones (Stick) Negative mg/dL (NEG) Urine Blood Negative (NEG) Urine Nitrite Negative (NEG) Urine Bilirubin Negative (NEG) Urine Urobilinogen Dipstick 0.2 mg/dL (0.2 mg/dL) Urine Leukocyte Esterase Negative (NEG) Urine RBC 0 /HPF (0-2) Urine WBC Occ /HPF (0-4) Urine Bacteria 0 /HPF (0-FEW) Urine Mucus Mod /LPF Laboratory Tests 10/17/20 17:00 Laboratory Tests 10/17/20 17:00 Vital Signs: Vital Signs Date Time Temp Pulse Resp B/P (MAP) Pulse Ox O2 Delivery O2 Flow Rate FiO2 10/17/20 16:41 98.7 92 12 156/121 (133) 98 Room Air 98.7 EKG: EKG: Sinus rhythm, heart rate 87 bpm, one PVC, left axis deviation, borderline QT, no ST elevation or depression [] Heart Score: C/O Chest Pain: No Risk Factors: Risk Factors: DM, Current or recent (<one month) smoker, HTN, HLP, family h istory of CAD, obesity. Risk Scores: Score 0 - 3: 2.5% MACE over next 6 weeks - Discharge Home Score 4 - 6: 20.3% MACE over next 6 weeks - Admit for Clinical Observation Score 7 - 10: 72.7% MACE over next 6 weeks - Early Invasive Strategies Radiology/Procedures: Radiology/Procedures: [facility] [address] [place] [address] IMAGING REPORT Signed PATIENT: SHLOMO LATIF DACCOUNT: [id number] : 1940 LOCATION: ER AGE: 80 SEX: F EXAM STATUS: REG ER ORD. PHYSICIAN: JUAN R SMITH MD REASON: fall PROCEDURE: CT HEAD AND CERVICAL SPINE WO Exam: CT head and cervical spine INDICATION: Fall TECHNIQUE: Sequential axial images through the head and cervical spine were obtained without the administration of IV contrast. Exposure: One or more of the following in the visualized dose reduction techniques were utilized for this examination: 1. Automated exposure control 2. Adjustment of the MA and/or KV according to patient size 3. Use of iterative of reconstructive technique Comparisons: None FINDINGS: Head: No focal parenchymal lesion or hemorrhage is identified. There is no midline shift or sulcal effacement. Mild patchy evidence in the periventricular white matter, similar to prior exam. No acute vascular territory infarction is identified. Rasmussen-white distinction is preserved. The ventricular system is within normal limits without compression hydrocephalus. The basal cisterns are well maintained. The visualized portions of the paranasal sinuses and mastoid air cells are well- pneumatized. No acute fractures. Cervical spine: Vertebral body heights and alignment are well-maintained. Fracture to the cervical spine is not identified. Multilevel spondylotic change in cervical spine with degenerative disc disease greatest at C4-C5. Mild bilateral facet arthropathy in cervical spine. Visualized paraspinal soft tissues are unremarkable. IMPRESSION: 1. No acute intracranial abnormality. 2. Negative CT C-spine for acute traumatic injury. Electronically signed by: Tu Velázquez MD (10/17/2020 5:31 PM) [facility] DICTATED and SIGNED BY: TU VELÁZQUEZ MD DATE: 10/17/20 [id number] [] Course & Med Decision Making: Course & Med Decision Making Work-up so far unremarkable except for mild hypernatremia. Patient has a history of chronic UTIs and is on long-term antibiotic prophylaxis. Pending straight cath for urinalysis at shift change. Care transition to Dr. Hewitt. Assumed care at shift change-- disposition pending UA. UA resulted-- no acute abnormalities. CT head negative. Patient discharged home. Dragon Disclaimer: Dragon Disclaimer: This electronic medical record was generated, in whole or in part, using a voice recognition dictation system. Departure Departure Impression: Primary Impression: Fatigue Additional Impression: Fall Disposition: 01 HOME / SELF CARE / HOMELESS Condition: STABLE Referrals: Олег SWEET MD (PCP) Patient Instructions: Fall Prevention and Home Safety, Fatigue Problem Qualifiers JUAN R SMITH MD Oct 17, 2020 16:58 SAMANTHA HEWITT DO Oct 17, 2020 18:35
--- NOTE | 2020-10-17 17:03 | EKG ---
[facility] [address] [place] [address] Test Date: 2020-10-17 Test Time: 16:48:12 Pat Name: SHLOMO LATIF Department: Room: Gender: F Sheet [employer] Smith: : 1940 Requested By: JUAN R SMITH Order Number: [id number] Reading MD: Measurements Intervals [place] Rate: 87 P: 0 MO: 216 QRS: -16 QRSD: 88 T: 62 QT: 392 QTc: 472 Interpretive Statements SINUS RHYTHM VENTRICULAR PREMATURE COMPLEX(ES) PROLONGED MO INTERVAL LEFTWARD AXIS PROLONGED QT ABNORMAL ECG RI6.02 No previous ECG available for comparison
[2020-10-17 17:18] LABS: BASO % 1 % (0-3); EOS # 0.2 x10^3/uL (0.0-0.7); EOS % 4 % (0-3); HEMATOCRIT 38.2 % (36.0-47.0); HEMOGLOBIN 12.1 g/dL (12.0-15.5); LYMPH # 1.4 x10^3/uL (1.0-4.8); LYMPH % 28 % (24-48); MEAN CORPUSCULAR HEMOGLOBIN 30 pg (25-35); MEAN CORPUSCULAR HGB CONC 32 g/dL (31-37); MEAN CORPUSCULAR VOLUME 95 fL (79-100); MONO # 0.5 x10^3/uL (0.0-1.1); MONO % 10 % (0-9); NEUT # 2.9 x10^3/uL (1.8-7.7); NEUT % 58 % (31-73); PLATELET COUNT 237 x10^3/uL (140-400); RED BLOOD COUNT 4.02 x10^6/uL (3.50-5.40); WHITE BLOOD COUNT 5.1 x10^3/uL (4.0-11.0)
[2020-10-17 17:29] LABS: CALCIUM 8.9 mg/dL (8.5-10.1); CREATININE 4.4 mg/dL (0.6-1.0); GFR 11.7; POTASSIUM 4.5 mmol/L (3.5-5.1)
[2020-10-17 17:32] LABS: ALBUMIN 3.5 g/dL (3.4-5.0); ALBUMIN/GLOBULIN RATIO 0.9 (1.0-1.7); MAGNESIUM 2.1 mg/dL (1.8-2.4); PHOSPHORUS 3.5 mg/dL (2.6-4.7); TOTAL BILIRUBIN 0.2 mg/dL (0.2-1.0); TOTAL PROTEIN 7.2 g/dL (6.4-8.2)
--- NOTE | 2020-10-17 17:34 | RAD ---
Exam: CT head and cervical spine INDICATION: Fall TECHNIQUE: Sequential axial images through the head and cervical spine were obtained without the admi nistration of IV contrast. Exposure: One or more of the following in the visualized dose reduction techniques were utilized for this examination: 1. Automated exposure control 2. Adjustment of the MA and/or KV according to patient size 3. Use of iterative of reconstructive technique Comparisons: None FINDINGS: Head: No focal parenchymal lesion or hemorrhage is identified. There is no midline shift or sulcal effaceme nt. Mild patchy evidence in the periventricular white matter, similar to prior exam. No acute vascular te rritory infarction is identified. Rasmussen-white distinction is preserved. The ventricular system is within normal limits without compression hydrocephalus. The basal cisterns are well maintained. The visualized portions of the paranasal sinuses and mastoid air cells are well-pneumatized. No acute fractures. Cervical spine: Vertebral body heights and alignment are well-maintained. Fracture to the cervical spine is not identified. Multilevel spondylotic change in cervical spine with degenerative disc disease greatest at C4-C5. Mil d bilateral facet arthropathy in cervical spine. Visualized paraspinal soft tissues are unremarkable. IMPRESSION: 1. No acute intracranial abnormality. 2. Negative CT C-spine for acute traumatic injury. Electronically signed by: Tu Langford MD (10/17/2020 5:31 PM) [facility]
[2020-10-17 18:13] LABS: BILIRUBIN,URINE NEGATIVE (NEG); CLARITY,URINE CLEAR; COLOR,URINE YELLOW; NITRITE,URINE NEGATIVE (NEG); PROTEIN,URINE 30 mg/dL (NEG-TRACE); UROBILINOGEN,URINE 0.2 mg/dL (0.2 mg/dL)
[2020-10-17 18:15] VITALS: BP 156/89
[2020-10-17 18:21] LABS: BACTERIA,URINE 0 /HPF (0-FEW); RBC,URINE 0 /HPF (0-2); WBC,URINE OCC /HPF (0-4)
== END 2020-10-17 18:51 | disposition home or self-care (01) ==
LOC: ER 16:27
DX: R53.83 Other fatigue (principal); M25.531 Pain in right wrist; G89.11 Acute pain due to trauma; E11.22 Type 2 diabetes mellitus with diabetic chronic kidney disease; I13.0 Hypertensive heart and chronic kidney disease with heart failure and stage 1 through stage 4 chronic kidney disease, or unspecified chronic kidney disease; N18.9 Chronic kidney disease, unspecified; I50.9 Heart failure, unspecified; E11.40 Type 2 diabetes mellitus with diabetic neuropathy, unspecified; J44.9 Chronic obstructive pulmonary disease, unspecified; K21.9 Gastro-esophageal reflux disease without esophagitis; I25.10 Atherosclerotic heart disease of native coronary artery without angina pectoris; Z90.49 Acquired absence of other specified parts of digestive tract; Z90.710 Acquired absence of both cervix and uterus; Z99.2 Dependence on renal dialysis; W18.39XA Other fall on same level, initial encounter; Y93.89 Activity, other specified; Y92.89 Other specified places as the place of occurrence of the external cause; Y99.8 Other external cause status
CPT/HCPCS: 36415; 70450; 72125; 80053; 81001; 83735; 83880; 84100; 84484; 85025; 93005; 99285-25